=== PATIENT | female | born 1950 | race Caucasian/White ===

== ENCOUNTER 2018-11-05 13:27 | Observation (INO) | payer BC, OTHER ==
--- OUTSIDE RECORDS SUMMARY | 2018-11-05 13:29 | XMS REPORT ---
:1950 [facility] Address [address] [place] [address] [address]. [address] [place] [address] Care Team Providers Name Role Phone Unavailable Unavailable Unavailable Problems This patient has no known problems. Allergies, Adverse Reactions, Alerts This patient has no known allergies or adverse reactions. Medications This patient has no known medications.
--- NOTE | 2018-11-05 14:13 | RAD REPORT ---
EXAM DESCRIPTION: RAD - Chest Single View - 11/05/2018 2:04 pm CLINICAL HISTORY: CHEST PAIN Chest pain. COMPARISON: CHEST PA AND LAT 2 VIEW dated 06/19/2012 FINDINGS: Portable technique limits examination quality. The lungs are grossly clear. The heart is normal in size. No displaced fractures. IMPRESSION: No acute intrathoracic process suspected.
[2018-11-05 14:24] LABS: Protime INR 0.92
[2018-11-05 14:25] LABS: Absolute Lymphocytes (CBC) 1.8 K/uL (0.7-4.9); Absolute Monocytes 0.5 K/uL (0.1-1.3); Absolute Neutrophil 3.7 K/uL (1.8-8.0); Basophils % 1.1 % (0-1.3); Eosinophils % 2.9 % (0-4.4); Hematocrit 39.6 % (36.0-45.0); Lymphocytes % 28.2 % (15.3-44.8); MPV 8.6 fL (7.6-11.3); Monocytes % 8.3 % (3.3-12.3); RBC Red Blood Cell Count 4.61 M/uL (3.86-4.86)
[2018-11-05 14:37] LABS: ALT/SGPT 29 U/L (12-78); AST/SGOT 13 U/L (15-37); Albumin 3.5 g/dL (3.4-5.0); Alkaline Phosphatase 77 U/L (45-117); BUN Blood Urea Nitrogen 23 mg/dL (7-18); Bicarbonate 24 mmol/L (21-32); Bilirubin Direct < 0.1 mg/dL (0-0.2); Bilirubin Total 0.3 mg/dL (0.2-1.0); Glucose Level 135 mg/dL (74-106); NT PRO-BNP 137 pg/mL (<125); Potassium 3.8 mmol/L (3.5-5.1); Protein, Total 7.1 g/dL (6.4-8.2); Sodium Level 140 mmol/L (136-145); Troponin (Emerg Dept Use Only) < 0.02 ng/mL (0.0-0.045)
--- NOTE | 2018-11-05 15:03 | RAD REPORT ---
EXAM DESCRIPTION: CT - Head Brain Wo Cont - 11/05/2018 2:57 pm CLINICAL HISTORY: HEADACHE COMPARISON: No comparisons TECHNIQUE: All CT scans are performed using dose optimization technique as appropriate and may inclu de automated exposure control or mA/KV adjustment according to patient size. FINDINGS: No intracranial hemorrhage, hydrocephalus or extra-axial fluid collection.No areas of brai n edema or evidence of midline shift. The paranasal sinuses and mastoids are clear. The calvarium is intact. IMPRESSION: No acute intracranial abnormality.
[2018-11-05] MEDS ORDERED: PROMETHAZINE 25 MG/ML VIAL ONE (15:45)
[2018-11-05] MEDS ORDERED: FAMOTIDINE 20 MG/2 ML VIAL IV ONE (15:46)
[2018-11-05] MEDS ORDERED: MORPHINE 4 MG/ML SYR ONE (15:46)
--- NOTE | 2018-11-05 15:58 | EKG ---
Test Date: 2018-11-05 Test Time: 13:55:56 Outreach Consultant: KASANDRA MEASUREMENT RESULTS: Intervals: Rate: 68 MO: 148 QRSD: 88 QT: 426 QTc: 452 [place]: P: 53 MO: 148 QRS: 4 T: 56 INTERPRETIVE STATEMENTS: Normal sinus rhythm Normal ECG No previous ECG available for comparison Electronically Signed On 11-05-18 15:57:44 LABEL DESIGNER by Bernabe Zapata
--- NOTE | 2018-11-05 17:11 | ER ---
Nurse's Notes [facility] Name: Cherrie Diane Age: 68 yrs Sex: Female : 1950 Arrival Date: 11/05/2018 Time: 13:31 Bed 6 Private MD: Diagnosis: Chest pain, unspecified;Headache Presentation: 11/05 13:31 Presenting complaint: Patient states: headache and nausea today. Pt also reports chest aa5 pressure and left arm numbness and pain that began SUPERVISOR KENNEL. 13:31 Transition of care: patient was not received from another setting of care. Onset of aa5 symptoms was November 05, 2018. Risk Assessment: Do you want to hurt yourself or someone else? Patient reports no desire to harm self or others. Initial Sepsis Screen: Does the patient meet any 2 criteria? No. Patient's initial sepsis screen is negative. Does the patient have a suspected source of infection? No. Patient's initial sepsis screen is negative. Care prior to arrival: Medication(s) given: ASA, 81 mg, x 4, Nitroglycerin, 0.4 mg SL x 1. 13:31 Method Of Arrival: EMS: [facility] aa5 13:31 Acuity: MORIS 2 aa5 Historical: - Allergies: 13:32 Stadol; aa5 13:32 OPIOID ANALGESICS; aa5 13:32 Levaquin; aa5 13:32 Sulfa (Sulfonamide Antibiotics); aa5 - Home Meds: 13:32 mesalamine oral 800mg oral [Active]; Estradiol Oral [Active]; Ventolin Nebulizer aa5 [Active]; Omeprazole Oral [Active]; - PMHx: 13:32 None; aa5 - PSHx: 13:32 pippa knees; Hysterectomy; aa5 - Social history:: Smoking status: Patient/guardian denies using tobacco. - Ebola Screening: : No symptoms or risks identified at this time. Screenin:47 Abuse screen: Denies threats or abuse. Nutritional screening: No deficits noted. aa5 Tuberculosis screening: No symptoms or risk factors identified. Fall Risk None identified. Assessment: 13:32 General: Appears comfortable, Behavior is calm, cooperative. Pain: Complains of pain in aa5 anterior aspect of right upper chest, anterior aspect of left upper chest and mid-sternal area, and left arm Pain does not radiate. Pain currently is 7 out of 10 on a pain scale. Quality of pain is described as pressure, numb, Pain began today after 1200 Is continuous. Neuro: Level of Consciousness is awake, alert, obeys commands, Oriented to person, place, time, situation, Atg Architect are equal bilaterally Moves all extremities. Speech is normal, Facial symmetry appears normal, Pupils are PERRLA, Reports headache numbness in left arm. Cardiovascular: Heart tones S1 S2 present Rhythm is sinus rhythm. Respiratory: Airway is patent Respiratory effort is even, unlabored, Respiratory pattern is regular, symmetrical, Breath sounds are clear bilaterally. Denies cough, shortness of breath. GI: Abdomen is round non-distended, Bowel sounds present X 4 quads. Abd is soft and non tender X 4 quads. Reports nausea, Patient currently denies vomiting. : No signs and/or symptoms were reported regarding the genitourinary system. EENT: Denies nasal congestion, nasal discharge. Derm: Skin is pink, warm \T\ dry. Musculoskeletal: Range of motion: intact in all extremities. 15:15 Reassessment: Patient is alert, oriented x 3, equal unlabored respirations, skin aa5 warm/dry/pink. Pt denies chest pressure, denies left arm numbness. Pt c/o headache, reports headache has not improved, rates headache 7/10 on a pain scale at this time. Awaiting disposition at this time. . 16:01 Reassessment: Patient is alert, oriented x 3, equal unlabored respirations, skin aa5 warm/dry/pink. Patient states feeling better. Dr. Christianson notified and VO for repeat troponin received. . 17:30 Reassessment: Patient and/or family updated on plan of care and expected duration. Pain aa5 level reassessed. Patient is alert, oriented x 3, equal unlabored respirations, skin warm/dry/pink. Patient denies pain at this time. Dr. Silvestre (Hospitalist at bedside) . 17:45 Reassessment: Patient is alert, oriented x 3, equal unlabored respirations, skin aa5 warm/dry/pink. Spoke to MRI, MRI states approximately 3 hour wait time for pt's MRI to be completed, pt was notified of wait time. . 18:15 Reassessment: Pt requesting food at this time, notified and states it's okay for aa5 patient to eat at this time. Pt now sitting up in bed eating, pt tolerating well. Awaiting room assignment, awaiting MRI. . 19:40 Reassessment: Dr. Medina, principal. ([phone]) WORK cell. tl2 19:47 Reassessment: report called to Rekha GRULLON for room 206. bb Vital Signs: 13:32 BP 152 / 78; Pulse 66; Resp 18 S; Temp 98.0(O); Pulse Ox 95% on 2 lpm NC; Weight 90.72 aa5 kg (R); Height 5 ft. 6 in. (167.64 cm) (R); Pain 7/10; 14:30 BP 127 / 66; Pulse 65; Resp 16 S; Pulse Ox 97% on 2 lpm NC; aa5 15:28 BP 127 / 67; Pulse 88; Resp 18; Pulse Ox 97% on 2 lpm NC; jb1 16:01 BP 147 / 70; Pulse 64; Resp 16 S; Temp 98.6(O); Pulse Ox 98% on 2 lpm NC; Pain 0/10; aa5 18:00 BP 145 / 78; Pulse 64; Resp 16 S; Pulse Ox 95% on 2 lpm NC; aa5 19:10 BP 129 / 68; Pulse 60; Resp 17; Pulse Ox 98% 2 lpm ; rr5 13:32 Body Mass Index 32.28 (90.72 kg, 167.64 cm) aa5 ED Course: 13:31 Patient arrived in ED. em1 13:31 Arm band placed on Patient placed in an exam room, on a stretcher. aa5 13:31 Patient has correct armband on for positive identification. Placed in gown. Bed in low aa5 position. Call light in reach. Side rails up X2. 13:31 Pulse ox on. NIBP on. aa5 13:34 Tracey Lainez, MITCHEL is Primary Nurse. aa5 13:38 Cuong Christianson MD is Attending Physician. kdr 13:42 Triage completed. aa5 13:47 No provider procedures requiring assistance completed. Patient maintains SpO2 aa5 saturation greater than 95% on room air. 14:02 X-ray completed. Portable x-ray completed in exam room. Patient tolerated procedure jb2 well. 14:04 EKG done, by vehicle technician. reviewed by Cuong Christianson MD. at1 14:05 XRAY Chest (1 view) In Process Unspecified. EDMS 14:56 CT completed. Patient tolerated procedure well. Patient moved to CT via stretcher. sj Patient moved back from CT. 14:56 CT Head Brain wo Cont In Process Unspecified. EDMS 17:08 Turner Silvestre DO is Hospitalizing Provider. kdr 19:09 Report given to Diogo, RN and Lucia RN. aa5 19:48 Patient admitted, IV remains in place. bb Administered Medications: 14:14 Drug: Tylenol 1000 mg Route: PO; aa5 15:51 Follow up: Response: No adverse reaction bp 15:40 Drug: morphine 4 mg Route: IVP; Site: right antecubital; bp 16:00 Follow up: Response: No adverse reaction; Pain is decreased aa5 15:40 Drug: Phenergan 12.5 mg Route: IVP; Site: right antecubital; bp 16:00 Follow up: Response: No adverse reaction aa5 15:40 Drug: Pepcid 20 mg Route: IVP; Site: right antecubital; bp 16:00 Follow up: Response: No adverse reaction aa5 Outcome: 17:10 Decision to Hospitalize by Provider. kdr 19:48 Admitted to Tele accompanied by tech, via wheelchair, room 206, with chart, Report bb called to Rekha GRULLON 19:48 Condition: stable 20:07 Patient left the ED. rr5 Signatures: Dispatcher [employer] EDMS Carlos Newsome jb1 Cuong Christianson MD MD [facility] Ap Jackson jb2 Shilpa Powell Brenda, RN RN bb Jason Leonardo em1 Tracey Lainez RN RN aa5 Marisela Wu, foreman/project manager EKG Tat1 Lucia Campbell, RN RN tl2 Ponce Nicole, MITCHEL RN Diogo Cantrell, RN RN rr5 Corrections: (The following items were deleted from the chart) 16:08 16:01 BP 147 / 70; Pulse 64bpm; Resp 16bpm; Spontaneous; Pulse Ox 98% 2 lpm Nasal aa5 Cannula; aa5
--- NOTE | 2018-11-05 17:12 | EDPHYS ---
Physician Documentation [facility] Name: Cherrie Diane Age: 68 yrs Sex: Female : 1950 Arrival Date: 11/05/2018 Time: 13:31 Bed 6 Private MD: ED Physician Cuong Christianson HPI: 11/05 17:10 This 68 yrs old Female presents to ER via EMS with complaints of Chest Pain, kdr Arm Pain. 17:10 The patient or guardian reports chest pain that is located primarily in the anterior kdr chest wall, bilaterally, chest diffusely. Onset: suddenly, just prior to arrival, today. The pain radiates to the left arm, the left shoulder, left neck. Associated signs and symptoms: Pertinent positives: diaphoresis, headache, nausea, Pertinent negatives: dizziness, shortness of breath, vomiting. The chest pain is described as aching, dull, a heaviness, a pressure. Duration: The patient or guardian reports multiple episodes, that are intermittent, that wax and wane, with no pattern, Nearly resolved now. Modifying factors: The symptoms are alleviated by nothing. the symptoms are aggravated by nothing. Historical: - Allergies: 13:32 Stadol; aa5 13:32 OPIOID ANALGESICS; aa5 13:32 Levaquin; aa5 13:32 Sulfa (Sulfonamide Antibiotics); aa5 - Home Meds: 13:32 mesalamine oral 800mg oral [Active]; Estradiol Oral [Active]; Ventolin Nebulizer aa5 [Active]; Omeprazole Oral [Active]; - PMHx: 13:32 None; aa5 - PSHx: 13:32 pippa knees; Hysterectomy; aa5 - Social history:: Smoking status: Patient/guardian denies using tobacco. - Ebola Screening: : No symptoms or risks identified at this time. ROS: 11/06 07:27 Constitutional: Negative for fever, chills, and weight loss, Eyes: Negative for injury, kdr pain, redness, and discharge, ENT: Negative for injury, pain, and discharge, Neck: Negative for injury, pain, and swelling, Respiratory: Negative for shortness of breath, cough, wheezing, and pleuritic chest pain, Abdomen/GI: Negative for abdominal pain, nausea, vomiting, diarrhea, and constipation, Back: Negative for injury and pain, : Negative for injury, bleeding, discharge, and swelling, MS/Extremity: Negative for injury and deformity, Skin: Negative for injury, rash, and discoloration, Psych: Negative for depression, anxiety, suicide ideation, homicidal ideation, and hallucinations, Allergy/Immunology: Negative for hives, rash, and allergies, Endocrine: Negative for neck swelling, polydipsia, polyuria, polyphagia, and marked weight changes, Hematologic/Lymphatic: Negative for swollen nodes, abnormal bleeding, and unusual bruising. Cardiovascular: Positive for chest pain, Chest pain radiates into neck and head causing an associated BRAY. Neuro: Positive for headache, Negative for altered mental status, dizziness, gait disturbance, hearing loss, numbness, seizure activity, speech changes, syncope, near syncope, tingling, tinnitus, tremor, visual changes, weakness. Exam: 07:27 Constitutional: This is a well developed, well nourished patient who is awake, alert, kdr and in no acute distress. Head/Face: Normocephalic, atraumatic. Eyes: Pupils equal round and reactive to light, extra-ocular motions intact. Lids and lashes normal. Conjunctiva and sclera are non-icteric and not injected. Cornea within normal limits. Periorbital areas with no swelling, redness, or edema. Neck: Trachea midline, no thyromegaly or masses palpated, and no cervical lymphadenopathy. Supple, full range of motion without nuchal rigidity, or vertebral point tenderness. No Meningismus. Chest/axilla: Normal chest wall appearance and motion. Nontender with no deformity. No lesions are appreciated. Cardiovascular: Regular rate and rhythm with a normal S1 and S2. No gallops, murmurs, or rubs. Normal PMI, no JVD. No pulse deficits. Respiratory: Lungs have equal breath sounds bilaterally, clear to auscultation and percussion. No rales, rhonchi or wheezes noted. No increased work of breathing, no retractions or nasal flaring. Abdomen/GI: Soft, non-tender, with normal bowel sounds. No distension or tympany. No guarding or rebound. No evidence of tenderness throughout. Back: No spinal tenderness. No costovertebral tenderness. Full range of motion. Skin: Warm, dry with normal turgor. Normal color with no rashes, no lesions, and no evidence of cellulitis. MS/ Extremity: Pulses equal, no cyanosis. Neurovascular intact. Full, normal range of motion. Neuro: Awake and alert, GCS 15, oriented to person, place, time, and situation. Cranial nerves II-XII grossly intact. Motor strength 5/5 in all extremities. Sensory grossly intact. Cerebellar exam normal. Normal gait. Psych: Awake, alert, with orientation to person, place and time. Behavior, mood, and affect are within normal limits. Vital Signs: 11/05 13:32 BP 152 / 78; Pulse 66; Resp 18 S; Temp 98.0(O); Pulse Ox 95% on 2 lpm NC; Weight 90.72 aa5 kg (R); Height 5 ft. 6 in. (167.64 cm) (R); Pain 7/10; 14:30 BP 127 / 66; Pulse 65; Resp 16 S; Pulse Ox 97% on 2 lpm NC; aa5 15:28 BP 127 / 67; Pulse 88; Resp 18; Pulse Ox 97% on 2 lpm NC; jb1 16:01 BP 147 / 70; Pulse 64; Resp 16 S; Temp 98.6(O); Pulse Ox 98% on 2 lpm NC; Pain 0/10; aa5 18:00 BP 145 / 78; Pulse 64; Resp 16 S; Pulse Ox 95% on 2 lpm NC; aa5 19:10 BP 129 / 68; Pulse 60; Resp 17; Pulse Ox 98% 2 lpm ; rr5 13:32 Body Mass Index 32.28 (90.72 kg, 167.64 cm) aa5 MDM: 17:10 Patient medically screened. [facility] [address] 11/06 07:27 Data reviewed: vital signs, nurses notes, lab test result(s), EKG, radiologic studies. [facility] [address] ED course: The patient has continued to have mild CP but with marked improvement of the BRAY component. Since she has not had a cardiac w/u and her s/s continue to the suspicious, will admit for r/o. 11/05 13:38 Order name: Basic Metabolic Panel; Complete Time: 15:27 kdr 11/05 13:38 Order name: CBC with Diff; Complete Time: 15:27 kdr 11/05 13:38 Order name: LFT's; Complete Time: 15:27 [facility] [address] 11/05 13:38 Order name: Magnesium; Complete Time: 15:27 [facility] [address] 11/05 13:38 Order name: NT PRO-BNP; Complete Time: 15:27 kdr 11/05 13:38 Order name: PT-INR; Complete Time: 15:27 kdr 11/05 13:38 Order name: Troponin (emerg Dept Use Only); Complete Time: 15:27 kdr 11/05 13:38 Order name: XRAY Chest (1 view); Complete Time: 15:27 kdr 11/05 14:42 Order name: CT Head Brain wo Cont; Complete Time: 15:27 kdr 11/05 15:49 Order name: Urine Dipstick--Ancillary (enter results) em1 11/05 16:10 Order name: Troponin (emerg Dept Use Only); Complete Time: 16:55 aa5 11/05 17:05 Order name: MRI Stroke Protocol kdr 11/05 13:38 Order name: EKG; Complete Time: 13:39 kdr 11/05 13:38 Order name: Cardiac monitoring; Complete Time: 14:14 kdr 11/05 13:38 Order name: EKG - Nurse/Tech; Complete Time: 14:14 kdr 11/05 13:38 Order name: IV Saline Lock; Complete Time: 14:14 kdr 11/05 13:38 Order name: Labs collected and sent; Complete Time: 14:14 kdr 11/05 13:38 Order name: O2 Per Protocol; Complete Time: 14:14 kdr 11/05 13:38 Order name: O2 Sat Monitoring; Complete Time: 14:14 kdr Administered Medications: 11/05 14:14 Drug: Tylenol 1000 mg Route: PO; aa5 15:51 Follow up: Response: No adverse reaction bp 15:40 Drug: morphine 4 mg Route: IVP; Site: right antecubital; bp 16:00 Follow up: Response: No adverse reaction; Pain is decreased aa5 15:40 Drug: Phenergan 12.5 mg Route: IVP; Site: right antecubital; bp 16:00 Follow up: Response: No adverse reaction aa5 15:40 Drug: Pepcid 20 mg Route: IVP; Site: right antecubital; bp 16:00 Follow up: Response: No adverse reaction aa5 Disposition: 11/05/18 17:10 Hospitalization ordered by Turner Silvestre for Observation. Preliminary diagnosis are Chest pain, unspecified, Headache. - Bed requested for Telemetry/MedSurg (observation). - Status is Observation. rr5 - Condition is Fair. - Problem is new. - Symptoms have improved. UTI on Admission? No Signatures: Dispatcher [employer] EDMS Cuong Christianson MD MD kdr Martinez, Eric em1 Tracey Lainez, RN RN aa5 Ponce Nicole, RN RN bp Diogo Portillo RN RN rr5 Corrections: (The following items were deleted from the chart) 18:43 17:10 Hospitalization Ordered by Turner Silvestre DO for Observation. Preliminary em1 diagnosis is Chest pain, unspecified; Headache. Bed requested for Telemetry/MedSurg (observation). Status is Observation. Condition is Fair. Problem is new. Symptoms have improved. UTI on Admission? No. kdr 20:07 18:43 11/05/2018 17:10 Hospitalization Ordered by Turner Silvestre DO for Observation. rr5 Preliminary diagnosis is Chest pain, unspecified; Headache. Bed requested for Telemetry/MedSurg (observation). Status is Observation. Condition is Fair. Problem is new. Symptoms have improved. UTI on Admission? No. em1
--- NOTE | 2018-11-05 17:49 | P.HP ---
Certification for Inpatient Patient admitted to: Observation With expected LOS: <2 Midnights Patient will require the following post-hospital care: None Practitioner: I am a practitioner with admitting privileges, knowledge of patient current condition, hospital course, and medical plan of care. Services: Services provided to patient in accordance with Admission requirements found in Title 42 Section 412.3 of the Code of Federal Regulations Patient History Date of Service: 11/05/18 Primary Care Provider: Dr. De La Torre([facility]) Reason for admission: Chest pain, headache History of Present Illness: 68-year-old female presented to the emergency room with chest pain and headache. Patient was at work when she started to have a severe headache mainly to the left side. It radiated near her left ear and radiated down to the neck and left arm. She rated the pain about a 8/10. It was sensitive to light and noise. During that time she reported some chest pain to the anterior region with some tightness and shortness of breath. She is brought in to the ER for further evaluation. In the ER she was without any significant chest pain. She was given morphine and Phenergan. EKG showed no significant EKG changes. Troponin unremarkable x2. BNP at 137. BUN of 23, creatinine 1.28 with a GFR 51. Glucose 135. CT of the head unremarkable. Chest x-ray unremarkable. Due to her complaints the patient was admitted for further evaluation. When I saw the patient ER, she appeared stress. She did not appear septic. Friend was at bedside. Headache had improved. No more chest pain noted. Patient denies any significant hypertension, diabetes or prior cardiac issues. She reports a history of colitis and takes medication for this. Otherwise she does not smoke. She drinks on occasion. She is under a lot of stress as her partner recently was hospitalized. 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 She has 2 children. 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 - Family History Father -: Cancer Mother -: Other (see notes) (CHF) - Social History Smoking Status: Never smoker Alcohol use: Yes CD- Drugs: No Caffeine use: Yes Place of Residence: Home Review of Systems General: As per HPI Eyes: Unremarkable ENT: Unremarkable Respiratory: Shortness of Breath, As per HPI Cardiovascular: Chest Pain, Light Headedness, As per HPI Gastrointestinal: Unremarkable Genitourinary: Unremarkable Musculoskeletal: Unremarkable Integumentary: Unremarkable Neurological: As per HPI Lymphatics: Unremarkable Physical Examination - Physical Exam General: Alert, In no apparent distress, Oriented x3, Cooperative HEENT: Atraumatic, Normocephalic, PERRLA, Other (Mucous membranes) Neck: Supple, No Thyromegaly Respiratory: Clear to auscultation bilaterally, Normal air movement Cardiovascular: Normal pulses, Regular rate/rhythm Gastrointestinal: Normal bowel sounds, Soft and benign, Non-distended, No tenderness, No masses, No rebound, No guarding Musculoskeletal: No erythema, No tenderness, No warmth Integumentary: No tenderness/swelling, No erythema, No warmth, No cyanosis Neurological: Normal speech, Normal strength at 5/5 x4 extr, Normal tone, Abnormal affect (Patient appears mildly stressed) - Studies Laboratory Data (last 24 hrs) 11/05/18 13:40: PT 10.9, INR 0.92 11/05/18 13:40: WBC 6.3, Hgb 13.4, Hct 39.6, Plt Count 277 11/05/18 13:40: Sodium 140, Potassium 3.8, BUN 23 H, Creatinine 1.08, Glucose 135 H, Magnesium 2.0, Total Bilirubin 0.3, AST 13 L, ALT 29, Alkaline Phosphatase 77 Assessment and Plan - Plan Impression: Atypical chest pain Severe headache likely migraine type verses tension headache Increased stress Mild dehydration Plan: Patient will be admitted for further evaluation. Will continue to monitor cardiac enzymes and telemetry. So far cardiac enzymes x2 negative. Will order echocardiogram to further evaluate. Will also order cardiac stress test tomorrow. Cardiology consulted for further recommendation. Patient to have stroke protocol MRI and carotid Doppler due to the headache. Will discuss case with neurology. Will provide medication for pain/headache. Will start aspirin, DVT prophylaxis and Lipitor. Will monitor closely. Will continue with IV fluids. Will continue to reassess. Will provide medication for anxiety. Suspect migraine type headache with increased stress. Will continue to monitor closely. Discharge Plan: Home Plan to discharge in: 24 Hours - Advance Directives Does patient have a Living Will: No Does patient have a Durable POA for Healthcare: No - Code Status/Comfort Care Code Status Assessed: Yes (Patient is full code.) Time Spent Managing Pts Care (In Minutes): 55
[2018-11-05 19:17] LABS: Urine Blood NEGATIVE (NEG); Urine Glucose NEGATIVE (NEG); Urine Protein NEGATIVE (NEG); Urine Specific Gravity 1.015 (1.005-1.030)
[2018-11-05] MEDS ORDERED: HYDROCODONE/APAP 7.5/325 MG TAB PO PRN (20:02)
[2018-11-05] MEDS ORDERED: ACETAMINOPHEN 500 MG TAB PO PRN (20:02)
[2018-11-05] MEDS ORDERED: ONDANSETRON 4 MG/2 ML VIAL IV PRN (20:02)
[2018-11-05] MEDS ORDERED: ALPRAZOLAM 0.25 MG TABLET PO PRN (20:02)
[2018-11-05] MEDS ORDERED: ATORVASTATIN 40 MG TAB PO SCH (21:00)
[2018-11-05] MEDS: TRAMADOL HCL 50 MG TAB PO PRN (22:55)
[2018-11-05] MEDS: FAMOTIDINE 20 MG TAB PO SCH (22:56)
[2018-11-05] MEDS: NA CHLORIDE 0.9% 1,000 ML IV SCH (22:57)
[2018-11-05 23:02] LABS: CKMB Creatine Kinase MB 3.4 ng/mL (0.3-3.6); Creatine Phosphokinase 265 U/L (26-192); Troponin I < 0.02 ng/mL (0.0-0.045)
[2018-11-05 23:22] LABS: Thyroid Stimulating Hormone 4.53 uIU/mL (0.360-3.740)
[2018-11-06 06:56] LABS: Absolute Monocytes 0.7 K/uL (0.1-1.3); Absolute Neutrophil 3.9 K/uL (1.8-8.0); Basophils % 1.1 % (0-1.3); Eosinophils % 2.9 % (0-4.4); Hematocrit 37.7 % (36.0-45.0); Lymphocytes % 29.2 % (15.3-44.8); MPV 8.6 fL (7.6-11.3); RBC Red Blood Cell Count 4.39 M/uL (3.86-4.86)
[2018-11-06 07:13] LABS: BUN Blood Urea Nitrogen 25 mg/dL (7-18); Bicarbonate 28 mmol/L (21-32); CKMB Creatine Kinase MB 2.4 ng/mL (0.3-3.6); Creatine Phosphokinase 226 U/L (26-192); Glucose Level 104 mg/dL (74-106); HDL Cholesterol 50 mg/dL (40-60); LDL Cholesterol, Calculated 85 (<130); Potassium 4.3 mmol/L (3.5-5.1); Sodium Level 143 mmol/L (136-145); Troponin I < 0.02 ng/mL (0.0-0.045)
[2018-11-06] MEDS ORDERED: REGADENOSON 0.4 MG/5 ML SYR IV ONE (07:54)
--- NOTE | 2018-11-06 07:54 | RAD REPORT ---
EXAM DESCRIPTION: US - CP - 11/05/2018 9:49 pm CLINICAL HISTORY: Headache, chest pain, syncope COMPARISON: None. TECHNIQUE: Real-time sonographic evaluation of both carotid systems was performed. Ron scale and Do ppler interrogation were performed with waveform tracing bilaterally. FINDINGS: Normal high resistance waveforms are noted in both external carotid arteries. The common c arotid arteries and internal carotid arteries show normal low resistance waveforms. No significant plaque formation is seen. Peak systolic and end diastolic velocity values and the ICA/ CCA ratios are in the non-hemodynamically significant range. Antegrade flow seen in both vertebral arteries. Velocity values and ratios were recorded and are retained in the patient's imaging records. IMPRESSION: No significant atherosclerotic changes noted. No evidence of a hemodynamically significant stenosis.
[2018-11-06] MEDS ORDERED: ESTRADIOL PO SCH (09:00)
[2018-11-06] MEDS ORDERED: MESALAMINE PO SCH (09:00)
[2018-11-06] MEDS ORDERED: ASPIRIN EC 81 MG TAB PO SCH (09:00)
[2018-11-06] MEDS ORDERED: ENOXAPARIN 40 MG/0.4 ML SQ SCH (09:00)
[2018-11-06] MEDS: NA CHLORIDE 0.9% 1,000 ML IV SCH (09:22)
[2018-11-06] MEDS: FAMOTIDINE 20 MG TAB PO SCH (09:42)
--- NOTE | 2018-11-06 09:46 | RAD REPORT ---
EXAM DESCRIPTION: NM - Rest Stress Cardiac Imaging - 11/06/2018 9:39 am CLINICAL HISTORY: Chest pain COMPARISON: None. TECHNIQUE: The patient was administered approximately 10 mCi of Tc 99m Sestamibi prior to resting SP ECT imaging of the heart. The patient was then administered approximately 30 mCi of Tc 99m Sestamibi following exercise or pharmacologic stress. Multiplanar SPECT images were reviewed. FINDINGS: The end diastolic volume is 77 ml, the end systolic volume is 28 ml, and the ejection frac tion is 63 %. No stress-induced ischemia identified. Subtle decrease in activity anterior wall near the apex is not suspicious for stress ischemia. This finding is not substantially different between rest and stress imaging. IMPRESSION: No stress induced ischemia or other suspicious findings. Ventricular volumes and ejection fraction are normal range.
[2018-11-06 10:03] LABS: Urine Appearance CLOUDY; Urine Bilirubin NEGATIVE (NEG); Urine Blood NEGATIVE (NEG); Urine Color YELLOW; Urine Glucose NEGATIVE (NEG); Urine Protein NEGATIVE (NEG); Urine Urobilinogen 0.2 mg/dL (0.2-1.0); Urine pH 5.5 (5.0-7.0)
[2018-11-06 10:04] LABS: Urine Microscopic Reflex ORDER UMIC
[2018-11-06 10:13] LABS: Urine Bacteria >50 /HPF (<20); Urine Culture Reflex Order REFLEXED; Urine RBC <5 /HPF (NONE SEEN)
--- NOTE | 2018-11-06 10:20 | TREADPHA ---
DX: CHEST PAIN Date of Study: 11/06/2018 Ht: 5 6 Wt: 202 lb 3 oz Consulting Physician: DR. RODRIGUEZ MEDICATIONS: TYLENOL, XANAX, ASA, LIPITOR, LOVENOX, PEPCID, NORCO, ZOFRAN, ULTRAM HISTORY: 68 YEAR OLD FEMALE WITH HISTORY OF CHRONIC OBSTRUCTIVE PULMONARY DISEASE, GASTROESPHOGEAL REFLUX DISEASE, AND CHEST PAIN. PHYSICIAL EXAMINATION: RESTING B.P.: 122/68 RESTING H.R.: 59 RESTING EKG: NORMAL PROTOCOL: LEXISCAN EXERCISE TIME: 3:30 B.P. AT [place]AK STRESS: 127/76 IMPRESSION: LEXISCAN INJECTED, FOLLOWED BY CARDIOLITE PER PROTOCOL. SEE NUCLEAR MEDICINE REPORT. NO SUPRAVENTRICULAR TACHYCARDIA, NO VENTRICULAR TACHYCARDIA, NO PREMATURE ATRIAL COMPLEXES, NO PREMATURE VENTRICULAR COMPLEXES. PATIENT REPORTED NO CHEST PAIN, OR CHEST TIGHTNESS THROUGHTOUT THE PROCEDURE. PATIENT REPORTED SLIGHT CHEST TIGHTNESS IN RECOVERY, BUT SYMPTOMS QUICKLY PASSED.
[2018-11-06] MEDS: TRAMADOL HCL 50 MG TAB PO PRN (10:28)
--- NOTE | 2018-11-06 11:51 | RAD REPORT ---
EXAM DESCRIPTION: MRI - Brain W/Wo Cont - 11/05/2018 9:18 pm CLINICAL HISTORY: Headache, neck pain, left arm numbness COMPARISON: CT head November 05 TECHNIQUE: Sagittal and axial T1-weighted images were obtained. Axial PD/heavily T2-weighted and T2- FLAIR images were obtained along with axial DWI/ADC mapping sequences. Axial and coronal post-contras t T1-weighted images were also obtained. A 20 milliliter MultiHance contrast volume was utilized. FINDINGS: No intracranial hemorrhage, mass or acute infarction. There is no edema or shift of midlin e structures. No extra-axial fluid collections. Ron-matter/white matter junction is preserved. Signa l voids are seen as a normal finding in the major intracranial vessels. No measurable atrophy or chronic ischemic change. Globes and orbital contents are normal. Post-contrast images show normal enhancement. No dural thickening. Mastoid air cells and paranasal sinuses are clear. IMPRESSION: Negative contrast enhanced MRI of the Brain.
--- NOTE | 2018-11-06 11:54 | RAD REPORT ---
EXAM DESCRIPTION: MRI - MRA Head Wo Cont - 11/05/2018 9:18 pm CLINICAL HISTORY: Headache, neck pain, left arm numbness COMPARISON: None. TECHNIQUE: Axial and coronal 3D [id number] image acquisition was performed. 3D rotational images were generated with source and reconstruction images reviewed. Horizontal and vertical axis rotation al views generated using MIP protocol. FINDINGS: Major venous sinuses are patent. No aneurysm or vascular malformation identified. No measu rable atherosclerotic changes. Anterior communicating and both posterior communicating arteries are p resent. Left posterior cerebral artery is supplied primarily from the posterior communicating artery. IMPRESSION: MRA head examination showing no significant or suspicious finding.
--- NOTE | 2018-11-06 11:58 | RAD REPORT ---
EXAM DESCRIPTION: MRI - MRA Neck W/Wo Cont - 11/05/2018 9:18 pm CLINICAL HISTORY: Headache, neck pain, left arm weakness TECHNIQUE: MR angiography of the cervical vasculature performed. Coronal imaging plane acquisition u tilized. A MultiHance contrast volume was utilized. Coronal reformatted images were generated and re viewed. Vertical axis 3D rotational projections obtained using maximum intensity projection protocol. FINDINGS: No significant finding at the aortic arch. Common carotid artery's are tortuous but otherw ise unremarkable. No carotid dissection or stenosis. Vertebral artery origins are poorly visualized d ue to technical factors. Right vertebral artery is dominant. A very small distal left vertebral arter y is seen as a normal variant. IMPRESSION: MRA neck examination showing no dissection, stenosis or significant finding. Limited visualization of each proximal internal carotid artery is believed to be technical an HR rath er than vertebral artery disease.
--- NOTE | 2018-11-06 12:28 | ECHO ---
HEIGHT: 5 ft 6 in WEIGHT: 202 lb 3 oz DATE OF STUDY: 11/06/[address]: Turner Silvestre DO 2-DIMENSIONAL: YES M.MODE: YES DOPPLER: YES COLOR FLOW: YES TDS: NO PORTABLE: NO DEFINITY: NO BUBBLE STUDY: NO DIAGNOSIS: CHEST PAIN CARDIAC HISTORY: CATHERIZATION: NO SURGERY: NO PROSTHETIC VALVE: NO PACEMAKER: NO MEASUREMENTS (cm) DIASTOLIC (NORMALS) SYSTOLIC (NORMALS) IVSd 0.8 (0.6-1.2) LA Diam 3.2 (1.9-4.0) LVEF 68% LVIDd 4.8 (3.5-5.7) LVIDs 3.0 (2.0-3.5) %FS 38% LVPWd 0.9 (0.6-1.2) Ao Diam 2.7 (2.0-3.7) 2 DIMENSIONAL ASSESSMENT: RIGHT ATRIUM: NORMAL LEFT ATRIUM: NORMAL RIGHT VENTRICLE: NORMAL LEFT VENTRICLE: NORMAL TRICUSPID VALVE: NORMAL MITRAL VALVE: NORMAL PULMONIC VALVE: NORMAL AORTIC VALVE: NORMAL PERICARDIAL EFFUSION: NONE AORTIC ROOT: NORMAL LEFT VENTRICULAR WALL MOTION: NORMAL DOPPLER/COLOR FLOW: NORMAL COMMENTS: NORMAL 2D ECHOCARDIOGRAM WITH DOPPLER. NO WALL MOTION ABNORMALITY. NO EFFUSION. TECHNOLOGIST: Ciara PERLA
--- NOTE | 2018-11-06 12:39 | CON ---
Date of Consultation: 11/06/2018 The patient admitted on 11/05/[address] Silvestre' service. I saw the patient on 11/06/2018. Reason For Consultation: Chest pain. History Of Present Illness: Ms. Diane is a 68-year-old woman. Never had any cardiac history before. Has a history of COPD and gastroesophageal reflux disease for which she takes an in haler and Prilosec. 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 While she was working yesterday, she developed severe he adache, posterior neck pain, confusion, left arm pain and left arm numbness, atypical sharp chest jame n in the upper left chest. Had diaphoresis. Denied any nausea or vomiting. Denied any PND, orthopn ea, pedal edema, palpitations, or syncope. Her symptoms have resolved. She also complained of her l eft eye being slightly blurry when this was going on. She describes her eye as feeling wet. Past Medical History: As stated above. Allergies: SHE IS ALLERGIC TO STADOL, OPIATES, SULFA, AND LEVAQUIN. Review of Systems: Negative. Social History: Negative for tobacco, alcohol, or drugs. Family History: Noncontributory. Medications: At home include inhalers and Prilosec. Physical Examination: Vital Signs: Stable. She was afebrile. HEENT: Negative. Neck: Supple without any bruit, lymphadenopathy, JVD, or thyromegaly. Chest: Cleared to auscultation and percussion. Cardiac: Revealed a regular rhythm and rate. No murmurs, gallops, or rubs. Abdomen: Benign. Extremities: Revealed no clubbing, cyanosis, or edema. Pulses were equal bilaterally. Skin: Dry and intact. Neurological: She was nonfocal. Diagnostic Data: She had a normal chest x-ray, normal EKG, normal CT of her head. Carotid Doppler, MRI and MRA are pending. Laboratory evaluation was negative. An echocardiogram is pending. Impression And Plan: I feel that Ms. Diane probably had a TIA with eye symptoms, left arm symptoms, numbness, confusion, headache. We will see what the Echo, carotid MRI and MRA show. She does take an aspirin on a daily basis. I think if everything turns out normal, we should consider adding Plavi x. I do not think she needs a Lexiscan at this point. We can always do that as an outpatient. I do not think we are dealing with an acute coronary syndrome. I will discuss the case further with Dr. Silvestre. NICHOLE/JOSEPH Voice ID: [id number] Report ID: [id number]
--- NOTE | 2018-11-06 13:24 | P.DS ---
Admission Date: 11/05/18 Discharge Date: 11/06/18 Primary Care Provider: Dr. De La Torre([facility]) Disposition: ROUTINE DISCHARGE Discharge Condition: GOOD Reason for Admission: Chest pain, headache Consultations: Cardiology-Dr. Naqvi Neurology-Dr. Gerard Procedures: ECHO: EF 68% LEFT VENTRICULAR WALL MOTION: NORMAL DOPPLER/COLOR FLOW: NORMAL COMMENTS: NORMAL 2D ECHOCARDIOGRAM WITH DOPPLER. NO WALL MOTION ABNORMALITY. NO EFFUSION. Carotid doppler: COMPARISON: None. TECHNIQUE: Real-time sonographic evaluation of both carotid systems was performed. Ron scale and Doppler interrogation were performed with waveform tracing bilaterally. FINDINGS: Normal high resistance waveforms are noted in both external carotid arteries. The common carotid arteries and internal carotid arteries show normal low resistance waveforms. No significant plaque formation is seen. Peak systolic and end diastolic velocity values and the ICA/CCA ratios are in the non-hemodynamically significant range. Antegrade flow seen in both vertebral arteries. Velocity values and ratios were recorded and are retained in the patient's imaging records. IMPRESSION: No significant atherosclerotic changes noted. No evidence of a hemodynamically significant stenosis. MRI Brain: COMPARISON: CT head November 05 TECHNIQUE: Sagittal and axial T1-weighted images were obtained. Axial PD/ heavily T2-weighted and T2-FLAIR images were obtained along with axial DWI/ADC mapping sequences. Axial and coronal post-contrast T1-weighted images were also obtained. A 20 milliliter MultiHance contrast volume was utilized. FINDINGS: No intracranial hemorrhage, mass or acute infarction. There is no edema or shift of midline structures. No extra-axial fluid collections. Ron- matter/white matter junction is preserved. Signal voids are seen as a normal finding in the major intracranial vessels. No measurable atrophy or chronic ischemic change. Globes and orbital contents are normal. Post-contrast images show normal enhancement. No dural thickening. Mastoid air cells and paranasal sinuses are clear. IMPRESSION: Negative contrast enhanced MRI of the Brain. MRI/MRA Brain: COMPARISON: None. TECHNIQUE: Axial and coronal 3D [id number] image acquisition was performed. 3D rotational images were generated with source and reconstruction images reviewed. Horizontal and vertical axis rotational views generated using MIP protocol. FINDINGS: Major venous sinuses are patent. No aneurysm or vascular malformation identified. No measurable atherosclerotic changes. Anterior communicating and both posterior communicating arteries are present. Left posterior cerebral artery is supplied primarily from the posterior communicating artery. IMPRESSION: MRA head examination showing no significant or suspicious finding. Neck MRA: FINDINGS: No significant finding at the aortic arch. Common carotid artery's are tortuous but otherwise unremarkable. No carotid dissection or stenosis. Vertebral artery origins are poorly visualized due to technical factors. Right vertebral artery is dominant. A very small distal left vertebral artery is seen as a normal variant. IMPRESSION: MRA neck examination showing no dissection, stenosis or significant finding. Limited visualization of each proximal internal carotid artery is believed to be technical an HR rather than vertebral artery disease. Cardiac Stress Test: SPECT imaging of the heart. The patient was then administered approximately 30 mCi of Tc 99m Sestamibi following exercise or pharmacologic stress. Multiplanar SPECT images were reviewed. FINDINGS: The end diastolic volume is 77 ml, the end systolic volume is 28 ml, and the ejection fraction is 63 %. No stress-induced ischemia identified. Subtle decrease in activity anterior wall near the apex is not suspicious for stress ischemia. This finding is not substantially different between rest and stress imaging. IMPRESSION: No stress induced ischemia or other suspicious findings. Ventricular volumes and ejection fraction are normal range. Medical problem list: Atypical chest pain Severe headache likely migraine type verses tension headache Increased stress Mild dehydration Brief History of Present Illness: 68-year-old female presented to the emergency room with chest pain and headache. Patient was at work when she started to have a severe headache mainly to the left side. It radiated near her left ear and radiated down to the neck and left arm. She rated the pain about a 8/10. It was sensitive to light and noise. During that time she reported some chest pain to the anterior region with some tightness and shortness of breath. She is brought in to the ER for further evaluation. In the ER she was without any significant chest pain. She was given morphine and Phenergan. EKG showed no significant EKG changes. Troponin unremarkable x2. BNP at 137. BUN of 23, creatinine 1.28 with a GFR 51. Glucose 135. CT of the head unremarkable. Chest x-ray unremarkable. Due to her complaints the patient was admitted for further evaluation. When I saw the patient ER, she appeared stress. She did not appear septic. Friend was at bedside. Headache had improved. No more chest pain noted. Patient denies any significant hypertension, diabetes or prior cardiac issues. She reports a history of colitis and takes medication for this. Otherwise she does not smoke. She drinks on occasion. She is under a lot of stress as her partner recently was hospitalized. Hospital Course: Patient presented with headache to the left side with photophobia and agitation to noise. She also had chest pain. This was atypical in nature. Patient was admitted for further evaluation. Cardiac enzymes unremarkable. Patient seen and evaluated by neurology. Patient has been under a great deal of stress at home. Her partner has been hospitalized for cancer. MRI brain, MRA of brain and neck, carotid Doppler, echocardiogram, and carotid stress test all were unremarkable. Patient likely with atypical chest pain related to stress and possible underlying migraine headache. Recommend to continue with aspirin 81 mg daily and folic acid 1 mg daily. Patient may take naproxen 500 mg twice daily as needed for pain. Recommend to follow up with neurology in 1-2 weeks to follow up this hospitalization. Patient may benefit with Topamax 25 mg 1 pill daily for migraine headache. This can be followed up by neurology. Recommend to follow up with her PCP to further monitor and address. If increased stress persists patient may benefit counseling. Vital Signs/Physical Exam: Temp Pulse Resp BP Pulse Ox 97.3 F 56 16 141/63 H 95 11/06/18 08:00 11/06/18 08:00 11/06/18 08:00 11/06/18 08:00 11/06/18 08:00 General: Alert, In no apparent distress, Oriented x3, Cooperative HEENT: Atraumatic, Normocephalic, Mucous membr. moist/pink Neck: Supple Respiratory: Clear to auscultation bilaterally, Normal air movement Cardiovascular: Normal pulses, Regular rate/rhythm Gastrointestinal: Normal bowel sounds, Soft and benign, Non-distended, No ascites, No tenderness, No masses, No rebound, No guarding Musculoskeletal: No erythema, No tenderness, No warmth Integumentary: No tenderness/swelling, No erythema, No warmth, No cyanosis Neurological: Normal speech, Normal strength at 5/5 x4 extr, Normal tone, Normal affect Laboratory Data at Discharge: WBC 6.8 K/uL (4.3-10.9) 11/06/18 05:55 Hgb 13.0 g/dL (12.0-15.0) 11/06/18 05:55 Hct 37.7 % (36.0-45.0) 11/06/18 05:55 Plt Count 265 K/uL (152-406) 11/06/18 05:55 PT 10.9 SECONDS (9.5-12.5) 11/05/18 13:40 INR 0.92 11/05/18 13:40 Sodium 143 mmol/L (136-145) 11/06/18 05:55 Potassium 4.3 mmol/L (3.5-5.1) 11/06/18 05:55 BUN 25 mg/dL (7-18) H 11/06/18 05:55 Creatinine 0.95 mg/dL (0.55-1.3) 11/06/18 05:55 Glucose 104 mg/dL (74-106) 11/06/18 05:55 Magnesium 2.0 mg/dL (1.8-2.4) 11/06/18 05:55 Total Bilirubin 0.3 mg/dL (0.2-1.0) 11/05/18 13:40 AST 13 U/L (15-37) L 11/05/18 13:40 ALT 29 U/L (12-78) 11/05/18 13:40 Alkaline Phosphatase 77 U/L (45-117) 11/05/18 13:40 Troponin I < 0.02 ng/mL (0.0-0.045) 11/06/18 05:55 Triglycerides 207 mg/dL (<150) H 11/06/18 05:55 Cholesterol 176 mg/dL (<200) 11/06/18 05:55 HDL Cholesterol 50 mg/dL (40-60) 11/06/18 05:55 Cholesterol/HDL Ratio 3.52 11/06/18 05:55 Home Medications: Estradiol [Estrace] 1 tab PO DAILY 11/05/18 Mesalamine 1 cap PO TID 11/05/18 Omeprazole [Prilosec] 1 cap PO DAILY 11/05/18 ALPRAZolam [Xanax] 0.25 mg PO BID PRN #10 tab 11/06/18 Aspirin [Aspirin EC 81 MG] 81 mg PO DAILY #90 tablet. 11/06/18 Folic Acid 1 mg PO DAILY #90 tablet 11/06/18 Topiramate [Topamax] 25 mg PO DAILY #30 tab 11/06/18 New Medications: ALPRAZolam [Xanax] 0.25 mg PO BID PRN #10 tab PRN Reason: Anxiety Aspirin [Aspirin EC 81 MG] 81 mg PO DAILY #90 tablet. Folic Acid 1 mg PO DAILY #90 tablet Topiramate [Topamax] 25 mg PO DAILY #30 tab Patient Discharge Instructions: 1. Recommend to follow up with PCP in 1 week to follow up this hospitalization. 2. Patient presented with headache to the left side with photophobia and agitation to noise. She also had chest pain. This was atypical in nature. Patient was admitted for further evaluation. Cardiac enzymes unremarkable. Patient seen and evaluated by neurology. Patient has been under a great deal of stress at home. Her partner has been hospitalized for cancer. MRI brain, MRA of brain and neck, carotid Doppler, echocardiogram, and carotid stress test all were unremarkable. Patient likely with atypical chest pain related to stress and possible underlying migraine headache. Recommend to continue with aspirin 81 mg daily and folic acid 1 mg daily. Patient may take naproxen 500 mg twice daily as needed for pain. Recommend to follow up with neurology in 1-2 weeks to follow up this hospitalization. Patient may benefit with Topamax 25 mg 1 pill daily for migraine headache. This can be followed up by neurology. Recommend to follow up with her PCP to further monitor and address. If increased stress persists patient may benefit counseling. Diet: AHA Activity: Ad shantell Time spent managing pt's care (in minutes): 55
[2018-11-06] MEDS ORDERED: MESALAMINE 400 MG CAPSULE.DR PO SCH (14:00)
[2018-11-06] MEDS ORDERED: NAPROXEN 250 MG TAB PO ONE (15:00)
== END 2018-11-06 16:00 | disposition home or self-care (01) ==
LOC: ER 13:27 → ERHOLD 17:34 → 2ND 19:49
PROVIDERS: ADMIT Family Medicine; ATTEND Family Medicine
DX: R07.89 Other chest pain (principal); R51 Headache; Z73.3 Stress, not elsewhere classified; Z88.2 Allergy status to sulfonamides; Z96.659 Presence of unspecified artificial knee joint
CPT/HCPCS: 36415; 70450; 70544; 70549; 70553; 71045; 78452; 80048; 80061; 80076; 81003; 81015; 82550; 82553; 83735; 83880; 84439; 84443; 84484; 85025; 85610; 87077; 87086; 87088; 87186; 93005; 93017; 93306; 93880; 96374; 96375; 97161; 99285; A9500; A9577; G0378; J1650; J2405; J2550; J2785; J7030

== ENCOUNTER → 2023-11-22 | Emergency (ER) | payer BC, OTHER ==
[~2023-11-22] MED LIST: NA CHLORIDE 0.9% 500 ML ONE
--- OUTSIDE RECORDS SUMMARY | 2023-11-22 14:33 | XMS REPORT | Continuity of Care Document ---
Author Name Unknown Address [address] [facility] [address]. [address] [place] [address] [facility] thconnect Address [address] [facility]. [address] [place] [address] Care Team Providers Care Housing Quality Standard Inspector Name Role Phone Chiara Aguayo Primary Care Physician + [phone] Joshua Acosta Attending Clinician Unavailable CHIARA MAZA Attending Clinician Unavailable NOÉ MALIK Attending Clinician NOÉ Ibarra Attending Clinician VASILE Campbell Attending Clinician Unavailable Luis Eduardo Gamboa RN Attending Clinician Unavailab nga Benson MD, [place] Attending Clinician [phone] IGNACIO GERARDO Attending Clinician Unavailab IGNACIO Fontana Attending Clinician Unavailab nga Doctor Unassigned, [place] Attending Clinician Chiara Davis Attending Clinician [phone] HEATHER ERWIN Attending Clinician UnavailHEATHER Mcelroy Attending Clinician UnavailHeather Mcelroy MD Attending Clinician [phone] Katerina Coughlin LCSW Attending Clinician [phone], [facility] Attending Clinician Unavailable GC_GCBMT_Berdayes_M Attending Clinician Unavaila ble Yan_W Attending Clinician Unavailable BUNDYSTACEY CHAMBERS Attending Clinician Unavailable BundyStacey Duncan Attending Clinician + [phone] Mariana MERRITT, González K Attending Clinician [phone] Bismarkwgabbi, Domi R Attending Clinician Unavailjeferson kathleen Jim, Lizj Attending Clinician Unavailable Mamie De La Torre MD Attending Clinician [phone] Neptali Dillon MD Attending Clinician [phone] NEPTALI DILLON Attending Clinician Unavailable Bao Cabral MD Attending Clinician [phone] BAO CABRAL Attending Clinician Unavailable Andrzej MERRITT, Ebenezer Attending Clinician [phone] PAUL MELENDEZ Attending Clinician Unavailable Peck Meli BRIONES Attending Clinician Unavailab Ponce Javed MD Attending Clinician [phone] MAMIE DE LA TORRE Attending Clinician Unavailable PONCE ANGEL Attending Clinician Unavailable Hilario MERRITT, Andreina Gonzalez Attending Clinician +[phone] Scott Collado MD Attending Clinician [phone] Alpa King PTA Attending Clinic crescencio Unavailable Ysabel Guerrero MD Attending Clinician +[phone] Evi Ken MD Attending Clinician [phone] Unknown, Attending Attending Clinician Unavailab nga ISABEL, ATTENDING Attending Clinician Unavailab nga Dietrich RN, Kera Attending Clinician Unavailable Edie PT, Nayely S Attending Clinician Alexis diamond Pcp-Lab Attending Clinician Unavailable Flor Saxena MD Attending Clinician +- [phone] Jason Delvalle MD Attending Clinician [phone] Paul Melendez MD Attending Clinician +[phone] Barbara Vinson MD Attending Clinician + [phone] Katerina Zuluaga MD Attending Clinician [phone] KATERINA ZULUAGA Attending Clinician Unavail able YSABEL GUERRERO Attending Clinician Unavailable Provider, Pcp Fm Acute Attending Clinician Jared Yost MD, Santino Gonzalez Attending Clinician [phone] Pcp, Medicare Wellness Gal Fm Attending Clinicia rosalba Unavailable Rut MERRITT, Peter Ponce Attending Cli lyndon Unavailable Evangelista MERRITT, Agustín Attending Clinician [phone] Paco RN, Juany Attending Clinician UnavailSHEYLA Gallardo Attending Clinician Unavailable Only, Pcp Test Attending Clinician Unavailable Saad MERRITT, Sheyla Garcia Attending Clinician [phone] Faculty, Vascular Surg Attending Clinician Jared Melendez MD, Toni Ruiz Attending Clinician [phone] Missy MERRITT, Flor Attending Clinician [phone] FLOR LOUIS Attending Clinician Unavailjeferson Melendez MD, Amber Bustos Attending Clinician [phone], [facility] Rm Attending Clinician Unavailable Physician, No Primary or Family Admitting Clinic crescencio Unavailable GC_GCBMT_Berdayes_M Admitting Clinician Unavaila ble Yan_W Admitting Clinician Unavailable STACEY BUNDY Admitting Clinician Unavailable Joshua Acosta Admitting Clinician Unavailable Domi Barry Admitting Clinician Unavailjeferson kathleen Payers Payer Name Policy Type Policy Number Effective Date Expirati on Date Source [employer] [place] PL[employer] CLASSIC/VALUE [id number] 2020 00:00:00 CONTINENTAL BENEFITS [id number] 2019 00:00:00 [employer] DUAL ACCESS OPEN PPO [id number] 2023 00:00:[place] [id number] 2015 00:00:00 MEDICARE PART A \\T\\ B [id number] 2017 00:00:00 [employer] INDEMNITY [id number] 2020 00:00:00 Problems Condition Name Condition Details Condition Category Status Onset Date Resolution Date Last Treatment Date Treating Clinician Comments Source At risk for falls At risk for falls Disease Active 11-03 00:00: 00 [facility] Unspecifie d abnormalit ies of gait and mobility Unspecifie d abnormalit ies of gait and mobility Disease Active 3-04 00:00: 00 [facility] Weakness of left hip Weakness of left hip Disease Active 2019-09 00:00: 00 [facility] Abdominal weakness Abdominal weakness Disease Active 2019-09 00:00: 00 [facility] Gait abnormalit y Gait abnormalit y Disease Active 2019-09 00:00: 00 [facility] Poor posture Poor posture Disease Active 2019-09 00:00: 00 [facility] Midline low back pain Midline low back pain Disease Active 2019-09 00:00: 00 [facility] Limited joint range of motion (ROM) Limited joint range of motion (ROM) Disease Active 2019-09 00:00: 00 [facility] Venous insufficie ncy Venous insufficie ncy Disease Active 911 00:00: 00 Overview: Formattin g of this note might be different from the original. Added automatic ally from request for surgery [id number] [facility] Dysphagia, pharyngoes ophageal phase Dysphagia, pharyngoes ophageal phase Disease Active 2017-09 00:00: 00 Overview: Formattin g of this note might be different from the original. Added automatic ally from request for surgery [id number] [facility] Gastroesop hageal reflux disease, esophagiti s presence not specified Gastroesop hageal reflux disease, esophagiti s presence not specified Disease Active 2017-09 00:00: 00 Overview: Formattin g of this note might be different from the original. Added automatic ally from request for surgery [id number] [facility] Black stool Black stool Disease Active 2017-09 00:00: 00 Overview: Formattin g of this note might be different from the original. Added automatic ally from request for surgery [id number] [facility] Collagenou s colitis Collagenou s colitis Disease Active 2017-09 00:00: 00 Overview: Formattin g of this note might be different from the original. Added automatic ally from request for surgery [id number] [facility] Special screening for malignant neoplasms, colon Special screening for malignant neoplasms, colon Disease Active 2017-09 00:00: 00 Overview: Formattin g of this note might be different from the original. Added automatic ally from request for surgery [id number] [facility] RUQ discomfort RUQ discomfort Disease Active 2017-09 00:00: 00 Overview: Formattin g of this note might be different from the original. Added automatic ally from request for surgery [id number] [facility] Cellulitis of left toe Cellulitis of left toe Disease Active 01-31 00:00: 00 [facility] Allergies, Adverse Reactions, Alerts Allergy Name Allergy Type Status Severity Reaction(s) Onset Date Inactive Date Treating Clinician Comments Source Sulfa (Sulfona mide Antibiot ics) DA Active MO HIVES 12-26 00:00: 00 [facility] butorpha nol DA Active MO HIVES 12-26 00:00: 00 [facility] levoflox acin DA Active U VOMITING 12-26 00:00: 00 [facility] CODEINE DRUG INGREDI Active N/V 09-29 00:00: 00 [facility] Codeine Propensi ty to adverse reaction s Active Unknown - See comments 09-29 00:00: 00 Stomach cramps. Patient does not take any opiates. [facility] Sulfa (Sulfona mide Antibiot ics) Propensi ty to adverse reaction s Active Anaphylaxis 03-01 00:00: 00 [facility] LEVOFLOX ACIN DRUG INGREDI Active Anaphylaxis 03-01 00:00: 00 [facility] BUTORPHA NOL TARTRATE DRUG INGREDI Active Anaphylaxis 03-01 00:00: 00 [facility] SULFA (SULFONA MIDE ANTIBIOT ICS) Drug Class Active Anaphylaxis 03-01 00:00: 00 [facility] Levoflox acin Propensi ty to adverse reaction s Active Anaphylaxis 03-01 00:00: 00 [facility] Butorpha nol Tartrate Propensi ty to adverse reaction s Active Anaphylaxis 03-01 00:00: 00 [facility] Social History Social Habit Start Date Stop Date Quantity Comments [facility] 2023-11-21 00:00:00 2023-11-21 00:00:00 .14 /d [facility] Exposure to SARS-CoV-2 (event) 2021-04-02 00:00:00 2021-05-02 12:45:00 Not sure [facility] History of Social function 2021-04-14 00:00:00 2021-04-14 00:00:00 [facility] Tobacco use and exposure 2018-01-31 00:00:00 2018-01-31 00:00:00 Smokeless tobacco non-user [facility] Sex Assigned At 1950 00:00:00 1950 00:00:00 [facility] Smoking Status Start Date Stop Date Source Never smoked tobacco [facility] Medications Ordered Medication Name Filled Medication Name Start Date Stop Date Current Medication? Ordering Clinician Indication Dosage Frequency Signature (SIG) Comments Components Source amoxicillin -clavulanat e (AUGMENTIN) 875-125 mg per tablet 11-19 00:00: 00 Yes [id number] 1{tbl} Take 1 tablet by mouth in the morning and 1 tablet in the evening. [facility] meclizine 25 mg tablet 11-19 00:00: 00 Yes [id number] 25mg Take 1 tablet by mouth 3 (three) times daily as needed for Dizziness. [facility] amoxicillin -clavulanat e (AUGMENTIN) 875-125 mg per tablet 11-19 00:00: 00 Yes [id number] 1{tbl} Take 1 tablet by mouth in the morning and 1 tablet in the evening. [facility] meclizine 25 mg tablet 11-19 00:00: 00 Yes [id number] 25mg Take 1 tablet by mouth 3 (three) times daily as needed for Dizziness. [facility] amoxicillin -clavulanat e (AUGMENTIN) 875-125 mg per tablet 11-19 00:00: 00 Yes [id number] 1{tbl} Take 1 tablet by mouth in the morning and 1 tablet in the evening. [facility] meclizine 25 mg tablet 11-19 00:00: 00 Yes [id number] 25mg Take 1 tablet by mouth 3 (three) times daily as needed for Dizziness. [facility] amoxicillin -clavulanat e (AUGMENTIN) 875-125 mg per tablet 11-19 00:00: 00 Yes [id number] 1{tbl} Take 1 tablet by mouth in the morning and 1 tablet in the evening. [facility] meclizine 25 mg tablet 11-19 00:00: 00 Yes [id number] 25mg Take 1 tablet by mouth 3 (three) times daily as needed for Dizziness. [facility] meclizine 25 mg tablet 11-19 00:00: 00 11-19 00:00 :00 No [id number] 25mg Take 1 tablet by mouth 3 (three) times daily as needed for Dizziness. [facility] amoxicillin -clavulanat e (AUGMENTIN) 875-125 mg per tablet 11-19 00:00: 00 11-19 00:00 :00 No [id number] 1{tbl} Take 1 tablet by mouth in the morning and 1 tablet in the evening. Do all this for 7 days. [facility] triamcinolo ne acetonide (KENALOG) injection 16 mg 11-06 22:15: 00 11-06 21:15 :00 No [id number] 16mg [facility] triamcinolo ne acetonide (KENALOG) injection 16 mg 2023-11-06 22:15: 00 11-06 21:15 :00 No [id number] 16mg [facility] triamcinolo ne acetonide (KENALOG) injection 16 mg 4-11-06 22:15: 00 11-06 21:15 :00 No [id number] 16mg 16 mg, Intramuscu lar, ONCE, 1 dose, On [facility] 11/07/23 at 1615, Routine [facility] triamcinolo ne acetonide (KENALOG) injection 16 mg 11-06 22:15: 00 11-06 21:15 :00 No [id number] 16mg 16 mg, Intramuscu lar, ONCE, 1 dose, On [place] 11/07/23 at 1615, Routine [facility] triamcinolo ne acetonide (KENALOG) injection 16 mg 11-06 22:15: 00 11-06 21:15 :00 No [id number] 16mg [facility] triamcinolo ne acetonide (KENALOG) injection 16 mg 11-06 22:15: 00 11-06 21:15 :00 No [id number] 16mg [facility] triamcinolo ne acetonide (KENALOG) injection 16 mg 11-06 22:15: 00 11-06 21:15 :00 No [id number] 16mg 16 mg, Intramuscu lar, ONCE, 1 dose, On [facility] 11/07/23 at 1615, Routine [facility] triamcinolo ne acetonide (KENALOG) injection 16 mg 11-06 22:15: 00 11-06 21:15 :00 No [id number] 16mg 16 mg, Intramuscu lar, ONCE, 1 dose, On [facility] 11/07/23 at 1615, Routine [facility] cefdinir 300 mg capsule 11-06 00:00: 00 11-14 04:59 :00 Yes [id number] 300mg Take 1 capsule by mouth every 12 (twelve) hours for 7 days. [facility] cefdinir 300 mg capsule 11-06 00:00: 00 11-14 04:59 :00 Yes [id number] 300mg Take 1 capsule by mouth every 12 (twelve) hours for 7 days. [facility] cefdinir 300 mg capsule 07 00:00: 00 11-14 04:59 :00 Yes [id number] 300mg Take 1 capsule by mouth every 12 (twelve) hours for 7 days. [facility] magnesium gluconate 200 mg tablet 2023-0 11-03 11:55: 26 Yes 200mg Take 1 tablet by mouth at bedtime. [facility] magnesium gluconate 200 mg tablet 2023-0 11-03 11:55: 26 Yes 200mg Take 1 tablet by mouth at bedtime. [facility] magnesium gluconate 200 mg tablet 4-0 11-03 11:55: 26 Yes 200mg Take 1 tablet by mouth at bedtime. [facility] magnesium gluconate 200 mg tablet 4-0 11-03 11:55: 26 Yes 200mg Take 1 tablet by mouth at bedtime. [facility] magnesium gluconate 200 mg tablet 2023-0 11-03 11:55: 26 Yes 200mg Take 1 tablet by mouth at bedtime. [facility] magnesium gluconate 200 mg tablet 2023-0 11-03 11:55: 26 Yes 200mg Take 1 tablet by mouth at bedtime. [facility] magnesium gluconate 200 mg tablet 2023-0 11-03 11:55: 26 Yes 200mg Take 1 tablet by mouth at bedtime. [facility] magnesium gluconate 200 mg tablet 2023-0 11-03 11:55: 26 Yes 200mg Take 1 tablet by mouth at bedtime. [facility] magnesium gluconate 200 mg tablet 2023-0 11-03 11:55: 26 Yes 200mg Take 1 tablet by mouth at bedtime. [facility] magnesium gluconate 200 mg tablet 4-0 11-03 11:55: 26 Yes 200mg Take 1 tablet by mouth at bedtime. [facility] magnesium gluconate 200 mg tablet 4-0 11-03 11:55: 26 Yes 200mg Take 1 tablet by mouth at bedtime. [facility] magnesium gluconate 200 mg tablet 4-0 - 11:55: 26 Yes 200mg Take 1 tablet by mouth at bedtime. [facility] magnesium gluconate 200 mg tablet 4-0 11-03 11:55: 26 Yes 200mg Take 1 tablet by mouth at bedtime. [facility] magnesium gluconate 200 mg tablet 2023-0 11-03 11:55: 26 Yes 200mg Take 1 tablet by mouth at bedtime. [facility] magnesium gluconate 200 mg tablet 2023-0 11-03 11:55: 26 Yes 200mg Take 1 tablet by mouth at bedtime. [facility] magnesium gluconate 200 mg tablet 2023-0 11-03 11:55: 26 Yes 200mg Take 1 tablet by mouth at bedtime. [facility] magnesium gluconate 200 mg tablet 4-0 - 11:55: 26 Yes 200mg Take 1 tablet by mouth at bedtime. [facility] magnesium gluconate 200 mg tablet 2023-0 11-03 11:55: 26 Yes 200mg Take 1 tablet by mouth at bedtime. [facility] magnesium gluconate 200 mg tablet 2023-0 11-03 11:55: 26 Yes 200mg Take 1 tablet by mouth at bedtime. [facility] magnesium gluconate 200 mg tablet 2023-0 11-03 11:55: 26 Yes 200mg Take 1 tablet by mouth at bedtime. [facility] magnesium oxide 400 mg magnesium capsule 2023-0 11-03 11:53: 19 11-03 00:00 :00 No 1{capsu le} Take 1 capsule by mouth 2 (two) times daily. [facility] magnesium oxide 400 mg magnesium capsule 4-0 11-03 11:53: 19 11-03 00:00 :00 No 1{capsu le} Take 1 capsule by mouth 2 (two) times daily. [facility] magnesium oxide 400 mg magnesium capsule 4-0 11-03 11:53: 19 11-03 00:00 :00 No 1{capsu le} Take 1 capsule by mouth 2 (two) times daily. [facility] magnesium oxide 400 mg magnesium capsule 4-0 11-03 11:53: 19 11-03 00:00 :00 No 1{capsu le} Take 1 capsule by mouth 2 (two) times daily. [facility] amLODIPine 5 mg tablet 4-0 3-04 11:52: 13 11-03 00:00 :00 No 5mg Take 1 tablet by mouth in the morning. [facility] atorvastati n 40 mg tablet 4-0 3-04 11:52: 13 11-03 00:00 :00 No 40mg Take 1 tablet by mouth at bedtime. [facility] amLODIPine 5 mg tablet 2023-0 3-04 11:52: 13 11-03 00:00 :00 No 5mg Take 1 tablet by mouth in the morning. [facility] atorvastati n 40 mg tablet 2023-0 3-04 11:52: 11-03 00:00 :00 No 40mg Take 1 tablet by mouth at bedtime. [facility] amLODIPine 5 mg tablet 2023-0 3-04 11:52: 11-03 00:00 :00 No 5mg Take 1 tablet by mouth in the morning. [facility] atorvastati n 40 mg tablet 2023-0 -04 11:52: 11-03 00:00 :00 No 40mg Take 1 tablet by mouth at bedtime. [facility] amLODIPine 5 mg tablet 2023-0 -04 11:52: 11-03 00:00 :00 No 5mg Take 1 tablet by mouth in the morning. [facility] atorvastati n 40 mg tablet 2023-0 -04 11:52: 13 11-03 00:00 :00 No 40mg Take 1 tablet by mouth at bedtime. [facility] amitriptyli ne 10 mg tablet 11-03 11:36: 12 Yes 10mg Take 1 tablet by mouth at bedtime. [facility] ubidecareno ne (CO Q-10 ORAL) - 11:36: 12 Yes Take by mouth. [facility] amitriptyli ne 10 mg tablet 2023-11-03 11:36: 12 Yes 10mg Take 1 tablet by mouth at bedtime. [facility] ubidecareno ne (CO Q-10 ORAL) 0 11-03 11:36: 12 Yes Take by mouth. [facility] amitriptyli ne 10 mg tablet 2023-0 11-03 11:36: 12 Yes 10mg Take 1 tablet by mouth at bedtime. [facility] ubidecareno ne (CO Q-10 ORAL) 0 11-03 11:36: 12 Yes Take by mouth. [facility] amitriptyli ne 10 mg tablet 2023-0 11-03 11:36: 12 Yes 10mg Take 1 tablet by mouth at bedtime. [facility] ubidecareno ne (CO Q-10 ORAL) 0 11-03 11:36: 12 Yes Take by mouth. [facility] amitriptyli ne 10 mg tablet 2023-0 11-03 11:36: 12 Yes 10mg Take 1 tablet by mouth at bedtime. [facility] ubidecareno ne (CO Q-10 ORAL) 0 11-03 11:36: 12 Yes Take by mouth. [facility] amitriptyli ne 10 mg tablet 11-03 11:36: 12 Yes 10mg Take 1 tablet by mouth at bedtime. [facility] ubidecareno ne (CO Q-10 ORAL) 0 11-03 11:36: 12 Yes Take by mouth. [facility] amitriptyli ne 10 mg tablet 2023-0 11-03 11:36: 12 Yes 10mg Take 1 tablet by mouth at bedtime. [facility] ubidecareno ne (CO Q-10 ORAL) 0 11-03 11:36: 12 Yes Take by mouth. [facility] amitriptyli ne 10 mg tablet 2023-0 11-03 11:36: 12 Yes 10mg Take 1 tablet by mouth at bedtime. [facility] ubidecareno ne (CO Q-10 ORAL) 0 11-03 11:36: 12 Yes Take by mouth. [facility] amitriptyli ne 10 mg tablet 2023-0 3-04 11:36: 12 Yes 10mg Take 1 tablet by mouth at bedtime. [facility] ubidecareno ne (CO Q-10 ORAL) 2023-0 3-04 11:36: 12 Yes Take by mouth. [facility] amitriptyli ne 10 mg tablet 2023-0 04 11:36: 12 Yes 10mg Take 1 tablet by mouth at bedtime. [facility] ubidecareno ne (CO Q-10 ORAL) 2023-0 04 11:36: 12 Yes Take by mouth. [facility] amitriptyli ne 10 mg tablet 2023-0 11-03 11:36: 12 Yes 10mg Take 1 tablet by mouth at bedtime. [facility] ubidecareno ne (CO Q-10 ORAL) 2023-0 04 11:36: 12 Yes Take by mouth. [facility] amitriptyli ne 10 mg tablet 2023-0 11-03 11:36: 12 Yes 10mg Take 1 tablet by mouth at bedtime. [facility] ubidecareno ne (CO Q-10 ORAL) 2023-0 04 11:36: 12 Yes Take by mouth. [facility] amitriptyli ne 10 mg tablet 2023-0 04 11:36: 12 Yes 10mg Take 1 tablet by mouth at bedtime. [facility] ubidecareno ne (CO Q-10 ORAL) 2023-0 -04 11:36: 12 Yes Take by mouth. [facility] amitriptyli ne 10 mg tablet 2023-0 -04 11:36: 12 Yes 10mg Take 1 tablet by mouth at bedtime. [facility] ubidecareno ne (CO Q-10 ORAL) 2023-0 3-04 11:36: 12 Yes Take by mouth. [facility] amitriptyli ne 10 mg tablet 2023-0 3-04 11:36: 12 Yes 10mg Take 1 tablet by mouth at bedtime. [facility] ubidecareno ne (CO Q-10 ORAL) 2023-0 3-04 11:36: 12 Yes Take by mouth. [facility] amitriptyli ne 10 mg tablet 2023-0 3-04 11:36: 12 Yes 10mg Take 1 tablet by mouth at bedtime. [facility] ubidecareno ne (CO Q-10 ORAL) 2023-0 3-04 11:36: 12 Yes Take by mouth. [facility] amitriptyli ne 10 mg tablet 2023-0 3-04 11:36: 12 Yes 10mg Take 1 tablet by mouth at bedtime. [facility] ubidecareno ne (CO Q-10 ORAL) 2023-0 04 11:36: 12 Yes Take by mouth. [facility] amitriptyli ne 10 mg tablet 2023-0 304 11:36: 12 Yes 10mg Take 1 tablet by mouth at bedtime. [facility] ubidecareno ne (CO Q-10 ORAL) 2023-0 3-04 11:36: 12 Yes Take by mouth. [facility] amitriptyli ne 10 mg tablet 2023-0 -04 11:36: 12 Yes 10mg Take 1 tablet by mouth at bedtime. [facility] ubidecareno ne (CO Q-10 ORAL) 2023-0 04 11:36: 12 Yes Take by mouth. [facility] amitriptyli ne 10 mg tablet 2023-0 -04 11:36: 12 Yes 10mg Take 1 tablet by mouth at bedtime. [facility] ubidecareno ne (CO Q-10 ORAL) 2023-0 3-04 11:36: 12 Yes Take by mouth. [facility] aspirin 81 mg chewable tablet 2023-0 3-04 11:32: 41 Yes 81mg Take 1 tablet by mouth in the morning. [facility] aspirin 81 mg chewable tablet 2023-0 3-04 11:32: 41 Yes 81mg Take 1 tablet by mouth in the morning. [facility] aspirin 81 mg chewable tablet 2024-0 3-04 11:32: 41 Yes 81mg Take 1 tablet by mouth in the morning. [facility] aspirin 81 mg chewable tablet 2024-0 3-04 11:32: 41 Yes 81mg Take 1 tablet by mouth in the morning. [facility] aspirin 81 mg chewable tablet 2024-0 3-04 11:32: 41 Yes 81mg Take 1 tablet by mouth in the morning. [facility] aspirin 81 mg chewable tablet 2024-0 3-04 11:32: 41 Yes 81mg Take 1 tablet by mouth in the morning. [facility] aspirin 81 mg chewable tablet 2024-0 3-04 11:32: 41 Yes 81mg Take 1 tablet by mouth in the morning. [facility] 2024-0 3-04 11:32: 41 Yes 81mg Take 1 tablet by mouth in the morning. [facility] aspirin 81 mg chewable tablet 2024-0 3-04 11:32: 41 Yes 81mg Take 1 tablet by mouth in the morning. [facility] mg chewable tablet 2024-0 3-04 11:32: 41 Yes 81mg Take 1 tablet by mouth in the morning. [facility] aspirin 81 mg chewable tablet 2024-0 3-04 11:32: 41 Yes 81mg Take 1 tablet by mouth in the morning. [facility] aspirin 81 mg chewable tablet 2024-0 3-04 11:32: 41 Yes 81mg Take 1 tablet by mouth in the morning. [facility] mg chewable tablet 2024-0 3-04 11:32: 41 Yes 81mg Take 1 tablet by mouth in the morning. [facility] mg chewable tablet 2024-0 3-04 11:32: 41 Yes 81mg Take 1 tablet by mouth in the morning. [facility] 81 mg chewable tablet 2024-0 3-04 11:32: 41 Yes 81mg Take 1 tablet by mouth in the morning. [facility] mg chewable tablet 2024-0 3-04 11:32: 41 Yes 81mg Take 1 tablet by mouth in the morning. [facility] aspirin 81 mg chewable tablet 4-0 3-04 11:32: 41 Yes 81mg Take 1 tablet by mouth in the morning. [facility] aspirin 81 mg chewable tablet 4-0 3-04 11:32: 41 Yes 81mg Take 1 tablet by mouth in the morning. [facility] [facility] 81 mg chewable tablet 4-0 3-04 11:32: 41 Yes 81mg Take 1 tablet by mouth in the morning. [facility] aspirin 81 mg chewable tablet 4-0 3-04 11:32: 41 Yes 81mg Take 1 tablet by mouth in the morning. [facility] amLODIPine 5 mg tablet 4-0 3-04 00:00: 00 Yes [id number] 5mg Take 1 tablet by mouth in the morning. [facility] atorvastati n 40 mg tablet 4-0 3-04 00:00: 00 Yes [id number] 40mg Take 1 tablet by mouth at bedtime. [facility] amLODIPine 5 mg tablet 4-0 3-04 00:00: 00 Yes [id number] 5mg Take 1 tablet by mouth in the morning. [facility] atorvastati n 40 mg tablet 4-0 3-04 00:00: 00 Yes [id number] 40mg Take 1 tablet by mouth at bedtime. [facility] amLODIPine 5 mg tablet 4-0 -04 00:00: 00 Yes [id number] 5mg Take 1 tablet by mouth in the morning. [facility] atorvastati n 40 mg tablet 4-0 3-04 00:00: 00 Yes [id number] 40mg Take 1 tablet by mouth at bedtime. [facility] amLODIPine 5 mg tablet 4-0 3-04 00:00: 00 Yes [id number] 5mg Take 1 tablet by mouth in the morning. [facility] atorvastati n 40 mg tablet 4-0 3-04 00:00: 00 Yes [id number] 40mg Take 1 tablet by mouth at bedtime. [facility] amLODIPine 5 mg tablet 4-0 3-04 00:00: 00 Yes [id number] 5mg Take 1 tablet by mouth in the morning. [facility] atorvastati n 40 mg tablet 4-0 3-04 00:00: 00 Yes [id number] 40mg Take 1 tablet by mouth at bedtime. [facility] amLODIPine 5 mg tablet 2023-0 3-04 00:00: 00 Yes [id number] 5mg Take 1 tablet by mouth in the morning. [facility] atorvastati n 40 mg tablet 4-0 3-04 00:00: 00 Yes [id number] 40mg Take 1 tablet by mouth at bedtime. [facility] amLODIPine 5 mg tablet 4-0 3-04 00:00: 00 Yes [id number] 5mg Take 1 tablet by mouth in the morning. [facility] atorvastati n 40 mg tablet 2023-0 3-04 00:00: 00 Yes [id number] 40mg Take 1 tablet by mouth at bedtime. [facility] amLODIPine 5 mg tablet 2023-0 3-04 00:00: 00 Yes [id number] 5mg Take 1 tablet by mouth in the morning. [facility] atorvastati n 40 mg tablet 2023-0 3-04 00:00: 00 Yes [id number] 40mg Take 1 tablet by mouth at bedtime. [facility] amLODIPine 5 mg tablet 2023-0 3-04 00:00: 00 Yes [id number] 5mg Take 1 tablet by mouth in the morning. [facility] atorvastati n 40 mg tablet 4-0 3-04 00:00: 00 Yes [id number] 40mg Take 1 tablet by mouth at bedtime. [facility] amLODIPine 5 mg tablet 4-0 3-04 00:00: 00 Yes [id number] 5mg Take 1 tablet by mouth in the morning. [facility] atorvastati n 40 mg tablet 4-0 3-04 00:00: 00 Yes [id number] 40mg Take 1 tablet by mouth at bedtime. [facility] amLODIPine 5 mg tablet 4-0 3-04 00:00: 00 Yes [id number] 5mg Take 1 tablet by mouth in the morning. [facility] atorvastati n 40 mg tablet 4-0 3-04 00:00: 00 Yes [id number] 40mg Take 1 tablet by mouth at bedtime. [facility] amLODIPine 5 mg tablet 4-0 3-04 00:00: 00 Yes [id number] 5mg Take 1 tablet by mouth in the morning. [facility] atorvastati n 40 mg tablet 4-0 3-04 00:00: 00 Yes [id number] 40mg Take 1 tablet by mouth at bedtime. [facility] amLODIPine 5 mg tablet 4-0 3-04 00:00: 00 Yes [id number] 5mg Take 1 tablet by mouth in the morning. [facility] atorvastati n 40 mg tablet 4-0 3-04 00:00: 00 Yes [id number] 40mg Take 1 tablet by mouth at bedtime. [facility] amLODIPine 5 mg tablet 4-0 3-04 00:00: 00 Yes [id number] 5mg Take 1 tablet by mouth in the morning. [facility] atorvastati n 40 mg tablet 4-0 3-04 00:00: 00 Yes [id number] 40mg Take 1 tablet by mouth at bedtime. [facility] amLODIPine 5 mg tablet 4-0 3-04 00:00: 00 Yes [id number] 5mg Take 1 tablet by mouth in the morning. [facility] atorvastati n 40 mg tablet 4-0 3-04 00:00: 00 Yes [id number] 40mg Take 1 tablet by mouth at bedtime. [facility] amLODIPine 5 mg tablet 4-0 3-04 00:00: 00 Yes [id number] 5mg Take 1 tablet by mouth in the morning. [facility] atorvastati n 40 mg tablet 4-0 3-04 00:00: 00 Yes [id number] 40mg Take 1 tablet by mouth at bedtime. [facility] amLODIPine 5 mg tablet 4-0 3-04 00:00: 00 Yes [id number] 5mg Take 1 tablet by mouth in the morning. [facility] atorvastati n 40 mg tablet 2023-0 3-04 00:00: 00 Yes [id number] 40mg Take 1 tablet by mouth at bedtime. [facility] amLODIPine 5 mg tablet 0 3-04 00:00: 00 Yes [id number] 5mg Take 1 tablet by mouth in the morning. [facility] atorvastati n 40 mg tablet 2023-0 3-04 00:00: 00 Yes [id number] 40mg Take 1 tablet by mouth at bedtime. [facility] amLODIPine 5 mg tablet 2023-0 -04 00:00: 00 Yes [id number] 5mg Take 1 tablet by mouth in the morning. [facility] atorvastati n 40 mg tablet 2023-0 -04 00:00: 00 Yes [id number] 40mg Take 1 tablet by mouth at bedtime. [facility] amLODIPine 5 mg tablet 0 04 00:00: 00 Yes [id number] 5mg Take 1 tablet by mouth in the morning. [facility] atorvastati n 40 mg tablet 0 04 00:00: 00 Yes [id number] 40mg Take 1 tablet by mouth at bedtime. [facility] amLODIPine 5 mg tablet 0 04 00:00: 00 11-03 00:00 :00 No [id number] 5mg Take 1 tablet by mouth in the morning. [facility] atorvastati n 40 mg tablet 0 -04 00:00: 00 11-03 00:00 :00 No [id number] 40mg Take 1 tablet by mouth at bedtime. [facility] amLODIPine 5 mg tablet 2023-0 -04 00:00: 00 11-03 00:00 :00 No [id number] 5mg Take 1 tablet by mouth in the morning. [facility] atorvastati n 40 mg tablet 2023-0 3-04 00:00: 00 11-03 00:00 :00 No [id number] 40mg Take 1 tablet by mouth at bedtime. [facility] amLODIPine 5 mg tablet 0 3-04 00:00: 00 11-03 00:00 :00 No [id number] 5mg Take 1 tablet by mouth in the morning. [facility] atorvastati n 40 mg tablet 0 3-04 00:00: 00 11-03 00:00 :00 No [id number] 40mg Take 1 tablet by mouth at bedtime. [facility] amLODIPine 5 mg tablet 0 -04 00:00: 00 11-03 00:00 :00 No [id number] 5mg Take 1 tablet by mouth in the morning. [facility] atorvastati n 40 mg tablet 0 - 00:00: 00 11-03 00:00 :00 No [id number] 40mg Take 1 tablet by mouth at bedtime. [facility] ESTRADIOL 0.5 mg tablet 2021-0 -14 00:00: 00 Yes [id number] TAKE 1 TABLET BY MOUTH EVERY DAY [facility] ESTRADIOL 0.5 mg tablet 2-0 6-14 00:00: 00 Yes [id number] TAKE 1 TABLET BY MOUTH EVERY DAY [facility] ESTRADIOL 0.5 mg tablet 2-0 6-14 00:00: 00 Yes [id number] TAKE 1 TABLET BY MOUTH EVERY DAY [facility] ESTRADIOL 0.5 mg tablet 2-0 6-14 00:00: 00 Yes [id number] TAKE 1 TABLET BY MOUTH EVERY DAY [facility] ESTRADIOL 0.5 mg tablet 2-0 6-14 00:00: 00 Yes [id number] TAKE 1 TABLET BY MOUTH EVERY DAY [facility] ESTRADIOL 0.5 mg tablet 2-0 6-14 00:00: 00 Yes [id number] TAKE 1 TABLET BY MOUTH EVERY DAY [facility] ESTRADIOL 0.5 mg tablet 2-0 6-14 00:00: 00 11-03 00:00 :00 No [id number] TAKE 1 TABLET BY MOUTH EVERY DAY [facility] ESTRADIOL 0.5 mg tablet 2-0 6-14 00:00: 00 11-03 00:00 :00 No [id number] TAKE 1 TABLET BY MOUTH EVERY DAY [facility] ESTRADIOL 0.5 mg tablet 2021-0 6-14 00:00: 00 11-03 00:00 :00 No [id number] TAKE 1 TABLET BY MOUTH EVERY DAY [facility] ESTRADIOL 0.5 mg tablet 2021-0 6-14 00:00: 00 11-03 00:00 :00 No [id number] TAKE 1 TABLET BY MOUTH EVERY DAY [facility] ESTRADIOL 0.5 mg tablet 2021-0 4-06 00:00: 00 02-13 00:00 :00 No [id number] TAKE 1 TABLET BY MOUTH EVERY DAY [facility] mesalamine 400 mg cdti 2020-0 - 00:00: 00 Yes [id number] 800mg Take 2 capsules by mouth 3 (three) times daily. [facility] mesalamine 400 mg cdti 2020-0 13 00:00: 00 Yes [id number] 800mg Take 2 capsules by mouth 3 (three) times daily. [facility] mesalamine 400 mg cdti 2020-0 13 00:00: 00 Yes [id number] 800mg Take 2 capsules by mouth 3 (three) times daily. [facility] mesalamine 400 mg cdti 2020-0 13 00:00: 00 Yes [id number] 800mg Take 2 capsules by mouth 3 (three) times daily. [facility] mesalamine 400 mg cdti 2020-0 13 00:00: 00 Yes [id number] 800mg Take 2 capsules by mouth 3 (three) times daily. [facility] mesalamine 400 mg cdti 2020-0 13 00:00: 00 Yes [id number] 800mg Take 2 capsules by mouth 3 (three) times daily. [facility] mesalamine 400 mg cdti 2020-0 -13 00:00: 00 Yes [id number] 800mg Take 2 capsules by mouth 3 (three) times daily. [facility] mesalamine 400 mg cdti 2020-0 -13 00:00: 00 Yes [id number] 800mg Take 2 capsules by mouth 3 (three) times daily. [facility] mesalamine 400 mg cdti 2021-0 -13 00:00: 00 Yes [id number] 800mg Take 2 capsules by mouth 3 (three) times daily. [facility] mesalamine 400 mg cdti 2021-0 9-13 00:00: 00 Yes [id number] 800mg Take 2 capsules by mouth 3 (three) times daily. [facility] mesalamine 400 mg cdti 2021-0 -13 00:00: 00 Yes [id number] 800mg Take 2 capsules by mouth 3 (three) times daily. [facility] mesalamine 400 mg cdti 2021-0 -13 00:00: 00 Yes [id number] 800mg Take 2 capsules by mouth 3 (three) times daily. [facility] mesalamine 400 mg cdti 2021-0 -13 00:00: 00 Yes [id number] 800mg Take 2 capsules by mouth 3 (three) times daily. [facility] mesalamine 400 mg cdti 2021-0 -13 00:00: 00 Yes [id number] 800mg Take 2 capsules by mouth 3 (three) times daily. [facility] mesalamine 400 mg cdti 2021-0 -13 00:00: 00 Yes [id number] 800mg Take 2 capsules by mouth 3 (three) times daily. [facility] mesalamine 400 mg cdti 2021-0 -13 00:00: 00 Yes [id number] 800mg Take 2 capsules by mouth 3 (three) times daily. [facility] mesalamine 400 mg cdti 2021-0 -13 00:00: 00 Yes [id number] 800mg Take 2 capsules by mouth 3 (three) times daily. [facility] mesalamine 400 mg cdti 2021-0 9-13 00:00: 00 Yes [id number] 800mg Take 2 capsules by mouth 3 (three) times daily. [facility] mesalamine 400 mg cdti 2021-0 9-13 00:00: 00 Yes [id number] 800mg Take 2 capsules by mouth 3 (three) times daily. [facility] mesalamine 400 mg cdti 2020-0 05-15 00:00: 00 Yes [id number] 800mg Take 2 capsules by mouth 3 (three) times daily. [facility] mesalamine 400 mg cdti 2020-0 05-15 00:00: 00 Yes [id number] 800mg Take 2 capsules by mouth 3 (three) times daily. [facility] mesalamine 400 mg cdti 2020-0 05-15 00:00: 00 Yes [id number] 800mg Take 2 capsules by mouth 3 (three) times daily. [facility] mesalamine 400 mg cdti 2020-0 05-15 00:00: 00 Yes [id number] 800mg Take 2 capsules by mouth 3 (three) times daily. [facility] mesalamine 400 mg cdti 2020-0 05-15 00:00: 00 Yes [id number] 800mg Take 2 capsules by mouth 3 (three) times daily. [facility] mesalamine 400 mg cdti 2020-0 05-15 00:00: 00 Yes [id number] 800mg Take 2 capsules by mouth 3 (three) times daily. [facility] mesalamine 400 mg cdti 2020-0 05-15 00:00: 00 Yes [id number] 800mg Take 2 capsules by mouth 3 (three) times daily. [facility] calcium citrate (CITRACAL ORAL) 0 04-14 14:59: 45 Yes 1{capsu le} Take 1 capsule by mouth daily. [facility] calcium citrate (CITRACAL ORAL) 0 04-14 14:59: 45 Yes 1{capsu le} Take 1 capsule by mouth daily. [facility] calcium citrate (CITRACAL ORAL) 0 04-14 14:59: 45 Yes 1{capsu le} Take 1 capsule by mouth daily. [facility] calcium citrate (CITRACAL ORAL) 0 04-14 14:59: 45 Yes 1{capsu le} Take 1 capsule by mouth daily. [facility] calcium citrate (CITRACAL ORAL) 0 04-14 14:59: 45 Yes 1{capsu le} Take 1 capsule by mouth daily. [facility] calcium citrate (CITRACAL ORAL) 04-14 14:59: 45 Yes 1{capsu le} Take 1 capsule by mouth daily. [facility] calcium citrate (CITRACAL ORAL) 04-14 14:59: 45 Yes 1{capsu le} Take 1 capsule by mouth daily. [facility] calcium citrate (CITRACAL ORAL) 04-14 14:59: 45 Yes 1{capsu le} Take 1 capsule by mouth daily. [facility] calcium citrate (CITRACAL ORAL) 04-14 14:59: 45 Yes 1{capsu le} Take 1 capsule by mouth daily. [facility] calcium citrate (CITRACAL ORAL) 04-14 14:59: 45 Yes 1{capsu le} Take 1 capsule by mouth daily. [facility] calcium citrate (CITRACAL ORAL) 04-14 14:59: 45 Yes 1{capsu le} Take 1 capsule by mouth daily. [facility] calcium citrate (CITRACAL ORAL) 04-14 14:59: 45 Yes 1{capsu le} Take 1 capsule by mouth daily. [facility] calcium citrate (CITRACAL ORAL) 04-14 14:59: 45 Yes 1{capsu le} Take 1 capsule by mouth daily. [facility] calcium citrate (CITRACAL ORAL) 04-14 14:59: 45 Yes 1{capsu le} Take 1 capsule by mouth daily. [facility] calcium citrate (CITRACAL ORAL) 04-14 14:59: 45 Yes 1{capsu le} Take 1 capsule by mouth daily. [facility] calcium citrate (CITRACAL ORAL) 04-14 14:59: 45 Yes 1{capsu le} Take 1 capsule by mouth daily. [facility] calcium citrate (CITRACAL ORAL) 04-14 14:59: 45 Yes 1{capsu le} Take 1 capsule by mouth daily. [facility] calcium citrate (CITRACAL ORAL) 04-14 14:59: 45 Yes 1{capsu le} Take 1 capsule by mouth daily. [facility] calcium citrate (CITRACAL ORAL) 04-14 14:59: 45 Yes 1{capsu le} Take 1 capsule by mouth daily. [facility] calcium citrate (CITRACAL ORAL) 04-14 14:59: 45 Yes 1{capsu le} Take 1 capsule by mouth daily. [facility] calcium citrate (CITRACAL ORAL) 04-14 14:59: 45 Yes 1{capsu le} Take 1 capsule by mouth daily. [facility] calcium citrate (CITRACAL ORAL) 04-14 14:59: 45 Yes 1{capsu le} Take 1 capsule by mouth daily. [facility] calcium citrate (CITRACAL ORAL) 04-14 14:59: 45 Yes 1{capsu le} Take 1 capsule by mouth daily. [facility] calcium citrate (CITRACAL ORAL) 04-14 14:59: 45 Yes 1{capsu le} Take 1 capsule by mouth daily. [facility] calcium citrate (CITRACAL ORAL) 04-14 14:59: 45 Yes 1{capsu le} Take 1 capsule by mouth daily. [facility] calcium citrate (CITRACAL ORAL) 04-14 14:59: 45 Yes 1{capsu le} Take 1 capsule by mouth daily. [facility] calcium citrate (CITRACAL ORAL) 04-14 14:59: 45 Yes 1{capsu le} Take 1 capsule by mouth daily. [facility] calcium citrate (CITRACAL ORAL) 04-14 14:59: 45 Yes 1{capsu le} Take 1 capsule by mouth daily. [facility] aspirin 81 mg chewable tablet 03-16 15:12: 45 Yes 81mg Take 81 mg by mouth every other day. [facility] aspirin 81 mg chewable tablet 03-16 15:12: 45 Yes 81mg Take 81 mg by mouth every other day. [facility] aspirin 81 mg chewable tablet 0 03-16 15:12: 45 Yes 81mg Take 81 mg by mouth every other day. [facility] aspirin 81 mg chewable tablet 0 03-16 15:12: 45 Yes 81mg Take 81 mg by mouth every other day. [facility] aspirin 81 mg chewable tablet 0 03-16 15:12: 45 Yes 81mg Take 81 mg by mouth every other day. [facility] aspirin 81 mg chewable tablet 0 03-16 15:12: 45 Yes 81mg Take 81 mg by mouth every other day. [facility] aspirin 81 mg chewable tablet 0 03-16 15:12: 45 Yes 81mg Take 81 mg by mouth every other day. [facility] aspirin 81 mg chewable tablet 0 03-16 15:12: 45 Yes 81mg Take 81 mg by mouth every other day. [facility] omeprazole 40 mg capsule 0 03-10 00:00: 00 Yes [id number] 40mg Take 1 capsule by mouth daily. [facility] omeprazole 40 mg capsule 0 03-10 00:00: 00 Yes [id number] 40mg Take 1 capsule by mouth daily. [facility] omeprazole 40 mg capsule 2020-0 03-10 00:00: 00 Yes [id number] 40mg Take 1 capsule by mouth daily. [facility] omeprazole 40 mg capsule 0 03-10 00:00: 00 Yes [id number] 40mg Take 1 capsule by mouth daily. [facility] omeprazole 40 mg capsule 2020-0 03-10 00:00: 00 Yes [id number] 40mg Take 1 capsule by mouth daily. [facility] omeprazole 40 mg capsule 2020-0 03-10 00:00: 00 Yes [id number] 40mg Take 1 capsule by mouth daily. [facility] omeprazole 40 mg capsule 2020-0 03-10 00:00: 00 Yes [id number] 40mg Take 1 capsule by mouth daily. [facility] omeprazole 40 mg capsule 2020-0 03-10 00:00: 00 11-03 00:00 :00 No [id number] 40mg Take 1 capsule by mouth daily. [facility] omeprazole 40 mg capsule 2020-0 03-10 00:00: 00 11-03 00:00 :00 No [id number] 40mg Take 1 capsule by mouth daily. [facility] omeprazole 40 mg capsule 2020-0 03-10 00:00: 00 11-03 00:00 :00 No [id number] 40mg Take 1 capsule by mouth daily. [facility] omeprazole 40 mg capsule 2020-0 03-10 00:00: 00 11-03 00:00 :00 No [id number] 40mg Take 1 capsule by mouth daily. [facility] Zinc 50 mg Tab 2020-0 9-03 15:36: 56 Yes Take 1 TAB-CAP/M2 by mouth daily. [facility] Zinc 50 mg Tab 2020-0 9-03 15:36: 56 Yes Take 1 TAB-CAP/M2 by mouth daily. [facility] Zinc 50 mg Tab 2020-0 9-03 15:36: 56 Yes Take 1 TAB-CAP/M2 by mouth daily. [facility] Zinc 50 mg Tab 2020-0 9-03 15:36: 56 Yes Take 1 TAB-CAP/M2 by mouth daily. [facility] Zinc 50 mg Tab 2020-0 9-03 15:36: 56 Yes Take 1 TAB-CAP/M2 by mouth daily. [facility] Zinc 50 mg Tab 2020-0 9-03 15:36: 56 Yes Take 1 TAB-CAP/M2 by mouth daily. [facility] Zinc 50 mg Tab 2020-0 9-03 15:36: 56 Yes Take 1 TAB-CAP/M2 by mouth daily. [facility] Zinc 50 mg Tab 2020-0 9-03 15:36: 56 Yes Take 1 TAB-CAP/M2 by mouth daily. [facility] Zinc 50 mg Tab 2020-0 9-03 15:36: 56 Yes Take 1 TAB-CAP/M2 by mouth daily. [facility] Zinc 50 mg Tab 2020-0 9-03 15:36: 56 Yes Take 1 TAB-CAP/M2 by mouth daily. [facility] 2020-0 9-03 15:36: 56 Yes Take 1 TAB-CAP/M2 by mouth daily. [facility] Zinc 50 mg Tab 2020-0 9-03 15:36: 56 Yes Take 1 TAB-CAP/M2 by mouth daily. [facility] Zinc 50 mg Tab 2020-0 9-03 15:36: 56 Yes Take 1 TAB-CAP/M2 by mouth daily. [facility] Zinc 50 mg Tab 2020-0 9-03 15:36: 56 Yes Take 1 TAB-CAP/M2 by mouth daily. [facility] Zinc 50 mg Tab 2020-0 9-03 15:36: 56 Yes Take 1 TAB-CAP/M2 by mouth daily. [facility] Zinc 50 mg Tab 2020-0 9-03 15:36: 56 Yes Take 1 TAB-CAP/M2 by mouth daily. [facility] Zinc 50 mg Tab 2020-0 9-03 15:36: 56 Yes Take 1 TAB-CAP/M2 by mouth daily. [facility] Zinc 50 mg Tab 2020-0 9-03 15:36: 56 Yes Take 1 TAB-CAP/M2 by mouth daily. [facility] Zinc 50 mg Tab 2020-0 9-03 15:36: 56 Yes Take 1 TAB-CAP/M2 by mouth daily. [facility] Zinc 50 mg Tab 2020-0 9-03 15:36: 56 Yes Take 1 TAB-CAP/M2 by mouth daily. [facility] Zinc 50 mg Tab 2020-0 9-03 15:36: 56 Yes Take 1 TAB-CAP/M2 by mouth daily. [facility] Zinc 50 mg Tab 2020-0 9-03 15:36: 56 Yes Take 1 TAB-CAP/M2 by mouth daily. [facility] Zinc 50 mg Tab 2020-0 9-03 15:36: 56 Yes Take 1 TAB-CAP/M2 by mouth daily. [facility] Zinc 50 mg Tab 2020-0 903 15:36: 56 Yes Take 1 TAB-CAP/M2 by mouth daily. [facility] Zinc 50 mg Tab 2020-0 903 15:36: 56 Yes Take 1 TAB-CAP/M2 by mouth daily. [facility] Zinc 50 mg Tab 2020-0 903 15:36: 56 Yes Take 1 TAB-CAP/M2 by mouth daily. [facility] Zinc 50 mg Tab 2020-0 9 15:36: 56 Yes Take 1 TAB-CAP/M2 by mouth daily. [facility] Zinc 50 mg Tab 2020-0 903 15:36: 56 Yes Take 1 TAB-CAP/M2 by mouth daily. [facility] calcium carb/vit D2/minerals (CALTRATE PLUS ORAL) 0 316 16:08: 49 Yes Take by mouth. [facility] calcium carb/vit D2/minerals (CALTRATE PLUS ORAL) 0 316 16:08: 49 Yes Take by mouth. [facility] calcium carb/vit D2/minerals (CALTRATE PLUS ORAL) 0 316 16:08: 49 Yes Take by mouth. [facility] calcium carb/vit D2/minerals (CALTRATE PLUS ORAL) 0 316 16:08: 49 Yes Take by mouth. [facility] calcium carb/vit D2/minerals (CALTRATE PLUS ORAL) 0 316 16:08: 49 Yes Take by mouth. [facility] calcium carb/vit D2/minerals (CALTRATE PLUS ORAL) 20200 316 16:08: 49 Yes Take by mouth. [facility] calcium carb/vit D2/minerals (CALTRATE PLUS ORAL) 20200 316 16:08: 49 Yes Take by mouth. [facility] calcium carb/vit D2/minerals (CALTRATE PLUS ORAL) 20200 316 16:08: 49 Yes Take by mouth. [facility] calcium carb/vit D2/minerals (CALTRATE PLUS ORAL) 2020-0 316 16:08: 49 Yes Take by mouth. [facility] calcium carb/vit D2/minerals (CALTRATE PLUS ORAL) 2020-0 3-16 16:08: 49 Yes Take by mouth. [facility] calcium carb/vit D2/minerals (CALTRATE PLUS ORAL) 2020-0 3-16 16:08: 49 Yes Take by mouth. [facility] calcium carb/vit D2/minerals (CALTRATE PLUS ORAL) 2020-0 3-16 16:08: 49 Yes Take by mouth. [facility] calcium carb/vit D2/minerals (CALTRATE PLUS ORAL) 20200 3-16 16:08: 49 Yes Take by mouth. [facility] calcium carb/vit D2/minerals (CALTRATE PLUS ORAL) 2020-0 3-16 16:08: 49 Yes Take by mouth. [facility] calcium carb/vit D2/minerals (CALTRATE PLUS ORAL) 0 3-16 16:08: 49 Yes Take by mouth. [facility] calcium carb/vit D2/minerals (CALTRATE PLUS ORAL) 20200 3-16 16:08: 49 Yes Take by mouth. [facility] calcium carb/vit D2/minerals (CALTRATE PLUS ORAL) 20200 3-16 16:08: 49 Yes Take by mouth. [facility] calcium carb/vit D2/minerals (CALTRATE PLUS ORAL) 20200 3-16 16:08: 49 Yes Take by mouth. [facility] calcium carb/vit D2/minerals (CALTRATE PLUS ORAL) 2020-0 3-16 16:08: 49 Yes Take by mouth. [facility] calcium carb/vit D2/minerals (CALTRATE PLUS ORAL) 20200 3-16 16:08: 49 Yes Take by mouth. [facility] calcium carb/vit D2/minerals (CALTRATE PLUS ORAL) 2020-0 3-16 16:08: 49 Yes Take by mouth. [facility] calcium carb/vit D2/minerals (CALTRATE PLUS ORAL) 2020-0 3-16 16:08: 49 Yes Take by mouth. [facility] calcium carb/vit D2/minerals (CALTRATE PLUS ORAL) 2020-0 3-16 16:08: 49 Yes Take by mouth. [facility] calcium carb/vit D2/minerals (CALTRATE PLUS ORAL) 316 16:08: 49 Yes Take by mouth. [facility] calcium carb/vit D2/minerals (CALTRATE PLUS ORAL) 316 16:08: 49 Yes Take by mouth. [facility] calcium carb/vit D2/minerals (CALTRATE PLUS ORAL) 316 16:08: 49 Yes Take by mouth. [facility] calcium carb/vit D2/minerals (CALTRATE PLUS ORAL) 316 16:08: 49 Yes Take by mouth. [facility] calcium carb/vit D2/minerals (CALTRATE PLUS ORAL) 316 16:08: 49 Yes Take by mouth. [facility] cholecalcif anuradha, vitamin D3, (VITAMIN D3 ORAL) 224 16:14: 02 Yes Take by mouth. [facility] magnesium oxide 400 mg magnesium capsule 2 16:14: 02 Yes 1{capsu le} Take 1 capsule by mouth 2 (two) times daily. [facility] vit B complex no.12/niaci n,B3, (VITAMIN B COMPLEX NO.12-NIACI N ORAL) 224 16:14: 02 Yes 1{tbl} Take 1 tablet by mouth daily. [facility] cholecalcif anuradha, vitamin D3, (VITAMIN D3 ORAL) 224 16:14: 02 Yes Take by mouth. [facility] magnesium oxide 400 mg magnesium capsule 224 16:14: 02 Yes 1{capsu le} Take 1 capsule by mouth 2 (two) times daily. [facility] vit B complex no.12/niaci n,B3, (VITAMIN B COMPLEX NO.12-NIACI N ORAL) 224 16:14: 02 Yes 1{tbl} Take 1 tablet by mouth daily. [facility] cholecalcif anuradha, vitamin D3, (VITAMIN D3 ORAL) 224 16:14: 02 Yes Take by mouth. [facility] magnesium oxide 400 mg magnesium capsule 224 16:14: 02 Yes 1{capsu le} Take 1 capsule by mouth 2 (two) times daily. [facility] vit B complex no.12/niaci n,B3, (VITAMIN B COMPLEX NO.12-NIACI N ORAL) 224 16:14: 02 Yes 1{tbl} Take 1 tablet by mouth daily. [facility] cholecalcif anuradha, vitamin D3, (VITAMIN D3 ORAL) 2 16:14: 02 Yes Take by mouth. [facility] magnesium oxide 400 mg magnesium capsule 10-26 16:14: 02 Yes 1{capsu le} Take 1 capsule by mouth 2 (two) times daily. [facility] vit B complex no.12/niaci n,B3, (VITAMIN B COMPLEX NO.12-NIACI N ORAL) 224 16:14: 02 Yes 1{tbl} Take 1 tablet by mouth daily. [facility] cholecalcif anuradha, vitamin D3, (VITAMIN D3 ORAL) 10-26 16:14: 02 Yes Take by mouth. [facility] magnesium oxide 400 mg magnesium capsule 10-26 16:14: 02 Yes 1{capsu le} Take 1 capsule by mouth 2 (two) times daily. [facility] vit B complex no.12/niaci n,B3, (VITAMIN B COMPLEX NO.12-NIACI N ORAL) 10-26 16:14: 02 Yes 1{tbl} Take 1 tablet by mouth daily. [facility] cholecalcif anuradha, vitamin D3, (VITAMIN D3 ORAL) 10-26 16:14: 02 Yes Take by mouth. [facility] magnesium oxide 400 mg magnesium capsule 10-26 16:14: 02 Yes 1{capsu le} Take 1 capsule by mouth 2 (two) times daily. [facility] vit B complex no.12/niaci n,B3, (VITAMIN B COMPLEX NO.12-NIACI N ORAL) 10-26 16:14: 02 Yes 1{tbl} Take 1 tablet by mouth daily. [facility] cholecalcif anuradha, vitamin D3, (VITAMIN D3 ORAL) 10-26 16:14: 02 Yes Take by mouth. [facility] magnesium oxide 400 mg magnesium capsule 2 16:14: 02 Yes 1{capsu le} Take 1 capsule by mouth 2 (two) times daily. [facility] vit B complex no.12/niaci n,B3, (VITAMIN B COMPLEX NO.12-NIACI N ORAL) 2 16:14: 02 Yes 1{tbl} Take 1 tablet by mouth daily. [facility] cholecalcif anuradha, vitamin D3, (VITAMIN D3 ORAL) 10-26 16:14: 02 Yes Take by mouth. [facility] magnesium oxide 400 mg magnesium capsule 10-26 16:14: 02 Yes 1{capsu le} Take 1 capsule by mouth 2 (two) times daily. [facility] vit B complex no.12/niaci n,B3, (VITAMIN B COMPLEX NO.12-NIACI N ORAL) 24 16:14: 02 Yes 1{tbl} Take 1 tablet by mouth daily. [facility] cholecalcif anuradha, vitamin D3, (VITAMIN D3 ORAL) 10-26 16:14: 02 Yes Take by mouth. [facility] vit B complex no.12/niaci n,B3, (VITAMIN B COMPLEX NO.12-NIACI N ORAL) 2 16:14: 02 Yes 1{tbl} Take 1 tablet by mouth daily. [facility] cholecalcif anuradha, vitamin D3, (VITAMIN D3 ORAL) 10-26 16:14: 02 Yes Take by mouth. [facility] vit B complex no.12/niaci n,B3, (VITAMIN B COMPLEX NO.12-NIACI N ORAL) 2 16:14: 02 Yes 1{tbl} Take 1 tablet by mouth daily. [facility] cholecalcif anuradha, vitamin D3, (VITAMIN D3 ORAL) 10-26 16:14: 02 Yes Take by mouth. [facility] vit B complex no.12/niaci n,B3, (VITAMIN B COMPLEX NO.12-NIACI N ORAL) 2 16:14: 02 Yes 1{tbl} Take 1 tablet by mouth daily. [facility] cholecalcif anuradha, vitamin D3, (VITAMIN D3 ORAL) 224 16:14: 02 Yes Take by mouth. [facility] vit B complex no.12/niaci n,B3, (VITAMIN B COMPLEX NO.12-NIACI N ORAL) 224 16:14: 02 Yes 1{tbl} Take 1 tablet by mouth daily. [facility] cholecalcif anuradha, vitamin D3, (VITAMIN D3 ORAL) 10-26 16:14: 02 Yes Take by mouth. [facility] vit B complex no.12/niaci n,B3, (VITAMIN B COMPLEX NO.12-NIACI N ORAL) 2 16:14: 02 Yes 1{tbl} Take 1 tablet by mouth daily. [facility] cholecalcif anuradha, vitamin D3, (VITAMIN D3 ORAL) 10-26 16:14: 02 Yes Take by mouth. [facility] vit B complex no.12/niaci n,B3, (VITAMIN B COMPLEX NO.12-NIACI N ORAL) 2 16:14: 02 Yes 1{tbl} Take 1 tablet by mouth daily. [facility] cholecalcif anuradha, vitamin D3, (VITAMIN D3 ORAL) 2 16:14: 02 Yes Take by mouth. [facility] vit B complex no.12/niaci n,B3, (VITAMIN B COMPLEX NO.12-NIACI N ORAL) 2 16:14: 02 Yes 1{tbl} Take 1 tablet by mouth daily. [facility] cholecalcif anuradha, vitamin D3, (VITAMIN D3 ORAL) 2 16:14: 02 Yes Take by mouth. [facility] vit B complex no.12/niaci n,B3, (VITAMIN B COMPLEX NO.12-NIACI N ORAL) 2-24 16:14: 02 Yes 1{tbl} Take 1 tablet by mouth daily. [facility] cholecalcif anuradha, vitamin D3, (VITAMIN D3 ORAL) 224 16:14: 02 Yes Take by mouth. [facility] vit B complex no.12/niaci n,B3, (VITAMIN B COMPLEX NO.12-NIACI N ORAL) 224 16:14: 02 Yes 1{tbl} Take 1 tablet by mouth daily. [facility] cholecalcif anuradha, vitamin D3, (VITAMIN D3 ORAL) 10-26 16:14: 02 Yes Take by mouth. [facility] vit B complex no.12/niaci n,B3, (VITAMIN B COMPLEX NO.12-NIACI N ORAL) 224 16:14: 02 Yes 1{tbl} Take 1 tablet by mouth daily. [facility] cholecalcif anuradha, vitamin D3, (VITAMIN D3 ORAL) 10-26 16:14: 02 Yes Take by mouth. [facility] vit B complex no.12/niaci n,B3, (VITAMIN B COMPLEX NO.12-NIACI N ORAL) 10-26 16:14: 02 Yes 1{tbl} Take 1 tablet by mouth daily. [facility] cholecalcif anuradha, vitamin D3, (VITAMIN D3 ORAL) 2 16:14: 02 Yes Take by mouth. [facility] vit B complex no.12/niaci n,B3, (VITAMIN B COMPLEX NO.12-NIACI N ORAL) 224 16:14: 02 Yes 1{tbl} Take 1 tablet by mouth daily. [facility] cholecalcif anuradha, vitamin D3, (VITAMIN D3 ORAL) 2 16:14: 02 Yes Take by mouth. [facility] vit B complex no.12/niaci n,B3, (VITAMIN B COMPLEX NO.12-NIACI N ORAL) 224 16:14: 02 Yes 1{tbl} Take 1 tablet by mouth daily. [facility] cholecalcif anuradha, vitamin D3, (VITAMIN D3 ORAL) 224 16:14: 02 Yes Take by mouth. [facility] vit B complex no.12/niaci n,B3, (VITAMIN B COMPLEX NO.12-NIACI N ORAL) 2-24 16:14: 02 Yes 1{tbl} Take 1 tablet by mouth daily. [facility] cholecalcif anuradha, vitamin D3, (VITAMIN D3 ORAL) 2 16:14: 02 Yes Take by mouth. [facility] vit B complex no.12/niaci n,B3, (VITAMIN B COMPLEX NO.12-NIACI N ORAL) 2 16:14: 02 Yes 1{tbl} Take 1 tablet by mouth daily. [facility] cholecalcif anuradha, vitamin D3, (VITAMIN D3 ORAL) 2 16:14: 02 Yes Take by mouth. [facility] vit B complex no.12/niaci n,B3, (VITAMIN B COMPLEX NO.12-NIACI N ORAL) 10-26 16:14: 02 Yes 1{tbl} Take 1 tablet by mouth daily. [facility] cholecalcif anuradha, vitamin D3, (VITAMIN D3 ORAL) 10-26 16:14: 02 Yes Take by mouth. [facility] vit B complex no.12/niaci n,B3, (VITAMIN B COMPLEX NO.12-NIACI N ORAL) 224 16:14: 02 Yes 1{tbl} Take 1 tablet by mouth daily. [facility] cholecalcif anuradha, vitamin D3, (VITAMIN D3 ORAL) 2 16:14: 02 Yes Take by mouth. [facility] vit B complex no.12/niaci n,B3, (VITAMIN B COMPLEX NO.12-NIACI N ORAL) 224 16:14: 02 Yes 1{tbl} Take 1 tablet by mouth daily. [facility] cholecalcif anuradha, vitamin D3, (VITAMIN D3 ORAL) 2 16:14: 02 Yes Take by mouth. [facility] vit B complex no.12/niaci n,B3, (VITAMIN B COMPLEX NO.12-NIACI N ORAL) 10-26 16:14: 02 Yes 1{tbl} Take 1 tablet by mouth daily. [facility] cholecalcif anuradha, vitamin D3, (VITAMIN D3 ORAL) 10-26 16:14: 02 Yes Take by mouth. [facility] vit B complex no.12/niaci n,B3, (VITAMIN B COMPLEX NO.12-NIACI N ORAL) 10-26 16:14: 02 Yes 1{tbl} Take 1 tablet by mouth daily. [facility] foLIC acid 1 mg tablet 11-10 00:00: 00 Yes [id number] 1mg Take 1 tablet by mouth daily. [facility] foLIC acid 1 mg tablet 11-10 00:00: 00 Yes [id number] 1mg Take 1 tablet by mouth daily. [facility] foLIC acid 1 mg tablet 11-10 00:00: 00 Yes [id number] 1mg Take 1 tablet by mouth daily. [facility] foLIC acid 1 mg tablet 11-10 00:00: 00 Yes [id number] 1mg Take 1 tablet by mouth daily. [facility] foLIC acid 1 mg tablet 11-10 00:00: 00 Yes [id number] 1mg Take 1 tablet by mouth daily. [facility] foLIC acid 1 mg tablet 11-10 00:00: 00 Yes [id number] 1mg Take 1 tablet by mouth daily. [facility] foLIC acid 1 mg tablet 11-10 00:00: 00 Yes [id number] 1mg Take 1 tablet by mouth daily. [facility] foLIC acid 1 mg tablet 11-10 00:00: 00 Yes [id number] 1mg Take 1 tablet by mouth daily. [facility] foLIC acid 1 mg tablet 11-10 00:00: 00 Yes [id number] 1mg Take 1 tablet by mouth daily. [facility] foLIC acid 1 mg tablet 11-10 00:00: 00 Yes [id number] 1mg Take 1 tablet by mouth daily. [facility] foLIC acid 1 mg tablet 11-10 00:00: 00 Yes [id number] 1mg Take 1 tablet by mouth daily. [facility] foLIC acid 1 mg tablet 11-10 00:00: 00 Yes [id number] 1mg Take 1 tablet by mouth daily. [facility] foLIC acid 1 mg tablet 11-10 00:00: 00 Yes [id number] 1mg Take 1 tablet by mouth daily. [facility] foLIC acid 1 mg tablet 11-10 00:00: 00 Yes [id number] 1mg Take 1 tablet by mouth daily. [facility] foLIC acid 1 mg tablet 11-10 00:00: 00 Yes [id number] 1mg Take 1 tablet by mouth daily. [facility] foLIC acid 1 mg tablet 11-10 00:00: 00 Yes [id number] 1mg Take 1 tablet by mouth daily. [facility] foLIC acid 1 mg tablet 11-10 00:00: 00 Yes [id number] 1mg Take 1 tablet by mouth daily. [facility] foLIC acid 1 mg tablet 11-10 00:00: 00 Yes [id number] 1mg Take 1 tablet by mouth daily. [facility] foLIC acid 1 mg tablet 11-10 00:00: 00 Yes [id number] 1mg Take 1 tablet by mouth daily. [facility] foLIC acid 1 mg tablet 11-10 00:00: 00 Yes [id number] 1mg Take 1 tablet by mouth daily. [facility] foLIC acid 1 mg tablet 11-10 00:00: 00 Yes [id number] 1mg Take 1 tablet by mouth daily. [facility] foLIC acid 1 mg tablet 11-10 00:00: 00 Yes [id number] 1mg Take 1 tablet by mouth daily. [facility] foLIC acid 1 mg tablet 11-10 00:00: 00 Yes [id number] 1mg Take 1 tablet by mouth daily. [facility] foLIC acid 1 mg tablet 11-10 00:00: 00 Yes [id number] 1mg Take 1 tablet by mouth daily. [facility] foLIC acid 1 mg tablet 11-10 00:00: 00 Yes [id number] 1mg Take 1 tablet by mouth daily. [facility] foLIC acid 1 mg tablet 11-10 00:00: 00 Yes [id number] 1mg Take 1 tablet by mouth daily. [facility] foLIC acid 1 mg tablet 11-10 00:00: 00 Yes [id number] 1mg Take 1 tablet by mouth daily. [facility] foLIC acid 1 mg tablet 11-10 00:00: 00 Yes [id number] 1mg Take 1 tablet by mouth daily. [facility] ipratropium 0.02 % nebulizer solution 2017-09 00:00: 00 Yes [id number] .5mg Inhale 2.5 mL every 4 (four) hours as needed for Wheezing or Shortness of Breath. [facility] albuterol 2.5 mg/0.5 mL nebulizer solution 2017-09 00:00: 00 Yes [id number] 2.5mg Inhale 0.5 mL every 4 (four) hours as needed for Wheezing. [facility] ipratropium 0.02 % nebulizer solution 2017-09 00:00: 00 Yes [id number] .5mg Inhale 2.5 mL every 4 (four) hours as needed for Wheezing or Shortness of Breath. [facility] albuterol 2.5 mg/0.5 mL nebulizer solution 2017-09 00:00: 00 Yes [id number] 2.5mg Inhale 0.5 mL every 4 (four) hours as needed for Wheezing. [facility] ipratropium 0.02 % nebulizer solution 2017-09 00:00: 00 Yes [id number] .5mg Inhale 2.5 mL every 4 (four) hours as needed for Wheezing or Shortness of Breath. [facility] albuterol 2.5 mg/0.5 mL nebulizer solution 2017-09 00:00: 00 Yes [id number] 2.5mg Inhale 0.5 mL every 4 (four) hours as needed for Wheezing. [facility] ipratropium 0.02 % nebulizer solution 2017-09 00:00: 00 Yes [id number] .5mg Inhale 2.5 mL every 4 (four) hours as needed for Wheezing or Shortness of Breath. [facility] albuterol 2.5 mg/0.5 mL nebulizer solution 2017-09 00:00: 00 Yes [id number] 2.5mg Inhale 0.5 mL every 4 (four) hours as needed for Wheezing. [facility] ipratropium 0.02 % nebulizer solution 2017-09 00:00: 00 Yes [id number] .5mg Inhale 2.5 mL every 4 (four) hours as needed for Wheezing or Shortness of Breath. [facility] albuterol 2.5 mg/0.5 mL nebulizer solution 2017-09 00:00: 00 Yes [id number] 2.5mg Inhale 0.5 mL every 4 (four) hours as needed for Wheezing. [facility] ipratropium 0.02 % nebulizer solution 2017-09 00:00: 00 Yes [id number] .5mg Inhale 2.5 mL every 4 (four) hours as needed for Wheezing or Shortness of Breath. [facility] albuterol 2.5 mg/0.5 mL nebulizer solution 2017-09 00:00: 00 Yes [id number] 2.5mg Inhale 0.5 mL every 4 (four) hours as needed for Wheezing. [facility] ipratropium 0.02 % nebulizer solution 2017-09 00:00: 00 Yes [id number] .5mg Inhale 2.5 mL every 4 (four) hours as needed for Wheezing or Shortness of Breath. [facility] albuterol 2.5 mg/0.5 mL nebulizer solution 2017-09 00:00: 00 Yes [id number] 2.5mg Inhale 0.5 mL every 4 (four) hours as needed for Wheezing. [facility] ipratropium 0.02 % nebulizer solution 2017-09 00:00: 00 Yes [id number] .5mg Inhale 2.5 mL every 4 (four) hours as needed for Wheezing or Shortness of Breath. [facility]5 [facility]/0.5 mL nebulizer solution 2017-09 00:00: 00 Yes [id number] 2.5mg Inhale 0.5 mL every 4 (four) hours as needed for Wheezing. [facility] ip[facility] 0.02 % nebulizer solution 2017-09 00:00: 00 Yes [id number] .5mg Inhale 2.5 mL every 4 (four) hours as needed for Wheezing or Shortness of Breath. [facility] 2.5 mg/0.5 mL nebulizer solution 2017-09 00:00: 00 Yes [id number] 2.5mg Inhale 0.5 mL every 4 (four) hours as needed for Wheezing. [facility] ip[facility]ropium 0.02 % nebulizer solution 2017-09 00:00: 00 Yes [id number] .5mg Inhale 2.5 mL every 4 (four) hours as needed for Wheezing or Shortness of Breath. [facility] 2.5 mg/0.5 mL nebulizer solution 2017-09 00:00: 00 Yes [id number] 2.5mg Inhale 0.5 mL every 4 (four) hours as needed for Wheezing. [facility] ipratropium 0.02 % nebulizer solution 2017-09 00:00: 00 Yes [id number] .5mg Inhale 2.5 mL every 4 (four) hours as needed for Wheezing or Shortness of Breath. [facility]ol 2.5 mg/0.5 mL nebulizer solution 2017-09 00:00: 00 Yes [id number] 2.5mg Inhale 0.5 mL every 4 (four) hours as needed for Wheezing. [facility] ip[facility]ropium 0.02 % nebulizer solution 2017-09 00:00: 00 Yes [id number] .5mg Inhale 2.5 mL every 4 (four) hours as needed for Wheezing or Shortness of Breath. [facility] 2.5 mg/0.5 mL nebulizer solution 2017-09 00:00: 00 Yes [id number] 2.5mg Inhale 0.5 mL every 4 (four) hours as needed for Wheezing. [facility] ipratropium 0.02 % nebulizer solution 2017-09 00:00: 00 Yes [id number] .5mg Inhale 2.5 mL every 4 (four) hours as needed for Wheezing or Shortness of Breath. [facility] albuterol 2.5 mg/0.5 mL nebulizer solution 2017-09 00:00: 00 Yes [id number] 2.5mg Inhale 0.5 mL every 4 (four) hours as needed for Wheezing. [facility] ipratropium 0.02 % nebulizer solution 2017-09 00:00: 00 Yes [id number] .5mg Inhale 2.5 mL every 4 (four) hours as needed for Wheezing or Shortness of Breath. [facility] albuterol 2.5 mg/0.5 mL nebulizer solution 2017-09 00:00: 00 Yes [id number] 2.5mg Inhale 0.5 mL every 4 (four) hours as needed for Wheezing. [facility] ipratropium 0.02 % nebulizer solution 2017-09 00:00: 00 Yes [id number] .5mg Inhale 2.5 mL every 4 (four) hours as needed for Wheezing or Shortness of Breath. [facility] albuterol 2.5 mg/0.5 mL nebulizer solution 2017-09 00:00: 00 Yes [id number] 2.5mg Inhale 0.5 mL every 4 (four) hours as needed for Wheezing. [facility] ipratropium 0.02 % nebulizer solution 2017-09 00:00: 00 Yes [id number] .5mg Inhale 2.5 mL every 4 (four) hours as needed for Wheezing or Shortness of Breath. [facility] albuterol 2.5 mg/0.5 mL nebulizer solution 2017-09 00:00: 00 Yes [id number] 2.5mg Inhale 0.5 mL every 4 (four) hours as needed for Wheezing. [facility] ipratropium 0.02 % nebulizer solution 2017-09 00:00: 00 Yes [id number] .5mg Inhale 2.5 mL every 4 (four) hours as needed for Wheezing or Shortness of Breath. [facility] albuterol 2.5 mg/0.5 mL nebulizer solution 2017-09 00:00: 00 Yes [id number] 2.5mg Inhale 0.5 mL every 4 (four) hours as needed for Wheezing. [facility] ipratropium 0.02 % nebulizer solution 2017-09 00:00: 00 Yes [id number] .5mg Inhale 2.5 mL every 4 (four) hours as needed for Wheezing or Shortness of Breath. [facility] albuterol 2.5 mg/0.5 mL nebulizer solution 2017-09 00:00: 00 Yes [id number] 2.5mg Inhale 0.5 mL every 4 (four) hours as needed for Wheezing. [facility] ipratropium 0.02 % nebulizer solution 2017-09 00:00: 00 Yes [id number] .5mg Inhale 2.5 mL every 4 (four) hours as needed for Wheezing or Shortness of Breath. [facility] albuterol 2.5 mg/0.5 mL nebulizer solution 2017-09 00:00: 00 Yes [id number] 2.5mg Inhale 0.5 mL every 4 (four) hours as needed for Wheezing. [facility] ipratropium 0.02 % nebulizer solution 2017-09 00:00: 00 Yes [id number] .5mg Inhale 2.5 mL every 4 (four) hours as needed for Wheezing or Shortness of Breath. [facility] albuterol 2.5 mg/0.5 mL nebulizer solution 2017-09 00:00: 00 Yes [id number] 2.5mg Inhale 0.5 mL every 4 (four) hours as needed for Wheezing. [facility] ipratropium 0.02 % nebulizer solution 2017-09 00:00: 00 Yes [id number] .5mg Inhale 2.5 mL every 4 (four) hours as needed for Wheezing or Shortness of Breath. [facility].5 mg/0.5 mL nebulizer solution 2017-09 00:00: 00 Yes [id number] 2.5mg Inhale 0.5 mL every 4 (four) hours as needed for Wheezing. [facility] ipratropium 0.02 % nebulizer solution 2017-09 00:00: 00 Yes [id number] .5mg Inhale 2.5 mL every 4 (four) hours as needed for Wheezing or Shortness of Breath. [facility] albuterol 2.5 mg/0.5 mL nebulizer solution 2017-09 00:00: 00 Yes [id number] 2.5mg Inhale 0.5 mL every 4 (four) hours as needed for Wheezing. [facility] ipratropium 0.02 % nebulizer solution 2017-09 00:00: 00 Yes [id number] .5mg Inhale 2.5 mL every 4 (four) hours as needed for Wheezing or Shortness of Breath. [facility] albuterol 2.5 mg/0.5 mL nebulizer solution 2017-09 00:00: 00 Yes [id number] 2.5mg Inhale 0.5 mL every 4 (four) hours as needed for Wheezing. [facility] ipratropium 0.02 % nebulizer solution 2017-09 00:00: 00 Yes [id number] .5mg Inhale 2.5 mL every 4 (four) hours as needed for Wheezing or Shortness of Breath. [facility] albuterol 2.5 mg/0.5 mL nebulizer solution 2017-09 00:00: 00 Yes [id number] 2.5mg Inhale 0.5 mL every 4 (four) hours as needed for Wheezing. [facility] ipratropium 0.02 % nebulizer solution 2017-09 00:00: 00 Yes [id number] .5mg Inhale 2.5 mL every 4 (four) hours as needed for Wheezing or Shortness of Breath. [facility] albuterol 2.5 mg/0.5 mL nebulizer solution 2017-09 00:00: 00 Yes [id number] 2.5mg Inhale 0.5 mL every 4 (four) hours as needed for Wheezing. [facility] ipratropium 0.02 % nebulizer solution 2017-09 00:00: 00 Yes [id number] .5mg Inhale 2.5 mL every 4 (four) hours as needed for Wheezing or Shortness of Breath. [facility] albuterol 2.5 mg/0.5 mL nebulizer solution 2017-09 00:00: 00 Yes [id number] 2.5mg Inhale 0.5 mL every 4 (four) hours as needed for Wheezing. [facility] ipratropium 0.02 % nebulizer solution 2017-09 00:00: 00 Yes [id number] .5mg Inhale 2.5 mL every 4 (four) hours as needed for Wheezing or Shortness of Breath. [facility] albuterol 2.5 mg/0.5 mL nebulizer solution 2017-09 00:00: 00 Yes [id number] 2.5mg Inhale 0.5 mL every 4 (four) hours as needed for Wheezing. [facility] ipratropium 0.02 % nebulizer solution 2017-09 00:00: 00 Yes [id number] .5mg Inhale 2.5 mL every 4 (four) hours as needed for Wheezing or Shortness of Breath. [facility] albuterol 2.5 mg/0.5 mL nebulizer solution 2017-09 00:00: 00 Yes [id number] 2.5mg Inhale 0.5 mL every 4 (four) hours as needed for Wheezing. [facility] albuterol (VENTOLIN HFA) 90 mcg/actuati on inhaler 2017-09 00:00: 00 Yes 2{puff} Inhale 2 Puffs every 6 (six) hours as needed for Wheezing or Shortness of Breath. [facility] albuterol (VENTOLIN HFA) 90 mcg/actuati on inhaler 2017-09 00:00: 00 Yes 2{puff} Inhale 2 Puffs every 6 (six) hours as needed for Wheezing or Shortness of Breath. [facility] albuterol (VENTOLIN HFA) 90 mcg/actuati on inhaler 2017-09 00:00: 00 Yes 2{puff} Inhale 2 Puffs every 6 (six) hours as needed for Wheezing or Shortness of Breath. [facility] albuterol (VENTOLIN HFA) 90 mcg/actuati on inhaler 2017-09 00:00: 00 Yes 2{puff} Inhale 2 Puffs every 6 (six) hours as needed for Wheezing or Shortness of Breath. [facility] albuterol (VENTOLIN HFA) 90 mcg/actuati on inhaler 2017-09 00:00: 00 Yes 2{puff} Inhale 2 Puffs every 6 (six) hours as needed for Wheezing or Shortness of Breath. [facility] albuterol (VENTOLIN HFA) 90 mcg/actuati on inhaler 2017-09 00:00: 00 Yes 2{puff} Inhale 2 Puffs every 6 (six) hours as needed for Wheezing or Shortness of Breath. [facility] albuterol (VENTOLIN HFA) 90 mcg/actuati on inhaler 2017-09 00:00: 00 Yes 2{puff} Inhale 2 Puffs every 6 (six) hours as needed for Wheezing or Shortness of Breath. [facility] albuterol (VENTOLIN HFA) 90 mcg/actuati on inhaler 2017-09 00:00: 00 Yes 2{puff} Inhale 2 Puffs every 6 (six) hours as needed for Wheezing or Shortness of Breath. [facility] albuterol (VENTOLIN HFA) 90 mcg/actuati on inhaler 2017-09 00:00: 00 Yes 2{puff} Inhale 2 Puffs every 6 (six) hours as needed for Wheezing or Shortness of Breath. [facility] albuterol (VENTOLIN HFA) 90 mcg/actuati on inhaler 2017-09 00:00: 00 Yes 2{puff} Inhale 2 Puffs every 6 (six) hours as needed for Wheezing or Shortness of Breath. [facility] albuterol (VENTOLIN HFA) 90 mcg/actuati on inhaler 2017-09 00:00: 00 Yes 2{puff} Inhale 2 Puffs every 6 (six) hours as needed for Wheezing or Shortness of Breath. [facility] albuterol (VENTOLIN HFA) 90 mcg/actuati on inhaler 2017-09 00:00: 00 Yes 2{puff} Inhale 2 Puffs every 6 (six) hours as needed for Wheezing or Shortness of Breath. [facility] albuterol (VENTOLIN HFA) 90 mcg/actuati on inhaler 2017-09 00:00: 00 Yes 2{puff} Inhale 2 Puffs every 6 (six) hours as needed for Wheezing or Shortness of Breath. [facility] albuterol (VENTOLIN HFA) 90 mcg/actuati on inhaler 2017-09 00:00: 00 Yes 2{puff} Inhale 2 Puffs every 6 (six) hours as needed for Wheezing or Shortness of Breath. [facility] albuterol (VENTOLIN HFA) 90 mcg/actuati on inhaler 2017-09 00:00: 00 Yes 2{puff} Inhale 2 Puffs every 6 (six) hours as needed for Wheezing or Shortness of Breath. [facility] albuterol (VENTOLIN HFA) 90 mcg/actuati on inhaler 2017-09 00:00: 00 Yes 2{puff} Inhale 2 Puffs every 6 (six) hours as needed for Wheezing or Shortness of Breath. [facility] albuterol (VENTOLIN HFA) 90 mcg/actuati on inhaler 2017-09 00:00: 00 Yes 2{puff} Inhale 2 Puffs every 6 (six) hours as needed for Wheezing or Shortness of Breath. [facility] albuterol (VENTOLIN HFA) 90 mcg/actuati on inhaler 2017-09 00:00: 00 Yes 2{puff} Inhale 2 Puffs every 6 (six) hours as needed for Wheezing or Shortness of Breath. [facility] albuterol (VENTOLIN HFA) 90 mcg/actuati on inhaler 2017-09 00:00: 00 Yes 2{puff} Inhale 2 Puffs every 6 (six) hours as needed for Wheezing or Shortness of Breath. [facility] albuterol (VENTOLIN HFA) 90 mcg/actuati on inhaler 2017-09 00:00: 00 Yes 2{puff} Inhale 2 Puffs every 6 (six) hours as needed for Wheezing or Shortness of Breath. [facility] albuterol (VENTOLIN HFA) 90 mcg/actuati on inhaler 2017-09 00:00: 00 Yes 2{puff} Inhale 2 Puffs every 6 (six) hours as needed for Wheezing or Shortness of Breath. [facility] albuterol (VENTOLIN HFA) 90 mcg/actuati on inhaler 2017-09 00:00: 00 Yes 2{puff} Inhale 2 Puffs every 6 (six) hours as needed for Wheezing or Shortness of Breath. [facility] albuterol (VENTOLIN HFA) 90 mcg/actuati on inhaler 2017-09 00:00: 00 Yes 2{puff} Inhale 2 Puffs every 6 (six) hours as needed for Wheezing or Shortness of Breath. [facility] albuterol (VENTOLIN HFA) 90 mcg/actuati on inhaler 2017-09 00:00: 00 Yes 2{puff} Inhale 2 Puffs every 6 (six) hours as needed for Wheezing or Shortness of Breath. [facility] albuterol (VENTOLIN HFA) 90 mcg/actuati on inhaler 2017-09 00:00: 00 Yes 2{puff} Inhale 2 Puffs every 6 (six) hours as needed for Wheezing or Shortness of Breath. [facility] albuterol (VENTOLIN HFA) 90 mcg/actuati on inhaler 2017-09 00:00: 00 Yes 2{puff} Inhale 2 Puffs every 6 (six) hours as needed for Wheezing or Shortness of Breath. [facility] albuterol (VENTOLIN HFA) 90 mcg/actuati on inhaler 2017-09 00:00: 00 Yes 2{puff} Inhale 2 Puffs every 6 (six) hours as needed for Wheezing or Shortness of Breath. [facility] albuterol (VENTOLIN HFA) 90 mcg/actuati on inhaler 2017-09 00:00: 00 Yes 2{puff} Inhale 2 Puffs every 6 (six) hours as needed for Wheezing or Shortness of Breath. [facility] Immunizations Ordered Immunization Name Filled Immunization Name Date Status Comments Source SARS-COV-2 COVID-19 PFIZER VACCINE 2020-11-04 00:00:00 Completed [facility] SARS-COV-2 COVID-19 PFIZER VACCINE 2020-11-04 00:00:00 Completed [facility] SARS-COV-2 COVID-19 PFIZER VACCINE 2020-11-04 00:00:00 Completed [facility] SARS-COV-2 COVID-19 PFIZER VACCINE 2020-10-14 00:00:00 Completed [facility] SARS-COV-2 COVID-19 PFIZER VACCINE 2020-10-14 00:00:00 Completed [facility] SARS-COV-2 COVID-19 PFIZER VACCINE 2020-10-14 00:00:00 Completed [facility] Zoster Vaccine Recombinant 2020-09-12 00:00:00 Completed [facility] Zoster Vaccine Recombinant 2020-09-12 00:00:00 Completed [facility] Zoster Vaccine Recombinant 2020-09-12 00:00:00 Completed [facility] Influenza Virus Vaccine 2020-06-02 00:00:00 Completed [facility] Influenza Virus Vaccine 2020-06-02 00:00:00 Completed [facility] Influenza Virus Vaccine 2020-06-02 00:00:00 Completed [facility] Zoster Vaccine Recombinant 2020-04-04 00:00:00 Completed [facility] Zoster Vaccine Recombinant 2020-04-04 00:00:00 Completed [facility] Zoster Vaccine Recombinant 2020-04-04 00:00:00 Completed [facility] Pneumococcal Polysaccharide, PPSV23 (PNEUMOVAX) 2018-06-09 00:00:00 Completed [facility] Influenza High Dose 2018-06-09 00:00:00 Completed [facility] Pneumococcal Polysaccharide, PPSV23 (PNEUMOVAX) 2018-06-09 00:00:00 Completed [facility] Influenza High Dose 2018-06-09 00:00:00 Completed [facility] Pneumococcal Polysaccharide, PPSV23 (PNEUMOVAX) 2018-06-09 00:00:00 Completed [facility] Influenza High Dose 2018-06-09 00:00:00 Completed [facility] TDAP 2016-09-02 00:00:00 Completed [facility] TDAP 2016-09-02 00:00:00 Completed [facility] TDAP 2016-09-02 00:00:00 Completed [facility] Pneumococcal Polysaccharide, PPSV23 (PNEUMOVAX) Unknown Completed [facility] Influenza High Dose Unknown Completed [facility] Zoster Vaccine Recombinant Unknown Completed [facility] TDAP Unknown Completed [facility] Influenza Virus Vaccine Unknown Completed [facility] Zoster Vaccine Recombinant Unknown Completed [facility] SARS-COV-2 COVID-19 PFIZER VACCINE Unknown Completed [facility] SARS-COV-2 COVID-19 PFIZER VACCINE Unknown Completed [facility] Pneumococcal Polysaccharide, PPSV23 (PNEUMOVAX) Unknown Completed [facility] Influenza High Dose Unknown Completed [facility] Zoster Vaccine Recombinant Unknown Completed [facility] TDAP Unknown Completed [facility] Influenza Virus Vaccine Unknown Completed [facility] Zoster Vaccine Recombinant Unknown Completed [facility] SARS-COV-2 COVID-19 PFIZER VACCINE Unknown Completed [facility] SARS-COV-2 COVID-19 PFIZER VACCINE Unknown Completed [facility] Pneumococcal Polysaccharide, PPSV23 (PNEUMOVAX) Unknown Completed [facility] Influenza High Dose Unknown Completed [facility] Zoster Vaccine Recombinant Unknown Completed [facility] TDAP Unknown Completed [facility] Influenza Virus Vaccine Unknown Completed [facility] Zoster Vaccine Recombinant Unknown Completed [facility] SARS-COV-2 COVID-19 PFIZER VACCINE Unknown Completed [facility] SARS-COV-2 COVID-19 PFIZER VACCINE Unknown Completed [facility] Pneumococcal Polysaccharide, PPSV23 (PNEUMOVAX) Unknown [facility] Influ[facility] Dose Unknown Completed [facility] Zoster Vaccine Recombinant Unknown Completed [facility] TDAP Unknown Completed [facility] Influenza Virus Vaccine Unknown Completed [facility] Zoster Vaccine Recombinant Unknown Completed [facility] SARS-COV-2 COVID-19 PFIZER VACCINE Unknown Completed [facility] SARS-COV-2 COVID-19 PFIZER VACCINE Unknown Completed [facility] Pneumococcal Polysaccharide, PPSV23 (PNEUMOVAX) Unknown Completed [facility] Influenza High Dose Unknown Completed [facility] Zoster Vaccine Recombinant Unknown Completed [facility] TDAP Unknown Completed [facility] Influenza Virus Vaccine Unknown Completed [facility] Zoster Vaccine Recombinant Unknown Completed [facility] SARS-COV-2 COVID-19 PFIZER VACCINE Unknown Completed [facility] SARS-COV-2 COVID-19 PFIZER VACCINE Unknown Completed [facility] Pneumococcal Polysaccharide, PPSV23 (PNEUMOVAX) Unknown Completed [facility] Influenza High Dose Unknown Completed [facility] Zoster Vaccine Recombinant Unknown Completed [facility] TDAP Unknown Completed [facility] Influenza Virus Vaccine Unknown Completed [facility] Zoster Vaccine Recombinant Unknown Completed [facility] SARS-COV-2 COVID-19 PFIZER VACCINE Unknown Completed [facility] SARS-COV-2 COVID-19 PFIZER VACCINE Unknown Completed [facility] Pneumococcal Polysaccharide, PPSV23 (PNEUMOVAX) Unknown Completed [facility] Pneumococcal Polysaccharide, PPSV23 (PNEUMOVAX) Unknown Completed [facility] Influenza High Dose Unknown Completed [facility] Zoster Vaccine Recombinant Unknown Completed [facility] TDAP Unknown Completed [facility] Influenza Virus Vaccine Unknown Completed [facility] Zoster Vaccine Recombinant Unknown Completed [facility] SARS-COV-2 COVID-19 PFIZER VACCINE Unknown Completed [facility] SARS-COV-2 COVID-19 PFIZER VACCINE Unknown Completed [facility] Pneumococcal Polysaccharide, PPSV23 (PNEUMOVAX) Unknown [facility] Pneumococcal Polysaccharide, PPSV23 (PNEUMOVAX) Unknown [facility] Influenza High Dose Unknown Completed [facility] Zoster Vaccine Recombinant Unknown Completed [facility] TDAP Unknown Completed [facility] Influenza Virus Vaccine Unknown Completed [facility] Zoster Vaccine Recombinant Unknown Completed [facility] SARS-COV-2 COVID-19 PFIZER VACCINE Unknown Completed [facility] SARS-COV-2 COVID-19 PFIZER VACCINE Unknown Completed [facility] Pneumococcal Polysaccharide, PPSV23 (PNEUMOVAX) Unknown Completed [facility] Pneumococcal Polysaccharide, PPSV23 (PNEUMOVAX) Unknown Completed [facility] Influenza High Dose Unknown Completed [facility] Zoster Vaccine Recombinant Unknown Completed [facility] TDAP Unknown Completed [facility] Influenza Virus Vaccine Unknown Completed [facility] Zoster Vaccine Recombinant Unknown Completed [facility] SARS-COV-2 COVID-19 PFIZER VACCINE Unknown Completed [facility] SARS-COV-2 COVID-19 PFIZER VACCINE Unknown Completed [facility] Pneumococcal Polysaccharide, PPSV23 (PNEUMOVAX) Unknown Completed [facility] Pneumococcal Polysaccharide, PPSV23 (PNEUMOVAX) Unknown Completed [facility] Influenza High Dose Unknown Completed [facility] Zoster Vaccine Recombinant Unknown Completed [facility] TDAP Unknown Completed [facility] Influenza Virus Vaccine Unknown Completed [facility] Zoster Vaccine Recombinant Unknown Completed [facility] SARS-COV-2 COVID-19 PFIZER VACCINE Unknown Completed [facility] SARS-COV-2 COVID-19 PFIZER VACCINE Unknown Completed [facility] Pneumococcal Polysaccharide, PPSV23 (PNEUMOVAX) Unknown Completed [facility] Pneumococcal Polysaccharide, PPSV23 (PNEUMOVAX) Unknown Completed [facility] Influenza High Dose Unknown Completed [facility] Zoster Vaccine Recombinant Unknown Completed [facility] TDAP Unknown Completed [facility] Influenza Virus Vaccine Unknown Completed [facility] Zoster Vaccine Recombinant Unknown Completed [facility] SARS-COV-2 COVID-19 PFIZER VACCINE Unknown Completed [facility] SARS-COV-2 COVID-19 PFIZER VACCINE Unknown Completed [facility] Pneumococcal Polysaccharide, PPSV23 (PNEUMOVAX) Unknown Completed [facility] Pneumococcal Polysaccharide, PPSV23 (PNEUMOVAX) Unknown Completed [facility] Influenza High Dose Unknown Completed [facility] Zoster Vaccine Recombinant Unknown Completed [facility] TDAP Unknown Completed [facility] Influenza Virus Vaccine Unknown Completed [facility] Zoster Vaccine Recombinant Unknown Completed [facility] SARS-COV-2 COVID-19 PFIZER VACCINE Unknown Completed [facility] SARS-COV-2 COVID-19 PFIZER VACCINE Unknown Completed [facility] Pneumococcal Polysaccharide, PPSV23 (PNEUMOVAX) Unknown Completed [facility] Pneumococcal Polysaccharide, PPSV23 (PNEUMOVAX) Unknown Completed [facility] Influenza High Dose Unknown Completed [facility] Zoster Vaccine Recombinant Unknown Completed [facility] TDAP Unknown Completed [facility] Influenza Virus Vaccine Unknown Completed [facility] Zoster Vaccine Recombinant Unknown Completed [facility] SARS-COV-2 COVID-19 PFIZER VACCINE Unknown Completed [facility] SARS-COV-2 COVID-19 PFIZER VACCINE Unknown Completed [facility] Pneumococcal Polysaccharide, PPSV23 (PNEUMOVAX) Unknown Completed [facility] Pneumococcal Polysaccharide, PPSV23 (PNEUMOVAX) Unknown Completed [facility] Influenza High Dose Unknown Completed [facility] Zoster Vaccine Recombinant Unknown Completed [facility] TDAP Unknown Completed [facility] Influenza Virus Vaccine Unknown Completed [facility] Zoster Vaccine Recombinant Unknown Completed [facility] SARS-COV-2 COVID-19 PFIZER VACCINE Unknown Completed [facility] SARS-COV-2 COVID-19 PFIZER VACCINE Unknown Completed [facility] Pneumococcal Polysaccharide, PPSV23 (PNEUMOVAX) Unknown Completed [facility] Pneumococcal Polysaccharide, PPSV23 (PNEUMOVAX) Unknown Completed [facility] Influenza High Dose Unknown Completed [facility] Zoster Vaccine Recombinant Unknown Completed [facility] TDAP Unknown Completed [facility] Influenza Virus Vaccine Unknown Completed [facility] Zoster Vaccine Recombinant Unknown Completed [facility] SARS-COV-2 COVID-19 PFIZER VACCINE Unknown Completed [facility] SARS-COV-2 COVID-19 PFIZER VACCINE Unknown Completed [facility] Pneumococcal Polysaccharide, PPSV23 (PNEUMOVAX) Unknown Completed [facility] Pneumococcal Polysaccharide, PPSV23 (PNEUMOVAX) Unknown Completed [facility] Influenza High Dose Unknown Completed [facility] Zoster Vaccine Recombinant Unknown Completed [facility] TDAP Unknown Completed [facility] Influenza Virus Vaccine Unknown Completed [facility] Zoster Vaccine Recombinant Unknown Completed [facility] SARS-COV-2 COVID-19 PFIZER VACCINE Unknown Completed [facility] SARS-COV-2 COVID-19 PFIZER VACCINE Unknown Completed [facility] Pneumococcal Polysaccharide, PPSV23 (PNEUMOVAX) Unknown Completed [facility] Pneumococcal Polysaccharide, PPSV23 (PNEUMOVAX) Unknown Completed [facility] Influenza High Dose Unknown Completed [facility] Zoster Vaccine Recombinant Unknown Completed [facility] TDAP Unknown Completed [facility] Influenza Virus Vaccine Unknown Completed [facility] Zoster Vaccine Recombinant Unknown Completed [facility] SARS-COV-2 COVID-19 PFIZER VACCINE Unknown Completed [facility] SARS-COV-2 COVID-19 PFIZER VACCINE Unknown Completed [facility] Pneumococcal Polysaccharide, PPSV23 (PNEUMOVAX) Unknown Completed [facility] Pneumococcal Polysaccharide, PPSV23 (PNEUMOVAX) Unknown Completed [facility] Influenza High Dose Unknown Completed [facility] Zoster Vaccine Recombinant Unknown Completed [facility] TDAP Unknown Completed [facility] Influenza Virus Vaccine Unknown Completed [facility] Zoster Vaccine Recombinant Unknown Completed [facility] SARS-COV-2 COVID-19 PFIZER VACCINE Unknown Completed [facility] SARS-COV-2 COVID-19 PFIZER VACCINE Unknown Completed [facility] Pneumococcal Polysaccharide, PPSV23 (PNEUMOVAX) Unknown Completed [facility] Pneumococcal Polysaccharide, PPSV23 (PNEUMOVAX) Unknown Completed [facility] Influenza High Dose Unknown Completed [facility] Zoster Vaccine Recombinant Unknown Completed [facility] TDAP Unknown Completed [facility] Influenza Virus Vaccine Unknown Completed [facility] Zoster Vaccine Recombinant Unknown Completed [facility] SARS-COV-2 COVID-19 PFIZER VACCINE Unknown Completed [facility] SARS-COV-2 COVID-19 PFIZER VACCINE Unknown Completed [facility] Pneumococcal Polysaccharide, PPSV23 (PNEUMOVAX) Unknown Completed [facility] Pneumococcal Polysaccharide, PPSV23 (PNEUMOVAX) Unknown Completed [facility] Influenza High Dose Unknown Completed [facility] Zoster Vaccine Recombinant Unknown Completed [facility] TDAP Unknown Completed [facility] Influenza Virus Vaccine Unknown Completed [facility] Zoster Vaccine Recombinant Unknown Completed [facility] SARS-COV-2 COVID-19 PFIZER VACCINE Unknown Completed [facility] SARS-COV-2 COVID-19 PFIZER VACCINE Unknown Completed [facility] Pneumococcal Polysaccharide, PPSV23 (PNEUMOVAX) Unknown Completed [facility] Pneumococcal Polysaccharide, PPSV23 (PNEUMOVAX) Unknown Completed [facility] Influenza High Dose Unknown Completed [facility] Zoster Vaccine Recombinant Unknown Completed [facility] TDAP Unknown Completed [facility] Influenza Virus Vaccine Unknown Completed [facility] Zoster Vaccine Recombinant Unknown Completed [facility] SARS-COV-2 COVID-19 PFIZER VACCINE Unknown Completed [facility] SARS-COV-2 COVID-19 PFIZER VACCINE Unknown Completed [facility] Pneumococcal Polysaccharide, PPSV23 (PNEUMOVAX) Unknown Completed [facility] Pneumococcal Polysaccharide, PPSV23 (PNEUMOVAX) Unknown Completed [facility] Influenza High Dose Unknown Completed [facility] Zoster Vaccine Recombinant Unknown Completed [facility] TDAP Unknown Completed [facility] Influenza Virus Vaccine Unknown Completed [facility] Zoster Vaccine Recombinant Unknown Completed [facility] SARS-COV-2 COVID-19 PFIZER VACCINE Unknown Completed [facility] SARS-COV-2 COVID-19 PFIZER VACCINE Unknown Completed [facility] Pneumococcal Polysaccharide, PPSV23 (PNEUMOVAX) Unknown Completed [facility] Pneumococcal Polysaccharide, PPSV23 (PNEUMOVAX) Unknown Completed [facility] Influenza High Dose Unknown Completed [facility] Zoster Vaccine Recombinant Unknown Completed [facility] TDAP Unknown Completed [facility] Influenza Virus Vaccine Unknown Completed [facility] Zoster Vaccine Recombinant Unknown Completed [facility] SARS-COV-2 COVID-19 PFIZER VACCINE Unknown Completed [facility] SARS-COV-2 COVID-19 PFIZER VACCINE Unknown Completed [facility] Pneumococcal Polysaccharide, PPSV23 (PNEUMOVAX) Unknown Completed [facility] Pneumococcal Polysaccharide, PPSV23 (PNEUMOVAX) Unknown Completed [facility] Influenza High Dose Unknown Completed [facility] Zoster Vaccine Recombinant Unknown Completed [facility] TDAP Unknown Completed [facility] Influenza Virus Vaccine Unknown Completed [facility] Zoster Vaccine Recombinant Unknown Completed [facility] SARS-COV-2 COVID-19 PFIZER VACCINE Unknown Completed [facility] SARS-COV-2 COVID-19 PFIZER VACCINE Unknown Completed [facility] Pneumococcal Polysaccharide, PPSV23 (PNEUMOVAX) Unknown Completed [facility] Pneumococcal Polysaccharide, PPSV23 (PNEUMOVAX) Unknown Completed [facility] Influenza High Dose Unknown Completed [facility] Zoster Vaccine Recombinant Unknown Completed [facility] TDAP Unknown Completed [facility] Influenza Virus Vaccine Unknown Completed [facility] Zoster Vaccine Recombinant Unknown Completed [facility] SARS-COV-2 COVID-19 PFIZER VACCINE Unknown Completed [facility] SARS-COV-2 COVID-19 PFIZER VACCINE Unknown Completed [facility] Pneumococcal Polysaccharide, PPSV23 (PNEUMOVAX) Unknown Completed [facility] Vital Signs Vital Name Observation Time Observation Value Comments S ource Body weight 2023-11-21 14:07:00 85.73 kg [facility] BMI 2023-11-21 14:07:00 33.48 kg/m2 [facility] Body height 2023-11-07 21:07:00 160 cm [facility] Body weight 2023-11-07 21:07:00 85.276 kg [facility] BMI 2023-11-07 21:07:00 33.30 kg/m2 [facility] Systolic blood pressure 2023-11-04 17:31:00 131 mm[Hg] [facility] Diastolic blood pressure 2023-11-04 17:31:00 60 mm[Hg] [facility] Heart rate 2023-11-04 17:31:00 81 /min [facility] Body temperature 2023-11-04 17:31:00 36.61 Ni [facility] Body height 2023-11-04 17:31:00 160 cm [facility] Body weight 2023-11-04 17:31:00 85.276 kg [facility] BMI 2023-11-04 17:31:00 33.30 kg/m2 [facility] Oxygen saturation in Arterial blood by Pulse oximetry 2023-11-04 17:31:00 94 /min [facility] Procedures Procedure Date / Time Performed Performing Clinician Source EXTERNAL PROVIDER RECORDS 2023-11-18 05:01:00 Doctor Unassigned, [place] [facility] FREE T4 2023-11-04 19:23:00 [facility] THYROID STIMULATING HORMONE 2023-11-04 19:23:00 Edmund [place]ica [facility] COMP. METABOLIC PANEL (86134) 2023-11-04 19:23:00 Maza Chiara [facility] LIPID PANEL ([id number])(TOTAL CHOLESTEROL, TRIGLYCERIDES, HDL) 2023-11-04 19:23:00 Edmund Mazassica [facility] CBC WITH DIFF 2023-11-04 19:23:00 Bigg Chiara [facility] GLYCOSYLATED HEMOGLOBIN (A1C) 2023-11-04 19:23:00 Chiara Maza [facility] URINALYSIS 2023-11-04 19:23:00 [facility] ASSIGNMENT OF BENEFITS 2023-11-04 17:12:05 Docto r Unassigned, [place] [facility] AUTHORIZATION FOR RELEASE OF PHI 2023-07-29 06:01:00 Doctor Unassigned, [place] [facility] AUTHORIZATION FOR RELEASE OF PHI 2023-07-08 06:01:00 Doctor Unassigned, [place] [facility] ASSIGNMENT OF BENEFITS 2022-04-05 18:12:30 Docto r Unassigned, [place] [facility] [id number] 2022-01-05 00:00:00 [email or web address] [facility] [id number] 2022-01-04 00:00:00 [email or web address] [facility] [id number] 2022-01-04 00:00:00 [email or web address] [facility] [id number] 2021-12-26 00:00:00 CHOSH.01 [facility] Encounters Start Date/Time End Date/Time Encounter Type Admission Type Attending Clinicians Care Facility Care Department Encounter ID Source 2022-01-17 09:00:00 Inpatient Joshua Acosta [facility] [id number] [facility] 2021-07-01 15:40:29 Emergency [facility] [id number] [facility] 2024-05-07 11:00:00 2024-05-07 11:00:00 Outpatient R CHIARA MAZA [facility] [id number] [facility] 2023-12-20 09:30:00 2023-12-20 09:30:00 Outpatient R NOÉ DAVALOS MARISOL [facility] [id number] [facility] 2023-12-16 11:00:00 2023-12-16 11:00:00 Outpatient R VASILE OROZCO [facility] [id number] [facility] 2023-11-22 00:00:00 2023-11-22 00:00:00 [facility] 1.2.840.114 350.1.13.10 4.2.7.2.686 [id number] [facility] 2023-11-21 09:15:00 2023-11-21 09:30:00 Office Visit Heber Benson [facility] 1.2.840.114 350.1.13.10 4.2.7.2.686 [id number] [facility] 2023-11-21 09:15:00 2023-11-21 09:15:00 Outpatient R CHONG BENSONFORT EUSTISMouna [facility] [id number] [facility] 2023-11-20 13:30:00 2023-11-20 13:30:00 Outpatient R IGNACIO GERARDO OGECHUKWU [facility] [id number] [facility] 2023-11-20 00:00:00 2023-11-20 00:00:00 Telephone Ignacio Gerardo [facility] 1.84.114 350.1.13.10 4.2.7.2.686 [id number] [facility] 2023-11-18 00:00:00 2023-11-18 00:00:00 Orders Only Doctor Unassigned, [place] [facility] 1.0.114 350.1.13.10 4.2.7.2.686 [id number] [facility] 2023-11-15 00:00:00 2023-11-15 00:00:00 Telephone Bigg Chiara [facility] 1..114 350.1.13.10 4.2.7.2.686 [id number] 044 [id number] [facility] 2023-11-15 00:00:00 2023-11-15 00:00:00 Telephone Chiara Maza [facility] 1..114 350.1.13.10 4.2.7.2.686 [id number] [facility] 2023-11-07 15:15:00 2023-11-07 16:19:54 Outpatient R HEATHER ERWIN CRAIG [facility] [id number] [facility] 2023-11-07 15:15:00 2023-11-07 16:19:54 Office Visit Heather Erwin [facility]?DEONJose [facility] 1..114 350.1.13.10 4.2.7.2.686 [id number] [facility] 2023-11-05 00:00:00 2023-11-05 00:00:00 Patient Outreach Katerina Coughlin [facility] 1..114 350.1.13.10 4.2.7.2.686 [id number] 044 [id number] [facility] 2023-11-05 00:00:00 2023-11-05 00:00:00 Telephone Chiara Maza [facility] 1.2.840.114 350.1.13.10 4.2.7.2.686 [id number] 044 [id number] [facility] 2023-11-04 13:15:00 2023-11-04 13:30:00 Head Miller Visit 2, [facility] 1.2840.114 350.1.13.10 4.2.7.2.686 [id number] [facility] 2023-11-04 11:00:00 2023-11-04 12:07:36 Outpatient R [facility]G [facility] [id number] [facility] 2023-11-04 11:00:00 2023-11-04 12:07:36 Office Visit Bigg [facility] 1.2840.114 350.1.13.10 4.2.7.2.686 [id number] [id number] [facility] 2023-11-04 00:00:00 2023-11-04 00:00:00 Orders Only Doctor Unassigned, [place] [facility] 1.20.114 350.1.13.10 4.2.7.2.686 [id number] [facility] 2023-08-15 00:00:00 2023-08-15 00:00:00 Outpatient GC_GCBMT_Be rdayes_M PRIV [facility] [id number] [facility] 2023-07-29 00:00:00 2023-07-29 00:00:00 Orders Only Doctor Unassigned, [place] [facility] 1.20.114 350.1.13.10 4.2.7.2.686 [id number] [id number] [facility] 2023-07-08 00:00:00 2023-07-08 00:00:00 Orders Only Doctor Unassigned, [place] [facility] 1.2.840.114 350.1.13.10 4.2.7.2.686 [id number] [facility] 2023-06-19 00:00:00 2023-06-19 00:00:00 [place]patient Yan_[id number] [facility] 2022-04-05 13:16:51 2022-04-05 23:59:00 Outpatient R STACEY BUNDY [facility] [id number] [facility] 2022-04-05 13:00:00 2022-04-05 23:59:00 Hospital Encounter Stacey Bundy [facility] 1.2.840.114 350.1.13.10 4.2.7.2.686 [id number] 800 [id number] [facility] 2022-04-05 00:00:00 2022-04-05 00:00:00 Orders Only Doctor Unassigned, [place] [facility] 1.2.840.114 350.1.13.10 4.2.7.2.686 [id number] [facility] 2022-02-09 00:00:00 2022-02-09 00:00:00 González Rich [facility] 1.2.840.114 350.1.13.10 4.2.7.2.686 [id number] [facility] 2022-01-02 15:43:00 2022-01-16 14:52:00 Inpatient Joshua Cueva [facility] [id number] [facility] 2022-01-02 15:43:00 2022-01-16 14:52:00 Inpatient Joshua Cueva [facility] [id number] [facility] 2022-01-15 00:00:00 2022-01-15 00:00:00 Refill Mariana González Stubbs [facility] 1.2.840.114 350.1.13.10 4.2.7.2.686 [id number] [facility] 2022-01-03 03:33:00 2022-01-03 03:33:00 Outpatient Joshua Acosta HCACL LABO [id number] [facility] 2021-12-26 18:55:00 2022-01-02 15:02:00 Inpatient EM Domi Barry [facility] CARDIAC [id number] [facility] 2021-12-27 06:21:00 2021-12-27 06:21:00 Outpatient Melissa Fernandez [facility] [id number] [facility] 2021-12-05 00:00:00 2021-12-05 00:00:00 Refill Bundy, Stacey [facility] 1.2.840.114 350.1.13.10 4.2.7.2.686 [id number] [facility] 2021-09-05 00:00:00 2021-09-05 00:00:00 Refill González Peña [facility] 1.2.840.114 350.1.13.10 4.2.7.2.686 [id number] [facility] 2021-06-08 00:00:00 2021-06-08 00:00:00 Refill BundyStacey [facility] 1.2.840.114 350.1.13.10 4.2.7.2.686 [id number] [facility] 2021-05-15 00:00:00 2021-05-15 00:00:00 Refill De La TorreMamie [facility] 1.2.840.114 350.1.13.10 4.2.7.2.686 [id number] 044 [id number] [facility] 2021-05-04 00:00:00 2021-05-04 00:00:00 Telephone Wilma [facility] 1.2.840.114 350.1.13.10 4.2.7.2.686 [id number] 098 [id number] [facility] 2021-05-01 11:04:30 2021-05-01 11:34:30 Office Visit Wilma [facility] 1.2.840.114 350.1.13.10 4.2.7.2.686 [id number] [id number] [facility] 2021-05-01 11:00:00 2021-05-01 11:00:00 Outpatient R WILMA [facility] [id number] [facility] 2021-04-19 00:00:00 2021-04-19 00:00:00 Orders Only Doctor Unassigned, [place] [facility] 1.2.840.114 350.1.13.10 4.2.7.2.686 [id number] [facility] 2021-04-14 14:36:41 2021-04-14 15:44:49 Office Visit Bao Cabral [facility] 1.2.840.114 350.1.13.10 4.2.7.2.686 [id number] [facility] 2021-04-14 14:30:00 2021-04-14 15:44:49 Outpatient BAO HUERTA [facility] [id number] [facility] 2021-04-14 14:30:00 2021-04-14 14:30:00 Outpatient BAO HUERTA [facility] [id number] [facility] 2021-03-28 00:00:00 2021-03-28 00:00:00 Patient Secure Msg Doctor Unassigned, [place] [facility] 1..114 350.1.13.10 4.2.7.2.686 [id number] [facility] 2021-03-23 00:00:00 2021-03-23 00:00:00 Patient Secure Msg Stacey Bundy [facility] 1..114 350.1.13.10 4.2.7.2.686 [id number] 311 [id number] [facility] 2021-03-22 18:00:00 2021-03-22 23:59:00 Hospital Encounter Stacey Bundy [facility] 1..114 350.1.13.10 4.2.7.2.686 [id number] [facility] 2021-03-22 00:00:00 2021-03-22 00:00:00 Outpatient STACEY AGUILAR [facility] [id number] [facility] 2021-03-16 14:31:21 2021-03-16 14:51:21 Office Visit Stacey Bundy [facility] 1..114 350.1.13.10 4.2.7.2.686 [id number] 311 [id number] [facility] 2021-03-16 14:50:00 2021-03-16 14:50:00 Outpatient STACEY AGUILAR [facility] [id number] [facility] 2021-03-10 00:00:00 2021-03-10 00:00:00 Ebenezer Kinney [facility] 1.114 350.1.13.10 4.2.7.2.686 [id number] 044 [id number] [facility] 2020-11-09 00:00:00 2020-11-09 00:00:00 Patient Secure Mamie De La Torre [facility] 1.2.840.114 350.1.13.10 4.2.7.2.686 [id number] 044 [id number] [facility] 2020-11-04 08:40:00 2020-11-04 08:40:00 Outpatient PAUL BARRAZA [facility] [id number] [facility] 2020-10-31 00:00:00 2020-10-31 00:00:00 Rico Mamie De La Torre [facility] 1.2.840.114 350.1.13.10 4.2.7.2.686 [id number] 044 [id number] [facility] 2020-10-14 10:10:00 2020-10-14 10:10:00 Outpatient PAUL BARRAZA [facility] [id number] [facility] 2020-10-04 00:00:00 2020-10-04 00:00:00 Rico Mamie De La Torre [facility] 1.2.840.114 350.1.13.10 4.2.7.2.686 [id number] [id number] [facility] 2020-09-20 08:51:36 2020-09-20 09:31:36 Ancillary Visit PeckMeli Brian A [facility] 1.2.840.114 350.1.13.10 4.2.7.2.686 [id number] 179 [id number] [facility] 2020-09-15 09:33:35 2020-09-15 10:13:35 Ancillary Visit Meli Peck Brian A [facility] 1.2.840.114 350.1.13.10 4.2.7.2.686 [id number] 179 [id number] [facility] 2020-09-13 14:30:00 2020-09-13 14:30:00 Outpatient R MAMIE DE LA TORRE [facility] [id number] [facility] 2020-09-13 09:32:56 2020-09-13 10:12:56 Ancillary Visit Meli Peck Brian A [facility] 1.2.840.114 350.1.13.10 4.2.7.2.686 [id number] 179 [id number] [facility] 2020-09-13 09:40:00 2020-09-13 09:40:00 Outpatient PONCE PRESTON [facility] [id number] [facility] 2020-09-08 10:15:00 2020-09-08 15:06:00 Emergency Andreina [facility] 1.840.114 350.1.13.10 4.2.7.2.686 [id number] [facility] 2020-09-08 10:00:00 2020-09-08 10:00:00 Outpatient R [facility] [id number] [facility] 2020-09-08 09:28:53 2020-09-08 09:48:53 Office Visit Scott Collado [facility] 1.2.840.114 350.1.13.10 4.2.7.2.686 [id number] 042 [id number] [facility] 2020-09-08 08:53:40 2020-09-08 09:33:40 Ancillary Visit Alpa King Brian A [facility] 1.2.840.114 350.1.13.10 4.2.7.2.686 [id number] 179 [id number] [facility] 2020-09-08 00:00:00 2020-09-08 00:00:00 Case Management Alpa King [facility] 1.2.840.114 350.1.13.10 4.2.7.2.686 [id number] 179 [id number] [facility] 2020-09-06 16:16:07 2020-09-06 16:56:07 Ancillary Visit Alpa King Brian A [facility] 1.2.840.114 350.1.13.10 4.2.7.2.686 [id number] 179 [id number] [facility] 2020-09-06 00:00:00 2020-09-06 00:00:00 Telephone Ysabel Guerrero [facility] 1.2.840.114 350.1.13.10 4.2.7.2.686 [id number] [facility] 2020-09-06 00:00:00 2020-09-06 00:00:00 Telephone Mamie De La Torre [facility] 1.2.840.114 350.1.13.10 4.2.7.2.686 [id number] 044 [id number] [facility] 2020-09-05 09:00:27 2020-09-05 09:20:27 Office Visit Evi Ken, Attending Mamie De La Torre [facility] 1.2.840.114 350.1.13.10 4.2.7.2.686 [id number] [facility] 2020-09-05 09:20:00 2020-09-05 09:20:00 Outpatient R MAAME, ATTENDING [facility] [id number] [facility] 2020-09-05 00:00:00 2020-09-05 00:00:00 Letter (Out) Kera Dietrich [facility] 1.2.840.114 350.1.13.10 4.2.7.2.686 [id number] [facility] 2020-08-31 09:33:01 2020-08-31 10:13:01 Ancillary Visit Nayely Irizarry Brian A [facility] 1.2.840.114 350.1.13.10 4.2.7.2.686 [id number] 179 [id number] [facility] 2020-08-31 00:00:00 2020-08-31 00:00:[address] [facility] 1.2.840.114 350.1.13.10 4.2.7.2.686 [id number] 071 [id number] [facility] 2020-08-30 00:00:00 2020-08-30 00:00:[address] [facility] 1.2840.114 350.1.13.10 4.2.7.2.686 [id number] [id number] [facility] 2020-08-24 09:34:36 2020-08-24 10:14:36 Ancillary Visit Meli Peck Brian A [facility] 1.2.840.114 350.1.13.10 4.2.7.2.686 [id number] 179 [id number] [facility] 2020-08-22 09:32:01 2020-08-22 10:12:01 Ancillary Visit Meli Peck Brian A [facility] 1.2.840.114 350.1.13.10 4.2.7.2.686 [id number] 179 [id number] [facility] 2020-08-18 00:00:00 2020-08-18 00:00:00 Case Management Alpa King [facility] 1.2.840.114 350.1.13.10 4.2.7.2.686 [id number] 179 [id number] [facility] 2020-08-18 00:00:00 2020-08-18 00:00:[address] [facility] 1.2.840.114 350.1.13.10 4.2.7.2.686 [id number] [id number] [facility] 2020-08-16 08:18:24 2020-08-16 08:58:24 Ancillary Visit Alpa King Brian A [facility] 1.2.840.114 350.1.13.10 4.2.7.2.686 [id number] 179 [id number] [facility] 2020-08-16 00:00:00 2020-08-16 00:00:00 [facility] [employer] 1.2.840.114 350.1.13.10 4.2.7.2.686 [id number] 071 [id number] [facility] 2020-08-12 14:16:24 2020-08-12 14:56:24 Ancillary Visit Nayely Irizarry Brian A [facility] 1.2.840.114 350.1.13.10 4.2.7.2.686 [id number] 179 [id number] [facility] 2020-08-10 00:00:00 2020-08-10 00:00:00 Telephone Ebenezer Donnelly [facility] 1.2.840.114 350.1.13.10 4.2.7.2.686 [id number] [facility] 2020-08-08 12:02:02 2020-08-08 12:17:02 Head Miller Visit Pcp-Flor Ibrahim [facility] 1.2.840.114 350.1.13.10 4.2.7.2.686 [id number] [facility] 2020-08-08 10:48:26 2020-08-08 12:01:01 Office Visit Ebenezer Donnelly Jennifer R [facility] 1.2.840.114 350.1.13.10 4.2.7.2.686 [id number] 044 [id number] [facility] 2020-08-08 11:00:00 2020-08-08 11:00:00 Outpatient R [facility] [id number] [facility] 2020-08-08 09:24:51 2020-08-08 10:04:51 Ancillary Visit PeckMeli Brian A [facility] 1.2.840.114 350.1.13.10 4.2.7.2.686 [id number] 179 [id number] [facility] 2020-08-05 00:00:00 2020-08-05 00:00:00 Telephone Jason Delvalle [facility] 1.2.840.114 350.1.13.10 4.2.7.2.686 [id number] 044 [id number] [facility] 2020-08-03 10:15:53 2020-08-03 10:55:53 Ancillary Visit Peck Ponce Oliver Jose [facility] 1.2.840.114 350.1.13.10 4.2.7.2.686 [id number] 179 [id number] [facility] 2020-08-03 10:20:00 2020-08-03 10:20:00 Outpatient R STANLEY PONEC [facility] [id number] [facility] 2020-08-03 00:00:00 2020-08-03 00:00:00 Telephone Jason Delvalle [facility] 1.2.840.114 350.1.13.10 4.2.7.2.686 [id number] [facility] 2020-08-01 09:36:23 2020-08-01 10:16:23 Ancillary Visit Peck Ponce Oliver Jose [facility] 1.2.840.114 350.1.13.10 4.2.7.2.686 [id number] [facility] 2020-08-01 00:00:00 2020-08-01 00:00:00 Telephone Jason Delvalle [facility] 1.2.840.114 350.1.13.10 4.2.7.2.686 [id number] [id number] [facility] 2020-07-18 13:33:08 2020-07-18 14:33:08 Ancillary Visit Nayely Irizarry Brian A [facility] 1.2.840.114 350.1.13.10 4.2.7.2.686 [id number] 179 [id number] [facility] 2020-07-18 13:40:00 2020-07-18 13:40:00 Outpatient R PONCE ANGEL [facility] [id number] [facility] 2020-07-14 00:00:00 2020-07-14 00:00:00 Refill Mamie De La Torre [facility] 1.2.840.114 350.1.13.10 4.2.7.2.686 [id number] [facility] 2020-06-29 09:54:53 2020-06-29 10:14:53 Office Visit Jason Delvalle Rex M [facility] 1.2.840.114 350.1.13.10 4.2.7.2.686 [id number] [id number] [facility] 2020-06-29 10:00:00 2020-06-29 10:00:00 Outpatient R [facility] [id number] [facility] 2020-06-28 00:00:00 2020-06-28 00:00:00 Telephone Mamie De La Torre [facility] 1.2.840.114 350.1.13.10 4.2.7.2.686 [id number] [id number] [facility] 2020-06-13 00:00:00 2020-06-13 00:00:00 Barbara Lundberg [facility] 1.2114 350.1.13.10 4.2.7.2.686 [id number] [facility] 2020-05-13 10:42:41 2020-05-13 23:59:00 Hospital Encounter ZanKaterina woods [facility] 1.2114 350.1.13.10 4.2.7.2.686 [id number] [facility] 2020-05-13 10:41:34 2020-05-13 10:41:34 Hospital Encounter [place] Katerina [facility] 1.2114 350.1.13.10 4.2.7.2.686 [id number] [facility] 2020-05-13 00:00:00 2020-05-13 00:00:00 Outpatient R KATERINA ZULUAGA [facility] [id number] [facility] 2020-05-11 10:14:57 2020-05-11 11:19:16 Office Visit Benjamin [facility] 1.114 350.1.13.10 4.2.7.2.686 [id number] [facility] 2020-05-11 10:00:00 2020-05-11 10:00:00 Outpatient YSABEL ALEXANDRE [facility] [id number] [facility] 2020-05-11 00:00:00 2020-05-11 00:00:00 Orders Only Doctor Unassigned, [place] [facility] 1.114 350.1.13.10 4.2.7.2.686 [id number] [facility] 2020-05-05 15:28:48 2020-05-05 16:11:20 Office Visit Provider, Pcp Santino Ledesma [facility] 1.2.840.114 350.1.13.10 4.2.7.2.686 [id number] [id number] [facility] 2020-05-05 10:52:40 2020-05-05 11:58:32 Nurse Visit Pcp, Medicare Wellness Gal Santino Quezada [facility] 1.2840.114 350.1.13.10 4.2.7.2.686 [id number] [facility] 2020-05-05 11:00:00 2020-05-05 11:00:00 Outpatient R [facility] [id number] [facility] 2020-04-25 00:00:00 2020-04-25 00:00:00 Pre Visit Outreach Peter Chauhan sa [facility] 1.2840.114 350.1.13.10 4.2.7.2.686 [id number] [facility] 2020-04-22 10:16:48 2020-04-22 15:59:34 Telemedici ne Visit Agustín Naidu Laura R [facility] 1.2840.114 350.1.13.10 4.2.7.2.686 [id number] 044 [id number] [facility] 2020-04-22 13:40:00 2020-04-22 13:40:00 Outpatient R [facility] [id number] [facility] 2020-04-15 00:00:00 2020-04-15 00:00:00 Orders Only Doctor Unassigned, [place] [facility] 1.20.114 350.1.13.10 4.2.7.2.686 [id number] [facility] 2020-03-29 00:00:00 2020-03-29 00:00:00 Refill Peter Chauhan sa [facility] 1.2840.114 350.1.13.10 4.2.7.2.686 [id number] [facility] 2020-02-23 00:00:00 2020-02-23 00:00:00 Telephone Peter Chauhan sa [facility] 1.2.840.114 350.1.13.10 4.2.7.2.686 [id number] [facility] 2020-02-15 00:00:00 2020-02-15 00:00:00 Telephone Juany Antonio [facility] 1.2.840.114 350.1.13.10 4.2.7.2.686 [id number] [facility] 2020-02-14 12:15:00 2020-02-14 12:15:00 Outpatient R SHEYLA MCDUFFIE [facility] [id number] [facility] 2020-02-14 11:06:43 2020-02-14 11:21:43 Laboratory Only Only, Pcp Test Sheyla Mcduffie [facility] 1.2.840.114 350.1.13.10 4.2.7.2.686 [id number] [facility] 2020-01-21 00:00:00 2020-01-21 00:00:00 Telephone Kera Dietrich [facility] 1.2.840.114 350.1.13.10 4.2.7.2.686 [id number] [facility] 2020-01-20 09:57:38 2020-01-20 10:07:38 Head Miller Visit Pcp-Lab Unknown, Attending [facility] 1.2.840.114 350.1.13.10 4.2.7.2.686 [id number] [facility] 2020-01-20 10:00:00 2020-01-20 10:00:00 Outpatient R UNKNOWN, ATTENDING [facility] [id number] [facility] 2019-12-21 00:00:00 2019-12-21 00:00:00 Barbara Lundberg [facility] 1.2.840.114 350.1.13.10 4.2.7.2.686 [id number] [facility] 2019-11-16 16:30:00 2019-11-16 16:30:00 Outpatient R [facility] [id number] [facility] 2019-11-16 16:02:10 2019-11-16 16:17:10 Office Visit Faculty, Vascular Surg Toni Melendez [facility] 1.2840.114 350.1.13.10 4.2.7.2.686 [id number] [facility] 2019-10-26 16:05:26 2019-11-10 08:03:59 Office Visit Faculty, Vascular Surg Flor Louis [facility] 1.2840.114 350.1.13.10 4.2.7.2.686 [id number] [facility] 2019-10-26 16:15:00 2019-10-26 16:15:00 Outpatient R FLOR [place] [facility] [id number] [facility] 2019-05-11 16:00:53 2019-05-12 08:03:07 Office Visit Faculty, Vascular Surg Flor Louis [facility] 1.2840.114 350.1.13.10 4.2.7.2.686 [id number] [facility] 2019-05-11 00:00:00 2019-05-11 00:00:00 Orders Only Doctor Unassigned, [place] [facility] 1.2.840.114 350.1.13.10 4.2.7.2.686 [id number] [facility] 2019-05-08 08:06:00 2019-05-08 23:59:00 Hospital Encounter Melendez, Gayani [facility] 1.2.840.114 350.1.13.10 4.2.7.2.686 [id number] [facility] 2019-05-08 08:03:47 2019-05-08 08:05:00 Hospital Encounter Amber Melendez Akash [facility] 1.2.840.114 350.1.13.10 4.2.7.2.686 [id number] [facility] 2019-04-20 15:56:26 2019-04-20 17:45:14 Office Visit Faculty, Vascular Surg [facility] 1.2.840.114 350.1.13.10 4.2.7.2.686 [id number] [facility] 2019-04-17 09:36:32 2019-04-17 23:59:00 Hospital Encounter Toni Melendez 1, [facility] 1.2.840.114 350.1.13.10 4.2.7.2.686 [id number] [facility] 2019-04-14 15:45:47 2019-04-14 16:42:29 Office Visit Gissel hudson, Barbara Alonso [facility] 1.2.840.114 350.1.13.10 4.2.7.2.686 [id number] [facility] 2019-04-06 16:18:13 2019-04-09 19:03:43 Office Visit Toni Melendez Unknown, Attending [facility] 1.2.840.114 350.1.13.10 4.2.7.2.686 [id number] [facility] Results Test Description Test Time Test Comments Results Result Co mments Source [facility]2023-11-04 22:44:41* Test Item Value Reference Range Interpretation Comme nts HGB A1C (test code = 4548-4) 5.8 % 4.0-5.7 H HAI (test code = HAI) Reference RangesNormal: <5.7%Prediabetes: 5.7 - 6.4%Diabetes: > 6.5% Lab Interpretation (test code = 49471-9) Abnormal [facility] [id number] 21:46:48 * Test Item Value Reference Range Interpretation Comme nts TSH (test code = 3280983841) 1.74 0.45-4.70 Lab Interpretation (test cod e = 79386-2) Normal [facility] [id number] 21:46:48 * Test Item Value Reference Range Interpretation Comme nts TSH (test code = 7257910674) 1.74 0.45-4.70 Lab Interpretation (test cod e = 76664-2) Normal [facility] [id number] 21:33:06* Test Item Value Reference Range Interpretation Comme nts FREE T4 (test code = 5952583225) 1.01 0.78-2.20 Lab Interpretation (test cod e = 45233-0) Normal [facility] [id number] 21:33:06* Test Item Value Reference Range Interpretation Comme nts FREE T4 (test code = 8624786504) 1.01 0.78-2.20 Lab Interpretation (test cod e = 49693-6) Normal [facility] Center[facility] (39148)(Total Cholesterol, Triglycerides, HDL)2023-11-04 21:16:01* Test Item Value Reference Range Interpretation Comme nts CHOL (test code = 2920943177) 177 mg/dL 120-200 HDL (test code = 5113635207) 41 mg/dL >=50 L HDLC RATIO (test code = 2595422234) 4.3 <=4.5 TRIG (test code = 8260376928) 396 mg/dL 30-170 H LDL CHOL (test code = 81676-6) 57 mg/dL <=160 VLDL (test code = 5891476533) 79 mg/dL 5-60 H Lab Interpretation (test cod e = 82362-5) [facility]normal [facility] (43783)(Total Cholesterol, Triglycerides, HDL)2023-11-04 21:16:01* Test Item Value Reference Range Interpretation Comme nts CHOL (test code = 8774035451) 177 mg/dL 120-200 HDL (test code = 9282081336) 41 mg/dL >=50 L HDLC RATIO (test code = 3328697979) 4.3 <=4.5 TRIG (test code = 5331802888) 396 mg/dL 30-170 H LDL CHOL (test code = 95285-9) 57 mg/dL <=160 VLDL (test code = 5821340244) 79 mg/dL 5-60 H Lab Interpretation (test cod e = 86476-5) Abnormal [facility] Center[facility]. [facility] Panel (17657)2023-11-04 21:15:20* Test Item Value Reference Range Interpretation Comme nts NA (test code = 5557017834) 139 mmol/L 135-145 K (test code = 6189477249) 4.5 mmol/L 3.5-5.0 CL (test code = 6763567046) 107 mmol/L 98-108 CO2 TOTAL (test code = 1693873698) 27 mmol/L 23-31 AGAP (test code = 2084737847) 5 2-16 BUN (test code = 5422789415) 26 mg/dL 7-23 H GLUCOSE (test code = 6909342122) 135 mg/dL 70-110 H CREATININE (test code = 2160-0) 0.98 mg/dL 0.50-1.04 TOTAL BILI (test code = 1982883514) 0.5 mg/dL 0.1-1.1 CALCIUM (test code = 2826633457) 9.3 mg/dL 8.6-10.6 T PROTEIN (test code = 6244476743) 7.3 g/dL 6.3-8.2 ALBUMIN (test code = 5294650529) 4.2 g/dL 3.5-5.0 ALK PHOS (test code = 1583773900) 94 U/L 34-122 ALTv (test code = 1742-6) 31 U/L 5-35 AST(SGOT) (test code = 8136967099) 19 U/L 13-40 eGFR (test code = 91769-2) 61.8 mL/min/1.73m2 CKD-EPI eGFR (2020). Assuming creatinine has been stable day-to-day for at least three months, the eGFR indicates Category G2 (60 - 89 mL/min/1.73 m2) Lab Interpretation (test code = 51023-0) Abnormal [facility]. Metabolic Panel (81844)2023-11-04 21:15:20* Test Item Value Reference Range Interpretation Comme nts NA (test code = 2852325744) 139 mmol/L 135-145 K (test code = 8122908638) 4.5 mmol/L 3.5-5.0 CL (test code = 8103467760) 107 mmol/L 98-108 CO2 TOTAL (test code = 7223776747) 27 mmol/L 23-31 AGAP (test code = 2431585637) 5 2-16 BUN (test code = 6350313991) 26 mg/dL 7-23 H GLUCOSE (test code = 0683310254) 135 mg/dL 70-110 H CREATININE (test code = 2160-0) 0.98 mg/dL 0.50-1.04 TOTAL BILI (test code = 0362902946) 0.5 mg/dL 0.1-1.1 CALCIUM (test code = 6981979232) 9.3 mg/dL 8.6-10.6 T PROTEIN (test code = 5478529132) 7.3 g/dL 6.3-8.2 ALBUMIN (test code = 3361821657) 4.2 g/dL 3.5-5.0 ALK PHOS (test code = 7431899623) 94 U/L 34-122 ALTv (test code = 1742-6) 31 U/L 5-35 AST(SGOT) (test code = 2897010776) 19 U/L 13-40 eGFR (test code = 77612-9) 61.8 mL/min/1.73m2 CKD-EPI eGFR (2020). Assuming creatinine has been stable day-to-day for at least three months, the eGFR indicates Category G2 (60 - 89 mL/min/1.73 m2) Lab Interpretation (test code = 40352-9) Abnormal [facility] with [id number] 21:02:57* Test Item Value Reference Range Interpretation Comme nts WBC (test code = 6690-2) 6.32 4.30-11.10 RBC (test code = 789-8) 4.96 3.93-5.25 HGB (test code = 718-7) 14.6 g/dL 11.6-15.0 HCT (test code = 4544-3) 44.3 % 35.7-45.2 MCV (test code = 787-2) 89.3 fL 80.6-95.5 MCH (test code = 785-6) 29.4 pg 25.9-32.8 MCHC (test code = 786-4) 33.0 g/dL 31.6-35.1 RDW-SD (test code = 17469-9) 42.6 fL 39.0-49.9 RDW-CV (test code = 788-0) 13.1 % 12.0-15.5 PLT (test code = 777-3) 327 166-358 MPV (test code = 14895-7) 10.7 fL 9.5-12.9 NRBC/100 WBC (test code = 9521538760) 0.0 0.0-10.0 NRBC x10^3 (test code = 8785549282) See_Comment [Automated me ssage] The system which generated this result transmitted reference range: 10*3/?L. The reference range was not used to interpret this result as normal/abnormal. GRAN MAT (NEUT) % (test code = 770-8) 58.6 % IMM GRAN % (test code = 4924807592) 0.30 % LYMPH % (test code = 736-9) 29.7 % MONO % (test code = 5905-5) 8.7 % EOS % (test code = 713-8) 1.9 % BASO % (test code = 706-2) 0.8 % GRAN MAT x10^3(ANC) (test code = 9154723505) 3.70 10*3/uL 1.88-7.09 IMM GRAN x10^3 (test code = 0434504377) 0.00-0.06 LYMPH x10^3 (test code = 731-0) 1.88 10*3/uL 1.32-3.29 MONO x10^3 (test code = 742-7) 0.55 10*3/uL 0.33-0.92 EOS x10^3 (test code = 711-2) 0.12 10*3/uL 0.03-0.39 BASO x10^3 (test code = 704-7) 0.05 10*3/uL 0.01-0.07 [facility] with [id number] 21:02:57* Test Item Value Reference Range Interpretation Comme nts WBC (test code = 6690-2) 6.32 4.30-11.10 RBC (test code = 789-8) 4.96 3.93-5.25 HGB (test code = 718-7) 14.6 g/dL 11.6-15.0 HCT (test code = 4544-3) 44.3 % 35.7-45.2 MCV (test code = 787-2) 89.3 fL 80.6-95.5 MCH (test code = 785-6) 29.4 pg 25.9-32.8 MCHC (test code = 786-4) 33.0 g/dL 31.6-35.1 RDW-SD (test code = 88759-3) 42.6 fL 39.0-49.9 RDW-CV (test code = 788-0) 13.1 % 12.0-15.5 PLT (test code = 777-3) 327 166-358 MPV (test code = 63750-1) 10.7 fL 9.5-12.9 NRBC/100 WBC (test code = 9486176838) 0.0 0.0-10.0 NRBC x10^3 (test code = 8914861112) See_Comment [Automated me ssage] The system which generated this result transmitted reference range: 10*3/?L. The reference range was not used to interpret this result as normal/abnormal. GRAN MAT (NEUT) % (test code = 770-8) 58.6 % IMM GRAN % (test code = 6896779682) 0.30 % LYMPH % (test code = 736-9) 29.7 % MONO % (test code = 5905-5) 8.7 % EOS % (test code = 713-8) 1.9 % BASO % (test code = 706-2) 0.8 % GRAN MAT x10^3(ANC) (test code = 3732644503) 3.70 10*3/uL 1.88-7.09 IMM GRAN x10^3 (test code = 6721342936) 0.00-0.06 LYMPH x10^3 (test code = 731-0) 1.88 10*3/uL 1.32-3.29 MONO x10^3 (test code = 742-7) 0.55 10*3/uL 0.33-0.92 EOS x10^3 (test code = 711-2) 0.12 10*3/uL 0.03-0.39 BASO x10^3 (test code = 704-7) 0.05 10*3/uL 0.01-0.07 [facility] HEAD/BRAIN W/O [id number] 18:57:00 [facility] : 1950 Sex: F FAX: Lianet Mcdaniel [phone] [place]: St: ADM FAX: Joshua Freedman MD [phone] -------- Name: FRANSICO PÉREZ [facility] : 1950 Age/S: 71/F [address] Unit: [id number] Loc: C.95[address] [place], [place] [address]Psrn: Lianet Hernandez Acct: [id number] Dis Date: Status: ADM IN PHONE #: [phone] Exam Date: 01/09/2022 1835 FAX #: [phone] Reason: right facial droop/numbess EXAMS: CPT CODE: [id number] CT HEAD/BRAIN W/O CONT 50386 CT head History: right facial droop/numbness Comparison: December Location: [facility] Technique: Noncontrast CT scan of the head was performed. One or more of the following radiation dose reduction techniques was used: automated exposure control, adjustment of mA and /or KV according to patient size, and/or utilization of iterative reconstruction technique. Quality of Exam: Acceptable. The ventricles, sulci and cisterns are within normal limits in size for this age patient. There is no convincing evidence of intracranial hemorrhage or mass effect. There is no midline shift. The visualized paranasal sinuses are unremarkable. IMPRESSION: There is no imaging evidence of acute intracranial pathology. at 1857 Reported and signed by: Russ Ramírez MD PAGE 1 Signed Report (CONTINUED) FAX: Lianet Mcdaniel [phone] [place]: St: [facility] FAX: Joshua Freedman MD [phone] Name: FRANSICO PÉREZ [facility] : 1950 Age/S: 71/F [address] Unit: [id number] Loc: C.9[address] [place] [address] Phys: Lianet Hernandez Acct: [id number] Dis Date: Status: ADM IN PHONE #: [phone] Exam Date: 01/09/2022 1835 FAX #: [phone] Reason: right facial droop/numbess EXAMS: CPT CODE: [id number] HEAD/BRAIN W/O CONT 40313 (Continued) CC: Lianet Hernandez; Joshua Acosta MD Technologist: ERIKA HOLBROOK Trnscrd Dt/Tm: 01/09/2022 (6850) t.VIMALR.PMT Orig Print D/T: S: 01/09/2022 (1900 PAGE 2 Signed StqyosKMND2T - GLYCOSYLATED [id number] 12:22:00* Test Item Value Reference Range Interpretation Comme nts GLYCOSYLATED HEMOGLOBIN (HA1C) (test code = GLYHGB) 5.9 % 0-5.9 N Current ubaldo delines recommend a treatment goal of <7% fordiabetic patients. A1c may be overestimated in diabeticpatients exhibiting poor control and who are alsoheterozygous or homozygous for HgbS or HgbC. Totalglycohemoglobin is a better indicator of diabetic control inpatients with these hemoglobin variants. [id number] 17:28:00* Test Item Value Reference Range Interpretation Comme nts GLUBED (test code = GLUBED) 119 MG/DL 74-106 H [id number] 11:56:00* Test Item Value Reference Range Interpretation Comme nts GLUBED (test code = GLUBED) 115 MG/DL 74-106 H [id number] 05:43:00* Test Item Value Reference Range Interpretation Comme nts GLUBED (test code = GLUBED) 117 MG/DL 74-106 H [id number] 21:34:00* Test Item Value Reference Range Interpretation Comme nts GLUBED (test code = GLUBED) 165 MG/DL 74-106 H [id number] 17:44:00* Test Item Value Reference Range Interpretation Comme nts GLUBED (test code = GLUBED) 116 MG/DL 74-106 H [id number] 12:06:00* Test Item Value Reference Range Interpretation Comme nts GLUBED (test code = GLUBED) 113 MG/DL 74-106 H [id number] 06:16:00* Test Item Value Reference Range Interpretation Comme nts GLUBED (test code = GLUBED) 128 MG/DL 74-106 H COMPREHENSIVE METABOLIC [id number] 05:59:00* Test Item Value Reference Range Interpretation Comme nts SODIUM (test code = NA) 138 mmol/L 137-145 N POTASSIUM (test code = K) 4.1 mmol/L 3.4-5.0 N CHLORIDE (test code = CL) 107 mmol/L 98-107 N CARBON DIOXIDE (test code = CO2) 21 mmol/L 22-30 L ANION GAP (test code = GAP) 14 GLUCOSE (test code = GLU) 116 mg/dL 74-106 H BLOOD UREA NITROGEN (test code = BUN) 21 mg/dL 7-17 H GLOMERULAR FILTRATION RATE (test code = GFR) 105 >60 The estimated glomerular filtration rate is computed usingpatient race, age (>18), sex, and serum creatinine. If anyof the needed data elements are missing the Laboratory cannot compute an estimation of the glomerular filtration rate. CREATININE (test code = CREAT) 0.6 mg/dL 0.5-1.0 N TOTAL PROTEIN (test code = PROT) 6.6 g/dL 6.3-8.2 N "A positive bias may occur for patients taking Eltrombopag(a bone marrow stimulant used to treat thrombocytopenia andaplastic anemia)." ALBUMIN (test code = ALB) 3.6 g/dL 3.5-5.0 N CALCIUM (test code = CA) 8.4 mg/dL 8.4-10.2 N BILIRUBIN TOTAL (test code = BILT) 0.5 mg/dL 0.2-1.3 N "A positive b ias may occur for patients taking Eltrombopag(a bone marrow stimulant used to treat thrombocytopenia andaplastic anemia)." BILIRUBIN CONJUGATED (test code = BILCON) 0 mg/dL 0-0.3 N "A positive bias may occur for patients taking Eltrombopag(a bone marrow stimulant used to treat thrombocytopenia andaplastic anemia)." CONJUGATE D BILIRUBIN IS THE REPLACEMENT ASSAY FOR DIRECTBILIRUBIN. BILIRUBIN UNCONJUGATED (test code = BILUNC) 0.3 mg/dL 0-1.1 N SGOT/AST (test code = AST) 30 U/L 15-46 N SGPT/ALT (test code = ALT) 24 U/L 0-34 N ALKALINE PHOSPHATASE (test code = ALKP) 71 U/L 38-126 N INDEX HEMOLYSIS (test code = HEMINDEX) 16 Index/DL 0-100 N [id number] 05:59:00* Test Item Value Reference Range Interpretation Comme nts PREALBUMIN (test code = PREALB) 25.56 mg/dL 17.6-36.0 N CBC W/AUTO [id number] 05:25:00* Test Item Value Reference Range Interpretation Comme nts WHITE BLOOD CELL (test code = WBC) 7.9 x10 3/uL 5.0-12.0 N RED BLOOD CELL (test code = RBC) 4.90 x10 6/uL 4.20-5.40 N HEMOGLOBIN (test code = HGB) 14.0 g/dL 12.0-16.0 N HEMATOCRIT (test code = HCT) 42.6 % 36.0-46.0 N MEAN CELL VOLUME (test code = MCV) 87 fL 81-99 N MEAN CELL HGB (test code = MCH) 28.6 pg 27-31 N MEAN CELL HGB CONCENTRATION (test code = MCHC) 32.9 g/dL 33-37 L RED CELL DISTRIBUTION WIDTH (test code = RDW) 13.2 % 11.5-15.5 N PLATELET COUNT (test code = PLT) 322 x10 3/uL 130-400 N MEAN PLATELET VOLUME (test c ode = MPV) 9.8 fL 9.4-16.4 N NEUTROPHIL % (test code = NT%) 53.0 % 43-65 N IMMATURE GRANULOCYTE % (test code = IG%) 0.3 % 0.0-2.0 N LYMPHOCYTE % (test code = LY%) 33.3 % 20.5-45.5 N MONOCYTE % (test code = MO%) 10.1 % 5.5-11.7 N EOSINOPHIL % (test code = EO%) 2.5 % 0.9-2.9 N BASOPHIL % (test code = BA%) 0.8 % 0.2-1.0 N NUCLEATED RBC % (test code = NRBC%) 0.0 % 0-1.0 N NEUTROPHIL # (test code = NT#) 4.19 x10 3/uL 2.2-4.8 N IMMATURE GRANULOCYTE # (test code = IG#) 0.02 x10 3/uL 0-0.03 N LYMPHOCYTE # (test code = LY#) 2.63 x10 3/uL 1.3-2.9 N MONOCYTE # (test code = MO#) 0.80 x10 3/uL 0.3-0.8 N EOSINOPHIL # (test code = EO#) 0.20 x10 3/uL 0.0-0.2 N BASOPHIL # (test code = BA#) 0.06 x10 3/uL 0.0-0.1 N URINALYSIS [id number] 22:05:00* Test Item Value Reference Range Interpretation Comme nts UA COLOR (test code = COLU) YELLOW YELLOW UA APPEARANCE (test code = APPU) CLEAR CLEAR UA GLUCOSE DIPSTICK (test code = DGLUU) NEGATIVE MG/DL NEGATIVE UA BILIRUBIN DIPSTICK (test code = BILU) NEGATIVE NEGATIVE UA KETONE DIPSTICK (test code = KETU) NEGATIVE MG/DL NEGATIVE UA SPECIFIC GRAVITY (test code = SGU) 1.015 1.000-1.030 UA BLOOD DIPSTICK (test code = BORA) NEGATIVE NEGATIVE UA PH DIPSTICK (test code = ALEXANDER) 6.0 5.0-8.0 UA PROTEIN DIPSTICK (test code = PROU) NEGATIVE MG/DL NEGATIVE UA UROBILINOGEN DIPSTICK (test code = URO) 0.2 EU/dL See_Comment [Automated message] The system which generated this result transmitted reference range: <=1.0. The reference range was not used to interpret this result as normal/abnormal. UA NITRITE DIPSTICK (test code = CHIVO) NEGATIVE NEGATIVE UA LEUKOCYTE ESTERASE DIPSTICK (test code = LEUU) NEGATIVE NEGATIVE UA WBC (test code = WBCU) 0-3 /HPF See_Comment [Automated message] The system which generated this result transmitted reference range: <4-5. The reference range was not used to interpret this result as normal/abnormal. UA RBC (test code = RBCU) 0-3 /HPF See_Comment [Automated message] The system which generated this result transmitted reference range: <4-5. The reference range was not used to interpret this result as normal/abnormal. UA BACTERIA (test code = BACU) Rare /HPF None-Rare UA SQUAMOUS CELLS (test code = SQU) 0-5 (RARE) /HPF See_Comment [Automated message] The system which generated this result transmitted reference range: 0-5 (RARE). The reference range was not used to interpret this result as normal/abnormal. [id number] 20:42:00* Test Item Value Reference Range Interpretation Comme nts GLUBED (test code = GLUBED) 146 MG/DL 74-106 H [id number] 17:22:00* Test Item Value Reference Range Interpretation Comme nts GLUBED (test code = GLUBED) 120 MG/DL 74-106 H COVID 19 Asymptomatic IH [id number] 12:33:00* Test Item Value Reference Range Interpretation Comme nts COVID 19 Asymptomatic IH AG (test code = COVNONPUIAG) NEGATIVE Negative Comments to Phleb: RAPID [id number] 12:13:00* Test Item Value Reference Range Interpretation Comme nts GLUBED (test code = GLUBED) 106 MG/DL 74-106 N [id number] 17:41:00* Test Item Value Reference Range Interpretation Comme nts GLUBED (test code = GLUBED) 160 MG/DL 74-106 H [id number] 12:14:00* Test Item Value Reference Range Interpretation Comme nts GLUBED (test code = GLUBED) 108 MG/DL 74-106 H [id number] 21:40:00* Test Item Value Reference Range Interpretation Comme nts GLUBED (test code = GLUBED) 126 MG/DL 74-106 H [id number] 17:26:00* Test Item Value Reference Range Interpretation Comme nts GLUBED (test code = GLUBED) 130 MG/DL 74-106 H [id number] 13:26:00* Test Item Value Reference Range Interpretation Comme nts GLUBED (test code = GLUBED) 126 MG/DL 74-106 H [id number] 12:12:00* Test Item Value Reference Range Interpretation Comme nts GLUBED (test code = GLUBED) 189 MG/DL 74-106 H [id number] 16:28:00* Test Item Value Reference Range Interpretation Comme nts GLUBED (test code = GLUBED) 169 MG/DL 74-106 H [id number] 12:04:00* Test Item Value Reference Range Interpretation Comme nts GLUBED (test code = GLUBED) 133 MG/DL 74-106 H [facility] [id number] 11:28:00 [facility] : 1950 Sex: F FAX: Toni Larsen APRN [phone] [place]: St: [facility] FAX: Domi Barry MD [phone] Name: FRANSICO [facility]REZ [facility] 1950 Age/S: 71/F [address] Unit #: [id number] Loc: [address] [address] Phys: Toni Larsen APRN Acct: [id number] Dis Date: Status: ADM IN PHONE #: [phone] Exam Date: 12/30/2021 1051 FAX #: [phone] Reason: SUSPECT DYSPHAGIA S/P CVA EXAMS: CPT CODE: [id number] XR SWLW FUNC W/C V 62605 EXAM: - XR SWLW FUNC W/C V HISTORY: 71 years old Female with SUSPECT DYSPHAGIA S/P CVA TECHNIQUE: A video swallowing exam with fluoroscopy was performed in conjunction with Speech Pathology. Various barium-coated substances were administered to the patient orally. COMPARISON: None FINDINGS: The patient tolerated all barium-coated substances including thin liquid barium by cup and by straw, barium coated nectar, thickened barium, barium coated peaches and barium coated cracker with no evidence of laryngeal penetration or aspiration. IMPRESSION: No evidence of laryngeal penetration or aspiration. Please see separate report by Speech Pathology for additional findings and recommendations of the Speech Therapist. Fluoroscopic time: 1 minute 30 seconds, Total images: 1 Dose: 0.16mGY at 1128 Reported and signed by: Meli Menjivar MD CC: Toni Larsen; Domi Barry MD Technologist: YSABEL ANAYA Trnwird Date/Time/By: 12/30/2021 (1128) : By: HarrisKW9 PAGE 1 Signed Report FAX: Toni Larsen APRN [phone] [place]: St: [facility] FAX: Domi Barry MD [phone] ---- Name: FRANSICO PÉREZ [facility] [place] : 1950 Age/S: 71/F [address] Unit #: [id number] Loc: CST[address] [place], [place] Phys: Toni Larsen KELVIN Acct: [id number] Dis Date: Status: ADM IN PHONE #: [phone] Exam Date: 12/30/2021 105 FAX #: [phone] Reason: SUSPECT DYSPHAGIA S/P CVA EXAMS: CPT CODE: [id number] XR SWLW FUNC W/C V 57316 (Continued) Orig Print D/T: S: 12/30/2021 (1132) PAGE 2 Signed [id number] 06:07:00* Test Item Value Reference Range Interpretation Comme nts GLUBED (test code = GLUBED) 116 MG/DL 74-106 H [id number] 21:24:00* Test Item Value Reference Range Interpretation Comme nts GLUBED (test code = GLUBED) 135 MG/DL 74-106 H [id number] 16:58:00* Test Item Value Reference Range Interpretation Comme nts GLUBED (test code = GLUBED) 131 MG/DL 74-106 H [id number] 11:27:00* Test Item Value Reference Range Interpretation Comme nts GLUBED (test code = GLUBED) 127 MG/DL 74-106 H [id number] 06:53:00* Test Item Value Reference Range Interpretation Comme nts GLUBED (test code = GLUBED) 111 MG/DL 74-106 H BASIC METABOLIC [id number] 03:08:00* Test Item Value Reference Range Interpretation Comme nts SODIUM (test code = NA) 138 mmol/L 137-145 N POTASSIUM (test code = K) 3.7 mmol/L 3.4-5.0 N CHLORIDE (test code = CL) 107 mmol/L 98-107 N CARBON DIOXIDE (test code = CO2) 22 mmol/L 22-30 N ANION GAP (test code = GAP) 13 GLUCOSE (test code = GLU) 107 mg/dL 74-106 H BLOOD UREA NITROGEN (test code = BUN) 20 mg/dL 7-17 H GLOMERULAR FILTRATION RATE (test code = GFR) 88 >60 The estimated glomerular filtration rate is computed usingpatient race, age (>18), sex, and serum creatinine. If anyof the needed data elements are missing the Laboratory cannot compute an estimation of the glomerular filtration rate. CREATININE (test code = CREAT) 0.7 mg/dL 0.5-1.0 N CALCIUM (test code = CA) 8.5 mg/dL 8.4-10.2 N INDEX HEMOLYSIS (test code = HEMINDEX) 20 Index/DL 0-100 N AG [id number] 03:08:00* Test Item Value Reference Range Interpretation Comme nts AG CARCINOEMBRYONIC (test code = CEA) 3.03 ng/mL 0.0-3.0 H * A positive bias may occur for patients taking BIOTINsupplements . CA [id number] 03:08:00* Test Item Value Reference Range Interpretation Comme nts CA 125 (test code = CA125) 6.3 U/mL 0.0-38.1 [facility] [employer] [facility] Electrochemiluminescence Immunoassay(ECLIA)Values obtained with different assay methods or kits cannotbe used interchangeably. Results cannot be interpreted asabsolute evidence of the presence or absence of malignantdisease.Performed At: [facility] [address] [place], [place] [id number] Urban Holliday MD Ph:[phone] [id number] 21:46:00* Test Item Value Reference Range Interpretation Comme nts GLUBED (test code = GLUBED) 113 MG/DL 74-106 H [id number] 15:54:00* Test Item Value Reference Range Interpretation Comme nts GLUBED (test code = GLUBED) 102 MG/DL 74-106 N [id number] 11:43:00* Test Item Value Reference Range Interpretation Comme nts GLUBED (test code = GLUBED) 131 MG/DL 74-106 H - MRI BRAIN W/O [id number] 08:53:00 [facility] : 1950 Sex: F FAX: Toni Larsen APRN [phone] [place]: St: ADM FAX: Melissa Raza MD [phone] Name: FRANSICO PÉREZ [place] : 1950 Age/S: 71/F [address] Unit #: [id number] Loc: [address] [address] Phys: Toni Larsen APRN Acct: [id number] Dis Date: Status: ADM IN PHONE #: [phone] Exam Date: 12/28/2021 010 FAX #: [phone] Reason: ACUTE CVA EXAMS: CPT CODE: [id number] MRI BRAIN W/O CONTRAST 24323 Dictation location: U19. MRI BRAIN WITHOUT CONTRAST HISTORY: ACUTE CVA TECHNIQUE: Multiplanar and multiple pulse sequences were obtained throughout the brain without contrast. COMPARISON: CT head 12/27/21. FINDINGS: Diffusion weighted imaging shows a small 5 mm focus of mildly increased DWI signal and slightly decreased ADC map along the right middle cerebellar peduncle. No other areas restricted diffusion. Corresponding territory increased T2/FLAIR signal is noted within the rightmiddle cerebellar peduncle. No other significant T2/FLAIR signal hyperintensities noted within the white matter. No hemorrhage, mass, mass effect, hydrocephalus, midline shift or extra-axial fluid collection. Minimal thickening noted in the ethmoid sinuses. The mastoid air cells are clear. 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 at 0853 Reported and signedby: Romero Ulloa MD CC: Toni Larsen; Melissa Fernandez MD Technologist: TARI MATUTE Trnscrd Date/Time/By: 12/28/2021 (0853) : By: [email or web address] PAGE 1 Signed Report FAX: Toni Larsen APRN [phone] [place]: St: [facility] FAX: Melissa Raza MD [phone] Name: FRANSICO PÉREZ [facility] : 1950ge/S: 71/F [address] Unit #: [id number] Loc: [address] [address] Phys: Toni Larsen KELVIN Acct: [id number] Dis Date: Status: ADM IN PHONE #: [phone] Exam Date: 12/28/202199 FAX#: [phone] Reason: ACUTE CVA EXAMS: CPT CODE: [id number] MRI BRAIN W/O CONTRAST 73448 (Continued) Orig Print D/T: S: 12/28/2021 (0856) PAGE 2 Signed [id number] 07:07:00* Test Item Value Reference Range Interpretation Comme nts MAGNESIUM (test code = MAG) 2.1 mg/dL 1.6-2.3 N CBC W/AUTO [id number] 06:10:00* Test Item Value Reference Range Interpretation Comme nts WHITE BLOOD CELL (test code = WBC) 7.8 x10 3/uL 5.0-12.0 N RED BLOOD CELL (test code = RBC) 5.19 x10 6/uL 4.20-5.40 N HEMOGLOBIN (test code = HGB) 14.9 g/dL 12.0-16.0 N HEMATOCRIT (test code = HCT) 44.8 % 36.0-46.0 N MEAN CELL VOLUME (test code = MCV) 86 fL 81-99 N MEAN CELL HGB (test code = MCH) 28.7 pg 27-31 N MEAN CELL HGB CONCENTRATION (test code = MCHC) 33.3 g/dL 33-37 N RED CELL DISTRIBUTION WIDTH (test code = RDW) 13.2 % 11.5-15.5 N PLATELET COUNT (test code = PLT) 292 x10 3/uL 130-400 N MEAN PLATELET VOLUME (test c ode = MPV) 9.9 fL 9.4-16.4 N NEUTROPHIL % (test code = NT%) 54.2 % 43-65 N IMMATURE GRANULOCYTE % (test code = IG%) 0.4 % 0.0-2.0 N LYMPHOCYTE % (test code = LY%) 34.1 % 20.5-45.5 N MONOCYTE % (test code = MO%) 8.8 % 5.5-11.7 N EOSINOPHIL % (test code = EO%) 1.7 % 0.9-2.9 N BASOPHIL % (test code = BA%) 0.8 % 0.2-1.0 N NUCLEATED RBC % (test code = NRBC%) 0.0 % 0-1.0 N NEUTROPHIL # (test code = NT#) 4.24 x10 3/uL 2.2-4.8 N IMMATURE GRANULOCYTE # (test code = IG#) 0.03 x10 3/uL 0-0.03 N LYMPHOCYTE # (test code = LY#) 2.66 x10 3/uL 1.3-2.9 N MONOCYTE # (test code = MO#) 0.69 x10 3/uL 0.3-0.8 N EOSINOPHIL # (test code = EO#) 0.13 x10 3/uL 0.0-0.2 N BASOPHIL # (test code = BA#) 0.06 x10 3/uL 0.0-0.1 N - CT HEAD/BRAIN W/O [id number] 17:42:00 [facility] : 1950 Sex: F FAX: Toni Larsen APRN [phone] [place]: St: [facility] FAX: Melissa Raza MD [phone] Name: FRANSICO [facility]REZ [facility] 1950 Age/S: 71/F [address] Unit: [id number] Loc: [address] [address]I[place]: Toni Larsen APRN Acct: [id number] Dis Date: Status: ADM IN PHONE #: [phone] Exam Date: 12/27/2021 1705 FAX #: [phone] Reason: ACUTE CVA S/P TPA 24 HOURS EXAMS: CPT CODE: [id number] HEAD/BRAIN W/O CONT 65580 B2 EXAM: CT HEAD WITHOUT CONTRAST DATE:12/27/2021 5:00 PM HISTORY: 71-year-old ACUTE CVA S/P TPA 24 HOURS TECHNIQUE: Axial CT images from the skull base to the vertex without intravenous contrast. Coronal and sagittal reformatted images were created from the data set. One or more of the following dose reduction techniques were used: Automated exposure control, adjustment of the mA and/or kV according to patient size, and/or iterative reconstruction. COMPARISON: CT head 12/26/2021 FINDINGS: No acute parenchymal abnormality. Volume loss. No acute hemorrhage, hydrocephalus or midline shift. No bony lesions. Paranasal sinuses are clear. IMPRESSION: No early signs of cortical-based ischemia or acute hemorrhage. at 1742 Reported and signed by: MIRELA DELGADILLO MD CC: Toni Larsen; Melissa Fernandez MD Technologist: Flor Macdonald Trnscrd Dt/Tm: 12/27/2021 (1741) Mor Orig Print D/T: S: 12/27/2021(9364 PAGE 1 Signed Report- US TRANSVAGINAL NON [id number] 15:55:00 [facility] P[facility]ZLINDSEY Freire : 1950 Sex: F FAX: Tawny De La Fuente MD [place]: St: ADM FAX: Melissa Raza MD [phone] Name: FRANSICO PÉREZ [facility] :1950 Age/S: 71/F [address] Unit #: [id number] Loc: [address] [address] Phys: Tawny Vincent MD Acct: [id number] Dis Date: Status: ADM IN PHONE #: [phone] Exam Date: 12/27/2021 1517 FAX #: [phone] Reason: VAGINAL CUFF MASS ON CT EXAMS: CPT CODE: [id number] [place] [address] C3 TIME OF STUDY: 12/27/2021 REASON FOR EXAM: VAGINAL CUFF MASS ON CT COMPARISON: CT 12/27/2021. TECHNIQUE: Transpelvic and transvaginal sonogram was performed. B-mode grayscale, color Doppler, and spectral Doppler images are obtained. FINDINGS: Uterus and ovaries are surgically absent. There is a 5.5 cm complex cystic structure with homogeneous internal echoes in the vaginal cuff, to the left of midline. IMPRESSION: 5.5 cm complex cystic structure in the vaginal cuff, to the left midline. Differential considerations include residual endometrioma, hemorrhagic cyst, or other mass lesion. Further evaluation with pre and postcontrast enhanced MRI of the pelvis would be of benefit. at 1555 Reported and signed by: Fareed Rosales MD CC: Tawny Vincent MD; Melissa Fernandez MD Technologist: S# [id number] TV; Chiquita Byrne [facility] Trnscrd Date/Time/By: 12/27/2021 (1686) : By: [email or web address] PAGE 1 Signed Report FAX: Tawny De La Fuente MD [place]: St: ADM FAX: Melissa Raza MD [phone] Name: FRANSICO PÉREZ [facility] : 1950 Age/S: 71/F [address] Unit #: [id number] Loc: [address] [address] Phys: Tawny Vincent MD Acct: [id number] Dis Date: Status: ADM IN PHONE #: [phone] Exam Date: 12/27/2021 1517 FAX #: [phone] Reason:VAGINAL CUFF MASS ON CT EXAMS: CPT CODE: [id number] [place] [address] (Continued) Orig Print D/T: S: 12/27/2021 (5535) PAGE 2 Signed Report- US PELVIC COMPLETE 2021-12-27 15:55:00 [facility] : 1950 Sex: F FAX: Tawny De La Fuente MD [place]: St: ADM FAX: Melissa Raza MD [phone] Name: ELISAFRANSICO D [facility] : 1950 Age/S: 71/F [address] Unit #: [id number] Loc: [address] [address] Phys: Tawny Vincent MD Acct: [id number] Dis Date: Status: ADM IN PHONE #: [phone] Exam Date: 12/27/2021 1517 FAX #: [phone] Reason: VAGINAL CUFF MASS ON CT EXAMS: CPT CODE: [id number] PELVIC [id number] C3 TIME OF STUDY: 12/27/2021 REASON FOR EXAM: VAGINAL CUFF MASS ON CT COMPARISON: CT 12/27/2021. TECHNIQUE: Transpelvic and transvaginal sonogram was performed. B-mode grayscale, color Doppler, and spectral Doppler images are obtained. FINDINGS: Uterus and ovaries are surgically absent. There is a 5.5 cm complex cystic structure with homogeneous internal echoes in the vaginal cuff, to the left of midline. IMPRESSION: 5.5 cm complex cystic structure in the vaginal cuff, to the left midline.Differential considerations include residual endometrioma, hemorrhagic cyst, or other mass lesion. Further evaluation with pre and postcontrast enhanced MRI of the pelvis would be of benefit. at 1555 Reported and signed by: Fareed Rosales MD CC: Tawny Vincent MD; Melissa Fernandez MD Technologist: Chiquita Mars RDMS Trnscrd Date/Time/By: 12/27/2021 (7030) : By: [email or web address] PAGE 1 Signed Report FAX: Tawny De La Fuente MD [place]: St: ADM FAX: Melissa Raza MD [phone] Name: FRANSICO PÉREZ [facility] : 1950 Age/S: 71/F [address] Unit #: [id number] Loc: [address] [address] Phys: Tawny Vincent MD Acct: [id number] Dis Date: Status: ADM IN PHONE #: [phone] Exam Date: 12/27/2021 1517 FAX #: [phone] Reason: VAGINAL CUFF MASS ONCT EXAMS: CPT CODE: [id number] US PELVIC COMPLETE 97899 (Continued) Orig Print D/T: S: 12/27/2021 (0612) PAGE 2 Signed [id number] 13:42:00* Test Item Value Reference Range Interpretation Comme nts GLUBED (test code = GLUBED) 136 MG/DL 74-106 H [id number] 07:56:00* Test Item Value Reference Range Interpretation Comme nts GLUBED (test code = GLUBED) 133 MG/DL 74-106 H BASIC METABOLIC [id number] 05:17:00* Test Item Value Reference Range Interpretation Comme nts SODIUM (test code = NA) 136 mmol/L 137-145 L POTASSIUM (test code = K) 4.1 mmol/L 3.4-5.0 N CHLORIDE (test code = CL) 103 mmol/L 98-107 N CARBON DIOXIDE (test code = CO2) 20 mmol/L 22-30 L ANION GAP (test code = GAP) 17 GLUCOSE (test code = GLU) 147 mg/dL 74-106 H BLOOD UREA NITROGEN (test code = BUN) 26 mg/dL 7-17 H GLOMERULAR FILTRATION RATE (test code = GFR) 105 >60 The estimated glomerular filtration rate is computed usingpatient race, age (>18), sex, and serum creatinine. If anyof the needed data elements are missing the Laboratory cannot compute an estimation of the glomerular filtration rate. CREATININE (test code = CREAT) 0.6 mg/dL 0.5-1.0 N CALCIUM (test code = CA) 8.9 mg/dL 8.4-10.2 N INDEX HEMOLYSIS (test code = HEMINDEX) 41 Index/DL 0-100 N LIPID PROFILE (CORONARY RISK)2021-12-27 05:01:00* Test Item Value Reference Range Interpretation Comme nts TRIGLYCERIDES (test code = TRIG) 209 mg/dL TRIGLYCERIDES REFERENCE RANGE:Normal: <150 mg/dLBorderline High: 150-199 mg/dLHigh: 200-499 mg/dLVery High: >=500 mg/dL CHOLESTEROL (test code = CHOL) 246 mg/dL CHOLESTEROL REFERENCE RANGE:DESIRABLE: < 200 mg/dLBORDERLINE: 200-239 mg/dLHIGH: >=240 mg/dL HDL CHOLESTEROL (test code = HDL) 59 mg/dL 40-59 N LIPOPROTEIN LDL (test code = LDLC) 129.65 mg/dL 32-99 H CORONARY RISK FACTOR (test code = RISK) 4.17 CHOL/HDL RISK MALE: 1/2 AVG 3.43 FEMALE: 1/2 AVG 3.27 AVG 4.97 AVG 4.44 2X AVG 9.55 2X AVG 7.05 3X AVG 23.39 3X AVG 11.04~~~~~~~~~~~~~~~ ~~~~~~~~~~~~~~~~~~~~ ~~~~~~~~~~~~~~~~~~~~ ~~~~~National Cholesterol Education (NCEP) Guidelines:~~~~~~~~~ ~~~~~~~~~~~~~~~~~~~~ ~~~~~~~~~~~~~~~~~~~~ ~~~~~~~~~~~ HDL Cholesterol<40mg/d L: HDL Cholesterol (Major risk factor for CHD)>60mg/dL: HDL Cholesterol (Negative risk factor for CHD)40-59mg/dL: Borderline Risk LDL Cholesterol<100mg/ dL: Desirable LDL-C hkbewwczwkgbm832-049 mg/dL: Borderline High Risk LDL-C cjgggjugapujk292-640 mg/dL: High risk LDL-C concentration HDL-LDL Cholesterol is affected by a number of factors suchas smoking, age and sex.~~~~~~~~~~~~~~~~ ~~~~~~~~~~~~~~~~~~~~ ~~~~~~~~~~~~~~~~~~~~ ~~~~ CARDIAC ENZYMES [id number] 05:01:00* Test Item Value Reference Range Interpretation Comme nts TROPONIN-I (test code = TROPI) < 0.012 ng/mL 0.012-0.033 L Please be advised of the updated reference ranges for the new Chemistry instrumentation. VITROS TROPONIN I CRITERIANORMAL PATIENT W/O CIRCULATING TNI: 0.012-0.033 ng/mLCIRCULATING TNI PRESENT: 0.034-0.119 ng/mL(MAY BE AT RISK OF AMI)AMI DIAGNOSTIC CUTOFF: >/= 0.120 ng/mL~~~~~~~~~~~~~~~~~~~~~~ ~~~~~~~~~~~~~~~~~~~~~~~~~~~ ~~~~~~~~~~The use of serial sampling and testing protocol is arecommended practice.An elevated troponin level alone is often not sufficient fordiagnosis of myocardial infarction. Troponin results obtained by different assays may vary.Evaluation of the extent of myocardial damage based onincrease of troponin would be valid only if similarmethodology is used.~~~~~~~~~~~~~~~~~~~~~~ ~~~~~~~~~~~~~~~~~~~~~~~~~~~ ~~~~~~~~~~ A POSITIVE BIAS MAY OCCUR FOR PATIENTS TAKING BIOTIN SUPPLEMENTS~~~~~~~~~~~~~~~~ ~~~~~~~~~~~~~~~~~~~~~~~~~~~ ~~~~~~~~~~~~~~~~ HGBA1C - GLYCOSYLATED [id number] 04:48:00* Test Item Value Reference Range Interpretation Comme nts GLYCOSYLATED HEMOGLOBIN (HA1C) (test code = GLYHGB) 6.0 % 0-5.9 H Current ubaldo delines recommend a treatment goal of <7% fordiabetic patients. A1c may be overestimated in diabeticpatients exhibiting poor control and who are alsoheterozygous or homozygous for HgbS or HgbC. Totalglycohemoglobin is a better indicator of diabetic control inpatients with these hemoglobin variants. CBC W/AUTO [id number] 04:32:00* Test Item Value Reference Range Interpretation Comme nts WHITE BLOOD CELL (test code = WBC) 10.7 x10 3/uL 5.0-12.0 N RED BLOOD CELL (test code = RBC) 4.98 x10 6/uL 4.20-5.40 N HEMOGLOBIN (test code = HGB) 14.3 g/dL 12.0-16.0 N HEMATOCRIT (test code = HCT) 42.0 % 36.0-46.0 N MEAN CELL VOLUME (test code = MCV) 84 fL 81-99 N MEAN CELL HGB (test code = MCH) 28.7 pg 27-31 N MEAN CELL HGB CONCENTRATION (test code = MCHC) 34.0 g/dL 33-37 N RED CELL DISTRIBUTION WIDTH (test code = RDW) 12.8 % 11.5-15.5 N PLATELET COUNT (test code = PLT) 307 x10 3/uL 130-400 N MEAN PLATELET VOLUME (test c ode = MPV) 10.5 fL 9.4-16.4 N NEUTROPHIL % (test code = NT%) 84.4 % 43-65 H IMMATURE GRANULOCYTE % (test code = IG%) 0.5 % 0.0-2.0 N LYMPHOCYTE % (test code = LY%) 10.6 % 20.5-45.5 L MONOCYTE % (test code = MO%) 4.1 % 5.5-11.7 L EOSINOPHIL % (test code = EO%) 0.1 % 0.9-2.9 L BASOPHIL % (test code = BA%) 0.3 % 0.2-1.0 N NUCLEATED RBC % (test code = NRBC%) 0.0 % 0-1.0 N NEUTROPHIL # (test code = NT#) 9.04 x10 3/uL 2.2-4.8 H IMMATURE GRANULOCYTE # (test code = IG#) 0.05 x10 3/uL 0-0.03 H LYMPHOCYTE # (test code = LY#) 1.13 x10 3/uL 1.3-2.9 L MONOCYTE # (test code = MO#) 0.44 x10 3/uL 0.3-0.8 N EOSINOPHIL # (test code = EO#) 0.01 x10 3/uL 0.0-0.2 N BASOPHIL # (test code = BA#) 0.03 x10 3/uL 0.0-0.1 N - CT ABD PELVIS [id number] 00:24:00 [facility] : 1950 Sex: F FAX: Hamilton Cruz MD R1 [place]: St: ADM Name: FRANSICO PÉREZ [facility] : 1950 Age/S: 71/F [address] Unit: [id number] Loc: C.ICC0 [place] [address] Phys: Hamilton Cruz MD R1 Acct: [id number] Dis Date: Status: ADM IN PHONE #: [phone] Exam Date: 12/27/2021 0012 FAX #: [phone] Reason: diffuse abd pain EXAMS: CPT CODE: [id number] CT ABD PELVIS W/CONT 03239 EXAM: CT ABDOMEN AND PELVIS WITH CONTRAST. INDICATION: Diffuse abdominal pain COMPARISON: None available TECHNIQUE: Axial CT imaging of the abdomen and pelvis was obtained after the administration of intravenous contrast. Coronal and sagittal reformatted images were submitted for review. IV contrast: 110 mL of Isovue-370 DLP: 839.15 mGy-cm FINDINGS: The heart size is normal. The lung bases are clear. No pericardial or pleural effusion is identified. The liver, spleen, gallbladder, pancreas, and adrenal glands is unremarkable. No focal liver lesions are identified. No intrahepatic biliary duct dilatation. The main portal vein is patent and normal in size. The kidneys are normal in size. No hydronephrosis or nephrolithiasis is identified. The urinary bladder is normal. The stomach, small bowel, large bowel, and appendix are normal in appearance. No bowel obstruction is identified. No lymphadenopathy is identified in the abdomen or pelvis. No free fluid or free air. The IVC is normal. The abdominal aorta is normal in course and caliber. There are minimal atherosclerotic calcifications of the abdominal aorta. There has beenprior hysterectomy. There is a cystic area at the vaginal cuff measuring 5.9 x 3.3 x 5.4 cm. No adnexal mass is identified. There are degenerative changes throughout the thoracolumbar spine. IMPRESSION: Cystic area in the vaginal cuff measuring 5.9 x 3.3 x 5.4 cm which is concerning for a possible mass. Further evaluation with pelvic ultrasound should be considered. No bowel obstruction. Normal appendix. PAGE 1 Signed Report (CONTINUED) FAX: Hamilton Cruz MD R1 [place]: St: ADM Name: FRANSICO PÉREZ [facility] : 1950 Age/S: 71/F [address] Unit: [id number] Loc: [address] [address] Phys: Hamilton Cruz MD R1 Acct: [id number] Dis Date: Status: ADM IN PHONE #: [phone] Exam Date: 12/27/202111 FAX #: [phone] Reason: diffuse abd pain EXAMS: CPT CODE: [id number] CT ABD PELVIS [id number] (Continued) LOCATION: B2 This CT exam was performed according to our departmental dose optimization program, which includes automated exposure control, adjustment of the mA and or kV according to patient size and/or use of iterative reconstruction technique. at 0024 Reported and signed by: Coco Srinivasan MD CC: Hamilton Cruz MD Technologist: CONTRERAS Campbell Dt/Tm: 12/27/2021 (0024) 16 Orig Print D/T: S: 12/27/2021(0028 PAGE 2 Signed [id number] 23:50:00* Test Item Value Reference Range Interpretation Comme nts MAGNESIUM (test code = MAG) 1.8 mg/dL 1.6-2.3 N CARDIAC ENZYMES [id number] 23:50:00* Test Item Value Reference Range Interpretation Comme nts TROPONIN-I (test code = TROPI) 0.012 ng/mL 0.012-0.033 N Please be advised of the updated reference ranges for the new Chemistry instrumentation. VITROS TROPONIN I CRITERIANORMAL PATIENT W/O CIRCULATING TNI: 0.012-0.033 ng/mLCIRCULATING TNI PRESENT: 0.034-0.119 ng/mL(MAY BE AT RISK OF AMI)AMI DIAGNOSTIC CUTOFF: >/= 0.120 ng/mL~~~~~~~~~~~~~~~~~~~~~~~ ~~~~~~~~~~~~~~~~~~~~~~~~~~~~ ~~~~~~~~The use of serial sampling and testing protocol is arecommended practice.An elevated troponin level alone is often not sufficient fordiagnosis of myocardial infarction. Troponin results obtained by different assays may vary.Evaluation of the extent of myocardial damage based onincrease of troponin would be valid only if similarmethodology is used.~~~~~~~~~~~~~~~~~~~~~~~ ~~~~~~~~~~~~~~~~~~~~~~~~~~~~ ~~~~~~~~ A POSITIVE BIAS MAY OCCUR FOR PATIENTS TAKING BIOTIN SUPPLEMENTS~~~~~~~~~~~~~~~~~ ~~~~~~~~~~~~~~~~~~~~~~~~~~~~ ~~~~~~~~~~~~~~ LACTIC [id number] 23:48:00* Test Item Value Reference Range Interpretation Comme nts LACTIC ACID (test code = LACT) 1.8 mmol/L 0.7-2.0 N COVID 19 Asymptomatic IH [id number] 23:11:00* Test Item Value Reference Range Interpretation Comme nts COVID 19 Asymptomatic IH AG (test code = COVNONPUIAG) NEGATIVE Negative [id number] 19:06:00* Test Item Value Reference Range Interpretation Comme nts LIPASE (test code = LIP) 50 U/L 23-300 N LIVER FUNCTION [id number] 19:05:00* Test Item Value Reference Range Interpretation Comme nts TOTAL PROTEIN (test code = PROT) 7.3 g/dL 6.3-8.2 N "A positive bias may occur for patients taking Eltrombopag(a bone marrow stimulant used to treat thrombocytopenia andaplastic anemia)." ALBUMIN (test code = ALB) 4.2 g/dL 3.5-5.0 N BILIRUBIN TOTAL (test code = BILT) 0.5 mg/dL 0.2-1.3 N "A positive b ias may occur for patients taking Eltrombopag(a bone marrow stimulant used to treat thrombocytopenia andaplastic anemia)." BILIRUBIN CONJUGATED (test code = BILCON) 0 mg/dL 0-0.3 N "A positive bias may occur for patients taking Eltrombopag(a bone marrow stimulant used to treat thrombocytopenia andaplastic anemia)." CONJUGATED BILIRUBIN IS THE REPLACEMENT ASSAY FOR DIRECTBILIRUBIN. BILIRUBIN UNCONJUGATED (test code = BILUNC) 0.3 mg/dL 0-1.1 N SGOT/AST (test code = AST) 45 U/L 15-46 N SGPT/ALT (test code = ALT) 18 U/L 0-34 N ALKALINE PHOSPHATASE (test code = ALKP) 77 U/L 38-126 N [id number] 19:02:00* Test Item Value Reference Range Interpretation Comme nts GLUBED (test code = GLUBED) 147 MG/DL 74-106 H - CT ANGIO [id number] 18:33:00 [facility] : 1950 Sex: F [place]: FLOR St: REG -- Name: FRANSICO PÉREZ [facility] : 1950 Age/S: 71/F [address] Unit: [id number] Loc: [place] [address] Phys: Mellissa Castillo MD Acct: [id number] Dis Date: Status: REG ER PHONE #:[phone] Exam Date: 12/26/2021 1710 FAX #: [phone] Reason: DIZZY,NYSTAGMUS LKW 2 PM EXAMS: CPT CODE: [id number] CT ANGIO NECK 89924 Site ID: [id number] CT angiogram head HISTORY: Dizziness, syncope, nystagmus TECHNIQUE: Sequential trans-axial images were obtained with a multi-detector helical CT after iodinated contrast administration. 3 D post processing images of the [place] were included for interpretation. CT dose lowering technique utilized, with adjustment of MA/kV according topatient size and automated exposure control. FINDINGS: No intracranial mass lesion or abnormal contrast enhancement demonstrated. Bilateral vertebral arteries are patent, the left vertebral is hypoplastic. Basilar artery, superior cerebellar and posterior cerebral arteries are unremarkable. The supraclinoid internal carotid arteries, petrous, cavernous and ophthalmic segments of the internal ca rotid arteries are unremarkable. The anterior cerebral arteries, middle cerebral arteries and branches are unremarkable. The anterior communicating artery is unremarkable. The posterior communicatingarteries are also unremarkable. No aneurysm or significant atherosclerotic disease noted. There areno arteriovenous malformations seen. IMPRESSION: No evidence of intracranial vascular stenosis or large vessel occlusion involving the [place] Site ID: [id number] CT angiogram neck PAGE 1 Signed Report (CONTINUED) [place]: St: REG -- Name: NAMRATA PÉREZRosalba Freire [facility] : 1950 Age/S: 71/F [address] Unit: [id number] Loc: [place] [address] Phys: Mellissa Castillo MD Acct: [id number] Dis Date: Status: REG ER PHONE #: [phone] Exam Date: 12/26/2021 1710 FAX #: [phone] Reason: DIZZY,NYSTAGMUS LKW 2 PM EXAMS: CPT CODE: [id number] CT ANGIO NECK 12989 (Continued) HISTORY: Dizziness, syncope, nystagmus TECHNIQUE: Sequential trans-axial images were obtained with a multi- detector helical CT after iodinated contrast administration. Images were reconstructed in 3-dimensional and MIP formats. CT dose lowering technique utilized, with adjustment of MA/kV according to patient size and automated exposure control. FINDINGS: The origins of the great vessels and visualized upper thoracic aortic arch are unremarkable. The common carotid arteries are widely patent bilaterally. The carotid bulb regions demonstrate mild eccentric soft plaque bilaterally. The internal and external carotid artery origins are widely patent. The vertebral arteries appear widely patent bilaterally, without atherosclerotic narrowing. Left vertebral artery is hypoplastic. Using the NASCET criteria the right internal carotid artery demonstrates maximum luminal stenosis of 10%. Using NASCET criteria of the left internal carotid artery demo nstrates maximum luminal stenosis of 10%. The source images show no evidence of dissections. IMPRESSION: No evidence of hemodynamically significant vascular stenosis, dissection or vascular occlusioninvolving the cervical carotid or vertebral arteries at 1833 Reported and signed by: Puma Mcduffie MD PAGE 2 Signed Report (CONTINUED) [place]: St: REG -- Name: FRANSICO PÉREZ [facility] : 1950 Age/S: 71/F [address] Unit: [id number] Loc: [place] [address] Phys: Mellissa Castillo MD Acct: [id number] Dis Date: Status: REG ER PHONE #: [phone] Exam Date: 12/26/2021 1710 FAX #: [phone] Reason: DIZZY,NYSTAGMUS LKW 2 PM EXAMS: CPT CODE: [id number] CT ANGIO NECK [address]32 (Continued) CC: Technologist: ERIKA HOLBROOK Trnscrd Dt/Tm: 12/26/2021 (1833) [id number] Orig Print D/T: S: 12/26/2021 (1836 PAGE 3 Signed Report- CT ANGIO [id number] 18:33:00 [facility] : 1950 Sex: F [place]: St: REG -- Name: FRANSICO PÉREZ [facility] : 1950 Age/S: 71/F [address] Unit: [id number] Loc: [place] [address] Phys: Mellissa Castillo MD Acct: [id number] Dis Date: Status: REG ER PHONE #: [phone] Exam Date: 12/26/2021 1710 FAX #: [phone] Reason: DIZZY,NYSTAGMUS LKW 2 PM EXAMS: CPT CODE: [id number] CT ANGIO HEAD 65197 Site ID: [id number] CT angiogram head HISTORY: Dizziness, syncope, nystagmus TECHNIQUE: Sequential trans-axial images were obtained with a multi-detector helical CT after iodinated contrast administration. 3 D post processing images of the [place] were included for interpretation. CT dose lowering technique utilized, with adjustment of MA/kV according to patient size and automated exposure control. FINDINGS: No intracranial mass lesion or abnormal contrast enhancement demonstrated. Bilateral vertebral arteries are patent, the left vertebral is hypoplastic. Basilar artery, superior cerebellar and posterior cerebral arteries are unremarkable. The supraclinoid internal carotid arteries, petrous, cavernous and ophthalmic segments of the internal carotid arteries are unremarkable. The anterior cerebral arteries, middle cerebral arteries and branches are unremarkable. The anterior communicating artery is unremarkable. The posterior communicatingarteries are also unremarkable. No aneurysm or significant atherosclerotic disease noted. There areno arteriovenous malformations seen. IMPRESSION: No evidence of intracranial vascular stenosis or large vessel occlusion involving the [place] Site ID: [id number] CT angiogram neck PAGE 1 Signed Report (CONTINUED) [place]: St: REG -- Name: FRANSICO PÉREZ [facility] : 1950 Age/S: 71/F [address] Unit: [id number] Loc: [place] [address] Phys: Mellissa Castillo MD Acct: [id number] Dis Date: Status: REG ER PHONE #: [phone] Exam Date: 12/26/2021 1710 FAX #: [phone] Reason: DIZZY,NYSTAGMUS LKW 2 PM EXAMS: CPT CODE: [id number] CT ANGIO HEAD 50085 (Continued) HISTORY: Dizziness, syncope, nystagmus TECHNIQUE: Sequential trans-axial images were obtained with a multi- detector helical CT after iodinated contrast administration. Images were reconstructed in 3-dimensional and MIP formats. CT dose lowering technique u tilized, with adjustment of MA/kV according to patient size and automated exposure control. FINDINGS: The origins of the great vessels and visualized upper thoracic aortic arch are unremarkable. The common carotid arteries are widely patent bilaterally. The carotid bulb regions demonstrate mild eccentric soft plaque bilaterally. The internal and external carotid artery origins are widely patent. The vertebral arteries appear widely patent bilaterally, without atherosclerotic narrowing. Left vertebral artery is hypoplastic. Using the NASCET criteria the right internal carotid artery demonstrates maximum luminal stenosis of 10%. Using NASCET criteria of the left internal carotid artery demonstrates maximum luminal stenosis of 10%. The source images show no evidence of dissections. IMPRESSION: No evidence of hemodynamically significant vascular stenosis, dissection or vascular occlusion involving the cervical carotid or vertebral arteries at 1833 Reported and signed by: Puma Mcduffie MD PAGE 2 Signed Report (CONTINUED) [place]: St: REG -- Name: PÉREZFRANSICO [facility] : 1950 Age/S: 71/F [address] Unit: [id number] Loc: [place] [address] Phys: Mellissa Castillo MD Acct: [id number] Dis Date: Status: REG ER PHONE #: [phone] Exam Date: 12/26/2021 1710 FAX #: [phone] Reason: DIZZY,NYSTAGMUS LKW 2 PM EXAMS: CPT CODE: [id number] CT ANGIO HEAD 96158 (Continued) CC: Technologist: ERIKA HOLBROOK Trnscrd Dt/Tm: 12/26/2021 (1832) HarrisAJP6 Orig Print D/T: S: 12/26/2021 (6 PAGE 3 Signed Report- XR CHEST 1 M8216-10-23 18:08:00 [facility] 1950 Sex: F [place]: St: REG -- Name: FRANSICO PÉREZ [facility] : 1950 Age/S: 71/F [address] Unit #: [id number] Loc:[place] [address] Phys: Mellissa Castillo MD Acct: [id number] Dis Date: Status: REG ER PHONE#: [phone] Exam Date: 12/26/2021 1733 FAX #: [phone] Reason: Code Stroke EXAMS: CPT CODE: [id number] XR CHEST 1 V 24244 Exam: AP chest Location: H 12 History: Code Stroke Comparison: None. F indings: The lungs are clear. No infiltrate or effusion is seen. The pulmonary vasculature is normal. The heart size is normal. The mediastinal silhouette is unremarkable. The bony thorax is intact. Impression: No acute disease. at 1808 Reported and signed by: Jose Jaimes MD CC: Technologist: CORTEZ TRUJILLO Trnscrd Date/Time/By: 12/26/2021 (1807) : By: Juan Manuel PAGE 1 Signed Report [place]: St: REG Name: ELISAFRANSICO D [facility] : 1950 Age/S: 71/F [address] Unit #: [id number] Loc: [place] [address] Phys: Mellissa Castillo MD Acct: [id number] Dis Date: Status: REG ER PHONE #: [phone] Exam Date: 2021 173 FAX #: [phone] Reason: Code Stroke EXAMS: CPT CODE: [id number] XR CHEST 1 V 00876 (Continued) Orig Print D/T: S: 12/26/2021 (181) PAGE 2 Signed ReportBASIC METABOLIC UVMSC7935-12-57 17:03:00* Test Item Value Reference Range Interpretation Comme nts SODIUM (test code = NA) 135 mmol/L 137-145 L POTASSIUM (test code = K) 3.7 mmol/L 3.4-5.0 N CHLORIDE (test code = CL) 103 mmol/L 98-107 N CARBON DIOXIDE (test code = CO2) 20 mmol/L 22-30 L ANION GAP (test code = GAP) 16 GLUCOSE (test code = GLU) 185 mg/dL 74-106 H BLOOD UREA NITROGEN (test code = BUN) 29 mg/dL 7-17 H GLOMERULAR FILTRATION RATE (test code = GFR) 76 >60 The estimated glomerular filtration rate is computed usingpatient race, age (>18), sex, and serum creatinine. If anyof the needed data elements are missing the Laboratory cannot compute an estimation of the glomerular filtration rate. CREATININE (test code = CREAT) 0.8 mg/dL 0.5-1.0 N CALCIUM (test code = CA) 9.4 mg/dL 8.4-10.2 N INDEX HEMOLYSIS (test code = HEMINDEX) < 15 Index/DL 0-100 N AFWTRBRS-[id number] 17:03:00* Test Item Value Reference Range Interpretation Comme nts TROPONIN-I (test code = TROPI) < 0.012 ng/mL 0.012-0.033 L Please be advised of the updated reference ranges for the new Chemistry instrumentation. VITROS TROPONIN I CRITERIANORMAL PATIENT W/O CIRCULATING TNI: 0.012-0.033 ng/mLCIRCULATING TNI PRESENT: 0.034-0.119 ng/mL(MAY BE AT RISK OF AMI)AMI DIAGNOSTIC CUTOFF: >/= 0.120 ng/mL~~~~~~~~~~~~~~~~~~~~~~ ~~~~~~~~~~~~~~~~~~~~~~~~~~~ ~~~~~~~~~~The use of serial sampling and testing protocol is arecommended practice.An elevated troponin level alone is often not sufficient fordiagnosis of myocardial infarction. Troponin results obtained by different assays may vary.Evaluation of the extent of myocardial damage based onincrease of troponin would be valid only if similarmethodology is used.~~~~~~~~~~~~~~~~~~~~~~ ~~~~~~~~~~~~~~~~~~~~~~~~~~~ ~~~~~~~~~~ A POSITIVE BIAS MAY OCCUR FOR PATIENTS TAKING BIOTIN SUPPLEMENTS~~~~~~~~~~~~~~~~ ~~~~~~~~~~~~~~~~~~~~~~~~~~~ ~~~~~~~~~~~~~~~~ PROTHROMBIN [id number] 16:45:00* Test Item Value Reference Range Interpretation Comme nts PROTHROMBIN TIME PATIENT (test code = PTP) 11.1 SECONDS 9.2-12.1 N INTERNATIONAL NORMAL RATIO (test code = INR) 1.0 The INR is to be used only for monitoring ORAL ANTICOAGULANTTHERAPY. Indication INR Value1. Prophylaxis/treatment of: Venous Thrombosis, Pulmonary Embolism 2.0 - 3.02. Prevention of systemic embolism from: Tissue heart valves 2.0 - 3.0 Acute myocardial infarction (to present systemic embolism)* 2.0 - 3.0 Valvular heart disease 2.0 - 3.0 Atrial fibrillation 2.0 - 3.03. Mechanical prosthetic valves (high risk) 2.5 - 3.5 * If oral anticoagulant therapy is elected to preventrecurrent myocardial infarction, an INR of 2.5-3.5 isrecommended, consistent with Food and Drug Administrationrecommen dations. Comments to Phleb: ED CODE NEURO PLEASE COME STATTHROMBOPLASTIN TIME PARTIAL 2021-12-26 16:45:00* Test Item Value Reference Range Interpretation Comme nts THROMBOPLASTIN TIME PARTIAL (test code = PTT) 27.5 SECONDS 23.4-37.0 N Therapeutic Rang e for Heparin EFFECTIVE 03/11/13 Heparin IU/mL aPTT Seconds0.3 64.30.7 88.8 Comments to Phleb: ED CODE NEURO PLEASE COME STATCBC W/AUTO [id number] 16:35:00* Test Item Value Reference Range Interpretation Comme nts WHITE BLOOD CELL (test code = WBC) 13.7 x10 3/uL 5.0-12.0 H RED BLOOD CELL (test code = RBC) 4.92 x10 6/uL 4.20-5.40 N HEMOGLOBIN (test code = HGB) 14.4 g/dL 12.0-16.0 N HEMATOCRIT (test code = HCT) 41.8 % 36.0-46.0 N MEAN CELL VOLUME (test code = MCV) 85 fL 81-99 N MEAN CELL HGB (test code = MCH) 29.3 pg 27-31 N MEAN CELL HGB CONCENTRATION (test code = MCHC) 34.4 g/dL 33-37 N RED CELL DISTRIBUTION WIDTH (test code = RDW) 13.0 % 11.5-15.5 N PLATELET COUNT (test code = PLT) 315 x10 3/uL 130-400 N MEAN PLATELET VOLUME (test code = MPV) 9.8 fL 9.4-16.4 N NEUTROPHIL % (test code = NT%) 74.4 % 43-65 H IMMATURE GRANULOCYTE % (test code = IG%) 0.5 % 0.0-2.0 N LYMPHOCYTE % (test code = LY%) 17.8 % 20.5-45.5 L MONOCYTE % (test code = MO%) 6.0 % 5.5-11.7 N EOSINOPHIL % (test code = EO%) 0.8 % 0.9-2.9 L BASOPHIL % (test code = BA%) 0.5 % 0.2-1.0 N NUCLEATED RBC % (test code = NRBC%) 0.0 % 0-1.0 N NEUTROPHIL # (test code = NT#) 10.16 x10 3/uL 2.2-4.8 H IMMATURE GRANULOCYTE # (test code = IG#) 0.07 x10 3/uL 0-0.03 H LYMPHOCYTE # (test code = LY#) 2.43 x10 3/uL 1.3-2.9 N MONOCYTE # (test code = MO#) 0.82 x10 3/uL 0.3-0.8 H EOSINOPHIL # (test code = EO#) 0.11 x10 3/uL 0.0-0.2 N BASOPHIL # (test code = BA#) 0.07 x10 3/uL 0.0-0.1 N - CT HEAD/BRAIN W/O [id number] 16:31:00 [facility] : 1950 Sex: F [place]: St: PRE -- Name: FRANSICO PÉREZ [facility] : 1950 Age/S: 71/F [address] Unit: [id number] Loc: [place] [address] Phys: Mellissa Castillo MD Acct: [id number] Dis Date: Status: PRE ER PHONE #: [phone] Exam Date: 12/26/2021 1618 FAX #: [phone] Reason: DIZZY,NYSTAGMUS LKW 2 PM EXAMS: CPT CODE: [id number] CT HEAD/BRAIN W/O CONT 44926 EXAM: CT HEAD WITHOUT CONTRAST HISTORY: 71 years -old Female with DIZZY,NYSTAGMUS LKW 2 PM ADMITTING DIAGNOSIS: Syncope LOCATION CODE: C3 COMPARISON: None TECHNIQUE: Noncontrast CT examination of the brain performed with contiguous axial images obtained from base to vertex. Automated exposure reduction (Auto mA / Smart mA) was utilized in compliance with ACR image wisely. Total Exam DLP : 1036 mGy/cm CTDI vol: 51 mGy FINDINGS: Ventricles and sulci are unremarkable. No intracranial hemorrhage is seen. No mass or midline shift noted. There isno extra-axial mass or abnormal fluid collection. Osseous structures are within normal limits. The mastoid air cells are unremarkable. Paranasal sinuses are unremarkable. The orbits bilaterally are within normal limits. IMPRESSION: 1. Unremarkable noncontrast CT head. 2. No intracranial hemorrhage. 3. ER physician was notified of finding at 1630 hours on 12/26/2021 PAGE 1 Signed Report (CONTINUED) [place]: St: PRE --Name: FRANSICO PÉREZ [facility] [place] : 1950 Age/S: 71/F [address] Unit: [id number] Loc: [place] [address] Phys: Mellissa Castillo MD Acct: [id number] Dis Date: Status: PRE ER PHONE #: [phone] Exam Date: 12/26/2021 1618 FAX #: [phone] Reason: DIZZY,NYSTAGMUS LKW 2 PM EXAMS: CPT CODE: [id number] CT HEAD/BRAIN W/O CONT 29692 (Continued) Please note that CT examination of the brain can be normal for acute stages of CVA. Diagnosis should be based on clinical history andneurologic exam. Followup MRI of the brain has greater sensitivity for early detection of acute infarct. This report was generated by using voice recognition software. RESULT CODE: CVR Electronical ly Signed by Vasquez Guillaume MD on 12/26/2021 at 1631 Reported and signed by: Vasquez Guillaume MD CC: Technologist: Flor Macdonald; ERIKA HOLBROOK Trnscrd Dt/Tm: 12/26/2021 (1631) t.VIMALR.HPD Orig Print D/T: S: 12/26/2021 (1634 PAGE 2 Signed Report Notes Date/Time Note Provider Source 2023-11-22 13:05:00 ZWrFMkkOeg3Zt2H6mOqKVFiPIInO+vLmUvRw+G+ lCbSNKJIL1dLGMZmFcH3tvxHE2799-59-36O53: 05:00 Regarding: ear infection x 1 wk; feel cold x 2 days. Temp is 96.4 x 1 da; sweating and confused x 2 days----- Message from Boubacar Li sent at 11/22/2023 12:46 PM CDT -----Fransico Pérez is a 73 year old [id number] yr old femalePt currently taking amoxicillin for severe ear infection; but it is making her feel cold and she is not feeling well. States meds are not helping. Temp is 96.4; currently sweating profusely and confused. 95126-2Dltwpqvhq encounter UiheHR5210-37-73P37:05:09Telephone encounter NoteTXT1.2.840.740360.1.13.104.2.7.2.72 7879|[id number] for patient kioq04587-9GgifRYLYEWYVRZETmymlxvov C-CDA narrative [id number] Farr RN[address] YqswKuclptspdKmhpjtvibVEUH0606472710OHG KNTKHFMBJJAKACRMVCW3251-62-16O39:05:091 .2.840.393306.1.72.3.15|1.2.840.222640. 1.13.104.2.7.2.727879_[id number] Luis Eduardo Gamboa RN [facility] 2023-11-22 13:05:00 QDA4sqkhVBaD34DdE7vcXe38LshfPlfdt2tDHQi A00u/39vMwqrT2XTwv/+t4i+42938-00-02H63: 05:00 Adult Triage AssessmentLast Clinic Visit: PCP visit on 11/20/2023(dx: ear infection) opthalmology on 4Primary Symptom: feeling worseOnset / Duration: yesterdayLocation / Description: systemicPain / Severity: 0/10 "headache in back of head"-about the same -feel more pressure in the right ear., denies ear acheAssociated Symptoms: sweating profusely, feeling progressively worse than yesterday, weakness is more intense. No dizziness, yesterday back on kidney hurts, but not todayFever / Method: 96.4 oral (taken with 2 different thermometers), 1 minutes ago.Hydration: appetite is alright. Urinating w.o problmes. Had UTI about 2 weeks ago that cleared up. No burning or pain when urinate,Treatment so far: 4 doses of the amoxicillin so far, last dose this morning.Effect on ADL's: some changeLMP: n/aPre-existing condition / Immunocompromised: noneWill call a friend to take to ER, advised if can not find anyone to take to ER, call ambulanceReason for DispositionPatient sounds very sick or weak to the triagerProtocols used: Weakness (Generalized) and Befbvtw-LJSXE-XSEcabbccbdwtpei signed by Luis Eduardo Gamboa, MITCHEL at 11/22/2023 1:24 PM THA36334-6Rtrswnmwy encounter OvczPY4990-34-95Q76:24:20Telephone encounter NoteTXT1.2.840.881837.1.13.104.2.7.2.72 7879|[id number] for patient tmbk36461-7QjifOBKSXROCQFTQijkgzudh C-CDA narrative textUT[address] LeewAsdzojwveVwgucdsvnFLKK2186713469UDE UVCQXRJHIRLUFYSGEEU1972-55-22U44:24:201 .2.840.916547.1.72.3.15|1.2.840.239037. 1.13.104.2.7.2.727879_[id number] [facility] 2023-11-20 16:22:22 Iao8EE8GhKKhMyEg1VLZi6flOM/RKz+Uq1AYj9Y 6qFt8Fzs42Fc77had+Cv1Yicu5592-05-62I26: 22:22 Call placed to pt to inform medications have been resubmitted to correct pharmacy. Pt states pharmacist was able to fill Rx, called [facility] to inform to disregard last Rx sent due to pt already picking up meds. 28753-5Zdyimpvqa encounter WbokND9766-09-22A15:27:54Telephone encounter NoteTXT1.2.840.901437.1.13.104.2.7.2.72 7879|[id number] for patient vfuf52146-4IhvnSNVKFAQUOUZWpykimjai C-CDA narrative textUT[address] Doyle StreetTXTX7755577555USU KDCKJWLQNIFCNECUWAF7975-16-96W95:27:541 .2.840.809732.1.72.3.15|1.2.840.374035. 1.13.104.2.7.2.727879_[id number] [facility] 2023-11-20 15:58:14 hNH7qwnVTKS6LpmpQ2om3kDDZp3voI9s29abOA1 S7ABkfDH5/vZYVInP104oXGEb3472-93-11D02: 58:14 Copied from [facility] #[id number]. Topic: Clinical - Medical Advice>> Nov 20, 2023 3:54 PM Patient Director Of Health Education wrote:Pt states [facility] [place] [facility] script sent too the pharmacy formeclizine 25 mg table and amoxicillin-clavulanate (AUGMENTIN) 875-125 mg per tablet. Pt said the [place]. 39347-3Myschykfu encounter VcnfSH1001-92-34F47:59:17Telephone encounter NoteTXT1.2.840.332738.1.13.104.2.7.2.72 7879|[id number] for patient ksqh81080-1GzfnJHPAVAXXTGPBazwcktjx C-CDA narrative uzxv49649682SjnkmLois Rojas[address] StreetTXTX7755577555USU TYNSCXZRQJBIAUZUSYG7094-94-99K26:59:171 .2.840.758628.1.72.3.15|1.2.840.640396. 1.13.104.2.7.2.727879_[id number] Lois Hernández [facility] 2023-11-15 08:52:38 Wl7ZfSAqIJ9smcIxcYxtQauR6WrVap3z/cl0U0y SxE1rawSMHq6vVJNlydnyJDgI4942-56-80D86: 52:38 Images from the original note were not included.Medical records received [facility], placed in [employer] folder for review. 05209-9Izkvpxihp encounter CmwdAA0434-06-45M67:53:44Telephone encounter NoteTXT1.2.840.246921.1.13.104.2.7.2.72 7879|[id number] for patient fxom55444-2KcxgPHHIXQCHDWHEpzsblnqo C-CDA narrative dmyn12571966Uiwi [address] GigkGtekrqwspFjfpcuypcKBDV2480940960PZS QTXGEQMOWXOKNGWJYGF6013-80-06H75:53:441 .2.840.563681.1.72.3.15|1.2.840.161183. 1.13.104.2.7.2.727879_[id number] Rivka Salcido [facility] 2023-11-15 07:51:01 ZooUuc/4RhbX31+9soVQEfqX1CPYTT9611gelus vPpbcc+KyXyqKb1g9opVSn9ZF9362-11-39Q13: 51:01 Medical records received, [facility] placed in [employer] folder for review. 79791-0Jsakbgwqy encounter PivlVF4124-19-60W99:52:02Telephone encounter NoteTXT1.2.840.671013.1.13.104.2.7.2.72 7879|[id number] for patient ylkq63339-8PjipBRDQOHWEDLAWorjillcq C-CDA narrative kapb85262675Dayz [id number] WXZANLCWCTGUZUAYVKX3221-86-31B41:52:021 .2.840.072565.1.72.3.15|1.2.840.573880. 1.13.104.2.7.2.727879_[id number] Rivka Omari [facility] 2023-11-07 13:34:28 moAqLYldHpvAI7SEJB77rrtkSCo8i/8T6QMbDtd p+u1pnp8t7Xg27tTCRLqGGUly4594-49-89V18: 34:28Addended by: CHIARA AGUAYO on: 11/07/2023 01:34 PMModules accepted: Orders 90819-8Llcopygs NwgracbsGM0188-45-39M00:34:28Addendum DocumentTXT1.2.840.028333.1.13.104.2.7. 2.592517|[id number] for patient cxwb80286-7SweoOSLUEMXQOUJMjwablyez C-CDA narrative text[address] StreetTXTX7755577555USU FASRBQJHQOSVLZBQZSX2281-64-06R79:34:281 .2.840.224640.1.72.3.15|1.2.840.520619. 1.13.104.2.7.2.727879_[id number] [facility] 2023-11-07 13:31:03 g5YlSutPT+UJnBJQb/2pf+L/4FFe5ZkLNL9ytZF jvkqppLpCQiAIeZFPqJyv37uj2632-05-49T60: 31:03 Called patient to discuss labsSending antibitoics as she is having some dysuriaWill repeat urine when she completes antibioticsER for fever, worsening or any concerns 05615-7Nldokqbnf encounter PtuwGI9083-29-22N71:34:26Telephone encounter NoteTXT1.2.840.361743.1.13.104.2.7.2.72 7879|[id number] for patient ekog50871-8XptpWFPMNUHNXXBUefhgvwch C-CDA narrative textUT[address] TnvtUqkwnrfudZviugllidQMRS5080684938LPW WMEDAQQESOZNLFQOFRA0958-84-17J33:34:261 .2.840.251990.1.72.3.15|1.2.840.148242. 1.13.104.2.7.2.727879_[id number] [facility] 2023-11-07 13:22:30 jchjnN5pKo/a/exJdP/U2O6Ma1JdVterTH2yayT qtfN+3o6NgP6L4TcMmme7jEu27517-13-98I14: 22:30 Will route to provider to review labs Balbina Fung MA 11/07/2023 1:22 PM 44587-6Uivcerrmo encounter IpgzDH8219-80-11S04:22:48Telephone encounter NoteTXT1.2.840.526823.1.13.104.2.7.2.72 7879|[id number] for patient cybx10782-5YdbqGMKYIIEPQQPFyyagehnq C-CDA narrative mfuv441538226Zwdpjuz Davila [address]TXTX[address]5577555USU PGLMPTEUGCSRMPIORGA8789-43-80E75:22:481 .2.840.686031.1.72.3.15|1.2.840.971756. 1.13.104.2.7.2.727879_[id number] Balbina Fung [facility] 2023-11-07 12:29:04 M6rVyg+ZqtmfDcV3vH9YbWXagO71QZko4iGz7xi 8bcvYZ1wNQaqL7gOKxCEJOnAY2079-43-92G18: 29:04 Routing to correct clinic. Nathaly Fernandez LVN 11/07/2023 12:29 PM 20361-3Pihpexols encounter ZoehTR3412-59-03I27:29:49Telephone encounter NoteTXT1.2.840.665653.1.13.104.2.7.2.72 7879|[id number] for patient vxsy53839-7TcxqUEJSSXLMLVLJnrytykxt C-CDA narrative czxt154233724Dlxbe C [place] [address]TXTX7755577555USU UXMTVXRYYMHVINYUCJR1224-84-53T02:29:491 .2.840.005737.1.72.3.15|1.2.840.818314. 1.13.104.2.7.2.727879_[id number] Nathaly Fernandez FACULT[employer] HEAD [facility] 2023-11-07 12:23:42 Ih81HucQqwRBtT3UKUTxHx/puNTvHeO16Sd+wf9 VDgqB3LGptZxIGs2g7c4ce1U86762-53-31S36: 23:42 Copied from [facility] #[id number]. Topic: Clinical - Medical Advice>> Nov 07, 2023 12:19 PM Patient Director Of Health Education wrote:Pt is calling stating she saw the msg that she got on her mychart regarding her labs she got done on 11/03. However pcp did not go over the urinalysis. Pt is wanting to speak with someone regarding her urinalysisPlease advise 15728-8Rezuuxtsr encounter CmcrZR7790-23-48M78:24:55Telephone encounter NoteTXT1.2.840.755941.1.13.104.2.7.2.72 7879|[id number] for patient gbwq45171-0GxxoNSLTVEIUGTKDcjjwxzhj C-CDA narrative wjpu470015761IhmgaLizett Castrejon[address] CvgoKuehxzdjcQscmtpqlpEIYR8546054543QTU HLGVGNPVSUPAIZKLQXG0136-26-84G24:24:551 .2.840.810543.1.72.3.15|1.2.840.148635. 1.13.104.2.7.2.727879_[id number] Lizett Castrejon [facility] 2023-11-06 13:33:30 ek/Katy//ta498SZRjwUERo7v08SWBmwIaRl+ oJw6kywwvtOx/DyIEX8I7HX7q0212-25-41X75: 33:30 Spoke with patient and informed of lab results. Patient is wanting to know her UA results. 81242-0Ezcppovfy encounter OfxfBZ1483-98-37Z06:34:05Telephone encounter NoteTXT1.2.840.990987.1.13.104.2.7.2.72 7879|[id number] for patient keba39186-4NvcnBIBMKCYGVZYAldkmcasw C-CDA narrative durv614193517Rtohpz M Serrano [address]TXTX[address]5577555USU ZBPCZMKPUMTPGDSXUMZ4658-98-23L38:34:051 .2.840.314548.1.72.3.15|1.2.840.261645. 1.13.104.2.7.2.727879_[id number] Marisela Stephens [facility] 2023-11-05 16:52:51 aPYJj+g6SWuZ4aUGkp6/YhrFLlCqyKOHlSmiDa9 dloKpC1jY17e76cJl4e4CzBmX6783-58-03A93: 52:51 Copied from [facility] #[id number]. Topic: Customer Service - Missed Call from Provider>> Nov 05, 2023 4:51 PM Patient Director Of Health Education wrote:Fransico Pérez is a 73 year old female is returning missed callShe would like a call back to discuss lab resultsPlease advise [phone] (home) 84381-3Hfcpdakzd encounter IltvRL4563-10-63X72:29:49Telephone encounter NoteTXT1.2.840.917710.1.13.104.2.7.2.72 7879|[id number] for patient dmcg98866-1IfsbDIVOTAOWIVYWhqnwkexk C-CDA narrative kqzm773940460AuHcuzmg Gilberto[address]TXTX7755577555USU SZUKKQXFVMMYDNNJEVZ6267-60-58X09:29:491 .2.840.213617.1.72.3.15|1.2.840.687316. 1.13.104.2.7.2.727879_[id number] Marlen Solis [facility] 2023-11-04 13:15:00 WLGeUvcsrZNuEVj61bENRbATiyvaBTmT2aASmdw qthbg6xtbxMkC8QG5IHQtuWhX6384-67-44C26: 15:00 Images from the original note were not included.Venipuncture collection performed by clean technique on the right anticubitus. Total of 1 attempts were made. Slight pressure and a bandage/dressing were applied to the site(s). The patient experienced no complications. The following specimens were processed according to instructions and sent to [facility] laboratories per lab order on 11/04/2023:LT BLUESST 1REDLAV 2PPTDK GREEN (LiHep)DK GREEN (SodH)GRAYDK BLUE (K2)DK BLUE (S)ACDBlood CultureNIPT/NTDPatient has been identified by and name and was provided with cup, antiseptic towelette, and clean catch instructions. 1 urine specimen(s) sent.Unpreserved 1Urine CultureAptima tubeOther urine 83056-9Lxypb NvhyVT3634-80-21J40:25:29Nurse NoteTXT1.2.840.536120.1.13.104.2.7.2.72 7879|[id number] for patient hvhw73958-7Dylur NoteLNNARRATIVEFormatted C-CDA narrative text[address] [id number] LCGMWYEOLPWHRPMNYGJ2108-30-23V86:25:291 .2.840.099568.1.72.3.15|1.2.840.415998. 1.13.104.2.7.2.727879_[id number] [facility] 2023-11-04 11:00:00 dbj3nwAIxC0AbTCbeggwI1TS0u5nvg41ctTfjqO +w1TLpRRl63x115n9WuQdfSLl5989-20-51A30: 00:00 HgA1C is consistent with Pre DiabetesOverweight or obese adults with pre-diabetes or type 2 diabetes should reduce calorie intake while establishing and maintaining healthy eating habits to promote weight loss.The ADA recommends that people with diabetes or pre-diabetes preferentially consume carbohydrates from whole grains, fruits, vegetables, legumes, and dairy products, especially those higher in fiber and lower in glycemic load, while avoiding sugary foods and beverages.A diet rich in monounsaturated fats, long-chain omega-3 fatty acids, and nuts and seeds (i.e., a Mediterranean-style diet) is recommended to optimize glucose metabolism and prevent and treat CVD ([employer]. Diabetes Care).Triglycerides are pretty highYour natural lipid profile shows elevation, the kind of cholesterol that increases risk of atherosclerotic plaques or "hardening of the arteries."You can help yourself by observing a low saturated fat and no trans-fat diet. This means choosing the lowest fat gram content you can on your grocery labeling.Choose lower fat dairy choices in particular and minimize use of butter and oils. Pork and beef have higher fat content.If you do select these, trim the fat and choose the leanest cuts. Steer more toward "feathers and fins, " meaning poultry and fish. Shell fish are intermediate fat choicesPrepare your foods with little oil---avoid frying. Instead choose to grill, broil, boil, and bake.You can lower triglycerides by taking over the counter fish oil. You can take up to 1 g three times a day. 65520-7Nqfotcea exwaHD7860-85-49C21:25:07Progress noteTXT1.2.840.365084.1.13.104.2.7.2.72 7879|[id number] for patient naac75847-1VtvaXKQNQVBYHUQSmeeqbonq C-CDA narrative textUTMBALBUQUERQUE INDI[facility] - [address] Rv[id number] VLHJOWVZDHVQJVMIDLH7798-91-29R68:25:071 .2.840.704359.1.72.3.15|1.2.840.526668. 1.13.104.2.7.2.727879_[id number] [facility] 2022-01-16 12:09:00 [id number]+DdXyskklFFN7KtEkD1KHrg u3Ce6nER9uBR0DT7eT8bmuSQMSthINaY5KmLFV9 0617-66-81S64:09:00 [place] [facility]ist Progress NoteREPORT#:[id number] REPORT STATUS: SignedDATE:01/16/22 TIME: 1209 PATIENT: FRANSICO PÉREZ UNIT #: [id number]#: [id number] [address]: [birth year] AGE: 71 SEX: F ATTEND: Joshua Acosta [facility] AUTHOR: Marcia Tadeo * ALL edits or amendments must be made on the electronic/computer document * SubjectiveChief complaint:Right facial droop Review of SystemsConstitutional:Denies: chills, fatigue, fever, generalized weakness. Respiratory:Denies: SANTAMARIA (dyspnea on exertion), non productive cough, productive cough (sputum), SOB, wheezing. Cardiovascular:Denies: chest pain, SANTAMARIA (dyspnea on exertion), edema, palpitations. GI:Denies: abdominal pain, constipation, diarrhea, GERD, nausea, vomiting. All systems rev neg: except as marked Objective GeneralVS/I O:Vital Signs: Date Time Temp Pulse Resp B/P B/P Pulse O2 O2 Flow FiO2 Mean Ox Delivery Rate 01/16 0632 36.9 77 14 130/73 92.1 92 01/15 2035 36.6 67 16 112/69 83.5 95 Room air 24 hour I O ending at 0700: 01/16 0700 01/15 1900 Intake Total 400 1000 Output Total Balance 400 1000 Intake, Oral 400 1000 Number 0 Bowel Movements Number 0 0 Incontinent Voids Number Voids 3 5 Patient 87.3 kg Weight Weight Bed scale Measurement Method PATIENT WEIGHT: Weight (lb): 192Weight (oz): 7.42Weight (kg): 87.300 Medications:Active Meds + DC'd Last 24 HrsCarbamazepine (TEGretol XR) 200 MG Q12HR PO Calcium Carbonate (TUMS) 1,000 MG Q4H PRN PRN PO Naproxen (NAPROXEN) 250 MG Q12H PRN PRN PO Patient Own Medication (PT'S OWN HOME MED--MUST SCAN) MESALAMINE DR 400 MG CAPSULES Q12HR PO Amlodipine Besylate (amLODIPine) 5 MG DAILY PO Aspirin (ASPIRIN CHEWABLE) 81 MG DAILY PO Clopidogrel Bisulfate (PLAVIX) 75 MG DAILY PO Estradiol (ESTRACE) 0.5 MG DAILY PO Atorvastatin Calcium (LIPITOR) 40 MG BEDTIME PO Meclizine HCl (ANTIVERT) 25 MG Q6H PRN PRN PO Acetaminophen (TYLENOL REGULAR) 650 MG Q4H PRN PRN PO Bisacodyl (DULCOLAX,CORRECTOL) 10 MG DAILY PRN PRN PO Lactulose (CONSTULOSE) 30 ML DAILY PRN PRN PO (CKD) Magnesium Hydroxide (MILK OF MAGNESIA U/D) 30 ML DAILY PRN PRN PO Ondansetron Base (ZOFRAN ODT) 4 MG Q4H PRN PRN SL Senna/Docusate Sodium (SENOKOT-S) 2 TAB DAILY PRN PRN PO Nutrition assessment:The data set between the solid lines has been imported from the dietitian's assessment. Any exceptions have been noted under Provider comments. BMI Calculated: 33.0Nutrition related diagnosis: ObeseNutrition diagnosis details: BMI 30-39.9Nutrition problem: No nutrition diagnosisNutrition etiology: GOOD NUTRITION STATUS Nutrition signs and symptoms: PATIENT WITH GOOD APPETITE , AND INTAKE, DENIES N/V/D/C,, SKIN INTACTNutrition prescription: - RECOMMEND CCD4 DIET TOLERATED PER PT REQUEST - RD TO FOLLOW UP PER FNS PROTOCOLDietitian name: Madeleine Barrow RDN, LDAssessment completed: 01/12/22 Provider comments on imported dietitian assessment: Physical ExamGeneral appearance: alert, awake, orientedHead/Eyes: atraumatic, clear cornea, EOMIENT: moist mucosal membranesCardiovascular: normal heart sounds, regular rate rhythmRespiratory: aerating well, clear to auscultation, symmetric expansionAbdomen: non-tender, normal bowel sounds, soft, no distentionExtremities: moves allNeuro/SPOOL CLEANER: alert, oriented X 3 ResultsResults: labs reviewed, vital signs reviewed Diagnosis, Assessment Plan Free Text DxA P NotesFree text DxA P notes:Assessment/plan: Acute ischemic stroke- s/p TPA, no hemorrhagic conversion- Imaging revealed small acute to subacute infarct involving the right middle cerebellar peduncle- PT/OT per rehab team- C/w DAPT for 3 weeks- Aspirin 81 mg p.o. daily, Plavix 75 mg p.o. daily, atorvastatin 40 mg p.o. daily- Dizziness has improved on meclizine #Pelvic mass- COMIC ARTIST follow up as outpt- tumor markers pending #Hypertension-Amlodipine 10 mg p.o. daily, monitor-currently well controlled #Fernadnez's palsy Right facial droop Started on acyclovir and steroid, completed course today Neurology following Patient discharging today at 1311 at 0996 RPT #:[id number] OF REPORTPRProgress ydhw7309-89-28Y34:09:00C.EIVP70945091-3 634AVAvailable for patient gnurWYTHKREPHMWHDW0039-32-54D65:15:32 [facility] 2022-01-16 07:48:00 [id number]W ouRIVgCSzJVy5clQv0s78JMHfCDobFvWhg3ya0h 5217-04-00L25:48:00 [facility] Discharge SummaryREPORT#:[id number] REPORT STATUS: SignedDATE:01/16/22 TIME: 0748 PATIENT: FRANSICO PÉREZ UNIT #: [id number]#: [id number] [address] [birth year] AGE: 71 SEX: F ATTEND: Joshua Acosta [facility] AUTHOR: Joshua Acosta MD * ALL edits or amendments must be made on the electronic/computer document * Med Rec Med RecDischarge meds:Stop taking the following medications:Mesalamine (DELZICOL) 400 MG CAP.DR ORAL TWICE DAILY. CLOPIDOGREL (PLAVIX) 75 MG TAB 75 MILLIGRAM ORAL DAILY. Qty = 30 ATORVASTATIN (LIPITOR) 40 MG TAB 40 MILLIGRAM ORAL BEDTIME. Qty = 30 amLODIPine (NORVASC) 5 MG TAB 5 MILLIGRAM ORAL DAILY. Qty = 30 ASPIRIN (ASPIRIN) 81 MG TAB.CHEW 81 MILLIGRAM ORAL DAILY. Qty = 30 GABAPENTIN (NEURONTIN) 300 MG CAP 300 MILLIGRAM ORAL DAILY. Qty = 30 MECLIZINE (ANTIVERT) 25 MG TAB 25 MILLIGRAM ORAL EVERY 6 HOURS NEEDED. as needed for DIZZINESS Qty = 30 Start taking the following new medications:CLOPIDOGREL (PLAVIX) 75 MG TAB 75 MILLIGRAM ORAL DAILY. Qty = 30 No Refills ATORVASTATIN (LIPITOR) 40 MG TAB 40 MILLIGRAM ORAL BEDTIME. Qty = 30 No Refills amLODIPine (NORVASC) 5 MG TAB 5 MILLIGRAM ORAL DAILY. Qty = 30 No Refills ASPIRIN (ASPIRIN) 81 MG TAB.CHEW 81 MILLIGRAM ORAL DAILY. Qty = 30 No Refills carBAMazepine XR (TEGretol XR) 200 MG TAB.ER.12H 200 MILLIGRAM ORAL EVERY 12 HOURS. Qty = 60 No Refills ESTRADIOL (ESTRACE) 1 MG TAB 0.5 MILLIGRAM ORAL DAILY. Qty = 60 No Refills Objective Physical ExamVS:Last Documented: Result Date Time Pulse Ox 92 01/17 632 B/P 130/73 01/17 632 B/P Mean 92.1 01/17 632 Temp 36.9 01/17 632 Pulse 77 01/17 632 Resp 14 01/17 632 O2 Delivery Room air 01/15 2035 PATIENT WEIGHT: Weight (lb): 192Weight (oz): 7.42Weight (kg): 87.300 Psych: alert, normal affect, oriented x 3HEENT: anicteric, mucosal membranes moist, pupils reactive to light, sclera clearNeck: non-tender, supple, no JVDCardiovascular: regular rate rhythm, S1/P9Lhjamuqoxwi: aerating well, clear bilaterally, clear to auscultationAbdomen: non-distended, non-tender to palpation, soft Functional ProgressFunctional progress:The data set between the solid lines has been imported from multidisciplinary team documentation. FUNCTIONAL ACTIVITY ADMISSION STATUS DISCHARGE STATUS Toilet hygiene Partial/moderate (3) Toilet transfer Partial/moderate (3) Eating Supervision/touch (4) Independent (6) Shower/bathing Partial/moderate (3) Supervision/touch (4) Dressing upper body Supervision/touch (4) Independent (6) Dressing lower body Partial/moderate (3) Supervision/touch (4) Transfer to/from bed to chair Partial/moderate (3) Supervision/touch (4) Wheel 50ft w/ 2 turns Dependent (1) Independent (6) Wheel 150 ft Dependent (1) Independent (6) Walk 50 ft w/ 2 turns Supervision/touch (4) Walk 150 ft Supervision/touch (4) Four steps Supervision/touch (4) ____ General Information General InformationProblem List/A P: 1. Right-sided lacunar stroke 2. Impaired balance as late effect of cerebrovascular accident 3. Reduced mobility 4. Hypertension 5. Generalized weakness 6. Right homonymous hemianopsia 7. Right-sided visual neglect Date of admission:Date of admission: 01/02/22 Discharge date: 01/16/22Admission diagnosis:Right lacunar strokeDischarge diagnosis:Right lacunar strokeHospital course:Ms. Pérez is a 71-year-old female who presented to the hospital with c/o severedizziness with associated abdominal pain and nausea. She reported that she was unable to open her eyes without feelings of vertigo. Code neuro was called and TPA was given. She was admitted to [facility] for further evaluation and management. Imaging revealed a small acute to subacute nonhemorrhagic infarct involving the right middle cerebellar peduncle. During this hospital stay, the patient also c/o abdominal pain and an obstetrics consult was placed. She was found to have a pelvic mass, of which she was already aware, and is following up as an outpatient. Patient continues to have dizzines, although it is improved with medications and she continues to have increased left-sided weakness.Patient was admitted for inpatient rehab and made good functional progress. Discharge Instructions Discharge InstructionsDischarge to: Home/Self CareAdditional Discharge Routines: PCP Follow-UpDiet: Resume Home Diet/Feeds Follow-up AppointmentsPCP: PCP: No Primary or Family Physician PCP follow up timeframe: In 1-2 weeksAttending Physician: Attending Physician: Domi Barry MD Fqnjfaubtr provider 1: Provider 1: Elías Sam DO Specialty: NEUROLOGIST Gwhaqpglka provider 2: Provider 2: West Lou MD Specialty: RECRUITING OPERATIONS CONSULTANT Spywxhxvrh provider 3: Provider 3: Joshua Acosta MD Specialty: REHAB at 07[address] [facility] #:[id number] OF REPORTDSDischarge oamqwml7662-86-27W90:48:00C.[id number] 7-0131AVAvailable for patient xuweKWORZZTLFTSJXF1096-87-51V98:49:37 [facility] 2022-01-16 07:10:00 [id number]/NWE 3xEDcQK/1P33anxh0GCD/x0dkrROtkqHxalMG26 6858-69-79H43:10:00 [facility] CenterNeu[facility] Progress NoteREPORT#:[id number] REPORT STATUS: SignedDATE:01/16/22 TIME: 709 PATIENT: FRANSICO PÉREZ UNIT #: [id number]#: [id number] [address] [birth year] AGE: 71 SEX: F ATTEND: Joshua Acosta [facility] AUTHOR: Lianet Hernandez * ALL edits or amendments must be made on the electronic/computer document * Lianet Hernandez 01/16/22 0710:SubjectiveChief complaint:no acute neuro events, resting in bed, no distress Objective GeneralVS:Last Documented: Result Date Time Pulse Ox 92 01/16 0632 B/P 130/73 01/16 0632 B/P Mean 92.1 01/16 0632 Temp 98.4 01/16 0632 Pulse 77 01/16 0632 Resp 14 01/17 632 O2 Delivery Room air 01/15 2035 PATIENT WEIGHT: Weight (lb): 192Weight (oz): 7.42Weight (kg): 87.300 MedicationsCurrent Home MedicationsCLOPIDOGREL (PLAVIX) 75 MG PO DAILY ATORVASTATIN (LIPITOR) 40 MG PO BEDTIME amLODIPine (NORVASC) 5 MG PO DAILY ASPIRIN 81 MG PO DAILY carBAMazepine XR (TEGretol XR) 200 MG PO Q12HR ESTRADIOL (ESTRACE) 0.5 MG PO DAILY Active Meds + DC'd Last 24 HrsCarbamazepine (TEGretol XR) 200 MG Q12HR PO Calcium Carbonate (TUMS) 1,000 MG Q4H PRN PRN PO Naproxen (NAPROXEN) 250 MG Q12H PRN PRN PO Patient Own Medication (PT'S OWN HOME MED--MUST SCAN) MESALAMINE DR 400 MG CAPSULES Q12HR PO Amlodipine Besylate (amLODIPine) 5 MG DAILY PO Aspirin (ASPIRIN CHEWABLE) 81 MG DAILY PO Clopidogrel Bisulfate (PLAVIX) 75 MG DAILY PO Estradiol (ESTRACE) 0.5 MG DAILY PO Atorvastatin Calcium (LIPITOR) 40 MG BEDTIME PO Meclizine HCl (ANTIVERT) 25 MG Q6H PRN PRN PO Acetaminophen (TYLENOL REGULAR) 650 MG Q4H PRN PRN PO Bisacodyl (DULCOLAX,CORRECTOL) 10 MG DAILY PRN PRN PO Lactulose (CONSTULOSE) 30 ML DAILY PRN PRN PO (CKD) Magnesium Hydroxide (MILK OF MAGNESIA U/D) 30 ML DAILY PRN PRN PO Ondansetron Base (ZOFRAN ODT) 4 MG Q4H PRN PRN SL Senna/Docusate Sodium (SENOKOT-S) 2 TAB DAILY PRN PRN PO Physical ExamGeneral appearance: sleeping comfortably, no acute distressHead/Eyes: atraumatic, clear cornea, normal conjunctiva/sclera, normocephalicENT: normal ear right, normal ear left, normal nose, normal pharynxNeck: full range of motion, non-tender, supple/no meningismus, no bruit / NL carotids, no masses or swellingCardiovascular: regular rate and rhythmRespiratory: clear to auscultation, no distressAbdomen: non-tender, normal bowel sounds, no distentionExtremities: moves all, normal inspection, no edemaMusculoskeletal: full range of motion, normal inspection SpeechSpeech: normal Mental StatusOrientation:Yes: to time, to place, to person, to situation. Cognitive FunctionCognitive function: normal executive function Diagnosis, Assessment PlanFree Text A P:#Dizziness#Nystagmus#Abdominal pain#S/p TPA The patient was given TPA as their was initial concern for posterior circulationstroke. CT head showed no acute findings. CTA head and neck showed no evidence of significant stenosis or occlusion. Neurological exam showed nystagmus during left gaze. No other abnormalities including cerebellar ataxia were elicited. Also suspect benign paroxysmal positional vertigo, which worsens her dizziness upon moving her head to the left. Repeat CT head after TPA administration showed no intracranial hemorrhage. Echocardiogram showed no evidence of shunting. MRI head showed small acute to subacute infarct involving the right middle cerebellar peduncle. 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 Patient will need to be on DAPTfor 21 days.- repeat head CT unremarkable 08/11 Plan:- right facial droop - Fernandez's Palsy* S/P Acyclovir and Prednisone- Tegretol ER 200mg q12h- ASA, Plavix, high intensity statin- Meclizine prn for dizziness - see plan from rehab/Dr Acosta- continue care plan- d/w Dr Martinez, staff- will follow Cristal Martinez 01/16/22 1616:Attestations Physician AttestationAgree w/findings plan:Agree with the findings and plan as documented by [facility] NURSE Lianet Hernandez. at 1421 at 1618 RPT #:[id number] OF REPORTPRProgress vhhe7758-20-12S65:10:00C.[id number] 097AVAvailable for patient zwsrFNSPYNHWBHOCFH3819-79-28P74:21:47 [facility] 2022-01-15 10:55:00 [id number]+EU5 GYHTkX5JNargvqzCNVhVvPzbVnwgu9iYcoKO7U2 6254-96-95L73:55:00 [facility]Re[facility] Progress NoteREPORT#:[id number] REPORT STATUS: SignedDATE:01/15/22 TIME: 1055 PATIENT: FRANSICO PÉREZ UNIT #: [id number]#: [id number] [facility]ADOB: [birth year] AGE: 71 SEX: F ATTEND: Joshua Acosta AUTHOR: Joshua Acosta MD * ALL edits or amendments must be made on the electronic/computer document * SubjectiveChief complaint:strokeHistory of present illness:No new issues per patient or nursing over the weekend. Denies pain. Review of SystemsAll systems rev neg: except as marked Free Text ROS NotesFree Text ROS Notes:pain: no new issuessleep: no new issuesbladder: no new issuesbowel: no new issues Objective GeneralVS:Vital Signs: Date Time Temp Pulse Resp B/P B/P Pulse O2 O2 Flow FiO2 Mean Ox Delivery Rate 01/15 0805 72 138/81 99.9 96 01/15 0709 36.6 62 16 139/83 101.6 94 Room air 01/14 1934 36.6 66 16 115/73 86.8 95 Room air PATIENT WEIGHT: Weight (lb): 193Weight (oz): 6.23Weight (kg): 87.720 Medications:Active Meds + DC'd Last 24 HrsAcyclovir (ZOVIRAX) 800 MG Q12HR PO (DC) Carbamazepine (TEGretol XR) 200 MG Q12HR PO Calcium Carbonate (TUMS) 1,000 MG Q4H PRN PRN PO Naproxen (NAPROXEN) 250 MG Q12H PRN PRN PO Patient Own Medication (PT'S OWN HOME MED--MUST SCAN) MESALAMINE DR 400 MG CAPSULES Q12HR PO Amlodipine Besylate (amLODIPine) 5 MG DAILY PO Aspirin (ASPIRIN CHEWABLE) 81 MG DAILY PO Clopidogrel Bisulfate (PLAVIX) 75 MG DAILY PO Estradiol (ESTRACE) 0.5 MG DAILY PO Atorvastatin Calcium (LIPITOR) 40 MG BEDTIME PO Meclizine HCl (ANTIVERT) 25 MG Q6H PRN PRN PO Acetaminophen (TYLENOL REGULAR) 650 MG Q4H PRN PRN PO Bisacodyl (DULCOLAX,CORRECTOL) 10 MG DAILY PRN PRN PO Lactulose (CONSTULOSE) 30 ML DAILY PRN PRN PO (CKD) Magnesium Hydroxide (MILK OF MAGNESIA U/D) 30 ML DAILY PRN PRN PO Ondansetron Base (ZOFRAN ODT) 4 MG Q4H PRN PRN SL Senna/Docusate Sodium (SENOKOT-S) 2 TAB DAILY PRN PRN PO Nutrition assessment:The data set between the solid lines has been imported from the dietitian's assessment. Any exceptions have been noted under Provider comments. BMI Calculated: 33.2Nutrition related diagnosis: ObeseNutrition diagnosis details: BMI 30-39.9Nutrition problem: No nutrition diagnosisNutrition etiology: GOOD NUTRITION STATUS Nutrition signs and symptoms: PATIENT WITH GOOD APPETITE , AND INTAKE, DENIES N/V/D/C,, SKIN INTACTNutrition prescription: - RECOMMEND CCD4 DIET TOLERATED PER PT REQUEST - RD TO FOLLOW UP PER FNS PROTOCOLDietitian name: Madeleine Barrow RDN, ANA LILIAssessment completed: 01/12/22 Provider comments on imported dietitian assessment: Functional ProgressFunctional progress:The data set between the solid lines has been imported from multidisciplinary team documentation. FUNCTIONAL ACTIVITY ADMISSION STATUS INTERIM STATUS Toilet hygiene Partial/moderate (3) Supervision/touch (4) Toilet transfer Partial/moderate (3) Supervision/touch (4) Eating Supervision/touch (4) Independent (6) Shower/bathing Partial/moderate (3) Setup or cleanup (5) Dressing upper body Supervision/touch (4) Independent (6) Dressing lower body Partial/moderate (3) Supervision/touch (4) Transfer to/from bed to chair Partial/moderate (3) Independent (6) Wheel 50ft w/ 2 turns Dependent (1) Independent (6) Wheel 150 ft Dependent (1) Independent (6) Walk 50 ft w/ 2 turns Supervision/touch (4) Walk 150 ft Supervision/touch (4) Four steps Supervision/touch (4) Physical ExamPsych: alert, normal affect, oriented x 3HEENT: anicteric, mucosal membranes moist, pupils reactive to light, sclera clearNeck: non-tender, supple, no JVDCardiovascular: regular rate rhythm, S1/R4Bjkhlmdxfws: aerating well, clear bilaterally, clear to auscultationAbdomen: non-distended, non-tender to palpation, soft Diagnosis, Assessment PlanProblem List/A P: 1. Right-sided lacunar stroke 2. Impaired balance as late effect of cerebrovascular accident 3. Reduced mobility 4. Hypertension 5. Generalized weakness 6. Right homonymous hemianopsia 7. Right-sided visual neglect Free Text A P:- Cont secondary ppx per IM- Ongoing comprehensive rehab with PT/OT to address mobility, transfers, ADLs, teach compensatory strategies, and evaluate need for DME- INSPECTOR TYPE to address cognition and swallow- Would benefit from follow up with neuroophthalmologist if available- Monitor BP and adjust medications if needed- Water Valve Mechanic following. Optimize nutrition- on gabapentin 100 mg q12h- fall precaution/pain management- continue plan of care- d/w pt, nurse Rehab attestation:Face to face exam completed. Treatment plan discussed with patient. Meets continued stay criteria. Agree with interdisciplinary treatment plan. at 1056 [facility] #:[id number] OF REPORTPRProgress pqks2415-64-56A53:55:00C.YHYB66408581-4 447AVAvailable for patient onmfNIFDVEXFUZBDBC3813-43-23Y51:00:39 [facility] 2022-01-14 12:28:00 [id number]+U/ZAj26Ux UlRDEftFmuM6fRwQxy0yjtWzLd0fHNcbSPOSYrA 2478-01-71Y97:28:00 [facility] CenterHospital[facility] Progress NoteREPORT#:[id number] REPORT STATUS: SignedDATE:01/14/22 TIME: 1228 PATIENT: FRANSICO PÉREZ UNIT #: [id number]#: [id number] [address] [birth year] AGE: 71 SEX: F ATTEND: Joshua Acosta [facility] AUTHOR: Marcello Perdue MD * ALL edits or amendments must be made on the electronic/computer document * SubjectiveChief complaint:Right facial droopHPI:Patient seen and evaluated bedside, feeling better, no new complaints. Review of SystemsAll systems rev neg: except as marked Objective GeneralVS/I O:Vital Signs: Date Time Temp Pulse Resp B/P B/P Pulse O2 O2 Flow FiO2 Mean Ox Delivery Rate 01/14 0629 36.5 57 14 118/73 88.1 98 Room air 01/13 2114 36.5 74 16 122/70 86.9 96 Room air 01/13 1744 36.8 71 18 122/69 86.9 95 Room air 24 hour I O ending at 0700: 01/14 0700 01/13 1900 Intake Total Output Total Balance Number 1 Bowel Movements PATIENT WEIGHT: Weight (lb): 193Weight (oz): 6.23Weight (kg): 87.720 Physical ExamHead/Eyes: atraumatic, clear cornea, EOMIENT: moist mucosal membranesCardiovascular: normal heart sounds, regular rate rhythmRespiratory: aerating well, clear to auscultation, symmetric expansionAbdomen: non-tender, normal bowel sounds, soft, no distentionExtremities: moves allNeuro/SPOOL CLEANER: alert, oriented X 3 Diagnosis, Assessment Plan Free Text DxA P NotesFree text DxA P notes:Assessment/plan: Acute ischemic stroke- s/p TPA, no hemorrhagic conversion- Imaging revealed small acute to subacute infarct involving the right middle cerebellar peduncle- PT/OT per rehab team- C/w DAPT for 3 weeks-Aspirin 81 mg p.o. daily, Plavix 75 mg p.o. daily, atorvastatin 40 mg p.o. daily- Dizziness has improved on meclizine #Pelvic mass- COMIC ARTIST follow up as outpt- tumor markers pending #HypertensionAmlodipine 10 mg p.o. daily, monitor #Fernandez's palsy Right facial droop Started on acyclovir and steroid, completed course today Neurology following at 1229 RPT #:[id number] OF REPORTPRProgress irll7736-98-92C39:28:00C.LOWD48552254-7 504AVAvailable for patient uatfRVXTAPVLUNAWAU8913-27-05O83:30:17 [facility] 2022-01-14 06:49:00 [id number]c dTAu/3QGxkbHOEFCC89Aoe+8d6dP2cip0MNez 9295-96-54M56:49:00 [facility] CenterRe[facility] Progress NoteREPORT#:[id number] REPORT STATUS: SignedDATE:01/14/22 TIME: 06 PATIENT: FRANSICO PÉREZ UNIT #: [id number]#: [id number] [address] [birth year] AGE: 71 SEX: F ATTEND: Joshua Acosta [facility] AUTHOR: Lianet Hernandez * ALL edits or amendments must be made on the electronic/computer document * Lianet Hernandez 01/14/22 0649:SubjectiveChief complaint:resting in bed, no discomfort Objective GeneralVS:Vital Signs: Date Time Temp Pulse Resp B/P B/P Pulse O2 O2 Flow FiO2 Mean Ox Delivery Rate 01/14 629 97.7 57 14 118/73 88.1 98 Room air 01/13 2114 97.7 74 16 122/70 86.9 96 Room air 01/13 1744 98.2 71 18 122/69 86.9 95 Room air 01/13 1027 98.2 63 18 121/75 90.2 96 Room air PATIENT WEIGHT: Weight (lb): 193Weight (oz): 6.23Weight (kg): 87.720 Medications:Active Meds + DC'd Last 24 HrsAcyclovir (ZOVIRAX) 800 MG Q12HR PO Carbamazepine (TEGretol XR) 200 MG Q12HR PO Prednisone (DELTASONE,ORASONE) 40 MG DAILY PO Calcium Carbonate (TUMS) 1,000 MG Q4H PRN PRN PO Naproxen (NAPROXEN) 250 MG Q12H PRN PRN PO Patient Own Medication (PT'S OWN HOME MED--MUST SCAN) MESALAMINE DR 400 MG CAPSULES Q12HR PO Amlodipine Besylate (amLODIPine) 5 MG DAILY PO Aspirin (ASPIRIN CHEWABLE) 81 MG DAILY PO Clopidogrel Bisulfate (PLAVIX) 75 MG DAILY PO Estradiol (ESTRACE) 0.5 MG DAILY PO Atorvastatin Calcium (LIPITOR) 40 MG BEDTIME PO Meclizine HCl (ANTIVERT) 25 MG Q6H PRN PRN PO Acetaminophen (TYLENOL REGULAR) 650 MG Q4H PRN PRN PO Bisacodyl (DULCOLAX,CORRECTOL) 10 MG DAILY PRN PRN PO Lactulose (CONSTULOSE) 30 ML DAILY PRN PRN PO (CKD) Magnesium Hydroxide (MILK OF MAGNESIA U/D) 30 ML DAILY PRN PRN PO Ondansetron Base (ZOFRAN ODT) 4 MG Q4H PRN PRN SL Senna/Docusate Sodium (SENOKOT-S) 2 TAB DAILY PRN PRN PO Functional ProgressFunctional progress:The data set between the solid lines has been imported from multidisciplinary team documentation. FUNCTIONAL ACTIVITY ADMISSION STATUS INTERIM STATUS Toilet hygiene Partial/moderate (3) Supervision/touch (4) Toilet transfer Partial/moderate (3) Setup or cleanup (5) Eating Supervision/touch (4) Independent (6) Shower/bathing Partial/moderate (3) Setup or cleanup (5) Dressing upper body Supervision/touch (4) Independent (6) Dressing lower body Partial/moderate (3) Supervision/touch (4) Transfer to/from bed to chair Partial/moderate (3) Supervision/touch (4) Wheel 50ft w/ 2 turns Dependent (1) Independent (6) Wheel 150 ft Dependent (1) Independent (6) Walk 50 ft w/ 2 turns Supervision/touch (4) Walk 150 ft Supervision/touch (4) Four steps Supervision/touch (4) Physical ExamGeneral appearance: sleeping comfortably, no acute distressPsych: alert, normal affect, oriented x 3HEENT: anicteric, mucosal membranes moist, pupils reactive to light, sclera clearNeck: non-tender, supple, no JVDCardiovascular: regular rate rhythm, S1/B5Gwiucozindi: aerating well, clear bilaterally, clear to auscultationAbdomen: non-distended, non-tender to palpation, soft Diagnosis, Assessment PlanFree Text A P:- Cont secondary ppx per IM- Ongoing comprehensive rehab with PT/OT to address mobility, transfers, ADLs, teach compensatory strategies, and evaluate need for DME- INSPECTOR TYPE to address cognition and swallow- Would benefit from follow up with neuroophthalmologist if available- Monitor BP and adjust medications if needed- Water Valve Mechanic following. Optimize nutrition- on gabapentin 100 mg q12h- fall precaution/pain management- continue plan of care- d/w pt, nurse Rehab attestation:Face to face exam completed. Treatment plan discussed with patient. Meets continued stay criteria. Agree with interdisciplinary treatment plan. Cristal Martinez 01/14/22 3934:Attestations Physician AttestationAgree w/findings plan:Agree with the findings and plan as documented by [facility] NURSE Lianet Hernandez. at 1100 at 2216 RPT #:[id number] OF REPORTPRProgress [id number]:49:00C.[id number] for patient pawjNNTYNZCQHAMHTY5248-24-44Q58:00:48 [facility] 2022-01-13 06:41:00 [id number] 0eTO3hfzBRcBVaiDZ8b0itxQJjWrYf9SLsq92fL 1655-95-27I67:41:00 [facility] ([facility]Re[facility] Progress NoteREPORT#:[id number] REPORT STATUS: SignedDATE:01/13/22 TIME: 06 PATIENT: FRANSICO PÉREZ UNIT #: [id number]#: [id number] [address] [birth year] AGE: 71 SEX: F ATTEND: Joshua Acosta [facility] AUTHOR: Lianet Hernandez * ALL edits or amendments must be made on the electronic/computer document * Lianet Hernandez 01/13/22 0641:SubjectiveChief complaint:awake alert, right ear pain and right face droop improving, doing well overall Objective GeneralVS:Vital Signs: Date Time Temp Pulse Resp B/P B/P Pulse O2 O2 Flow FiO2 Mean Ox Delivery Rate 01/13 1027 98.2 63 18 121/75 90.2 96 Room air 01/12 1949 98.8 70 18 145/75 98.2 97 Room air PATIENT WEIGHT: Weight (lb): 193Weight (oz): 6.23Weight (kg): 87.720 Medications:Active Meds + DC'd Last 24 HrsAcyclovir (ZOVIRAX) 800 MG Q12HR PO Carbamazepine (TEGretol XR) 200 MG Q12HR PO Prednisone (DELTASONE,ORASONE) 40 MG DAILY PO Calcium Carbonate (TUMS) 1,000 MG Q4H PRN PRN PO Naproxen (NAPROXEN) 250 MG Q12H PRN PRN PO Patient Own Medication (PT'S OWN HOME MED--MUST SCAN) MESALAMINE DR 400 MG CAPSULES Q12HR PO Amlodipine Besylate (amLODIPine) 5 MG DAILY PO Aspirin (ASPIRIN CHEWABLE) 81 MG DAILY PO Clopidogrel Bisulfate (PLAVIX) 75 MG DAILY PO Estradiol (ESTRACE) 0.5 MG DAILY PO Atorvastatin Calcium (LIPITOR) 40 MG BEDTIME PO Meclizine HCl (ANTIVERT) 25 MG Q6H PRN PRN PO Acetaminophen (TYLENOL REGULAR) 650 MG Q4H PRN PRN PO Bisacodyl (DULCOLAX,CORRECTOL) 10 MG DAILY PRN PRN PO Lactulose (CONSTULOSE) 30 ML DAILY PRN PRN PO (CKD) Magnesium Hydroxide (MILK OF MAGNESIA U/D) 30 ML DAILY PRN PRN PO Ondansetron Base (ZOFRAN ODT) 4 MG Q4H PRN PRN SL Senna/Docusate Sodium (SENOKOT-S) 2 TAB DAILY PRN PRN PO Functional ProgressFunctional progress:The data set between the solid lines has been imported from multidisciplinary team documentation. FUNCTIONAL ACTIVITY ADMISSION STATUS INTERIM STATUS Toilet hygiene Partial/moderate (3) Setup or cleanup (5) Toilet transfer Partial/moderate (3) Setup or cleanup (5) Eating Supervision/touch (4) Independent (6) Shower/bathing Partial/moderate (3) Setup or cleanup (5) Dressing upper body Supervision/touch (4) Independent (6) Dressing lower body Partial/moderate (3) Supervision/touch (4) Transfer to/from bed to chair Partial/moderate (3) Supervision/touch (4) Wheel 50ft w/ 2 turns Dependent (1) Independent (6) Wheel 150 ft Dependent (1) Independent (6) Walk 50 ft w/ 2 turns Supervision/touch (4) Walk 150 ft Supervision/touch (4) Four steps Supervision/touch (4) Physical ExamGeneral appearance: alert, awakePsych: alert, normal affect, oriented x 3HEENT: anicteric, mucosal membranes moist, pupils reactive to light, sclera clearNeck: non-tender, supple, no JVDCardiovascular: regular rate rhythm, S1/W8Ramrafmvmso: aerating well, clear bilaterally, clear to auscultationAbdomen: non-distended, non-tender to palpation, soft Diagnosis, Assessment PlanFree Text A P:- Cont secondary ppx per IM- Ongoing comprehensive rehab with PT/OT to address mobility, transfers, ADLs, teach compensatory strategies, and evaluate need for DME- INSPECTOR TYPE to address cognition and swallow- Would benefit from follow up with neuroophthalmologist if available- Monitor BP and adjust medications if needed- Water Valve Mechanic following. Optimize nutrition- on gabapentin 100 mg q12h- fall precaution/pain management- continue treatment course- d/w pt, nurse Rehab attestation:Face to face exam completed. Treatment plan discussed with patient. Meets continued stay criteria. Agree with interdisciplinary treatment plan. Cristal Martinez 01/13/227:Attestations Physician AttestationAgree w/findings plan:Agree with the findings and plan as documented by BRYAN Hernandez. at 1517 at 2110 RPT #:[id number] OF REPORTPRProgress [id number]:41:00C.[id number] for patient kwwcVOHIJQUNDFYMPH5149-72-89A96:17:21 [facility] 2022-01-12 16:21:00 [id number]+U4tycp9JQ9 3+mzKy20GV5fZNw0YzJtD52WFs4wG8Yp31+y1j0 5196-25-27I64:21:00 [facility] CenterHospital[facility] Progress NoteREPORT#:[id number] REPORT STATUS: SignedDATE:01/12/22 TIME: 1621 PATIENT: FRANSICO PÉREZ UNIT #: [id number]#: [id number] [address] [birth year] AGE: 71 SEX: F ATTEND: Joshua Acosta [facility] AUTHOR: Marcello Perdue MD * ALL edits or amendments must be made on the electronic/computer document * SubjectiveChief complaint:Right facialHPI:Patient seen and evaluated bedside, still has 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 Review of SystemsAll systems rev neg: except as marked Objective GeneralVS/I O:Vital Signs: Date Time Temp Pulse Resp B/P B/P Pulse O2 O2 Flow FiO2 Mean Ox Delivery Rate 01/12 0909 66 119/70 86.2 01/12 0639 36.7 59 14 110/58 75.3 98 Room air 01/12 2004 36.9 73 18 130/77 94.5 94 Room air 24 hour I O ending at 0700: 01/12 0700 01/11 1900 Intake Total 480 500 Output Total Balance 480 500 Intake, Oral 480 500 Number 1 Bowel Movements Number 0 Incontinent Voids Number Voids 1 3 PATIENT WEIGHT: Weight (lb): 192Weight (oz): 3.89Weight (kg): 87.200 Physical ExamHead/Eyes: atraumatic, clear cornea, EOMIENT: moist mucosal membranesCardiovascular: normal heart sounds, regular rate rhythmRespiratory: aerating well, clear to auscultation, symmetric expansionAbdomen: non-tender, normal bowel sounds, soft, no distentionExtremities: moves allNeuro/SPOOL CLEANER: alert, oriented X 3 Diagnosis, Assessment Plan Free Text DxA P NotesFree text DxA P notes:Assessment/plan: CVA- s/p TPA, no hemorrhagic conversion- Imaging revealed small acute to subacute infarct involving the right middle cerebellar peduncle- PT/OT per rehab team- C/w DAPT for 3 weeks-Aspirin 81 mg p.o. daily, Plavix 75 mg p.o. daily, atorvastatin 40 mg p.o. daily- Dizziness has improved on meclizine #Pelvic mass- COMIC ARTIST follow up as outpt- tumor markers pending #HypertensionAmlodipine 10 mg p.o. daily, monitor #Fernandez's palsy Right facial droop Started on acyclovir and steroid Neurology following at 1623 RPT #:[id number] OF REPORTPRProgress [id number]:21:00C.[id number] for patient irkeGZZGMOXCWAMWZG2083-84-17X23:24:18 [facility] 2022-01-12 12:34:00 [id number] Y88uEGXCY5xQZRGr+VJJ6VFeun+oUGWNjRPbf8O 3384-13-99I43:34:00 [facility] CenterRe[facility] Progress NoteREPORT#:[id number] REPORT STATUS: SignedDATE:01/12/22 TIME: 1234 PATIENT: FRANSICO PÉREZ UNIT #: [id number]#: [id number] [facility]ADOB: [birth year] AGE: 71 SEX: F [facility] AUTHOR: [facility] Acosta MD * ALL edits or amendments must be made on the electronic/computer document * SubjectiveChief complaint:strokeHistory of present illness:No new issues or complaints this morning. Working with therapy. Review of SystemsAll systems rev neg: except as marked Free Text ROS NotesFree Text ROS Notes:pain: no new issuessleep: no new issuesbladder: no new issuesbowel: no new issues Objective GeneralVS:Vital Signs: Date Time Temp Pulse Resp B/P B/P Pulse O2 O2 Flow FiO2 Mean Ox Delivery Rate 01/12 0909 66 119/70 86.2 01/12 0639 36.7 59 14 110/58 75.3 98 Room air 01/12 2004 36.9 73 18 130/77 94.5 94 Room air 01/11 1316 73 123/78 93.4 96 Room air PATIENT WEIGHT: Weight (lb): 192Weight (oz): 3.89Weight (kg): 87.200 Medications:Active Meds + DC'd Last 24 HrsAcyclovir (ZOVIRAX) 800 MG Q12HR PO Carbamazepine (TEGretol XR) 200 MG Q12HR PO Prednisone (DELTASONE,ORASONE) 40 MG DAILY PO Calcium Carbonate (TUMS) 1,000 MG Q4H PRN PRN PO Naproxen (NAPROXEN) 250 MG Q12H PRN PRN PO Patient Own Medication (PT'S OWN HOME MED--MUST SCAN) MESALAMINE DR 400 MG CAPSULES Q12HR PO Amlodipine Besylate (amLODIPine) 5 MG DAILY PO Aspirin (ASPIRIN CHEWABLE) 81 MG DAILY PO Clopidogrel Bisulfate (PLAVIX) 75 MG DAILY PO Estradiol (ESTRACE) 0.5 MG DAILY PO Atorvastatin Calcium (LIPITOR) 40 MG BEDTIME PO Meclizine HCl (ANTIVERT) 25 MG Q6H PRN PRN PO Acetaminophen (TYLENOL REGULAR) 650 MG Q4H PRN PRN PO Bisacodyl (DULCOLAX,CORRECTOL) 10 MG DAILY PRN PRN PO Lactulose (CONSTULOSE) 30 ML DAILY PRN PRN PO (CKD) Magnesium Hydroxide (MILK OF MAGNESIA U/D) 30 ML DAILY PRN PRN PO Ondansetron Base (ZOFRAN ODT) 4 MG Q4H PRN PRN SL Senna/Docusate Sodium (SENOKOT-S) 2 TAB DAILY PRN PRN PO Nutrition assessment:The data set between the solid lines has been imported from the dietitian's assessment. Any exceptions have been noted under Provider comments. BMI Calculated: 33.0Nutrition related diagnosis: ObeseNutrition diagnosis details: BMI 30-39.9Nutrition problem: Altered GI functionNutrition etiology: ConstipationNutrition signs and symptoms: PT REPORT CONSTIPATION AND , NEED FOR PRUNE JUICENutrition prescription: - RECOMMEND CCD4 DIET TOLERATED PER PT REQUEST - WILL SEND PRUNE JUICE DAILY AT LUNCH TO ASSIST W/ RELIEVING CONSTIPATION - RD TO FOLLOW UP PER FNS PROTOCOLDietitian name: Ky Hansen RD LDAssessment completed: 01/04/22 Provider comments on imported dietitian assessment: Functional ProgressFunctional progress:The data set between the solid lines has been imported from multidisciplinary team documentation. FUNCTIONAL ACTIVITY ADMISSION STATUS INTERIM STATUS Toilet hygiene Partial/moderate (3) Supervision/touch (4) Toilet transfer Partial/moderate (3) Supervision/touch (4) Eating Supervision/touch (4) Independent (6) Shower/bathing Partial/moderate (3) Supervision/touch (4) Dressing upper body Supervision/touch (4) Setup or cleanup (5) Dressing lower body Partial/moderate (3) Setup or cleanup (5) Transfer to/from bed to chair Partial/moderate (3) Supervision/touch (4) Wheel 50ft w/ 2 turns Dependent (1) Independent (6) Wheel 150 ft Dependent (1) Independent (6) Walk 50 ft w/ 2 turns Supervision/touch (4) Walk 150 ft Supervision/touch (4) Four steps Supervision/touch (4) Physical ExamPsych: alert, normal affect, oriented x 3HEENT: anicteric, mucosal membranes moist, pupils reactive to light, sclera clearNeck: non-tender, supple, no JVDCardiovascular: regular rate rhythm, S1/I2Btcxdnoepus: aerating well, clear bilaterally, clear to auscultationAbdomen: non-distended, non-tender to palpation, soft Diagnosis, Assessment PlanProblem List/A P: 1. Right-sided lacunar stroke 2. Impaired balance as late effect of cerebrovascular accident 3. Reduced mobility 4. Hypertension 5. Generalized weakness 6. Right homonymous hemianopsia 7. Right-sided visual neglect Free Text A P:- Cont secondary ppx per IM- Ongoing comprehensive rehab with PT/OT to address mobility, transfers, ADLs, teach compensatory strategies, and evaluate need for DME- INSPECTOR TYPE to address cognition and swallow- Would benefit from follow up with neuroophthalmologist if available- Monitor BP and adjust medications if needed- Water Valve Mechanic following. Optimize nutrition- on gabapentin 100 mg q12h- fall precaution/pain management- continue care plan- d/w pt, nurseRehab attestation:Face to face exam completed. Treatment plan discussed with patient. Meets continued stay criteria. Agree with interdisciplinary treatment plan. at [facility] #:[id number] OF REPORTPRProgress [id number]:34:00C.[id number] for patient ohcfJWTVQXRZKLESVI1392-79-53S80:36:04 [facility] 2022-01-12 09:02:00 [id number] Oyv2T13/A/qZk5hxmuU+qHKQ9n4GS4AVwqB53Wf 5505-44-60P43:02:00 [facility] CenterNeu[facility] Progress NoteREPORT#:[id number] REPORT STATUS: SignedDATE:01/12/22 TIME: 901 PATIENT: FRANSICO PÉREZ UNIT #: [id number]#: [id number] [address] [birth year] AGE: 71 SEX: F ATTEND: Joshua Acosta [facility] AUTHOR: Lianet Hernandez * ALL edits or amendments must be made on the electronic/computer document * Lianet Hernandez 01/12/22 0902:SubjectiveChief complaint:no acute neuro events, working with therapist Objective GeneralVS:Last Documented: Result Date Time B/P 119/70 01/12 909 B/P Mean 86.2 01/12 909 Pulse 66 01/12 909 Pulse Ox 98 01/12 639 O2 Delivery Room air 01/12 639 Temp 98.1 01/12 639 Resp 14 01/12 639 PATIENT WEIGHT: Weight (lb): 192Weight (oz): 3.89Weight (kg): 87.200 MedicationsCurrent Home MedicationsMesalamine (DELZICOL) CLOPIDOGREL (PLAVIX) 75 MG PO DAILY ATORVASTATIN (LIPITOR) 40 MG PO BEDTIME amLODIPine (NORVASC) 5 MG PO DAILY ASPIRIN 81 MG PO DAILY GABAPENTIN (NEURONTIN) 300 MG PO DAILY MECLIZINE (ANTIVERT) 25 MG PO Q6H PRN PRN DIZZINESS Active Meds + DC'd Last 24 HrsAcyclovir (ZOVIRAX) 800 MG Q12HR PO Carbamazepine (TEGretol XR) 200 MG Q12HR PO Prednisone (DELTASONE,ORASONE) 40 MG DAILY PO Calcium Carbonate (TUMS) 1,000 MG Q4H PRN PRN PO Naproxen (NAPROXEN) 250 MG Q12H PRN PRN PO Patient Own Medication (PT'S OWN HOME MED--MUST SCAN) MESALAMINE DR 400 MG CAPSULES Q12HR PO Amlodipine Besylate (amLODIPine) 5 MG DAILY PO Aspirin (ASPIRIN CHEWABLE) 81 MG DAILY PO Clopidogrel Bisulfate (PLAVIX) 75 MG DAILY PO Estradiol (ESTRACE) 0.5 MG DAILY PO Atorvastatin Calcium (LIPITOR) 40 MG BEDTIME PO Meclizine HCl (ANTIVERT) 25 MG Q6H PRN PRN PO Acetaminophen (TYLENOL REGULAR) 650 MG Q4H PRN PRN PO Bisacodyl (DULCOLAX,CORRECTOL) 10 MG DAILY PRN PRN PO Lactulose (CONSTULOSE) 30 ML DAILY PRN PRN PO (CKD) Magnesium Hydroxide (MILK OF MAGNESIA U/D) 30 ML DAILY PRN PRN PO Ondansetron Base (ZOFRAN ODT) 4 MG Q4H PRN PRN SL Senna/Docusate Sodium (SENOKOT-S) 2 TAB DAILY PRN PRN PO Physical ExamGeneral appearance: alert, awakeHead/Eyes: atraumatic, clear cornea, normal conjunctiva/sclera, normocephalicENT: normal ear right, normal ear left, normal nose, normal pharynxNeck: full range of motion, non-tender, supple/no meningismus, no bruit / NL carotids, no masses or swellingCardiovascular: regular rate and rhythmRespiratory: clear to auscultation, no distressAbdomen: non-tender, normal bowel sounds, no distentionExtremities: moves all, normal inspection, no edemaMusculoskeletal: full range of motion, normal inspection SpeechSpeech: normal Mental StatusOrientation:Yes: to time, to place, to person, to situation. Cognitive FunctionCognitive function: normal executive function Diagnosis, Assessment PlanFree Text A P:#Dizziness#Nystagmus#Abdominal pain#S/p TPA The patient was given TPA as their was initial concern for posterior circulationstroke. CT head showed no acute findings. CTA head and neck showed no evidence of significant stenosis or occlusion. Neurological exam showed nystagmus during left gaze. No other abnormalities including cerebellar ataxia were elicited. Also suspect benign paroxysmal positional vertigo, which worsens her dizziness upon moving her head to the left. Repeat CT head after TPA administration showed no intracranial hemorrhage. Echocardiogram showed no evidence of shunting. MRI head showed small acute to subacute infarct involving the right middle cerebellar peduncle. 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 Patient will need to be on DAPTfor 21 days.- repeat head CT unremarkable 08/11 Plan:- right facial droop - Fernandez's Palsy* Acyclovir 800mg bid x 5days* Prednisone 40mg daily x 5days- Tegretol ER 200mg q12h- ASA, Plavix, high intensity statin- Meclizine prn for dizziness - see plan from rehab/Dr Acosta- continue medical management- d/w Dr Sam, staff- will follow Elías Sam 01/12/22 1342:Diagnosis, Assessment PlanFree Text A P:agree with above note/ plan by [facility] NURSE at 1043 at 1343 RPT #:[id number] OF REPORTPRProgress [id number]:02:00C.[id number] 258AVAvailable for patient pecoUNWNLOZTHUWSJE8243-69-33C13:43:38 [facility] 2022-01-11 09:18:00 [id number]+EzeoGDdw2y1VI KN3+T0a0/j/5CbGqh4O/hXJ4rethVqTK1krrU1q 0069-84-82L61:18:00 [facility] CenterNe[facility] Progress NoteREPORT#:[id number] REPORT STATUS: SignedDATE:01/11/22 TIME: 917 PATIENT: FRANSICO PÉREZ UNIT #: [id number]#: [id number] [address] [birth year] AGE: 71 SEX: F ATTEND: Joshua Acosta [facility] AUTHOR: Lianet Hernandez * ALL edits or amendments must be made on the electronic/computer document * Lianet Hernandez 01/11/22917:SubjectiveChief complaint:resting in bed, no distress Objective GeneralVS:Last Documented: Result Date Time Pulse Ox 97 01/11 617 B/P 101/64 01/11 617 B/P Mean 76.3 01/11 617 Temp 98.4 01/11 617 Pulse 67 01/11 617 Resp 16 05/12 0617 O2 Delivery Room air 01/10 2005 PATIENT WEIGHT: Weight (lb): 192Weight (oz): 3.89Weight (kg): 87.200 MedicationsCurrent Home MedicationsMesalamine (DELZICOL) CLOPIDOGREL (PLAVIX) 75 MG PO DAILY ATORVASTATIN (LIPITOR) 40 MG PO BEDTIME amLODIPine (NORVASC) 5 MG PO DAILY ASPIRIN 81 MG PO DAILY GABAPENTIN (NEURONTIN) 300 MG PO DAILY MECLIZINE (ANTIVERT) 25 MG PO Q6H PRN PRN DIZZINESS Active Meds + DC'd Last 24 HrsAcyclovir (ZOVIRAX) 800 MG Q12HR PO Carbamazepine (TEGretol XR) 200 MG Q12HR PO Prednisone (DELTASONE,ORASONE) 40 MG DAILY PO Calcium Carbonate (TUMS) 1,000 MG Q4H PRN PRN PO Naproxen (NAPROXEN) 250 MG Q12H PRN PRN PO Patient Own Medication (PT'S OWN HOME MED--MUST SCAN) MESALAMINE DR 400 MG CAPSULES Q12HR PO Amlodipine Besylate (amLODIPine) 5 MG DAILY PO Aspirin (ASPIRIN CHEWABLE) 81 MG DAILY PO Clopidogrel Bisulfate (PLAVIX) 75 MG DAILY PO Estradiol (ESTRACE) 0.5 MG DAILY PO Atorvastatin Calcium (LIPITOR) 40 MG BEDTIME PO Meclizine HCl (ANTIVERT) 25 MG Q6H PRN PRN PO Acetaminophen (TYLENOL REGULAR) 650 MG Q4H PRN PRN PO Bisacodyl (DULCOLAX,CORRECTOL) 10 MG DAILY PRN PRN PO Lactulose (CONSTULOSE) 30 ML DAILY PRN PRN PO (CKD) Magnesium Hydroxide (MILK OF MAGNESIA U/D) 30 ML DAILY PRN PRN PO Ondansetron Base (ZOFRAN ODT) 4 MG Q4H PRN PRN SL Senna/Docusate Sodium (SENOKOT-S) 2 TAB DAILY PRN PRN PO Physical ExamGeneral appearance: sleeping comfortably, no acute distressHead/Eyes: atraumatic, clear cornea, normal conjunctiva/sclera, normocephalicENT: normal ear right, normal ear left, normal nose, normal pharynxNeck: full range of motion, non-tender, supple/no meningismus, no bruit / NL carotids, no masses or swellingCardiovascular: regular rate and rhythmRespiratory: clear to auscultation, no distressAbdomen: non-tender, normal bowel sounds, no distentionExtremities: moves all, normal inspection, no edemaMusculoskeletal: full range of motion, normal inspection SpeechSpeech: normal Mental StatusOrientation:Yes: to time, to place, to person, to situation. Cognitive FunctionCognitive function: normal executive function Diagnosis, Assessment PlanFree Text A P:#Dizziness#Nystagmus#Abdominal pain#S/p TPA The patient was given TPA as their was initial concern for posterior circulationstroke. CT head showed no acute findings. CTA head and neck showed no evidence of significant stenosis or occlusion. Neurological exam showed nystagmus during left gaze. No other abnormalities including cerebellar ataxia were elicited. Also suspect benign paroxysmal positional vertigo, which worsens her dizziness upon moving her head to the left. Repeat CT head after TPA administration showed no intracranial hemorrhage. Echocardiogram showed no evidence of shunting. MRI head showed small acute to subacute infarct involving the right middle cerebellar peduncle. 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 Patient will need to be on DAPTfor 21 days.- repeat head CT unremarkable 08/11 Plan:- right facial droop - Fernandez's Palsy* Acyclovir 800mg bid x 5days* Prednisone 40mg daily x 5days- Tegretol ER 200mg q12h- ASA, Plavix, high intensity statin- Meclizine prn for dizziness - see plan from rehab/Dr Acosta- continue plan of care- d/w Dr Sam, staff- will follow Elías Sam 01/11/22 1410:Diagnosis, Assessment PlanFree Text A P:agree with above note/ plan by [facility] NURSE at 1308 at 1411 RPT #:[id number] OF REPORTPRProgress [id number]:18:00C.[id number] 362AVAvailable for patient nilxJLGWXNESEITUXV1780-01-22I19:09:10 [facility] 2022-01-11 09:01:00 [id number]/N5u8jbmbyVQUzMQve 3gMMkYM5++e/YeJtJ7zLkEMskOV3qDV6iyYazFF 7285-52-13Q53:01:00 [facility] ([facility])Rehab Progress NoteREPORT#:[id number] REPORT STATUS: SignedDATE:01/11/22 TIME: 900 PATIENT: FRANSICO PÉREZ UNIT #: [id number]#: [id number] [address] [birth year] AGE: 71 SEX: F ATTEND: Joshua Acosta [facility] AUTHOR: Joshua Acosta MD * ALL edits or amendments must be made on the electronic/computer document * SubjectiveChief complaint:strokeHistory of present illness:Doing better. No new issues. Review of SystemsAll systems rev neg: except as marked Free Text ROS NotesFree Text ROS Notes:pain: no new issuessleep: no new issuesbladder: no new issuesbowel: no new issues Objective GeneralVS:Vital Signs: Date Time Temp Pulse Resp B/P B/P Pulse O2 O2 Flow FiO2 Mean Ox Delivery Rate 01/11 617 36.9 67 16 101/64 76.3 97 01/10 2005 36.8 77 10 112/70 84.1 96 Room air PATIENT WEIGHT: Weight (lb): 192Weight (oz): 3.89Weight (kg): 87.200 Medications:Active Meds + DC'd Last 24 HrsAcyclovir (ZOVIRAX) 800 MG Q12HR PO Carbamazepine (TEGretol XR) 200 MG Q12HR PO Prednisone (DELTASONE,ORASONE) 40 MG DAILY PO Calcium Carbonate (TUMS) 1,000 MG Q4H PRN PRN PO Naproxen (NAPROXEN) 250 MG Q12H PRN PRN PO Patient Own Medication (PT'S OWN HOME MED--MUST SCAN) MESALAMINE DR 400 MG CAPSULES Q12HR PO Amlodipine Besylate (amLODIPine) 5 MG DAILY PO Aspirin (ASPIRIN CHEWABLE) 81 MG DAILY PO Clopidogrel Bisulfate (PLAVIX) 75 MG DAILY PO Estradiol (ESTRACE) 0.5 MG DAILY PO Atorvastatin Calcium (LIPITOR) 40 MG BEDTIME PO Meclizine HCl (ANTIVERT) 25 MG Q6H PRN PRN PO Acetaminophen (TYLENOL REGULAR) 650 MG Q4H PRN PRN PO Bisacodyl (DULCOLAX,CORRECTOL) 10 MG DAILY PRN PRN PO Lactulose (CONSTULOSE) 30 ML DAILY PRN PRN PO (CKD) Magnesium Hydroxide (MILK OF MAGNESIA U/D) 30 ML DAILY PRN PRN PO Ondansetron Base (ZOFRAN ODT) 4 MG Q4H PRN PRN SL Senna/Docusate Sodium (SENOKOT-S) 2 TAB DAILY PRN PRN PO Nutrition assessment:The data set between the solid lines has been imported from the dietitian's assessment. Any exceptions have been noted under Provider comments. BMI Calculated: 33.0Nutrition related diagnosis: ObeseNutrition diagnosis details: BMI 30-39.9Nutrition problem: Altered GI functionNutrition etiology: ConstipationNutrition signs and symptoms: PT REPORT CONSTIPATION AND , NEED FOR PRUNE JUICENutrition prescription: - RECOMMEND CCD4 DIET TOLERATED PER PT REQUEST - WILL SEND PRUNE JUICE DAILY AT LUNCH TO ASSIST W/ RELIEVING CONSTIPATION - RD TO FOLLOW UP PER FNS PROTOCOLDietitian name: Ky Hansen RD LDAssessment completed: 01/04/22 Provider comments on imported dietitian assessment: Functional ProgressFunctional progress:The data set between the solid lines has been imported from multidisciplinary team documentation. FUNCTIONAL ACTIVITY ADMISSION STATUS INTERIM STATUS Toilet hygiene Partial/moderate (3) Supervision/touch (4) Toilet transfer Partial/moderate (3) Supervision/touch (4) Eating Supervision/touch (4) Independent (6) Shower/bathing Partial/moderate (3) Supervision/touch (4) Dressing upper body Supervision/touch (4) Setup or cleanup (5) Dressing lower body Partial/moderate (3) Setup or cleanup (5) Transfer to/from bed to chair Partial/moderate (3) Supervision/touch (4) Wheel 50ft w/ 2 turns Dependent (1) Independent (6) Wheel 150 ft Dependent (1) Independent (6) Walk 50 ft w/ 2 turns Supervision/touch (4) Walk 150 ft Supervision/touch (4) Four steps Supervision/touch (4) Physical ExamPsych: alert, normal affect, oriented x 3HEENT: anicteric, mucosal membranes moist, pupils reactive to light, sclera clearNeck: non-tender, supple, no JVDCardiovascular: regular rate rhythm, S1/N4Pntvusvczwz: aerating well, clear bilaterally, clear to auscultationAbdomen: non-distended, non-tender to palpation, soft Diagnosis, Assessment PlanProblem List/A P: 1. Right-sided lacunar stroke 2. Impaired balance as late effect of cerebrovascular accident 3. Reduced mobility 4. Hypertension 5. Generalized weakness 6. Right homonymous hemianopsia 7. Right-sided visual neglect Free Text A P:- Cont secondary ppx per IM- Ongoing comprehensive rehab with PT/OT to address mobility, transfers, ADLs, teach compensatory strategies, and evaluate need for DME- INSPECTOR TYPE to address cognition and swallow- Would benefit from follow up with neuroophthalmologist if available- Monitor BP and adjust medications if needed- Water Valve Mechanic following. Optimize nutrition- on gabapentin 100 mg q12h- fall precaution/pain management- continue care plan- d/w pt, nurseRehab attestation:Face to face exam completed. Treatment plan discussed with patient. Meets continued stay criteria. Agree with interdisciplinary treatment plan. at 0902 RPT #:[id number] OF REPORTPRProgress [id number]:01:00C.[id number] for patient [id number]:02:23 [facility] 2022-01-10 10:02:00 [id number]+gHr0h0 [id number]:02:00 [place] [facility]ist Progress NoteREPORT#:[id number] REPORT STATUS: SignedDATE:01/10/22 TIME: 1002 PATIENT: FRANSICO PÉREZ UNIT #: [id number]#: [id number] [facility]ADOB[facility] [birth year] AGE: 71 SEX: F ATTEND: Joshua Acosta [facility] AUTHOR: Amy Aguiar * ALL edits or amendments must be made on the electronic/computer document * Objective GeneralVS/I O:Vital Signs: Date Time Temp Pulse Resp B/P B/P Pulse O2 O2 Flow FiO2 Mean Ox Delivery Rate 01/10 0814 63 144/85 104.3 96 Room air 01/10 0739 36.7 68 14 130/82 97.5 96 Room air 01/09 1926 36.6 71 18 131/85 100.1 97 Room air 24 hour I O ending at 0700: 01/10 0700 01/09 1900 Intake Total 400 Output Total Balance 400 Intake, Oral 400 Number 1 Bowel Movements Number 0 Incontinent Voids Number Voids 3 PATIENT WEIGHT: Weight (lb): 192Weight (oz): 3.89Weight (kg): 87.200 Medications:Active Meds + DC'd Last 24 HrsGabapentin (NEURONTIN) 200 MG Q12HR PO (DC) Calcium Carbonate (TUMS) 1,000 MG Q4H PRN PRN PO Naproxen (NAPROXEN) 250 MG Q12H PRN PRN PO Patient Own Medication (PT'S OWN HOME MED--MUST SCAN) MESALAMINE DR 400 MG CAPSULES Q12HR PO Amlodipine Besylate (amLODIPine) 5 MG DAILY PO Aspirin (ASPIRIN CHEWABLE) 81 MG DAILY PO Clopidogrel Bisulfate (PLAVIX) 75 MG DAILY PO Estradiol (ESTRACE) 0.5 MG DAILY PO Atorvastatin Calcium (LIPITOR) 40 MG BEDTIME PO Meclizine HCl (ANTIVERT) 25 MG Q6H PRN PRN PO Acetaminophen (TYLENOL REGULAR) 650 MG Q4H PRN PRN PO Bisacodyl (DULCOLAX,CORRECTOL) 10 MG DAILY PRN PRN PO Lactulose (CONSTULOSE) 30 ML DAILY PRN PRN PO (CKD) Magnesium Hydroxide (MILK OF MAGNESIA U/D) 30 ML DAILY PRN PRN PO Ondansetron Base (ZOFRAN ODT) 4 MG Q4H PRN PRN SL Senna/Docusate Sodium (SENOKOT-S) 2 TAB DAILY PRN PRN PO Nutrition assessment:The data set between the solid lines has been imported from the dietitian's assessment. Any exceptions have been noted under Provider comments. BMI Calculated: 33.0Nutrition related diagnosis: ObeseNutrition diagnosis details: BMI 30-39.9Nutrition problem: Altered GI functionNutrition etiology: ConstipationNutrition signs and symptoms: PT REPORT CONSTIPATION AND , NEED FOR PRUNE JUICENutrition prescription: - RECOMMEND CCD4 DIET TOLERATED PER PT REQUEST - WILL SEND PRUNE JUICE DAILY AT LUNCH TO ASSIST W/ RELIEVING CONSTIPATION - RD TO FOLLOW UP PER FNS PROTOCOLDietitian name: Ky Hansen RD LDAssessment completed: 01/04/22 Provider comments on imported dietitian assessment: Physical ExamGeneral appearance: awakeHead/Eyes: atraumatic, clear cornea, EOMIENT: moist mucosal membranesCardiovascular: normal heart sounds, regular rate rhythmRespiratory: aerating well, clear to auscultation, symmetric expansionAbdomen: non-tender, normal bowel sounds, soft, no distentionExtremities: moves allNeuro/SPOOL CLEANER: alert, oriented X 3 Diagnosis, Assessment Plan Free Text DxA P NotesFree text DxA P notes:CVA- s/p TPA, no hemorrhagic conversion- Imaging revealed small acute to subacute infarct involving the right middle cerebellar peduncle- PT/OT per rehab team- C/w DAPT for 3 weeks-Aspirin 81 mg p.o. daily, Plavix 75 mg p.o. daily, atorvastatin 40 mg p.o. daily- Dizziness has improved on meclizine #Pelvic mass- COMIC ARTIST follow up as outpt- tumor markers pending #HypertensionAmlodipine 10 mg p.o. daily, monitor at 1348 at 1209 RPT #:[id number] OF REPORTPRProgress [id number]:02:00C.[id number] for patient [id number]:48:35 [facility] 2022-01-10 09:33:00 [id number]+ GWdPzjpCUKg2FXRfoRSQ37zdyDezliKyDXE2csR [id number]:33:00 [facility] Progress NoteREPORT#:[id number] REPORT STATUS: SignedDATE:01/10/22 TIME: 932 PATIENT: FRANSICO PÉREZ UNIT #: [id number]#: [id number] [address] [birth year] AGE: 71 SEX: F ATTEND: Joshua Acosta [facility] AUTHOR: Lianet Hernandez * ALL edits or amendments must be made on the electronic/computer document * Lianet Hernandez 01/10/22 0933:SubjectiveChief complaint:awake alert, still c/o right ear pain radating to right side of face, right facial droop Objective GeneralVS:Last Documented: Result Date Time Pulse Ox 96 01/10 814 B/P 144/85 01/10 814 B/P Mean 104.3 01/10 814 O2 Delivery Room air 01/10 814 Pulse 63 01/10 814 Temp 98.1 01/10 739 Resp 14 01/10 739 PATIENT WEIGHT: Weight (lb): 192Weight (oz): 3.89Weight (kg): 87.200 MedicationsCurrent Home MedicationsMesalamine (DELZICOL) CLOPIDOGREL (PLAVIX) 75 MG PO DAILY ATORVASTATIN (LIPITOR) 40 MG PO BEDTIME amLODIPine (NORVASC) 5 MG PO DAILY ASPIRIN 81 MG PO DAILY GABAPENTIN (NEURONTIN) 300 MG PO DAILY MECLIZINE (ANTIVERT) 25 MG PO Q6H PRN PRN DIZZINESS Active Meds + DC'd Last 24 HrsPrednisone (DELTASONE,ORASONE) 40 MG DAILY PO (UNV) Acyclovir (ZOVIRAX) 800 MG Q12HR PO (UNV) Carbamazepine (TEGretol XR) 200 MG Q12HR PO (UNV) Gabapentin (NEURONTIN) 200 MG Q12HR PO (DC) Calcium Carbonate (TUMS) 1,000 MG Q4H PRN PRN PO Naproxen (NAPROXEN) 250 MG Q12H PRN PRN PO Patient Own Medication (PT'S OWN HOME MED--MUST SCAN) MESALAMINE DR 400 MG CAPSULES Q12HR PO Amlodipine Besylate (amLODIPine) 5 MG DAILY PO Aspirin (ASPIRIN CHEWABLE) 81 MG DAILY PO Clopidogrel Bisulfate (PLAVIX) 75 MG DAILY PO Estradiol (ESTRACE) 0.5 MG DAILY PO Atorvastatin Calcium (LIPITOR) 40 MG BEDTIME PO Meclizine HCl (ANTIVERT) 25 MG Q6H PRN PRN PO Acetaminophen (TYLENOL REGULAR) 650 MG Q4H PRN PRN PO Bisacodyl (DULCOLAX,CORRECTOL) 10 MG DAILY PRN PRN PO Lactulose (CONSTULOSE) 30 ML DAILY PRN PRN PO (CKD) Magnesium Hydroxide (MILK OF MAGNESIA U/D) 30 ML DAILY PRN PRN PO Ondansetron Base (ZOFRAN ODT) 4 MG Q4H PRN PRN SL Senna/Docusate Sodium (SENOKOT-S) 2 TAB DAILY PRN PRN PO Physical ExamGeneral appearance: alert, awakeHead/Eyes: atraumatic, clear cornea, normal conjunctiva/sclera, normocephalicENT: normal ear right, normal ear left, normal nose, normal pharynxNeck: full range of motion, non-tender, supple/no meningismus, no bruit / NL carotids, no masses or swellingCardiovascular: regular rate and rhythmRespiratory: clear to auscultation, no distressAbdomen: non-tender, normal bowel sounds, no distentionExtremities: moves all, normal inspection, no edemaMusculoskeletal: full range of motion, normal inspection SpeechSpeech: normal Mental StatusOrientation:Yes: to time, to place, to person, to situation. Cognitive FunctionCognitive function: normal executive function ResultsRadiology Data:Recent Impressions:CAT SCAN - CT HEAD/BRAIN W/O CONT 01/09 1830 Report Impression - Status: SIGNED Entered: 01/09/2022 190 IMPRESSION: There is no imaging evidence of acute intracranial pathology. Impression By: Russ Esteves MD Diagnosis, Assessment PlanFree Text A P:#Dizziness#Nystagmus#Abdominal pain#S/p TPA The patient was given TPA as their was initial concern for posterior circulationstroke. CT head showed no acute findings. CTA head and neck showed no evidence of significant stenosis or occlusion. Neurological exam showed nystagmus during left gaze. No other abnormalities including cerebellar ataxia were elicited. Also suspect benign paroxysmal positional vertigo, which worsens her dizziness upon moving her head to the left. Repeat CT head after TPA administration showed no intracranial hemorrhage. Echocardiogram showed no evidence of shunting. MRI head showed small acute to subacute infarct involving the right middle cerebellar peduncle. 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 Patient will need to be on DAPTfor 21 days.- repeat head CT unremarkable 08/11 Plan:- right facial droop - Fernandez's Palsy* start Acyclovir 800mg bid x 5days* Prednisone 40mg daily x 5days- add Tegretol ER 200mg q12h- ASA, Plavix, high intensity statin- Meclizine prn for dizziness - see plan from rehab/Dr Acosta- continue treatment course- d/w Dr Sam, pt- will follow Elías Sam 01/10/22 1413:Diagnosis, Assessment PlanFree Text A P:agree with above note/ plan by [facility] NURSE at 1314 at 1415 RPT #:[id number] OF REPORTPRProgress [id number]:33:00C.[id number] for patient [id number]:15:08 [facility] 2022-01-10 08:39:00 [id number]+[id number] [id number]/qHGYmRz9V5H [id number]:39:00 [facility] ([facility])Rehab Progress NoteREPORT#:[id number] REPORT STATUS: SignedDATE:01/10/22 TIME: 838 PATIENT: FRANSICO PÉREZ UNIT #: [id number]#: [id number] [facility]-ADOB: [birth year] AGE: 71 SEX: F ATTEND: Joshua Acosta [facility] AUTHOR: Johsua Acosta MD * ALL edits or amendments must be made on the electronic/computer document * SubjectiveChief complaint:strokeHistory of present illness:No new issues per patient or nursing. Motivated in therapy. Review of SystemsAll systems rev neg: except as marked Free Text ROS NotesFree Text ROS Notes:pain: no new issuessleep: no new issuesbladder: no new issuesbowel: no new issues Objective GeneralVS:Vital Signs: Date Time Temp Pulse Resp B/P B/P Pulse O2 O2 Flow FiO2 Mean Ox Delivery Rate 01/10 0814 63 144/85 104.3 96 Room air 01/10 0739 36.7 68 14 130/82 97.5 96 Room air 01/09 1926 36.6 71 18 131/85 100.1 97 Room air PATIENT WEIGHT: Weight (lb): 192Weight (oz): 3.89Weight (kg): 87.200 Medications:Active Meds + DC'd Last 24 HrsGabapentin (NEURONTIN) 200 MG Q12HR PO (DC) Calcium Carbonate (TUMS) 1,000 MG Q4H PRN PRN PO Naproxen (NAPROXEN) 250 MG Q12H PRN PRN PO Patient Own Medication (PT'S OWN HOME MED--MUST SCAN) MESALAMINE DR 400 MG CAPSULES Q12HR PO Amlodipine Besylate (amLODIPine) 5 MG DAILY PO Aspirin (ASPIRIN CHEWABLE) 81 MG DAILY PO Clopidogrel Bisulfate (PLAVIX) 75 MG DAILY PO Estradiol (ESTRACE) 0.5 MG DAILY PO Atorvastatin Calcium (LIPITOR) 40 MG BEDTIME PO Meclizine HCl (ANTIVERT) 25 MG Q6H PRN PRN PO Acetaminophen (TYLENOL REGULAR) 650 MG Q4H PRN PRN PO Bisacodyl (DULCOLAX,CORRECTOL) 10 MG DAILY PRN PRN PO Lactulose (CONSTULOSE) 30 ML DAILY PRN PRN PO (CKD) Magnesium Hydroxide (MILK OF MAGNESIA U/D) 30 ML DAILY PRN PRN PO Ondansetron Base (ZOFRAN ODT) 4 MG Q4H PRN PRN SL Senna/Docusate Sodium (SENOKOT-S) 2 TAB DAILY PRN PRN PO Nutrition assessment:The data set between the solid lines has been imported from the dietitian's assessment. Any exceptions have been noted under Provider comments. BMI Calculated: 33.0Nutrition related diagnosis: ObeseNutrition diagnosis details: BMI 30-39.9Nutrition problem: Altered GI functionNutrition etiology: ConstipationNutrition signs and symptoms: PT REPORT CONSTIPATION AND , NEED FOR PRUNE JUICENutrition prescription: - RECOMMEND CCD4 DIET TOLERATED PER PT REQUEST - WILL SEND PRUNE JUICE DAILY AT LUNCH TO ASSIST W/ RELIEVING CONSTIPATION - RD TO FOLLOW UP PER FNS PROTOCOLDietitian name: Ky Hansen RD LDAssessment completed: 01/04/22 Provider comments on imported dietitian assessment: Functional ProgressFunctional progress:The data set between the solid lines has been imported from multidisciplinary team documentation. FUNCTIONAL ACTIVITY ADMISSION STATUS INTERIM STATUS Toilet hygiene Partial/moderate (3) Supervision/touch (4) Toilet transfer Partial/moderate (3) Supervision/touch (4) Eating Supervision/touch (4) Independent (6) Shower/bathing Partial/moderate (3) Supervision/touch (4) Dressing upper body Supervision/touch (4) Setup or cleanup (5) Dressing lower body Partial/moderate (3) Setup or cleanup (5) Transfer to/from bed to chair Partial/moderate (3) Supervision/touch (4) Wheel 50ft w/ 2 turns Dependent (1) Independent (6) Wheel 150 ft Dependent (1) Independent (6) Walk 50 ft w/ 2 turns Supervision/touch (4) Walk 150 ft Supervision/touch (4) Four steps Supervision/touch (4) Physical ExamPsych: alert, normal affect, oriented x 3HEENT: anicteric, mucosal membranes moist, pupils reactive to light, sclera clearNeck: non-tender, supple, no JVDCardiovascular: regular rate rhythm, S1/P2Swdyzucgevm: aerating well, clear bilaterally, clear to auscultationAbdomen: non-distended, non-tender to palpation, soft Diagnosis, Assessment PlanProblem List/A P: 1. Right-sided lacunar stroke 2. Impaired balance as late effect of cerebrovascular accident 3. Reduced mobility 4. Hypertension 5. Generalized weakness 6. Right homonymous hemianopsia 7. Right-sided visual neglect Free Text A P:- Cont secondary ppx per IM- Ongoing comprehensive rehab with PT/OT to address mobility, transfers, ADLs, teach compensatory strategies, and evaluate need for DME- INSPECTOR TYPE to address cognition and swallow- Would benefir from follow up with neuroophthalmologist if available- Monitor BP and adjust medications if needed- Water Valve Mechanic following. Optimize nutrition- on gabapentin 100 mg q12h- fall precaution/pain management- continue care plan- d/w pt, nurseRehab attestation:Face to face exam completed. Treatment plan discussed with patient. Meets continued stay criteria. Agree with interdisciplinary treatment plan. at 0840 [facility] #:[id number] OF REPORTPRProgress [id number]:39:00C.[id number] for patient [id number]:40:37 [facility] 2022-01-09 09:18:00 [id number]+KAOQMQqrIb6/ YfOLiFo3hAgfjWd/h27+dJwHaTsVrlkQYOAH0ei [id number]:18:00 [facility] Progress NoteREPORT#:[id number] REPORT STATUS: SignedDATE:01/09/22 TIME: 917 PATIENT: FRANSICO PÉREZ UNIT #: [id number]#: [id number] [address] [birth year] AGE: 71 SEX: F ATTEND: Joshua Acosta [facility] AUTHOR: Lianet Hernandez * ALL edits or amendments must be made on the electronic/computer document * Lianet Hernandez 01/09/2218:SubjectiveChief complaint:resting in bed, c/o right face droop and numbness since 2 days ago, pt stated this started after she takes Gabapentin Objective GeneralVS:Last Documented: Result Date Time Pulse Ox 97 01/09 641 B/P 106/65 01/09 641 B/P Mean 78.9 01/09 641 Temp 98.2 01/09 641 Pulse 65 01/09 0641 Resp 18 01/09 641 O2 Delivery Room air 01/08 2015 PATIENT WEIGHT: Weight (lb): 192Weight (oz): 3.89Weight (kg): 87.200 MedicationsCurrent Home MedicationsMesalamine (DELZICOL) CLOPIDOGREL (PLAVIX) 75 MG PO DAILY ATORVASTATIN (LIPITOR) 40 MG PO BEDTIME amLODIPine (NORVASC) 5 MG PO DAILY ASPIRIN 81 MG PO DAILY GABAPENTIN (NEURONTIN) 300 MG PO DAILY MECLIZINE (ANTIVERT) 25 MG PO Q6H PRN PRN DIZZINESS Active Meds + DC'd Last 24 HrsGabapentin (NEURONTIN) 200 MG Q12HR PO (DC) Calcium Carbonate (TUMS) 1,000 MG Q4H PRN PRN PO Naproxen (NAPROXEN) 250 MG Q12H PRN PRN PO Patient Own Medication (PT'S OWN HOME MED--MUST SCAN) MESALAMINE DR 400 MG CAPSULES Q12HR PO Amlodipine Besylate (amLODIPine) 5 MG DAILY PO Aspirin (ASPIRIN CHEWABLE) 81 MG DAILY PO Clopidogrel Bisulfate (PLAVIX) 75 MG DAILY PO Estradiol (ESTRACE) 0.5 MG DAILY PO Atorvastatin Calcium (LIPITOR) 40 MG BEDTIME PO Meclizine HCl (ANTIVERT) 25 MG Q6H PRN PRN PO Acetaminophen (TYLENOL REGULAR) 650 MG Q4H PRN PRN PO Bisacodyl (DULCOLAX,CORRECTOL) 10 MG DAILY PRN PRN PO Lactulose (CONSTULOSE) 30 ML DAILY PRN PRN PO (CKD) Magnesium Hydroxide (MILK OF MAGNESIA U/D) 30 ML DAILY PRN PRN PO Ondansetron Base (ZOFRAN ODT) 4 MG Q4H PRN PRN SL Senna/Docusate Sodium (SENOKOT-S) 2 TAB DAILY PRN PRN PO Physical ExamGeneral appearance: alert, awakeHead/Eyes: atraumatic, clear cornea, normal conjunctiva/sclera, normocephalicENT: normal ear right, normal ear left, normal nose, normal pharynxNeck: full range of motion, non-tender, supple/no meningismus, no bruit / NL carotids, no masses or swellingCardiovascular: regular rate and rhythmRespiratory: clear to auscultation, no distressAbdomen: non-tender, normal bowel sounds, no distentionExtremities: moves all, normal inspection, no edemaMusculoskeletal: full range of motion, normal inspection SpeechSpeech: normal Mental StatusOrientation:Yes: to time, to place, to person, to situation. Cognitive FunctionCognitive function: normal executive function Diagnosis, Assessment PlanFree Text A P:#Dizziness#Nystagmus#Abdominal pain#S/p TPA The patient was given TPA as their was initial concern for posterior circulationstroke. CT head showed no acute findings. CTA head and neck showed no evidence of significant stenosis or occlusion. Neurological exam showed nystagmus during left gaze. No other abnormalities including cerebellar ataxia were elicited. Also suspect benign paroxysmal positional vertigo, which worsens her dizziness upon moving her head to the left. Repeat CT head after TPA administration showed no intracranial hemorrhage. Echocardiogram showed no evidence of shunting. MRI head showed small acute to subacute infarct involving the right middle cerebellar peduncle. 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 Patient will need to be on DAPTfor 21 days. Plan:- monitor neuro status- will stop Gabapentin - pt refusing, stated it causes her right facial droop, numbness- repeat head CT- ASA, Plavix, high intensity statin- Meclizine prn for dizziness - see plan from rehab/Dr Acosta- continue treatment course- d/w Dr Sam, pt- will follow Elías Sam 01/09/22 1533:Diagnosis, Assessment PlanFree Text A P:agree with above note/ plan by [facility] NURSE at 1502 at 1535 RPT #:[id number] OF REPORTPRProgress [id number]:18:00C.[id number] for patient nocfPCRAIGHLZFLMPH3446-80-51U87:03:02 [facility] 2022-01-09 08:35:00 [id number]+vUoQB/ET3TZ +AUhHyumReuzIwYz+wfBUWRoPchowJS05hUyRR6 [id number]:35:00 [facility] CenterRe[facility] Team ConferenceREPORT#:[id number] REPORT STATUS: SignedDATE:01/09/22 TIME: 834 PATIENT: FRANSICO PÉREZ UNIT #: [id number]#: [id number] [address]: [birth year] AGE: 71 SEX: F ATTEND: Joshua Acosta [facility] AUTHOR: Joshua Acosta MD * ALL edits or amendments must be made on the electronic/computer document * Rehabilitation Team Conference Weekly Team ConferenceTeam conf information:Date of conference: 01/09/22Conference type: InitialConference scribe: Teresa Sandoval OT INTERDISCIPLINARY TEAM MEETING PARTICIPANTS: TITLE NAME MD MITCHEL Carty, RN PT Alyssa Allen, PT OT Shelley Gurrola, OT CM/SW Antonieta Barber, MITCHEL Joseph, CAS[facility] Staff (8) Sherry Jernigan, OT Staff (9) Jaclyn Davenport CM Staff (10) Staff (11) OTHER NAME CREDENTIALS 1 2 3 4 FUNCTIONAL CHANGE: TYPE ADMISSION TOTAL INTERIM TOTAL CHANGE Self care 23 33 10 Transfer 24 35 11 Mobility 8 34 26 Wheelchair distance: Mobility description: BOWEL AND BLADDER STATUS: Bowel continence admission rating: Bladder continence admission rating: Always continentBowel and bladder team conference update: CONTINENT BOWEL AND BLADDER INTERDISCIPLINARY TEAM UPDATES: MANFRED team conference update: AOX4, VSS, NO IV, RM AIR, TYLENOL/NAPROXEN PRN PAIN,C/O PAIN IN EAR, SKIN INTACT, DNR, STANDBY ASSISTPT team conference update: Patient making progress in all areas. Limited by balance, visual issues, right ear and face pain 9/ not affected by current pain management. She reports that gabapentin has been making her very sleepy andhas not touched the ear/face pain. Double vision is not present when glasses removed and therapy has been working both with and without glasses. Recommend outpatient PT, family training with sister. She will continue to use current RW. OT team conference update: Pt making progress toward ADL goals, requires CGA andverbal cues with mobility aspects of ADL tasks, demos decreased coordination, activity tolerance and standing balances, and reports drowsiness decreasing safety in tasks. Pt to DC home with sister who can provide 25/03; recommend outpatient OT as anticipate independence with basic self care.ST team conference update: PT CONTINUES TO DEMONSTRATE MILD COGNITIVE DEFICTS INWORKING MEMORY, WORD FINDING, AND SHORT TERM RECALL. PT IS MOTIVATED AND MAKING PROGRESS IN [place]. PT WILL BENEFIT FROM ONGOING INSPECTOR TYPE INTERVENTION UPON DC. INSPECTOR TYPE WILL CONT TO FOLLOW TO ADDRESS DEFICITS. CM or SW team conference update: Lives with SISTER. 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 SISTER DOESN'T WORK BUT DOES DRIVE. SISTER WILL BE PRESENT 24/7 S/P PATIENT D/C FROM REHAB. REQUESTING OUTPATIENT THERAPY. Other discipline update 1: Other discipline update 2: Other discipline update 3: REHAB DC GOALS: Patient's identified discharge goal: PT: "I want to walk by myself." OT: "TO TAKE CARE OF MYSELF AND GET BACK TO HOW I WAS." INSPECTOR TYPE: "I WANT TO GO BACK TO HOW IWAS" MANFRED: "GET RID OF THIS PAIN IN MY RIGHT EAR" Team Goal Week 1: BRP WITH RW Eating discharge goal: Independent (6) Shower/bathe self discharge goal: Independent (6) Upper body dressing discharge goal: Independent (6) Lower body dressing discharge goal: Independent (6) Chair/bed to chair transfer discharge goal: Independent (6) Transfer on/off toilet or commode discharge goal: Independent (6) Walking 50 feet with two turns discharge goal: Independent (6) Walking 150 feet discharge goal: Independent (6) Four steps discharge goal: Independent (6) Twelve steps discharge goal: Independent (6) [place] 150 feet discharge goal: Independent (6) Goal 1 - Bowel function: Goal 2 - Bladder function: Nursing goal 3: Nursing goal 4: Nursing goal 5: DISCHARGE PLANNING: Barriers to discharge: DROWSINESS, 9/10 FACIAL PAINStrategies for D/C barriers: MD AWARE, PAIN MEDICATIONEstimated length of stay in days: 14Anticipated discharge date: 01/16/22Discharge date adjustment comment: SETIdentified financial and/or community resource needs: Family/Caregiver training days: To be scheduled with PT,OTIndependence day (DATE): 01/15/22Expected discharge destination: HomeAnticipated services upon discharge: Outpatient, Occupational therapy, Physical therapy, Speech therapyAnticipated discharge equipment: NONE Impairment group: stroke NOTE Document ONLY ONE Impairment Group Stroke: left body (right brain)Etiologic diagnosis:right lacunar strokeReview of comorbidities:Reviewed MD Review/RecommendationsAttestation:This interdisciplinary team conference was led by me and I concur with all decisions made during the team conference and revisions to the individualized overall plan of care. IRF cont stay criteriaInterdisciplinary team round coordinated. at 0835 RPT #:[id number] OF REPORTCLClinical [id number]:35:00C.[id number] for patient aexxACDIIVZECDVNRK3121-10-72N64:35:51 [facility] 2022-01-09 08:30:00 [id number]/+7YjcWXiD9dtlr L9e9/wIMTo5K9NyRRtGTUOl/LFW7xqAq3D93lgf 8868-35-95Y51:30:00 [facility] ([facility])Rehab Progress NoteREPORT#:[id number] REPORT STATUS: SignedDATE:01/09/22 TIME: 829 PATIENT: FRANSICO PÉREZ UNIT #: [id number]#: [id number] [address] [birth year] AGE: 71 SEX: F ATTEND: Joshua Acosta [facility] AUTHOR: Joshua Acosta MD * ALL edits or amendments must be made on the electronic/computer document * SubjectiveChief complaint:weaknessHistory of present illness:No new issues or acute events. Review of SystemsAll systems rev neg: except as marked Free Text ROS NotesFree Text ROS Notes:pain: no new issuessleep: no new issuesbladder: no new issuesbowel: no new issues Objective GeneralVS:Vital Signs: Date Time Temp Pulse Resp B/P B/P Pulse O2 O2 Flow FiO2 Mean Ox Delivery Rate 01/09 641 36.8 65 18 106/65 78.9 97 01/08 2015 36.8 70 16 145/82 103.2 96 Room air 01/08 930 73 126/78 94.3 96 Room air PATIENT WEIGHT: Weight (lb): 192Weight (oz): 3.89Weight (kg): 87.200 Medications:Active Meds + DC'd Last 24 HrsGabapentin (NEURONTIN) 200 MG Q12HR PO Calcium Carbonate (TUMS) 1,000 MG Q4H PRN PRN PO Naproxen (NAPROXEN) 250 MG Q12H PRN PRN PO Patient Own Medication (PT'S OWN HOME MED--MUST SCAN) MESALAMINE DR 400 MG CAPSULES Q12HR PO Amlodipine Besylate (amLODIPine) 5 MG DAILY PO Aspirin (ASPIRIN CHEWABLE) 81 MG DAILY PO Clopidogrel Bisulfate (PLAVIX) 75 MG DAILY PO Estradiol (ESTRACE) 0.5 MG DAILY PO Atorvastatin Calcium (LIPITOR) 40 MG BEDTIME PO Meclizine HCl (ANTIVERT) 25 MG Q6H PRN PRN PO Acetaminophen (TYLENOL REGULAR) 650 MG Q4H PRN PRN PO Bisacodyl (DULCOLAX,CORRECTOL) 10 MG DAILY PRN PRN PO Lactulose (CONSTULOSE) 30 ML DAILY PRN PRN PO (CKD) Magnesium Hydroxide (MILK OF MAGNESIA U/D) 30 ML DAILY PRN PRN PO Ondansetron Base (ZOFRAN ODT) 4 MG Q4H PRN PRN SL Senna/Docusate Sodium (SENOKOT-S) 2 TAB DAILY PRN PRN PO Nutrition assessment:The data set between the solid lines has been imported from the dietitian's assessment. Any exceptions have been noted under Provider comments. BMI Calculated: 33.0Nutrition related diagnosis: ObeseNutrition diagnosis details: BMI 30-39.9Nutrition problem: Altered GI functionNutrition etiology: ConstipationNutrition signs and symptoms: PT REPORT CONSTIPATION AND , NEED FOR PRUNE JUICENutrition prescription: - RECOMMEND CCD4 DIET TOLERATED PER PT REQUEST - WILL SEND PRUNE JUICE DAILY AT LUNCH TO ASSIST W/ RELIEVING CONSTIPATION - RD TO FOLLOW UP PER FNS PROTOCOLDietitian name: Ky Hansen RD LDAssessment completed: 01/04/22 Provider comments on imported dietitian assessment: Functional ProgressFunctional progress:The data set between the solid lines has been imported from multidisciplinary team documentation. FUNCTIONAL ACTIVITY ADMISSION STATUS INTERIM STATUS Toilet hygiene Partial/moderate (3) Supervision/touch (4) Toilet transfer Partial/moderate (3) Supervision/touch (4) Eating Supervision/touch (4) Independent (6) Shower/bathing Partial/moderate (3) Supervision/touch (4) Dressing upper body Supervision/touch (4) Setup or cleanup (5) Dressing lower body Partial/moderate (3) Setup or cleanup (5) Transfer to/from bed to chair Partial/moderate (3) Supervision/touch (4) Wheel 50ft w/ 2 turns Dependent (1) Independent (6) Wheel 150 ft Dependent (1) Independent (6) Walk 50 ft w/ 2 turns Supervision/touch (4) Walk 150 ft Supervision/touch (4) Four steps Supervision/touch (4) Physical ExamPsych: alert, normal affect, oriented x 3HEENT: anicteric, mucosal membranes moist, pupils reactive to light, sclera clearNeck: non-tender, supple, no JVDCardiovascular: regular rate rhythm, S1/R3Fvcjlcfjtjh: aerating well, clear bilaterally, clear to auscultationAbdomen: non-distended, non-tender to palpation, soft ResultsFindings/Data:Laboratory Tests: 01/08 1138 Chemistry Hemoglobin A1c (0 - 5.9 %) 5.9 Diagnosis, Assessment PlanProblem List/A P: 1. Right-sided lacunar stroke 2. Impaired balance as late effect of cerebrovascular accident 3. Reduced mobility 4. Hypertension 5. Generalized weakness 6. Right homonymous hemianopsia 7. Right-sided visual neglect Free Text A P:- Cont secondary ppx per IM- Ongoing comprehensive rehab with PT/OT to address mobility, transfers, ADLs, teach compensatory strategies, and evaluate need for DME- INSPECTOR TYPE to address cognition and swallow- Would benefir from follow up with neuroophthalmologist if available- Monitor BP and adjust medications if needed- Water Valve Mechanic following. Optimize nutrition- on gabapentin 100 mg q12h- fall precaution/pain management- continue care plan- d/w pt, nurseRehab attestation:Face to face exam completed. Treatment plan discussed with patient. Meets continued stay criteria. Agree with interdisciplinary treatment plan. at 0831 RPT #:[id number] OF REPORTPRProgress ohxf9257-31-99J19:30:00C.[id number] for patient rlwkEBOJHBSORYYXJF6097-25-98R83:31:30 [facility] 2022-01-08 10:58:00 [id number]e 1jy6apP9ZlPz46N1w/JdOYzx6P9tZiz6EXJBCXB 5076-49-34C81:58:00 [facility] ([facility])Rehab Progress NoteREPORT#:[id number] REPORT STATUS: SignedDATE:01/08/22 TIME: 1058 PATIENT: FRANSICO PÉREZ UNIT #: [id number]#: [id number] [address] [birth year] AGE: 71 SEX: F ATTEND: Joshua Acosta [facility] AUTHOR: Joshua Acosta MD * ALL edits or amendments must be made on the electronic/computer document * SubjectiveChief complaint:strokeHistory of present illness:No new issues per patient. Ear pain better. Review of SystemsAll systems rev neg: except as marked Free Text ROS NotesFree Text ROS Notes:pain: no new issuessleep: no new issuesbladder: no new issuesbowel: no new issues Objective GeneralVS:Vital Signs: Date Time Temp Pulse Resp B/P B/P Pulse O2 O2 Flow FiO2 Mean Ox Delivery Rate 01/08 930 73 126/78 94.3 96 Room air 05/09 0711 36.4 78 17 134/83 99.8 96 01/07 1932 36.9 73 17 147/87 106.6 95 Room air PATIENT WEIGHT: Weight (lb): 192Weight (oz): 6.36Weight (kg): 87.270 Medications:Active Meds + DC'd Last 24 HrsGabapentin (NEURONTIN) 200 MG Q12HR PO Calcium Carbonate (TUMS) 1,000 MG Q4H PRN PRN PO Gabapentin (NEURONTIN) 100 MG Q12HR PO (DC) Naproxen (NAPROXEN) 250 MG Q12H PRN PRN PO Patient Own Medication (PT'S OWN HOME MED--MUST SCAN) MESALAMINE DR 400 MG CAPSULES Q12HR PO Amlodipine Besylate (amLODIPine) 5 MG DAILY PO Aspirin (ASPIRIN CHEWABLE) 81 MG DAILY PO Clopidogrel Bisulfate (PLAVIX) 75 MG DAILY PO Estradiol (ESTRACE) 0.5 MG DAILY PO Atorvastatin Calcium (LIPITOR) 40 MG BEDTIME PO Meclizine HCl (ANTIVERT) 25 MG Q6H PRN PRN PO Acetaminophen (TYLENOL REGULAR) 650 MG Q4H PRN PRN PO Bisacodyl (DULCOLAX,CORRECTOL) 10 MG DAILY PRN PRN PO Lactulose (CONSTULOSE) 30 ML DAILY PRN PRN PO (CKD) Magnesium Hydroxide (MILK OF MAGNESIA U/D) 30 ML DAILY PRN PRN PO Ondansetron Base (ZOFRAN ODT) 4 MG Q4H PRN PRN SL Senna/Docusate Sodium (SENOKOT-S) 2 TAB DAILY PRN PRN PO Nutrition assessment:The data set between the solid lines has been imported from the dietitian's assessment. Any exceptions have been noted under Provider comments. BMI Calculated: 33.0Nutrition related diagnosis: ObeseNutrition diagnosis details: BMI 30-39.9Nutrition problem: Altered GI functionNutrition etiology: ConstipationNutrition signs and symptoms: PT REPORT CONSTIPATION AND , NEED FOR PRUNE JUICENutrition prescription: - RECOMMEND CCD4 DIET TOLERATED PER PT REQUEST - WILL SEND PRUNE JUICE DAILY AT LUNCH TO ASSIST W/ RELIEVING CONSTIPATION - RD TO FOLLOW UP PER FNS PROTOCOLDietitian name: [place] NATALEE Hansen LDAssessment completed: 01/04/22 Provider comments on imported dietitian assessment: Functional ProgressFunctional progress:The data set between the solid lines has been imported from multidisciplinary team documentation. FUNCTIONAL ACTIVITY ADMISSION STATUS INTERIM STATUS Toilet hygiene Partial/moderate (3) Supervision/touch (4) Toilet transfer Partial/moderate (3) Supervision/touch (4) Eating Supervision/touch (4) Independent (6) Shower/bathing Partial/moderate (3) Supervision/touch (4) Dressing upper body Supervision/touch (4) Setup or cleanup (5) Dressing lower body Partial/moderate (3) Setup or cleanup (5) Transfer to/from bed to chair Partial/moderate (3) Supervision/touch (4) Wheel 50ft w/ 2 turns Dependent (1) Supervision/touch (4) Wheel 150 ft Dependent (1) Walk 50 ft w/ 2 turns Partial/moderate (3) Walk 150 ft Partial/moderate (3) Four steps Partial/moderate (3) Physical ExamPsych: alert, normal affect, oriented x 3HEENT: anicteric, mucosal membranes moist, pupils reactive to light, sclera clearNeck: non-tender, supple, no JVDCardiovascular: regular rate rhythm, S1/A7Qyaufxkpjro: aerating well, clear bilaterally, clear to auscultationAbdomen: non-distended, non-tender to palpation, soft Diagnosis, Assessment PlanProblem List/A P: 1. Right-sided lacunar stroke 2. Impaired balance as late effect of cerebrovascular accident 3. Reduced mobility 4. Hypertension 5. Generalized weakness 6. Right homonymous hemianopsia 7. Right-sided visual neglect Free Text A P:- Cont secondary ppx per IM- Ongoing comprehensive rehab with PT/OT to address mobility, transfers, ADLs, teach compensatory strategies, and evaluate need for DME- INSPECTOR TYPE to address cognition and swallow- Would benefir from follow up with neuroophthalmologist if available- Monitor BP and adjust medications if needed- Water Valve Mechanic following. Optimize nutrition- on gabapentin 100 mg q12h- fall precaution/pain management- continue care plan- d/w pt, nurseRehab attestation:Face to face exam completed. Treatment plan discussed with patient. Meets continued stay criteria. Agree with interdisciplinary treatment plan. at 1100 RPT #:[id number] OF REPORTPRProgress [id number]:58:00C.[id number] for patient spkrGGNZCNETJBVUZI2498-60-98D58:00:23 [facility] 2022-01-07 13:11:00 [id number] 3r0+J5/oLKx9/BFw3GpgPDlev4YYEEDvIDwih// 5634-92-09C74:11:00 [place] Hospitalist Progress NoteREPORT#:[id number] REPORT STATUS: SignedDATE:01/07/22 TIME: 1311 PATIENT: FRANSICO PÉREZ UNIT #: [id number]#: [id number] [facility]-ADOB: [birth year] AGE: 71 SEX: F ATTEND: Joshua Acosta [facility] AUTHOR: Marcia Tadeo * ALL edits or amendments must be made on the electronic/computer document * SubjectiveComments:Follow up CVAPatient feeling well today, pain in right ear/cheek has improved some Review of SystemsConstitutional:Denies: chills, fatigue, fever, generalized weakness. Respiratory:Denies: SANTAMARIA (dyspnea on exertion), non productive cough, productive cough (sputum), SOB, wheezing. Cardiovascular:Denies: chest pain, SANTAMARIA (dyspnea on exertion), edema, palpitations. GI:Denies: abdominal pain, constipation, diarrhea, GERD, nausea, vomiting. All systems rev neg: except as marked Objective GeneralVS/I O:Vital Signs: Date Time Temp Pulse Resp B/P B/P Pulse O2 O2 Flow FiO2 Mean Ox Delivery Rate 01/07 730 36.5 72 14 112/71 84.8 95 Room air 01/06 2001 36.4 73 17 143/84 103.7 96 Room air 01/06 1749 36.5 74 18 130/85 99.9 97 Room air 24 hour I O ending at 0700: 01/07 0700 01/06 1900 Intake Total 500 Output Total Balance 500 Intake, Oral 500 Number 0 0 Bowel Movements Number 0 0 Incontinent Voids Number Voids 3 4 PATIENT WEIGHT: Weight (lb): 192Weight (oz): 7.42Weight (kg): 87.300 Medications:Active Meds + DC'd Last 24 HrsCalcium Carbonate (TUMS) 1,000 MG Q4H PRN PRN PO Gabapentin (NEURONTIN) 100 MG Q12HR PO Naproxen (NAPROXEN) 250 MG Q12H PRN PRN PO Patient Own Medication (PT'S OWN HOME MED--MUST SCAN) MESALAMINE DR 400 MG CAPSULES Q12HR PO Amlodipine Besylate (amLODIPine) 5 MG DAILY PO Aspirin (ASPIRIN CHEWABLE) 81 MG DAILY PO Clopidogrel Bisulfate (PLAVIX) 75 MG DAILY PO Estradiol (ESTRACE) 0.5 MG DAILY PO Atorvastatin Calcium (LIPITOR) 40 MG BEDTIME PO Meclizine HCl (ANTIVERT) 25 MG Q6H PRN PRN PO Acetaminophen (TYLENOL REGULAR) 650 MG Q4H PRN PRN PO Bisacodyl (DULCOLAX,CORRECTOL) 10 MG DAILY PRN PRN PO Lactulose (CONSTULOSE) 30 ML DAILY PRN PRN PO (CKD) Magnesium Hydroxide (MILK OF MAGNESIA U/D) 30 ML DAILY PRN PRN PO Ondansetron Base (ZOFRAN ODT) 4 MG Q4H PRN PRN SL Senna/Docusate Sodium (SENOKOT-S) 2 TAB DAILY PRN PRN PO Nutrition assessment:The data set between the solid lines has been imported from the dietitian's assessment. Any exceptions have been noted under Provider comments. BMI Calculated: 33.0Nutrition related diagnosis: ObeseNutrition diagnosis details: BMI 30-39.9Nutrition problem: Altered GI functionNutrition etiology: ConstipationNutrition signs and symptoms: PT REPORT CONSTIPATION AND , NEED FOR PRUNE JUICENutrition prescription: - RECOMMEND CCD4 DIET TOLERATED PER PT REQUEST - WILL SEND PRUNE JUICE DAILY AT LUNCH TO ASSIST W/ RELIEVING CONSTIPATION - RD TO FOLLOW UP PER FNS PROTOCOLDietitian name: Ky Hansen RD LDAssessment completed: 01/04/22 Provider comments on imported dietitian assessment: Physical ExamGeneral appearance: alert, awake, orientedHead/Eyes: atraumatic, clear cornea, EOMIENT: moist mucosal membranesCardiovascular: normal heart sounds, regular rate rhythmRespiratory: aerating well, clear to auscultation, symmetric expansionAbdomen: non-tender, normal bowel sounds, soft, no distentionExtremities: moves allNeuro/SPOOL CLEANER: alert, oriented X 3 ResultsResults: labs reviewed, vital signs reviewed Diagnosis, Assessment Plan Free Text DxA P NotesFree text DxA P notes:CVA- s/p TPA, no hemorrhagic conversion- Imaging revealed small acute to subacute infarct involving the right middle cerebellar peduncle- PT/OT per rehab team- C/w DAPT for 3 weeks- Dizziness has improved on meclizine #Pelvic mass- COMIC ARTIST follow up as outpt- tumor markers pending Thank you for this consult. We will follow along with you. at 1312 at 1626 RPT #:[id number] OF REPORTPRProgress [id number]:11:00C.[id number] [id number] for patient djyiVDCADPAFFWUGJZ4493-89-48Y56:12:42 [facility] 2022-01-07 06:34:00 [id number] ys3ZXRBw6782MvMDwCtZggXn7ajtDekc+FMiaOW 7364-32-97O81:34:00 [facility])Rehab Progress NoteREPORT#:[id number] REPORT STATUS: SignedDATE:01/07/22 TIME: 633 PATIENT: FRANSICO PÉREZ UNIT #: [id number]#: [id number] [address] [birth year] AGE: 71 SEX: F ATTEND: Joshua Acosta [facility] AUTHOR: Lianet Hernandez * ALL edits or amendments must be made on the electronic/computer document * Lianet Hernandez 01/07/22 0634:SubjectiveChief complaint:resting in bed, comfortable Objective GeneralVS:Vital Signs: Date Time Temp Pulse Resp B/P B/P Pulse O2 O2 Flow FiO2 Mean Ox Delivery Rate 01/07 730 97.7 72 14 112/71 84.8 95 Room air 01/06 2001 97.5 73 17 143/84 103.7 96 Room air 05/07 1749 97.7 74 18 130/85 99.9 97 Room air PATIENT WEIGHT: Weight (lb): 192Weight (oz): 7.42Weight (kg): 87.300 Medications:Active Meds + DC'd Last 24 HrsCalcium Carbonate (TUMS) 1,000 MG Q4H PRN PRN PO Gabapentin (NEURONTIN) 100 MG Q12HR PO Naproxen (NAPROXEN) 250 MG Q12H PRN PRN PO Patient Own Medication (PT'S OWN HOME MED--MUST SCAN) MESALAMINE DR 400 MG CAPSULES Q12HR PO Amlodipine Besylate (amLODIPine) 5 MG DAILY PO Aspirin (ASPIRIN CHEWABLE) 81 MG DAILY PO Clopidogrel Bisulfate (PLAVIX) 75 MG DAILY PO Estradiol (ESTRACE) 0.5 MG DAILY PO Atorvastatin Calcium (LIPITOR) 40 MG BEDTIME PO Meclizine HCl (ANTIVERT) 25 MG Q6H PRN PRN PO Acetaminophen (TYLENOL REGULAR) 650 MG Q4H PRN PRN PO Bisacodyl (DULCOLAX,CORRECTOL) 10 MG DAILY PRN PRN PO Lactulose (CONSTULOSE) 30 ML DAILY PRN PRN PO (CKD) Magnesium Hydroxide (MILK OF MAGNESIA U/D) 30 ML DAILY PRN PRN PO Ondansetron Base (ZOFRAN ODT) 4 MG Q4H PRN PRN SL Senna/Docusate Sodium (SENOKOT-S) 2 TAB DAILY PRN PRN PO Functional ProgressFunctional progress:The data set between the solid lines has been imported from multidisciplinary team documentation. FUNCTIONAL ACTIVITY ADMISSION STATUS INTERIM STATUS Toilet hygiene Partial/moderate (3) Supervision/touch (4) Toilet transfer Partial/moderate (3) Supervision/touch (4) Eating Supervision/touch (4) Independent (6) Shower/bathing Partial/moderate (3) Supervision/touch (4) Dressing upper body Supervision/touch (4) Setup or cleanup (5) Dressing lower body Partial/moderate (3) Setup or cleanup (5) Transfer to/from bed to chair Partial/moderate (3) Supervision/touch (4) Wheel 50ft w/ 2 turns Dependent (1) Supervision/touch (4) Wheel 150 ft Dependent (1) Walk 50 ft w/ 2 turns Partial/moderate (3) Walk 150 ft Partial/moderate (3) Four steps Partial/moderate (3) Physical ExamGeneral appearance: sleeping comfortably, no acute distressPsych: alert, normal affect, oriented x 3HEENT: anicteric, mucosal membranes moist, pupils reactive to light, sclera clearNeck: non-tender, supple, no JVDCardiovascular: regular rate rhythm, S1/P0Gptlnjaireh: aerating well, clear bilaterally, clear to auscultationAbdomen: non-distended, non-tender to palpation, soft Diagnosis, Assessment PlanFree Text A P:- Cont secondary ppx per IM- Ongoing comprehensive rehab with PT/OT to address mobility, transfers, ADLs, teach compensatory strategies, and evaluate need for DME- INSPECTOR TYPE to address cognition and swallow- Would benefir from follow up with neuroophthalmologist if available- Monitor BP and adjust medications if needed- Water Valve Mechanic following. Optimize nutrition- on gabapentin 100 mg q12h- fall precaution/pain management- continue care plan- d/w pt, nurse Rehab attestation:Face to face exam completed. Treatment plan discussed with patient. Meets continued stay criteria. Agree with interdisciplinary treatment plan. Elías Sam 01/07/22 1447:Diagnosis, Assessment PlanFree Text A P:agree with above note/ plan by [facility] NURSE at 1329 at 1448 RPT #:[id number] OF REPORTPRProgress rwpx2187-94-86T69:34:00C.[id number] 110AVAvailable for patient rtxoTDRFIANADLMIMI9155-69-46D35:29:54 [facility] 2022-01-06 08:56:00 [id number]/oCFBhm/IRIzrCCYN1rVpQ yESpS0K7EryFBiHjsZEs9JsCq4N9C5DH94Wlkg1 0312-74-03F08:56:00 [facility] ([facility])Rehab Progress NoteREPORT#:[id number] REPORT STATUS: SignedDATE:01/06/22 TIME: 855 PATIENT: FRANSICO PÉREZ UNIT #: [id number]#: [id number] [address] [birth year] AGE: 71 SEX: F ATTEND: Joshua Acosta [facility] AUTHOR: Lianet Hernandez * ALL edits or amendments must be made on the electronic/computer document * Lianet Hernandez 01/06/22 0856:SubjectiveChief complaint:no acute events, working with therapist Objective GeneralVS:Vital Signs: Date Time Temp Pulse Resp B/P B/P Pulse O2 O2 Flow FiO2 Mean Ox Delivery Rate 01/06 0648 97.5 68 16 117/72 87.1 97 Room air 01/05 1914 97.9 71 18 135/79 97.6 96 PATIENT WEIGHT: Weight (lb): 192Weight (oz): 7.42Weight (kg): 87.300 Medications:Active Meds + DC'd Last 24 HrsClonazepam (KlonoPIN) 0.5 MG BEDTIME PO (CAN) Gabapentin (NEURONTIN) 300 MG BEDTIME PO (DC) Gabapentin (NEURONTIN) 100 MG BID PO (CAN) Gabapentin (NEURONTIN) 100 MG Q12HR PO Naproxen (NAPROXEN) 250 MG Q12H PRN PRN PO Methocarbamol (ROBAXIN) 500 MG BID PC PRN PO (DC) Patient Own Medication (PT'S OWN HOME MED--MUST SCAN) MESALAMINE DR 400 MG CAPSULES Q12HR PO Amlodipine Besylate (amLODIPine) 5 MG DAILY PO Aspirin (ASPIRIN CHEWABLE) 81 MG DAILY PO Clopidogrel Bisulfate (PLAVIX) 75 MG DAILY PO Estradiol (ESTRACE) 0.5 MG DAILY PO Atorvastatin Calcium (LIPITOR) 40 MG BEDTIME PO Meclizine HCl (ANTIVERT) 25 MG Q6H PRN PRN PO Acetaminophen (TYLENOL REGULAR) 650 MG Q4H PRN PRN PO Bisacodyl (DULCOLAX,CORRECTOL) 10 MG DAILY PRN PRN PO Lactulose (CONSTULOSE) 30 ML DAILY PRN PRN PO (CKD) Magnesium Hydroxide (MILK OF MAGNESIA U/D) 30 ML DAILY PRN PRN PO Ondansetron Base (ZOFRAN ODT) 4 MG Q4H PRN PRN SL Senna/Docusate Sodium (SENOKOT-S) 2 TAB DAILY PRN PRN PO Functional ProgressFunctional progress:The data set between the solid lines has been imported from multidisciplinary team documentation. FUNCTIONAL ACTIVITY ADMISSION STATUS INTERIM STATUS Toilet hygiene Partial/moderate (3) Supervision/touch (4) Toilet transfer Partial/moderate (3) Supervision/touch (4) Eating Supervision/touch (4) Independent (6) Shower/bathing Partial/moderate (3) Supervision/touch (4) Dressing upper body Supervision/touch (4) Setup or cleanup (5) Dressing lower body Partial/moderate (3) Setup or cleanup (5) Transfer to/from bed to chair Partial/moderate (3) Supervision/touch (4) Wheel 50ft w/ 2 turns Dependent (1) Supervision/touch (4) Wheel 150 ft Dependent (1) Walk 50 ft w/ 2 turns Partial/moderate (3) Walk 150 ft Partial/moderate (3) Four steps Partial/moderate (3) Physical ExamGeneral appearance: alert, awakePsych: alert, normal affect, oriented x 3HEENT: anicteric, mucosal membranes moist, pupils reactive to light, sclera clearNeck: non-tender, supple, no JVDCardiovascular: regular rate rhythm, S1/X0Rlerhcrxsvj: aerating well, clear bilaterally, clear to auscultationAbdomen: non-distended, non-tender to palpation, soft Diagnosis, Assessment PlanFree Text A P:- Cont secondary ppx per IM- Ongoing comprehensive rehab with PT/OT to address mobility, transfers, ADLs, teach compensatory strategies, and evaluate need for DME- INSPECTOR TYPE to address cognition and swallow- Would benefir from follow up with neuroophthalmologist if available- Monitor BP and adjust medications if needed- Water Valve Mechanic following. Optimize nutrition- restart gabapentin 100 mg q8h- fall precaution/pain management- d/w pt, nurse Rehab attestation:Face to face exam completed. Treatment plan discussed with patient. Meets continued stay criteria. Agree with interdisciplinary treatment plan. Elías Sam 01/06/22 1434:Diagnosis, Assessment PlanFree Text A P:agree with above note/ plan by [facility] NURSE at 1236 at 1434 RPT #:[id number] OF REPORTPRProgress wnla9216-18-25Y08:56:00C.[id number] 243AVAvailable for patient cohkEXNGMMNNAFNVVL6001-14-54W53:36:57 [facility] 12:23:00 [id number] gFWPjsiQYK5aC75ohE9JOY7FlKUsZo2AZ+pHXut 8194-87-42H09:23:00 [facility] Progress NoteREPORT#:[id number] REPORT STATUS: SignedDATE:01/05/22 TIME: 1223 PATIENT: FRANSICO PÉREZ UNIT #: [id number]#: [id number] [address] [birth year] AGE: 71 SEX: F ATTEND: Joshua Acosta [facility] AUTHOR: Marcia Tadeo * ALL edits or amendments must be made on the electronic/computer document * Marcia Tadeo 01/05/22 1223:SubjectiveComments:Follow up CVA Review of SystemsConstitutional:Denies: chills, fatigue, fever, generalized weakness. Respiratory:Denies: SANTAMARIA (dyspnea on exertion), non productive cough, productive cough (sputum), SOB, wheezing. Cardiovascular:Denies: chest pain, SANTAMARIA (dyspnea on exertion), edema, palpitations. GI:Reports: abdominal pain (suprapubic). Denies: constipation, GERD, nausea, vomiting. All systems rev neg: except as marked Objective GeneralVS/I O:Vital Signs: Date Time Temp Pulse Resp B/P B/P Pulse O2 O2 Flow FiO2 Mean Ox Delivery Rate 01/05 0839 77 145/77 99.7 96 / 0645 36.8 70 18 130/77 94.6 95 Room air 01/04 2034 36.7 72 18 137/81 99.9 97 Venti mask 24 hour I O ending at 0700: 01/05 0700 01/04 1900 Intake Total Output Total Balance Number Voids 1 PATIENT WEIGHT: Weight (lb): 192Weight (oz): 7.42Weight (kg): 87.300 Medications:Active Meds + DC'd Last 24 HrsPatient Own Medication (PT'S OWN HOME MED--MUST SCAN) MESALAMINE DR 400 MG CAPSULES Q12HR PO Amlodipine Besylate (amLODIPine) 5 MG DAILY PO Aspirin (ASPIRIN CHEWABLE) 81 MG DAILY PO Clopidogrel Bisulfate (PLAVIX) 75 MG DAILY PO Estradiol (ESTRACE) 0.5 MG DAILY PO Atorvastatin Calcium (LIPITOR) 40 MG BEDTIME PO Meclizine HCl (ANTIVERT) 25 MG Q6H PRN PRN PO Acetaminophen (TYLENOL REGULAR) 650 MG Q4H PRN PRN PO Bisacodyl (DULCOLAX,CORRECTOL) 10 MG DAILY PRN PRN PO Lactulose (CONSTULOSE) 30 ML DAILY PRN PRN PO (CKD) Magnesium Hydroxide (MILK OF MAGNESIA U/D) 30 ML DAILY PRN PRN PO Ondansetron Base (ZOFRAN ODT) 4 MG Q4H PRN PRN SL Senna/Docusate Sodium (SENOKOT-S) 2 TAB DAILY PRN PRN PO Nutrition assessment:The data set between the solid lines has been imported from the dietitian's assessment. Any exceptions have been noted under Provider comments. BMI Calculated: 33.0Nutrition related diagnosis: ObeseNutrition diagnosis details: BMI 30-39.9Nutrition problem: Altered GI functionNutrition etiology: ConstipationNutrition signs and symptoms: PT REPORT CONSTIPATION AND , NEED FOR PRUNE JUICENutrition prescription: - RECOMMEND CCD4 DIET TOLERATED PER PT REQUEST - WILL SEND PRUNE JUICE DAILY AT LUNCH TO ASSIST W/ RELIEVING CONSTIPATION - RD TO FOLLOW UP PER FNS PROTOCOLDietitian name: Ky Hansen RD LDAssessment completed: 01/04/22 Provider comments on imported dietitian assessment: Physical ExamGeneral appearance: alert, awake, orientedHead/Eyes: atraumatic, clear cornea, EOMICardiovascular: normal heart sounds, regular rate rhythmRespiratory: aerating well, clear to auscultation, symmetric expansionAbdomen: non-tender, normal bowel sounds, soft, no distentionExtremities: moves allNeuro/SPOOL CLEANER: alert, oriented X 3 ResultsFindings/Data:Laboratory Tests 01/04 1708 Chemistry POC Glucose (74 - 106 MG/DL) 119 H Results: vital signs reviewed, vital signs stable Diagnosis, Assessment Plan Free Text DxA P NotesFree text DxA P notes:CVA- s/p TPA, no hemorrhagic conversion- Imaging revealed small acute to subacute infarct involving the right middle cerebellar peduncle- PT/OT per rehab team- C/w DAPT for 3 weeks- Dizziness has improved on meclizine #Pelvic mass- COMIC ARTIST follow up as outpt- tumor markers pending Thank you for this consult. We will follow along with you. at 1404 at 1152 RPT #:[id number] OF REPORTPRProgress [id number]:23:00C.[id number] for patient atahXJEUJJVQXRILGR5890-13-37A07:05:11 [facility] 2022-01-05 09:28:00 [id number] paG1SklX5JjESgvwVxlCJGEySEsow++IGILWu2P 3245-17-66O52:28:00 [facility] Progress NoteREPORT#:[id number] REPORT STATUS: SignedDATE:01/05/22 TIME: 927 PATIENT: FRANSICO PÉREZ UNIT #: [id number]#: [id number] [facility]OB[facility] [birth year] AGE: 71 SEX: F ATTEND: Joshua Acosta [facility] AUTHOR: Joshua Acosta MD * ALL edits or amendments must be made on the electronic/computer document * SubjectiveChief complaint:strokeHistory of present illness:Patient reports continued right ear pain and some ringing which limited her participation in therapy and sleep. She wishes to restart gabapentin at a lower dose. Counselling provided. Review of SystemsAll systems rev neg: except as marked Free Text ROS NotesFree Text ROS Notes:pain: no new issuessleep: no new issues; poor due to ear discomfortbladder: no new issuesbowel: no new issues Objective GeneralVS:Vital Signs: Date Time Temp Pulse Resp B/P B/P Pulse O2 O2 Flow FiO2 Mean Ox Delivery Rate 01/05 0839 77 145/77 99.7 96 01/05 0645 36.8 70 18 130/77 94.6 95 Room air 01/044 36.7 72 18 137/81 99.9 97 Venti mask 01/04 1013 72 19 118/64 82.4 96 PATIENT WEIGHT: Weight (lb): 192Weight (oz): 7.42Weight (kg): 87.300 Medications:Active Meds + DC'd Last 24 HrsPatient Own Medication (PT'S OWN HOME MED--MUST SCAN) MESALAMINE DR 400 MG CAPSULES Q12HR PO Amlodipine Besylate (amLODIPine) 5 MG DAILY PO Aspirin (ASPIRIN CHEWABLE) 81 MG DAILY PO Clopidogrel Bisulfate (PLAVIX) 75 MG DAILY PO Estradiol (ESTRACE) 0.5 MG DAILY PO Gabapentin (NEURONTIN) 300 MG DAILY PO (DC) Atorvastatin Calcium (LIPITOR) 40 MG BEDTIME PO Meclizine HCl (ANTIVERT) 25 MG Q6H PRN PRN PO Acetaminophen (TYLENOL REGULAR) 650 MG Q4H PRN PRN PO Bisacodyl (DULCOLAX,CORRECTOL) 10 MG DAILY PRN PRN PO Lactulose (CONSTULOSE) 30 ML DAILY PRN PRN PO (CKD) Magnesium Hydroxide (MILK OF MAGNESIA U/D) 30 ML DAILY PRN PRN PO Ondansetron Base (ZOFRAN ODT) 4 MG Q4H PRN PRN SL Senna/Docusate Sodium (SENOKOT-S) 2 TAB DAILY PRN PRN PO Nutrition assessment:The data set between the solid lines has been imported from the dietitian's assessment. Any exceptions have been noted under Provider comments. BMI Calculated: 33.0Nutrition related diagnosis: ObeseNutrition diagnosis details: BMI 30-39.9Nutrition problem: Altered GI functionNutrition etiology: ConstipationNutrition signs and symptoms: PT REPORT CONSTIPATION AND , NEED FOR PRUNE JUICENutrition prescription: - RECOMMEND CCD4 DIET TOLERATED PER PT REQUEST - WILL SEND PRUNE JUICE DAILY AT LUNCH TO ASSIST W/ RELIEVING CONSTIPATION - RD TO FOLLOW UP PER FNS PROTOCOLDietitian name: Ky NATALEE Hansen LDAssessment completed: 01/04/22 Provider comments on imported dietitian assessment: Functional ProgressFunctional progress:The data set between the solid lines has been imported from multidisciplinary team documentation. FUNCTIONAL ACTIVITY ADMISSION STATUS INTERIM STATUS Toilet hygiene Partial/moderate (3) Partial/moderate (3) Toilet transfer Partial/moderate (3) Partial/moderate (3) Eating Supervision/touch (4) Independent (6) Shower/bathing Partial/moderate (3) Dressing upper body Supervision/touch (4) Dressing lower body Partial/moderate (3) Setup or cleanup (5) Transfer to/from bed to chair Partial/moderate (3) Partial/moderate (3) Wheel 50ft w/ 2 turns Dependent (1) Supervision/touch (4) Wheel 150 ft Dependent (1) Walk 50 ft w/ 2 turns Partial/moderate (3) Walk 150 ft Partial/moderate (3) Four steps Partial/moderate (3) Physical ExamPsych: alert, normal affect, oriented x 3HEENT: anicteric, mucosal membranes moist, pupils reactive to light, sclera clearNeck: non-tender, supple, no JVDCardiovascular: regular rate rhythm, S1/U2Gvmmxfkvidc: aerating well, clear bilaterally, clear to auscultationAbdomen: non-distended, non-tender to palpation, soft ResultsFindings/Data:Laboratory Tests: 01/04 01/04 1708 1137 Chemistry POC Glucose (74 - 106 MG/DL) 119 H 115 H Diagnosis, Assessment PlanProblem List/A P: 1. Right-sided lacunar stroke 2. Impaired balance as late effect of cerebrovascular accident 3. Reduced mobility 4. Hypertension 5. Generalized weakness 6. Right homonymous hemianopsia 7. Right-sided visual neglect Free Text A P:- Cont secondary ppx per IM- Ongoing comprehensive rehab with PT/OT to address mobility, transfers, ADLs, teach compensatory strategies, and evaluate need for DME- INSPECTOR TYPE to address cognition and swallow- Would benefir from follow up with neuroophthalmologist if available- Monitor BP and adjust medications if needed- Water Valve Mechanic following. Optimize nutrition- restart gabapentin 100 mg i0zFducy attestation:Face to face exam completed. Treatment plan discussed with patient. Meets continued stay criteria. Agree with interdisciplinary treatment plan. >35 minutes spent on patient care, coordination of care, and counselling. at 0930 RPT #:[id number] OF REPORTPRProgress [id number]:28:00C.[id number] for patient wsdcHJGDMQAEAWTWON1823-62-66X30:31:20 [facility] 2022-01-05 09:00:00 [id number] 1UgmW51FpVHrarswesij4XQGdIDWslPhL4cmWqT [id number]:00:00 [facility] CenterNe[facility] Progress NoteREPORT#:[id number] REPORT STATUS: SignedDATE:01/05/22 TIME: 0900 PATIENT: FRANSICO PÉREZ UNIT #: [id number]#: [id number] [address] [birth year] AGE: 71 SEX: F ATTEND: AcostaJoshua [facility] AUTHOR: Lianet Hernandez * ALL edits or amendments must be made on the electronic/computer document * Lianet Hernandez 01/05/22 0900:SubjectiveChief complaint:no acute neuro events, still has right ear pain, pt wants to try gabapentin at night to prevent drowsiness during the day Objective GeneralVS:Last Documented: Result Date Time Pulse Ox 96 01/05 839 B/P 145/77 01/06 0839 B/P Mean 99.7 01/05 839 Pulse 77 01/06 0839 O2 Delivery Room air 01/05 645 Temp 98.2 01/05 645 Resp 18 01/05 645 PATIENT WEIGHT: Weight (lb): 192Weight (oz): 7.42Weight (kg): 87.300 MedicationsCurrent Home MedicationsMesalamine (DELZICOL) CLOPIDOGREL (PLAVIX) 75 MG PO DAILY ATORVASTATIN (LIPITOR) 40 MG PO BEDTIME amLODIPine (NORVASC) 5 MG PO DAILY ASPIRIN 81 MG PO DAILY GABAPENTIN (NEURONTIN) 300 MG PO DAILY MECLIZINE (ANTIVERT) 25 MG PO Q6H PRN PRN DIZZINESS Active Meds + DC'd Last 24 HrsPatient Own Medication (PT'S OWN HOME MED--MUST SCAN) MESALAMINE DR 400 MG CAPSULES Q12HR PO Amlodipine Besylate (amLODIPine) 5 MG DAILY PO Aspirin (ASPIRIN CHEWABLE) 81 MG DAILY PO Clopidogrel Bisulfate (PLAVIX) 75 MG DAILY PO Estradiol (ESTRACE) 0.5 MG DAILY PO Atorvastatin Calcium (LIPITOR) 40 MG BEDTIME PO Meclizine HCl (ANTIVERT) 25 MG Q6H PRN PRN PO Acetaminophen (TYLENOL REGULAR) 650 MG Q4H PRN PRN PO Bisacodyl (DULCOLAX,CORRECTOL) 10 MG DAILY PRN PRN PO Lactulose (CONSTULOSE) 30 ML DAILY PRN PRN PO (CKD) Magnesium Hydroxide (MILK OF MAGNESIA U/D) 30 ML DAILY PRN PRN PO Ondansetron Base (ZOFRAN ODT) 4 MG Q4H PRN PRN SL Senna/Docusate Sodium (SENOKOT-S) 2 TAB DAILY PRN PRN PO Physical ExamGeneral appearance: alert, awakeHead/Eyes: atraumatic, clear cornea, normal conjunctiva/sclera, normocephalicENT: normal ear right, normal ear left, normal nose, normal pharynxNeck: full range of motion, non-tender, supple/no meningismus, no bruit / NL carotids, no masses or swellingCardiovascular: regular rate and rhythmRespiratory: clear to auscultation, no distressAbdomen: non-tender, normal bowel sounds, no distentionExtremities: moves all, normal inspection, no edemaMusculoskeletal: full range of motion, normal inspection SpeechSpeech: normal Mental StatusOrientation:Yes: to time, to place, to person, to situation. Cognitive FunctionCognitive function: normal executive function ResultsFindings/Data:Laboratory Tests 01/04 1708 Chemistry POC Glucose (74 - 106 MG/DL) 119 H Diagnosis, Assessment PlanFree Text A P:#Dizziness#Nystagmus#Abdominal pain#S/p TPA The patient was given TPA as their was initial concern for posterior circulationstroke. CT head showed no acute findings. CTA head and neck showed no evidence of significant stenosis or occlusion. Neurological exam showed nystagmus during left gaze. No other abnormalities including cerebellar ataxia were elicited. Also suspect benign paroxysmal positional vertigo, which worsens her dizziness upon moving her head to the left. Repeat CT head after TPA administration showed no intracranial hemorrhage. Echocardiogram showed no evidence of shunting. MRI head showed small acute to subacute infarct involving the right middle cerebellar peduncle. 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 Patient will need to be on DAPTfor 21 days. Plan:- monitor neuro status- will trial Gabapentin 300mg hs- ASA, Plavix, high intensity statin- Meclizine prn for dizziness - see plan from rehab/Dr Acosta- continue treatment course- d/w Dr Tafoya, pt- will follow Jose Tafoya 01/05/22 1423:AttestationsAttestation needed: supervising physician Physician AttestationAgree w/findings plan:Agree with the findings and plan as documented by Lianet Hernandez at 1317 at 1424 RPT #:[id number] OF REPORTPRProgress [id number]:00:00C.[id number] for patient ayixOPXWEIRKHQAONP4957-39-62L05:17:49 [facility] 2022-01-04 08:58:00 [id number]/[id number] T1d9+RlM6ESF2ZpHswkaGklLBqGf9M6K4A2kUJR 2176-70-12D57:58:00 [facility] Indiv Overall POCREPORT#:[id number] REPORT STATUS: SignedDATE:01/04/22 TIME: 0858 PATIENT: FRANSICO PÉREZ UNIT #: [id number]#: [id number] [address] [birth year] AGE: 71 SEX: F ATTEND: Joshua Acosta [facility] AUTHOR: Joshua Acosta MD * ALL edits or amendments must be made on the electronic/computer document * Individualized Overall POC HPIImpairment group: stroke NOTE Document ONLY ONE Impairment Group Stroke: left body (right brain)Etiologic diagnosis:right lacunar stroke Medical Expected CourseExpected DC destination:Expected DC destination: Home Problem List/A P: 1. Right-sided lacunar stroke 2. Impaired balance as late effect of cerebrovascular accident 3. Reduced mobility 4. Hypertension 5. Generalized weakness 6. Right homonymous hemianopsia 7. Right-sided visual neglect Medical prognosis: goodMedical prognosis details: pt motivation, family/caregiver support, endurance, cognition, D/C plan, financial resourcesExpected course of Tx:Home in 18-23 days Functional Expected CourseFunctional expected course:The data set between the solid lines has been imported from multidisciplinary team documentation: ANTICIPATED SERVICES IN ACUTE INPATIENT REHAB: DISCIPLINE Physical Therapy Occupational Therapy Speech TherapyINTENSITY (minutes/day) 90 90FREQUENCY (days/week) 5 5DURATION (# of days) 16 16 EXPECTED FUNCTIONAL OUTCOMES: CARE Rolling left and Independent (6) right discharge goal: CARE Sitting to Independent (6) lying discharge goal: CARE Lying to sitting Independent (6) on side of bed discharge goal: CARE Sitting to Independent (6) standing discharge goal: CARE Chair/bed to Independent (6) chair transfer discharge goal: CARE Car transfer Setup/clean-up only (5) discharge goal: CARE Walking 10 Independent (6) feet discharge goal: CARE Walking 50 feet Independent (6) with two turns discharge goal: CARE Walking 150 Independent (6) feet discharge goal: CARE Walking 10 feet on Independent (6) uneven surface discharge goal: CARE 1 step (curb) Independent (6) discharge goal: CARE 4 steps Independent (6) discharge goal: CARE 12 steps Independent (6) discharge goal: CARE Picking up Independent (6) object discharge goal: CARE [place] 50 feet Independent (6) with two turns discharge goal: CARE [place] 150 Independent (6) feet discharge goal: CARE Toileting hygiene Independent (6) discharge goal: CARE Transfer on/off toilet Independent (6) or commode discharge goal: CARE Eating discharge goal: Independent (6) CARE Oral hygiene Independent (6) discharge goal: CARE Shower/bathe Independent (6) self discharge goal: CARE Upper body Independent (6) dressing discharge goal: CARE Lower body Independent (6) dressing discharge goal: CARE Putting on/taking Independent (6) off footwear discharge goal: Bowel function goal: Will remain continent of bowel functionBladder function goal: Will remain continent of bladder function ELOS Attestation:Based upon the review of clinical staff recommendations of frequency, duration and intensity and individual assessment of this patient, I estimate the following: Estimated length of stay:18-23 days MD Review/RecommendationAttestation:Based upon my physical evaluation of the patient and input from the interdisciplinary team members I have developed this interdisciplinary overall plan of care and determined the admission to the IRF is reasonable and necessary.The IOPOC will be updated weekly and modified under my direction. Patient can be expected to actively participate in, and benefit from, an intensive rehab therapy program whose intensity is not provided in lower levels of care. Complex acute rehab needs: Custom therapy tx plan, Mgt of complex Co-morb, Multiple consulting MDs, Caregiver has limitations, Challenging home layout, Neuro interdisc tx, Med adjustment/mgmt., New medical diagnosis, New medical complication, Cognitive impairment mgt, Hospitalist consult, VTE Risk at 0859 RPT #:[id number] OF REPORTCLClinical [id number]:58:00C.[id number] for patient trzuYIPTVZBKHDSYPG7830-42-37E67:59:42 [facility] 2022-01-04 08:56:00 [id number] wC69WAdOP8QeGQLEc79lY4/lgzJg+tbpztPjXRa 7746-91-35O40:56:00 [facility] ([facility])Rehab Progress NoteREPORT#:[id number] REPORT STATUS: SignedDATE:01/04/22 TIME: 0856 PATIENT: FRANSICO PÉREZ UNIT #: [id number]#: [id number] [address] [birth year] AGE: 71 SEX: F ATTEND: Joshua Acosta [facility] AUTHOR: Joshua Acosta MD * ALL edits or amendments must be made on the electronic/computer document * SubjectiveChief complaint:strokeHistory of present illness:Still with some right ear pain since stroke. No external deformities noted. Review of SystemsAll systems rev neg: except as marked Free Text ROS NotesFree Text ROS Notes:pain: no new issuessleep: no new issuesbladder: no new issuesbowel: no new issues Objective GeneralVS:Vital Signs: Date Time Temp Pulse Resp B/P B/P Pulse O2 O2 Flow FiO2 Mean Ox Delivery Rate 01/04 0632 37.3 72 14 135/74 94.6 96 01/03 1947 37.0 71 16 120/72 88.3 96 Room air 01/03 1415 81 133/82 98.9 94 01/03 1317 75 121/62 81.7 96 01/03 0929 76 121/74 89.8 PATIENT WEIGHT: Weight (lb): 192Weight (oz): 7.42Weight (kg): 87.300 Medications:Active Meds + DC'd Last 24 HrsPatient Own Medication (PT'S OWN HOME MED--MUST SCAN) MESALAMINE DR 400 MG CAPSULES Q12HR PO Amlodipine Besylate (amLODIPine) 5 MG DAILY PO Aspirin (ASPIRIN CHEWABLE) 81 MG DAILY PO Clopidogrel Bisulfate (PLAVIX) 75 MG DAILY PO Estradiol (ESTRACE) 0.5 MG DAILY PO Gabapentin (NEURONTIN) 300 MG DAILY PO Atorvastatin Calcium (LIPITOR) 40 MG BEDTIME PO Mesalamine (DELZICOL) 400 MG BID PO (DC) Meclizine HCl (ANTIVERT) 25 MG Q6H PRN PRN PO Acetaminophen (TYLENOL REGULAR) 650 MG Q4H PRN PRN PO Bisacodyl (DULCOLAX,CORRECTOL) 10 MG DAILY PRN PRN PO Lactulose (CONSTULOSE) 30 ML DAILY PRN PRN PO (CKD) Magnesium Hydroxide (MILK OF MAGNESIA U/D) 30 ML DAILY PRN PRN PO Ondansetron Base (ZOFRAN ODT) 4 MG Q4H PRN PRN SL Senna/Docusate Sodium (SENOKOT-S) 2 TAB DAILY PRN PRN PO Nutrition assessment:The data set between the solid lines has been imported from the dietitian's assessment. Any exceptions have been noted under Provider comments. BMI Calculated: 33.0Nutrition related diagnosis: Nutrition diagnosis details: Nutrition problem: Nutrition etiology: Nutrition signs and symptoms: Nutrition prescription: Dietitian name: Assessment completed: Provider comments on imported dietitian assessment: Functional ProgressFunctional progress:The data set between the solid lines has been imported from multidisciplinary team documentation. FUNCTIONAL ACTIVITY ADMISSION STATUS INTERIM STATUS Toilet hygiene Partial/moderate (3) Partial/moderate (3) Toilet transfer Partial/moderate (3) Partial/moderate (3) Eating Supervision/touch (4) Shower/bathing Partial/moderate (3) Dressing upper body Supervision/touch (4) Dressing lower body Partial/moderate (3) Transfer to/from bed to chair Partial/moderate (3) Wheel 50ft w/ 2 turns Dependent (1) Wheel 150 ft Dependent (1) Walk 50 ft w/ 2 turns Walk 150 ft Four steps Physical ExamPsych: alert, normal affect, oriented x 3HEENT: anicteric, mucosal membranes moist, pupils reactive to light, sclera clearNeck: non-tender, supple, no JVDCardiovascular: regular rate rhythm, S1/N2Pwtzywyxjcx: aerating well, clear bilaterally, clear to auscultationAbdomen: non-distended, non-tender to palpation, soft ResultsFindings/Data:Laboratory Tests: 01/04 01/03 01/03 01/03 0525 2110 1719 1120 Chemistry POC Glucose (74 - 106 MG/DL) 117 H 165 H 116 H 113 H Diagnosis, Assessment PlanProblem List/A P: 1. Right-sided lacunar stroke 2. Impaired balance as late effect of cerebrovascular accident 3. Reduced mobility 4. Hypertension 5. Generalized weakness 6. Right homonymous hemianopsia 7. Right-sided visual neglect Free Text A P:- Cont secondary ppx per IM- Ongoing comprehensive rehab with PT/OT to address mobility, transfers, ADLs, teach compensatory strategies, and evaluate need for DME- INSPECTOR TYPE to address cognition and swallow- Would benefir from follow up with neuroophthalmologist if available- Monitor BP and adjust medications if needed- Water Valve Mechanic following. Optimize nutritionRehab attestation:Face to face exam completed. Treatment plan discussed with patient. Meets continued stay criteria. Agree with interdisciplinary treatment plan. >35 minutes spent on patient care, coordination of care, and counselling regarding diagnosis and treatment plan. at 0858 RPT #:[id number] OF REPORTPRProgress [id number]:56:00C.[id number] for patient eynqRAXMTEAHOTSKFA2289-08-73Z13:58:32 [facility] 2022-01-04 07:08:00 [id number]/SQ59c6vG/7vMyi +6nvyqqapqTTuTHvNCYTwyujbTi2QrvNEVasWx5 6850-38-05P25:08:00 [facility] Progress NoteREPORT#:[id number] REPORT STATUS: SignedDATE:01/04/22 TIME: 07 PATIENT: FRANSICO PÉREZ UNIT #: [id number]#: [id number] [address] [birth year] AGE: 71 SEX: F ATTEND: AcostaJoshua [facility] AUTHOR: Lianet Hernandez * ALL edits or amendments must be made on the electronic/computer document * Lianet Hernandez 01/04/22 0708:SubjectiveChief complaint:no acute neuro events, awake alert, c/o right ear pain, also stated Gabapentin does not help the pain but causes drowsiness, pt is refusing the Gabapentin Objective GeneralVS:Last Documented: Result Date Time Pulse Ox 96 01/04 1013 B/P 118/64 01/04 1013 B/P Mean 82.4 01/04 1013 Pulse 72 01/04 1013 Resp 19 01/04 1013 Temp 99.1 01/04 0632 O2 Delivery Room air 01/03 1947 PATIENT WEIGHT: Weight (lb): 192Weight (oz): 7.42Weight (kg): 87.300 MedicationsCurrent Home MedicationsMesalamine (DELZICOL) CLOPIDOGREL (PLAVIX) 75 MG PO DAILY ATORVASTATIN (LIPITOR) 40 MG PO BEDTIME amLODIPine (NORVASC) 5 MG PO DAILY ASPIRIN 81 MG PO DAILY GABAPENTIN (NEURONTIN) 300 MG PO DAILY MECLIZINE (ANTIVERT) 25 MG PO Q6H PRN PRN DIZZINESS Active Meds + DC'd Last 24 HrsPatient Own Medication (PT'S OWN HOME MED--MUST SCAN) MESALAMINE DR 400 MG CAPSULES Q12HR PO Amlodipine Besylate (amLODIPine) 5 MG DAILY PO Aspirin (ASPIRIN CHEWABLE) 81 MG DAILY PO Clopidogrel Bisulfate (PLAVIX) 75 MG DAILY PO Estradiol (ESTRACE) 0.5 MG DAILY PO Gabapentin (NEURONTIN) 300 MG DAILY PO (DC) Atorvastatin Calcium (LIPITOR) 40 MG BEDTIME PO Meclizine HCl (ANTIVERT) 25 MG Q6H PRN PRN PO Acetaminophen (TYLENOL REGULAR) 650 MG Q4H PRN PRN PO Bisacodyl (DULCOLAX,CORRECTOL) 10 MG DAILY PRN PRN PO Lactulose (CONSTULOSE) 30 ML DAILY PRN PRN PO (CKD) Magnesium Hydroxide (MILK OF MAGNESIA U/D) 30 ML DAILY PRN PRN PO Ondansetron Base (ZOFRAN ODT) 4 MG Q4H PRN PRN SL Senna/Docusate Sodium (SENOKOT-S) 2 TAB DAILY PRN PRN PO Physical ExamGeneral appearance: alert, awakeHead/Eyes: atraumatic, clear cornea, normal conjunctiva/sclera, normocephalicENT: normal ear right, normal ear left, normal nose, normal pharynxNeck: full range of motion, non-tender, supple/no meningismus, no bruit / NL carotids, no masses or swellingCardiovascular: regular rate and rhythmRespiratory: clear to auscultation, no distressAbdomen: non-tender, normal bowel sounds, no distentionExtremities: moves all, normal inspection, no edemaMusculoskeletal: full range of motion, normal inspection SpeechSpeech: normal Mental StatusOrientation:Yes: to time, to place, to person, to situation. Cognitive FunctionCognitive function: normal executive function ResultsFindings/Data:Laboratory Tests 01/04 01/04 01/03 01/03 1137 0525 2110 1719 Chemistry POC Glucose (74 - 106 MG/DL) 115 H 117 H 165 H 116 H Diagnosis, Assessment PlanFree Text A P:#Dizziness#Nystagmus#Abdominal pain#S/p TPA The patient was given TPA as their was initial concern for posterior circulationstroke. CT head showed no acute findings. CTA head and neck showed no evidence of significant stenosis or occlusion. Neurological exam showed nystagmus during left gaze. No other abnormalities including cerebellar ataxia were elicited. Also suspect benign paroxysmal positional vertigo, which worsens her dizziness upon moving her head to the left. Repeat CT head after TPA administration showed no intracranial hemorrhage. Echocardiogram showed no evidence of shunting. MRI head showed small acute to subacute infarct involving the right middle cerebellar peduncle. 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 Patient will need to be on DAPTfor 21 days. Plan:- will defer ear pain management to attending/Dr Acosta- stop Gabapentin- ASA, Plavix, high intensity statin- Meclizine prn for dizziness - see plan from rehab/Dr Acosta- continue care plan- d/w Dr Tafoya, pt, daughter- will follow Jose Tafoya 01/04/22 1534:Attestations Physician AttestationAgree w/findings plan:Agree with the findings and plan as documented by Lianet Hernandez at 1333 at 1535 RPT #:[id number] OF REPORTPRProgress nftq6474-61-07G95:08:00C.[id number] 144AVAvailable for patient gtmfZSOEPUMGBXNUWD9153-03-79N93:34:06 [facility] 2022-01-03 14:48:00 [id number]+4ETFfZeH tlOgYKQ4fFDnLIRim3LG9y1WoCKx1/lb1JLBCjw 5997-38-20M67:48:00 [place] Hospitalist ConsultationREPORT#:[id number] REPORT STATUS: SignedDATE:01/03/22 TIME: 1448 PATIENT: FRANSICO PÉREZ UNIT #: [id number]#: [id number] [address] [birth year] AGE: 71 SEX: F ATTEND: Joshua Acosta [facility] AUTHOR: Marcia Tadeo * ALL edits or amendments must be made on the electronic/computer document * Marcia Tadeo 01/03/22 1448:History of Present IllnessHPI:This is a 71-year-old F who was admitted and treated for CVA for which tPA was given on arrival to ED. She was admitted to [facility] and subsequently downgraded to telemetry. Imaging revealed small acute to subacute nonhemorrhagic infarct involving the right middle cerebellar peduncle. Additionally, patient noted to have significant abdominal pain for which COMIC ARTIST was consulted. Patient was already aware of pelvic mass. PT/OT worked with patient and recommended inpatient rehab facility for improvement in strength. Patient is now admitted to [facility]. She still has minimal abdominal pain, no nausea or vomiting. Denies any headache, lightheadedness, dizziness. History - Adult longitudinalAdditional medical history:colitisAlcohol use: Denies EtOH useDrug use: Denies recreational drugsSmoking status: Smoking status for patients 13 years old or older: Unknown,if ever smokedAdditional social history:Lives alone in [place]. Plans to move temporarily with her sister in [place] who lives in a one story house with a bedroom for her.Allergies:Coded Allergies:Sulfa (Sulfonamide Antibiotics) (Intermediate, HIVES 12/26/21)butorphanol (From STADOL) (Intermediate, HIVES 12/26/21)levofloxacin (From LEVAQUIN) (VOMITING 12/26/21) Review of SystemsConstitutional:generalized weakness. Denies: chills, fatigue, fever. Respiratory:Denies: SANTAMARIA (dyspnea on exertion), non productive cough, productive cough (sputum), SOB, wheezing. Cardiovascular:Denies: chest pain, SANTAMARIA (dyspnea on exertion), edema, palpitations. GI:Reports: abdominal pain. Denies: constipation, diarrhea, GERD, nausea, vomiting. Neuro:Denies: dizziness, headache, lightheaded. All systems rev neg: except as marked ObjectiveVS/I OLast Documented: Result Date Time Pulse Ox 94 01/03 1415 B/P 133/82 01/03 1415 B/P Mean 98.9 01/03 1415 Pulse 81 01/03 1415 O2 Delivery Room air 01/03 629 Temp 36.8 01/03 0629 Resp 20 01/03 06 24 hour I O ending at 0700: 01/03 0700 01/02 1900 Intake Total 320 Output Total Balance 320 Intake, Oral 320 Number Voids 2 Patient 87.3 kg Weight Weight Bed scale Measurement Method General appearance: alert, awakeHead/Eyes: atraumatic, clear cornea, EOMICardiovascular: normal heart sounds, regular rate rhythmRespiratory: aerating well, clear to auscultation, symmetric expansionAbdomen: non-tender, normal bowel sounds, soft, no distentionExtremities: moves allNeuro/SPOOL CLEANER: alert, oriented X 3 ResultsFindings/Data:Laboratory Tests: 01/03 01/03 01/03 01/02 1120 1390 5521 2142Chemistry Sodium (137 - 145 mmol/L) 138 Potassium (3.4 - 5.0 mmol/L) 4.1 Chloride (98 - 107 mmol/L) 107 Carbon Dioxide (22 - 30 mmol/L) 21 L Anion Gap 14 BUN (7 - 17 mg/dL) 21 H Creatinine (0.5 - 1.0 mg/dL) 0.6 Glomerular Filtr Rate (>60) 105 Glucose (74 - 106 mg/dL) 116 H POC Glucose (74 - 106 MG/DL) 113 H 128 H Calcium (8.4 - 10.2 mg/dL) 8.4 Total Bilirubin (0.2 - 1.3 mg/dL) 0.5 Conjugated Bilirubin (0 - 0.3 mg/dL) 0 Unconjugated Bilirubin (0 - 1.1 mg/dL) 0.3 AST (15 - 46 U/L) 30 ALT (0 - 34 U/L) 24 Total Alk Phosphatase (38 - 126 U/L) 71 Total Protein (6.3 - 8.2 g/dL) 6.6 Albumin (3.5 - 5.0 g/dL) 3.6 Prealbumin (17.6 - 36.0 mg/dL) 25.56 Specimen Hemolysis (0 - 100 Index/DL) 16Hematology WBC (5.0 - 12.0 x10 3/uL) 7.9 RBC (4.20 - 5.40 x10 6/uL) 4.90 Hgb (12.0 - 16.0 g/dL) 14.0 Hct (36.0 - 46.0 %) 42.6 MCV (81 - 99 fL) 87 MCH (27 - 31 pg) 28.6 MCHC (33 - 37 g/dL) 32.9 L RDW (11.5 - 15.5 %) 13.2 Plt Count (130 - 400 x10 3/uL) 322 MPV (9.4 - 16.4 fL) 9.8 Neut % (Auto) (43 - 65 %) 53.0 Lymph % (Auto) (20.5 - 45.5 %) 33.3 [place] % (Auto) (5.5 - 11.7 %) 10.1 Eos % (Auto) (0.9 - 2.9 %) 2.5 Baso % (Auto) (0.2 - 1.0 %) 0.8 Neut # (Auto) (2.2 - 4.8 x10 3/uL) 4.19 Lymph # (Auto) (1.3 - 2.9 x10 3/uL) 2.63 [place] # (Auto) (0.3 - 0.8 x10 3/uL) 0.80 Eos # (Auto) (0.0 - 0.2 x10 3/uL) 0.20 Baso # (Auto) (0.0 - 0.1 x10 3/uL) 0.06 Immature Gran % (0.0 - 2.0 %) 0.3 Nucleated RBC % (0 - 1.0 %) 0.0Urines Urine Color (YELLOW) YELLOW Urine Appearance (CLEAR) CLEAR Urine pH (5.0 - 8.0) 6.0 Ur Specific [place] (1.000 - 1.030) 1.015 Urine Protein (NEGATIVE MG/DL) NEGATIVE Urine Glucose (UA) (NEGATIVE MG/DL) NEGATIVE Urine Ketones (NEGATIVE MG/DL) NEGATIVE Urine Blood (NEGATIVE) NEGATIVE Urine Nitrite (NEGATIVE) NEGATIVE Urine Bilirubin (NEGATIVE) NEGATIVE Urine Urobilinogen (<=1.0 EU/dL) 0.2 Ur Leukocyte Esterase (NEGATIVE) NEGATIVE Urine RBC (<4 - 5 /HPF) 0-3 Urine WBC (<4 - 5 /HPF) 0-3 Ur Squamous Epith Cells (0 - 5 (RARE) 0-5 (RARE)/HPF) Urine Bacteria (None - Rare /HPF) Rare 01/02 01/02 2030 1656 Chemistry POC Glucose (74 - 106 MG/DL) 146 H 120 H Results: labs reviewed, vital signs reviewed Diagnosis, Assessment Plan Free Text DxA P NotesFree Text DxA P Notes:CVA- s/p TPA, no hemorrhagic conversion- Imaging revealed small acute to subacute infarct involving the right middle cerebellar peduncle- PT/OT per rehab team- C/w DAPT for 3 weeks- Dizziness has improved on meclizine #Pelvic mass- COMIC ARTIST follow up as outpt- tumor markers pending Thank you for this consult. We will follow along with you. Yuriy Guillen 01/03/22 1453:Attestations Physician AttestationAgree w/findings plan:Agree with the findings and plan as documented by Marcia HEARD at 1453 at 1454 RPT #:[id number] OF REPORTQGXtciderruxiz3045-40-57B53:48 :00C.[id number] for patient yfzcIXKJMOOVTCXQWW3472-60-81G14:54:11 [facility] 2022-01-03 07:48:00 [id number] UWP2jkX5OAm68K3y3ejJMvVMW3vaK7N9U+6h9lk 0600-99-00P29:48:00 [facility] Progress NoteREPORT#:[id number] REPORT STATUS: SignedDATE:01/03/22 TIME: 747 PATIENT: FRANSICO PÉREZ UNIT #: [id number]#: [id number] [address] [birth year] AGE: 71 SEX: F ATTEND: Joshua Acosta [facility] AUTHOR: Joshua Acosta MD * ALL edits or amendments must be made on the electronic/computer document * SubjectiveChief complaint:strokeHistory of present illness:No new issues or acute events per patient or nursing. Questions regarding diagnoses and treatment plan answered. Review of SystemsAll systems rev neg: except as marked Free Text ROS NotesFree Text ROS Notes:pain: no new issuessleep: no new issuesbladder: no new issuesbowel: no new issues Objective GeneralVS:Vital Signs: Date Time Temp Pulse Resp B/P B/P Pulse O2 O2 Flow FiO2 Mean Ox Delivery Rate 01/03 629 36.8 76 20 134/78 96.8 94 Room air 01/02 1943 36.8 64 16 104/60 74.5 97 Room air 01/02 1520 36.7 75 16 124/79 93.7 98 PATIENT WEIGHT: Weight (lb): 192Weight (oz): 7.42Weight (kg): 87.300 Medications:Active Meds + DC'd Last 24 HrsAmlodipine Besylate (amLODIPine) 5 MG DAILY PO Aspirin (ASPIRIN CHEWABLE) 81 MG DAILY PO Clopidogrel Bisulfate (PLAVIX) 75 MG DAILY PO Estradiol (ESTRACE) 0.5 MG DAILY PO Gabapentin (NEURONTIN) 300 MG DAILY PO Atorvastatin Calcium (LIPITOR) 40 MG BEDTIME PO Mesalamine (DELZICOL) 400 MG BID PO Meclizine HCl (ANTIVERT) 25 MG Q6H PRN PRN PO Acetaminophen (TYLENOL REGULAR) 650 MG Q4H PRN PRN PO Bisacodyl (DULCOLAX,CORRECTOL) 10 MG DAILY PRN PRN PO Lactulose (CONSTULOSE) 30 ML DAILY PRN PRN PO (CKD) Magnesium Hydroxide (MILK OF MAGNESIA U/D) 30 ML DAILY PRN PRN PO Ondansetron Base (ZOFRAN ODT) 4 MG Q4H PRN PRN SL Senna/Docusate Sodium (SENOKOT-S) 2 TAB DAILY PRN PRN PO Nutrition assessment:The data set between the solid lines has been imported from the dietitian's assessment. Any exceptions have been noted under Provider comments. BMI Calculated: 33.0Nutrition related diagnosis: Nutrition diagnosis details: Nutrition problem: Nutrition etiology: Nutrition signs and symptoms: Nutrition prescription: Dietitian name: Assessment completed: Provider comments on imported dietitian assessment: Functional ProgressFunctional progress:The data set between the solid lines has been imported from multidisciplinary team documentation. FUNCTIONAL ACTIVITY ADMISSION STATUS INTERIM STATUS Toilet hygiene Partial/moderate (3) Partial/moderate (3) Toilet transfer Partial/moderate (3) Eating Shower/bathing Dressing upper body Dressing lower body Transfer to/from bed to chair Wheel 50ft w/ 2 turns Wheel 150 ft Walk 50 ft w/ 2 turns Walk 150 ft Four steps Physical ExamPsych: alert, normal affect, oriented x 3HEENT: anicteric, mucosal membranes moist, pupils reactive to light, sclera clearNeck: non-tender, supple, no JVDCardiovascular: regular rate rhythm, S1/B6Wbxrvlahzht: aerating well, clear bilaterally, clear to auscultationAbdomen: non-distended, non-tender to palpation, soft ResultsFindings/Data:Laboratory Tests: 01/03 01/03 01/02 01/02 0558 1199 6852 2030Chemistry Sodium (137 - 145 mmol/L) 138 Potassium (3.4 - 5.0 mmol/L) 4.1 Chloride (98 - 107 mmol/L) 107 Carbon Dioxide (22 - 30 mmol/L) 21 L Anion Gap 14 BUN (7 - 17 mg/dL) 21 H Creatinine (0.5 - 1.0 mg/dL) 0.6 Glomerular Filtr Rate (>60) 105 Glucose (74 - 106 mg/dL) 116 H POC Glucose (74 - 106 MG/DL) 128 H 146 H Calcium (8.4 - 10.2 mg/dL) 8.4 Total Bilirubin (0.2 - 1.3 mg/dL) 0.5 Conjugated Bilirubin (0 - 0.3 mg/dL) 0 Unconjugated Bilirubin (0 - 1.1 mg/dL) 0.3 AST (15 - 46 U/L) 30 ALT (0 - 34 U/L) 24 Total Alk Phosphatase (38 - 126 U/L) 71 Total Protein (6.3 - 8.2 g/dL) 6.6 Albumin (3.5 - 5.0 g/dL) 3.6 Prealbumin (17.6 - 36.0 mg/dL) 25.56 Specimen Hemolysis (0 - 100 Index/DL) 16Hematology WBC (5.0 - 12.0 x10 3/uL) 7.9 RBC (4.20 - 5.40 x10 6/uL) 4.90 Hgb (12.0 - 16.0 g/dL) 14.0 Hct (36.0 - 46.0 %) 42.6 MCV (81 - 99 fL) 87 MCH (27 - 31 pg) 28.6 MCHC (33 - 37 g/dL) 32.9 L RDW (11.5 - 15.5 %) 13.2 Plt Count (130 - 400 x10 3/uL) 322 MPV (9.4 - 16.4 fL) 9.8 Neut % (Auto) (43 - 65 %) 53.0 Lymph % (Auto) (20.5 - 45.5 %) 33.3 [place] % (Auto) (5.5 - 11.7 %) 10.1 Eos % (Auto) (0.9 - 2.9 %) 2.5 Baso % (Auto) (0.2 - 1.0 %) 0.8 Neut # (Auto) (2.2 - 4.8 x10 3/uL) 4.19 Lymph # (Auto) (1.3 - 2.9 x10 3/uL) 2.63 [place] # (Auto) (0.3 - 0.8 x10 3/uL) 0.80 Eos # (Auto) (0.0 - 0.2 x10 3/uL) 0.20 Baso # (Auto) (0.0 - 0.1 x10 3/uL) 0.06 Immature Gran % (0.0 - 2.0 %) 0.3 Nucleated RBC % (0 - 1.0 %) 0.0Urines Urine Color (YELLOW) YELLOW Urine Appearance (CLEAR) CLEAR Urine pH (5.0 - 8.0) 6.0 Ur Specific [place] (1.000 - 1.030) 1.015 Urine Protein (NEGATIVE MG/DL) NEGATIVE Urine Glucose (UA) (NEGATIVE MG/DL) NEGATIVE Urine Ketones (NEGATIVE MG/DL) NEGATIVE Urine Blood (NEGATIVE) NEGATIVE Urine Nitrite (NEGATIVE) NEGATIVE Urine Bilirubin (NEGATIVE) NEGATIVE Urine Urobilinogen (<=1.0 EU/dL) 0.2 Ur Leukocyte Esterase (NEGATIVE) NEGATIVE Urine RBC (<4 - 5 /HPF) 0-3 Urine WBC (<4 - 5 /HPF) 0-3 Ur Squamous Epith Cells (0 - 5 (RARE) 0-5 (RARE)/HPF) Urine Bacteria (None - Rare /HPF) Rare 01/02 1656 Chemistry POC Glucose (74 - 106 MG/DL) 120 H Microbiology:01/02 2142 NASAL: MRSA Surveillance Culture - RECD Diagnosis, Assessment PlanProblem List/A P: 1. Right-sided lacunar stroke 2. Impaired balance as late effect of cerebrovascular accident 3. Reduced mobility 4. Hypertension 5. Generalized weakness 6. Right homonymous hemianopsia 7. Right-sided visual neglect Free Text A P:- Cont secondary ppx per IM- Ongoing comprehensive rehab with PT/OT to address mobility, transfers, ADLs, teach compensatory strategies, and evaluate need for DME- INSPECTOR TYPE to address cognition and swallow- Would benefir from follow up with neuroophthalmologist if available- Monitor BP and adjust medications if needed- Water Valve Mechanic following. Optimize nutritionRehab attestation:Face to face exam completed. Treatment plan discussed with patient. Meets continued stay criteria. Agree with interdisciplinary treatment plan. >35 minutes spent on patient care, coordination of care, and counselling regarding diagnosis, prognosis, and treatment plan. at [address] [facility] #:[id number] OF REPORTPRProgress uvom8555-58-92T13:48:00C.[id number] 184AVAvailable for patient lmfoOBXMGSLDNMKRPR4295-96-83J24:51:37 [facility] 2022-01-03 07:10:00 [id number]v gYr7xmYeAgjOXvZBT6QxiPkHVSUzacrf+lenz3S 9855-62-98X79:10:00 [facility] ([facility])Neurology Consultation NoteREPORT#:[id number] REPORT STATUS: SignedDATE:01/03/22 TIME: 709 PATIENT: FRANSICO PÉREZ UNIT #: [id number]#: [id number] [address] [birth year] AGE: 71 SEX: F ATTEND: Joshua Acosta [facility] AUTHOR: Lianet Hernandez * ALL edits or amendments must be made on the electronic/computer document * Lianet Hernandez 01/03/22 0710:History of Present Illness Free Text HPI NotesFree Text HPI Notes:This is a 71 years old female who presented to the ER with severe dizziness, abdpain, and nausea. Code neuro was called with TPA given. Brain imaging showed asmall acute/subacute stroke involving right middle cerebellar peduncle. TPA wasgiven. Pt is now neurologically stable and is currently in [facility] for more intensive therapy. History - Adult longitudinalAdditional medical history:colitisAlcohol use: Denies EtOH useDrug use: Denies recreational drugsSmoking status: Smoking status for patients 13 years old or older: Unknown,if ever smokedAdditional social history:Lives alone in [place]. Plans to move temporarily with her sister in [place] who lives in a one story house with a bedroom for her.Allergies:Coded Allergies:Sulfa (Sulfonamide Antibiotics) (Intermediate, HIVES 12/26/21)butorphanol (From STADOL) (Intermediate, HIVES 12/26/21)levofloxacin (From LEVAQUIN) (VOMITING 12/26/21) Objective GeneralVS:Last Documented: Result Date Time Pulse Ox 94 01/03 1415 B/P 133/82 01/03 1415 B/P Mean 98.9 01/03 1415 Pulse 81 01/03 1415 O2 Delivery Room air 01/03 629 Temp 98.2 01/03 629 Resp 20 01/03 629 PATIENT WEIGHT: Weight (lb): 192Weight (oz): 7.42Weight (kg): 87.300 MedicationsCurrent Home MedicationsMesalamine (DELZICOL) CLOPIDOGREL (PLAVIX) 75 MG PO DAILY ATORVASTATIN (LIPITOR) 40 MG PO BEDTIME amLODIPine (NORVASC) 5 MG PO DAILY ASPIRIN 81 MG PO DAILY GABAPENTIN (NEURONTIN) 300 MG PO DAILY MECLIZINE (ANTIVERT) 25 MG PO Q6H PRN PRN DIZZINESS Active Meds + DC'd Last 24 HrsPatient Own Medication (PT'S OWN HOME MED--MUST SCAN) MESALAMINE DR 400 MG CAPSULES Q12HR PO Amlodipine Besylate (amLODIPine) 5 MG DAILY PO Aspirin (ASPIRIN CHEWABLE) 81 MG DAILY PO Clopidogrel Bisulfate (PLAVIX) 75 MG DAILY PO Estradiol (ESTRACE) 0.5 MG DAILY PO Gabapentin (NEURONTIN) 300 MG DAILY PO Atorvastatin Calcium (LIPITOR) 40 MG BEDTIME PO Mesalamine (DELZICOL) 400 MG BID PO (DC) Meclizine HCl (ANTIVERT) 25 MG Q6H PRN PRN PO Acetaminophen (TYLENOL REGULAR) 650 MG Q4H PRN PRN PO Bisacodyl (DULCOLAX,CORRECTOL) 10 MG DAILY PRN PRN PO Lactulose (CONSTULOSE) 30 ML DAILY PRN PRN PO (CKD) Magnesium Hydroxide (MILK OF MAGNESIA U/D) 30 ML DAILY PRN PRN PO Ondansetron Base (ZOFRAN ODT) 4 MG Q4H PRN PRN SL Senna/Docusate Sodium (SENOKOT-S) 2 TAB DAILY PRN PRN PO Physical ExamGeneral appearance: alert, awakeHead/Eyes: atraumatic, clear cornea, normal conjunctiva/sclera, normocephalicENT: normal ear right, normal ear left, normal nose, normal pharynxNeck: full range of motion, non-tender, supple/no meningismus, no bruit / NL carotids, no masses or swellingCardiovascular: regular rate and rhythmRespiratory: clear to auscultation, no distressAbdomen: non-tender, normal bowel sounds, no distentionExtremities: moves all, normal inspection, no edemaMusculoskeletal: full range of motion, normal inspection SpeechSpeech: normal Mental StatusOrientation:Yes: to time, to place, to person, to situation. Cognitive FunctionCognitive function: normal executive function Diagnosis, Assessment Plan Free Text DxA P NotesFree text DxA P notes:#Dizziness#Nystagmus#Abdominal pain#S/p TPA The patient was given TPA as their was initial concern for posterior circulationstroke. CT head showed no acute findings. CTA head and neck showed no evidence of significant stenosis or occlusion. Neurological exam showed nystagmus during left gaze. No other abnormalities including cerebellar ataxia were elicited. Also suspect benign paroxysmal positional vertigo, which worsens her dizziness upon moving her head to the left. Repeat CT head after TPA administration showed no intracranial hemorrhage. Echocardiogram showed no evidence of shunting. MRI head showed small acute to subacute infarct involving the right middle cerebellar peduncle. 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 Patient will need to be on DAPTfor 21 days. Plan:- ASA, Plavix- Cont high intensity statin- Meclizine prn for dizziness - see plan from rehab/Dr Acosta- d/w Dr Tafoya, pt- will follow Jose Tafoya 01/03/22 1527:Attestations Physician AttestationAgree w/findings plan:Agree with the findings and plan as documented by Lianet Hernandez at 1510 at 1528 RPT #:[id number] OF REPORTYSJouojwqcqcjn2177-47-26Y61:10 :00C.[id number] for patient zmvjQKOOHZYSZRAVXA4210-86-51Q59:11:08 [facility] 2022-01-02 13:09:00 [id number] Em1nUPOwo/HgcyYTy3Z9hk8UqvWpNFeQw1Lhu84 21-01-03T13:09:00 [place] Hospitalist Discharge SummaryREPORT#:[id number] REPORT STATUS: SignedDATE:01/02/22 TIME: 1309 PATIENT: ELISAFRANSICO D UNIT #: [id number]#: [id number] ROOM/BED: [place] [id number]: 52 AGE: 71 SEX: F ATTEND: Domi Barry AUTHOR: Juan Wang MD * ALL edits or amendments must be made on the electronic/computer document * General InformationDischarge date: 01/02/22Hospital course:as below Free Text DxA P NotesFree text DxA P notes:#Dizziness#Nystagmus#Abdominal pain#S/p TPA pt admited with dizziness and hearing loss s/p TPA CTA head and neck showed no evidence of significant stenosis or occlusion. Neurological exam showed nystagmus during left gaze. Also suspect benign paroxysmal positional vertigo, which worsens her dizziness upon moving her head to the left. Echocardiogram showed no evidence of shunting. MRI head showed small acute to subacute infarct involving the right middle cerebellar peduncle. The location of the infarct in the posterior fossa correlates with her symptoms of dizziness and right sided hearing loss (suspect AICA infarct). contineu DAPT for 21 days. pelvic mass , Tumor marker has been ordered by COMIC ARTIST patient likely would follow-up in [place] for her mass likely causing hypercoagulable state ok to DC to rehab time spend 35 min ObjectiveHead/Eyes: atraumatic, clear cornea Considered stroke alert: no Free Text Obj NotesFree Text Obj Notes:Head/Eyes: atraumatic, clear cornea, EOMI, normal conjunctiva/sclera, normal eyelids/periorb., normocephalic, PERRLENT: normal dentition, normal ear left, normal ear right, normal nose, normal pharynx, normal sinusNeck: full range of motion, non-tender, normal thyroid, supple/no meningismus, no bruit/NL carotids, no JVD, no masses or swellingCardiovascular: normal capillary refill, regular rate and rhythmRespiratory: clear to auscultation, no distressAbdomen: soft, non-tender, no distention, no guarding, no reboundExtremities: moves all, normal capillary refill, normal range of motion, no edemaMusculoskeletal: normal inspectionNeuro/SPOOL CLEANER: alert, oriented X 3 Considered stroke alert: no Discharge Instructions PCPDischarge to: Home/Self CareAdditional Discharge Routines: PCP Follow-UpDiet: Cardiac Follow-up AppointmentsPCP follow-up: PCP: No Primary or Family Physician PCP follow up timeframe: In 3 days at [address] [facility] #:[id number] OF REPORTDSDischarge tnsrupr7951-84-86L04:09:00C.[id number] for patient mkvdQXIBYKWYAGQZKV3571-44-36S77:11:29 [facility] 2022-01-02 12:30:00 [id number]+Dxhu 9+bKZW6dVOSFgqFVCvpbJMcUtrdNRDZ9/Wf6c72 3849-62-30J68:30:00 [facility])Rehab History PhysicalREPORT#:[id number] REPORT STATUS: SignedDATE:01/02/22 TIME: 1230 PATIENT: FRANSICO PÉREZ UNIT #: [id number]#: [id number] [address] [birth year] AGE: 71 SEX: F ATTEND: Joshua Acosta [facility] AUTHOR: Joshua Acosta MD * ALL edits or amendments must be made on the electronic/computer document * HPI HPIChief complaint:strokeHPI:Ms. Pérez is a 71-year-old female who presented to the hospital with c/o severedizziness with associated abdominal pain and nausea. She reported that she was unable to open her eyes without feelings of vertigo. Code neuro was called and TPA was given. She was admitted to [facility] for further evaluation and management. Imaging revealed a small acute to subacute nonhemorrhagic infarct involving the right middle cerebellar peduncle. During this hospital stay, the patient also c/o abdominal pain and an obstetrics consult was placed. She was found to have a pelvic mass, of which she was already aware, and is following up as an outpatient. Patient continues to have dizzines, although it is improved with medications and she continues to have increased left-sided weakness. With her acute conditions being addressed her medical team has determined that she is nowmedically stable and ready for inpatient rehab to address her functional deficits that are preventing her from returning home safely. She will require 24hour medical management during rehab for frequent neuro checks, pain management,vitals monitoring during activity, monitoring for signs and symptoms of infection, and monitoring/adjusting of medications. Prior to onset patient was living at home with her sister where she was functioning independently. Plan is for patient to return home with assistance from her sister and outside agencies as needed after rehab. Patient was seen on arrival to inpatient rehab this afternoon. She reports minimal weakness but mostly issues with coordination and balance. She also reports right sided neglect and visual loss. She is motivated to start therapy to regain her functional independence.Impairment group: stroke NOTE Document ONLY ONE Impairment Group Stroke: left body (right brain)Etiologic diagnosis:right lacunar stroke HistoryPreadmit diagnostic/labs: Date: 12/28/21 WBC: 7.8 HGB: 14.9 HCT: 44.8 Ca: 8.5 Na: 138 K+: 3.7 Glu: 107 M.1 BUN: 20 Creat: 0.7 Tot protein: Alb: PTT: PT: INR: PLT: 292 Additional labs: 12/26/21 SARS-CoV-2 Ag (Rapid): Negative 01/02/22 SARS-CoV-2 Ag (Rapid): PendingCultures: Imagin12/30/21 XR Swallow: No evidence of laryngeal penetration or aspiration.12/28/21 Brain MRI: Small acute to subacute nonhemorrhagic infarct involving the right middle cerebellar peduncle. 12/27/21 US Transvaginal: 5.5 cm complex cystic structure in the vaginal cuff, to the left midline. Differential considerations include residual endometrioma, hemorrhagic cyst, or other mass lesion. Further evaluation with pre and postcontrast enhanced MRI of the pelviswould be of benefit.Other supporting diagnostics: Additional medical history:colitisAlcohol use: Denies EtOH useDrug use: Denies recreational drugsAdditional social history:Lives alone in [place]. Plans to move temporarily with her sister in [place] wholives in a one story house with a bedroom for her.Medications:Home Medications:Mesalamine (DELZICOL) CLOPIDOGREL (PLAVIX) 75 MG PO DAILY ATORVASTATIN (LIPITOR) 40 MG PO BEDTIME amLODIPine (NORVASC) 5 MG PO DAILY ASPIRIN 81 MG PO DAILY GABAPENTIN (NEURONTIN) 300 MG PO DAILY MECLIZINE (ANTIVERT) 25 MG PO Q6H PRN PRN DIZZINESS Allergies:Coded Allergies:Sulfa (Sulfonamide Antibiotics) (Intermediate, HIVES 12/26/21)butorphanol (From STADOL) (Intermediate, HIVES 12/26/21)levofloxacin (From LEVAQUIN) (VOMITING 12/26/21) ROS Isofluxll systems rev neg: except as marked Objective Functional Assessment/ExamMental Status Comments:awake, alert, interactive; answers simple questions appropriately, follows commands; fair recall; oriented to person, place, and timeStrength Detail Comments:4/5 strength in bilateral upper and lower extremitiesReflexes:+1: R Bicep:, L Bicep:, R Patella:, L Patella:. Reflex/Spasticity Comments:no clonusSpeech: normalCranial Nerves:Normal: III, IV, :, V:, VII:, IX, X:, XI:. Sensory:Normal: Light Touch:. Coordination: mild dysmetria with bilateral finger to nose to finger, right hemianopsia and neglect Physical ExamVS:Last Documented: Result Date Time Pulse Ox 98 01/02 1520 B/P 124/79 01/02 1520 B/P Mean 93.7 01/02 1520 Temp 36.7 01/02 1520 Pulse 75 01/02 1520 Resp 16 01/02 1520 PATIENT WEIGHT: Weight (lb): 192Weight (oz): 7.42Weight (kg): 87.300 General appearance: alert, awake, oriented, no acute distressPsych: alert, normal affect, oriented x 3HEENT: anicteric, mucosal membranes moist, pupils reactive to light, sclera clearNeck: non-tender, supple, no JVDCardiovascular: regular rate rhythm, S1/N5Txwfpvwqsew: aerating well, clear bilaterally, clear to auscultationAbdomen: non-distended, non-tender to palpation, soft Diagnosis, Assessment Plan Diagnosis, Assessment PlanProblem List/A P: 1. Right-sided lacunar stroke 2. Impaired balance as late effect of cerebrovascular accident 3. Reduced mobility 4. Hypertension 5. Generalized weakness 6. Right homonymous hemianopsia 7. Right-sided visual neglect Free Text A P:- Cont secondary ppx per IM- Ongoing comprehensive rehab with PT/OT to address mobility, transfers, ADLs, teach compensatory strategies, and evaluate need for DME- INSPECTOR TYPE to address cognition and swallow- Would benefir from follow up with neuroophthalmologist if available- Monitor BP and adjust medications if needed- Water Valve Mechanic following. Optimize nutritionReview of comorbidities:Reviewed Compare to PAS:No changes in medical or functional statusEstimated length of stay:18-23 days Acute Rehab Attestation NOTE Attestation is for MD onlyRehab MD attestation:Based upon my evaluation, the patient's medical management and rehabilitation needs require an inpatient stay and close physician involvement. Patient can be expected to actively participate in, and benefit from, an intensive rehab therapy program whose intensity is not provided in lower levels of care. Significant barriers that can only be addressed in an acute inpatient rehab program, including, but not limited to: Complex acute rehab needs: Custom therapy tx plan, Mgt of complex Co-morb, Multiple consulting MDs, Caregiver has limitations, Challenging home layout, Neuro interdisc tx, Med adjustment/mgmt., New medical diagnosis, New medical complication, Cognitive impairment mgt, Hospitalist consult, VTE Risk at 1645 RPT #:[id number] OF REPORTHPHistory and physical vboxirlnlil1907-99-73P53:30:00C.[id number] for patient fmswKNMTLDJUFIKYOX3237-65-52D32:46:13 [facility] 2022-01-02 12:26:00 [id number] 5675-34-39S79:26:00 [facility] ([facility])Rehab Preadmission ScreenREPORT#: REPORT STATUS:DATE:01/02/22 TIME: 1226 PATIENT: ELISAFRANSICO D UNIT #: ROOM: BED:: 52 AGE: 71 SEX: F ATTEND: AcostaJoshua cavazos MDPROJECTED ADM AUTHOR: Joshua Acosta MDREP SRV REP SRV TM: 1226* ALL edits or amendments must be made on the electronic/computer document * IRF Preadmission Screen Information From [facility] PAS documentation:The data set between the solid lines has been imported from [facility] PAS documentation. PREADMISSION INFORMATION: DEMOGRAPHICS: Assessment date: 01/02/22Assessment time: 1115Patient has an Advanced Directive: Content of advance directive/living will/plan of care: Copy of advance directive on chart: Referring physician: Regine Barry care provider: None statedConsulting physician(s): Elías Sam-Neurology Tawny Vincent-COMIC ARTIST Melissa Fernandez-Critical CareReferral contact name: Donna FlemingRefsoniaandriy contact number: [phone] setting: [facility] number: [id number] IMPAIRMENT GROUP: Impairment group: Stroke left body right brain Etiologic diagnosis: Right lacunar stroke REVIEW OF MED CONDITIONS: Date of onset: 12/26/21Current surgery date and type: Active comorbid conditions: Abdominal pain, Dizziness, Nystagmus, s/p TPA, Pelvic massPast medical and surgical history: Significant for colitis, endometriosis, biliary sludge, and bilateral benign breast lumpectomies. History also included hysterectomy, knee procedure, and vaginal "reconstruction" with mesh. Had major surgery within 100 days of admission: Walker for medical/clinical complications: Infection, Injury d/t falls, Pain, Skinbreakdown, Constipation, DepressionAcute hospital stay summary: This 71-year-old female presented to the hospital with c/o severe dizziness with associated abdominal pain and nausea. She reported that she was unable to open her eyes without feelings of vertigo. Code neuro was called and TPA was given. She was admitted to [facility] for further evaluation and management. Imaging revealed a small acute to subacute nonhemorrhagic infarct involving the right middle cerebellar peduncle. During this hospital stay, the patient also c/o abdominal pain and an obstetrics consult was placed. She was found to have a pelvic mass, of which she was already aware, and is following up as an outpatient. Patient continues to have dizzines, although it is improved with medications and she continues to have increased left-sided weakness. With her acute conditions being addressed her medical team has determined that she is now medically stable and ready for inpatient rehab to address her functional deficits that are preventing her from returning home safely. She will require 24 hour medical management during rehab for frequent neuro checks, pain management, vitals monitoring during activity, monitoring for signs and symptoms of infection, and monitoring/adjusting of medications. Prior to onset patient was living at home with her sister where shewas functioning independently. Plan is for patient to return home with assistance from her sister and outside agencies as needed after rehab. PREADMIT VITALS: Date/Time 01/02/22 0831 Temp F 97.7 Temp C Pulse 77 RR 17 BP 151/80 SPO2% 100 Ht ft 5 Ht in 4 Wt lbs 195.000 BMI 33.5 SUPPORTING DIAGNOSTICS/LABS/RADIOLOGY/CARDIOLOGY: Date: 12/28/21 WBC: 7.8 HGB: 14.9 HCT: 44.8 Ca: 8.5 Na: 138 K+: 3.7 Glu: 107 M.1 BUN: 20 Creat: 0.7 Tot protein: Alb: PTT: PT: INR: PLT: 292 Additional labs: 12/26/21 SARS-CoV-2 Ag (Rapid): Negative 01/02/22 SARS-CoV-2 Ag (Rapid): PendingCultures: Imagin12/30/21 XR Swallow: No evidence of laryngeal penetration or aspiration.12/28/21 Brain MRI: Small acute to subacute nonhemorrhagic infarct involving the right middle cerebellar peduncle. 12/27/21 US Transvaginal: 5.5 cm complex cystic structure in the vaginal cuff, to the left midline. Differential considerations include residual endometrioma, hemorrhagic cyst, or other mass lesion. Further evaluation with pre and postcontrast enhanced MRI of the pelviswould be of benefit.Other supporting diagnostics: RESPIRATORY STATUS: Respiratory treatments: Incentive spirometer, OxygenO2 liters per minute: 2Respiratory status: Respiratory status adequate for functional task completion with PRN support. NEUROLOGIC STATUS: Neurologic status: Alert, Oriented to person, Oriented to place, Oriented to time, Follows simple commandsPatient's mood and behavior: Appropriate, SocialHand dominance: Right BOWEL/BLADDER: Continent of bladder for developmental age: YesNumber of bladder accidents in last 48 hours: Catheter type: Insertion date: Bladder aids: Bladder comment: Continent of bowel for developmental age: YesNumber of bowel accidents in last 48 hours: Date of last BM: Colostomy: Ileostomy: Bowel aids: Bowel comment: SKIN: Skin alteration: None SKIN ALTERATION 1: Type: Location: Stage: Description: SKIN ALTERATION 2: Type: Location: Stage: Description: SKIN ALTERATION 3: Type: Location: Stage: Description: SKIN ALTERATION 4: Type: Location: Stage: Description: EATING/NUTRITIONAL: Nutritional intake: Low fiber/Low residue, High fiberEating compensatory strategies: Medication administration: Medications whole, Subcutaneous, IV REHAB NEEDS: Special rehabilitation needs: IV/PICC/CVC, Q7Lszgdfd rehabilitation precautions: Safety/fallRehabilitation precaution detail: Patient at increased risk for falls due to weakness. FUNCTIONAL ASSESSMENT: FUNC. TASK PRIOR LOF CURRENT LOF EXPECTED LOF Bathing Independent Partial/moderate asst Setup/cleanup ONLY U.B. Dressing Independent Partial/moderate asst Independent L.B. Dressing Independent Partial/moderate asst Independent Bed/Ch Transf. Independent Partial/moderate asst Independent Toilet Transfer Independent Partial/moderate asst Independent Stairs Independent Partial/moderate asst Independent Locomotion Independent Partial/moderate asst Independent Locomotion prior device use: NoneDescription of prior level of locomotion: Locomotion current device: RW/FWWLocomotion current distance traveled without a rest break: 150+Description of current level of locomotion: Slow candace Bilateral short steps Decreased foot clearanceDescription of expected level of locomotion: Using assistive devices as needed Language and Cognition: Patient is alert, oriented, and able to follow commands in order to participate and benefit from inpatient rehab. Add'l functional comment: Patient presents with decreased strength, decreased balance, and decreased activity tolerance all of which negatively impact her ability to complete self-care tasks and functional mobility tasks with increasedindependence and safety which prevents her from returning home safely at this time. Prior device use: NonePrior device use additional information: PRE-HOSPITAL: Pre-hospital services utilized: NoneOccupation/Profession: RetiredEducation history: Return to work/school plan: Patient is motivated to return home after rehab. Marital status: DivorcedHobbies/leisure activities: Prior living situation: HomeLiving with: FamilyLiving with comment: Lives with sister ANTICIPATED DC PLAN/POST IRF: Primary support contact: Carlita CamposRelationship to patient: SisterPhone number 1: [phone] number 2: Caregiver availability: Evenings onlyCaregiver can provide: Intermittent assistancePatient/caregiver goals/preferences: Patient's goal is absolutely healing and toreturn home. Expected discharge destination: HomeExpected discharge physical layout: One story, Tub/shower comboNumber of external stairs: Number of internal stairs: Railing details: Grab bars location: Barriers to discharge: NoneOptions discussed with patient: YesOptions discussed with caregiver: YesPatient agrees with program requirements: Yes ACTIVITY TOLERANCE: Current treatment interventions: Occupational therapy, Physical therapy, Speech therapyPatient able to tolerate 3 hours of therapy a day: YesPatient able to tolerate 15 hours of therapy a week: Altered therapy schedule comment: ACUTE INPATIENT REHAB PLAN: Estimated length of stay in days: 16Anticipated services in acute inpatient rehab: Rehab nursing 25/03, employee relation manager,Occupational therapy, Physical therapy, Dietitian CRS ELECTRONIC SIGNATURE: CRS #1 electronic signature: Velma Wright credentials: OTRDate: 01/02/22Time: 1211 CRS #2 electronic signature: MORALES credentials: Date: Time: CRS #3 electronic signature: CRS credentials: Date: Time: Provider Pre-Admit SummaryAcute IP rehab admit: criteria metMD determinationBased upon my evaluation and review of the supporting assessment documentation and consultation with the preadmission fuel tank sealer and tester, I have determined, prior to admitting this patient, that there is reasonable expectation that at the time of admission to the IRF, the patient's medical management and rehabilitation needs require an inpatient stay and close physician involvement. Patient can be expected to actively participate in, and benefit from, and intensive rehab therapy program whose intensity is not provided in lower levels of care. Significant barriers that can only be addressed in an acute inpatient rehab program, including, but not limited to: Complex acute rehab needs: Custom therapy tx plan, Mgt of complex Co-morb, Multiple consulting MDs, Caregiver has limitations, Challenging home layout, Neuro interdisc tx, Med adjustment/mgmt., New medical diagnosis, New medical complication, Cognitive impairment mgt, Hospitalist consult, VTE Risk at 1227 RPT #:[id number] OF REPORTCLClinical [id number]:26:00C.[id number] for patient [id number]:28:11 [facility] 2022-01-02 10:04:00 [id number] jxVikPaT53JPlgeU2jC/ntTdsO9jYVLsocLUw09 21-01-03T10:04:00 [facility]Ne[facility] Progress NoteREPORT#:[id number] REPORT STATUS: SignedDATE:01/02/22 TIME: 1004 PATIENT: FRANSICO PÉREZ UNIT #: [id number]#: [id number] [address]BED[address]-PENY: [address] AGE: 71 SEX: F ATTEND: Domi Barry MDA AUTHOR: Castillo Chirinos MD R1 * ALL edits or amendments must be made on the electronic/computer document * Castillo Chirinos 01/02/22 1004:SubjectiveComments:No acute overnight events. States she has some pain to touch on the right side of her face. Review of Systems Free Text ROS NotesFree Text ROS Notes:Constitutional: Reports dizziness. Denies chills, fatigue, fever, generalized weaknessEyes: Denies blurred vision, discharge, pain, redness, swellingENT: Reports hearing loss right ear. Denies ear drainage, ear ringing, throat pain, throat swelling, nose bleedingRespiratory: Denies productive cough, non-productive cough, dyspnea on exertion,pleuritic pain, shortness of breathCardiovascular: Denies chest pain, edema, palpitations, syncopeGI: Denies abdominal pain, vomiting, nausea, bloody/tarry stool, constipation, diarrheaGU: Denies dysuria, flank pain, hematuria, incontinence, dischargeMSK: Denies neck pain, back pain, thoracic pain, extremity pain, joint swelling,joint pain, myalgiaHematologic: Denies adenopathy, bleedingEndocrine: Denies cold intolerance, heat intolerance, weight loss, polyuria, polydipsiaSkin: Denies abrasion, erythema, itching, laceration, jaundice, ulcerationAllergy/Immun: Denies hives, itching, sneezing, rhinorrheaNeurologic: Denies bladder dysfunction, bowel dysfunction, change LOC, focal weaknessPsychiatric: Denies change mental status, agitation, anxiety, confusion Objective GeneralVS:Last Documented: Result Date Time Pulse Ox 100 01/02 831 B/P 151/80 01/02 831 B/P Mean 103 01/02 831 Temp 97.7 01/02 0831 Pulse 77 01/02 0831 Resp 17 01/02 0831 O2 Delivery Room air 01/01 1606 O2 Flow Rate 2 12/27 0050 ResultsFindings/Data:Laboratory Tests 01/01 01/01 1608 1121 Chemistry POC Glucose (74 - 106 MG/DL) 160 H 108 H Free Text Obj NotesFree Text Obj Notes:General: Awake, alert, not toxic appearing, no acute distressHead: Atraumatic, normocephalicEyes: Atraumatic, PERRL, EOMI, no periorbital swellness, no scleral icterusENT: Atraumatic, airway patent, no facial swelling, no trismusNeck: Full range of motion, no meningismus, no adenopathy, no swellingRespiratory: Atraumatic, breath sounds normal bilaterally, no respiratory distress, no wheezingCardiovascular: Heart rate normal, regular rhythm, no murmurs, pulses equal bilaterallyAbdomen: Atraumatic, soft, non-tender, no guarding, no rebound, no distention, no flank painLymphatic: No gross adenopathyMSK Back: Atraumatic, inspection normal, full range of motion, no paraspinal tendernessMSK Extremities: Atraumatic, inspection normal, full range of motion, no swelling, no erythemaSkin: Atraumatic, dry, intact, no swellingNeurologic: Oriented x3, speech normal, no motor deficits, no sensory deficits, CN II-XII intact, cerebellar testing normal, nystagmus on gaze testingto the leftPsychiatric: Affect normal, no delusions Treatment Prophylaxis IV Thrombolytic TherapyInclusion criteria: Dx of ischemic CVA, Measurable neuro deficit, Age >= 18, Onset < 3 hr before TxExclusion criteria: No exclusions Diagnosis, Assessment PlanFree Text A P:#Dizziness#Nystagmus#Abdominal pain#S/p TPA The patient was given TPA as their was initial concern for posterior circulationstroke. CT head showed no acute findings. CTA head and neck showed no evidence of significant stenosis or occlusion. Neurological exam showed nystagmus during left gaze. No other abnormalities including cerebellar ataxia were elicited. Also suspect benign paroxysmal positional vertigo, which worsens her dizziness upon moving her head to the left. Repeat CT head after TPA administration showed no intracranial hemorrhage. Echocardiogram showed no evidence of shunting. MRI head showed small acute to subacute infarct involving the right middle cerebellar peduncle. 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 Patient will need to be on DAPTfor 21 days. Plan:- ASA, Plavix- Cont high intensity statin- Meclizine prn for dizziness - Clear to d/c from neurology standpoint when medically stable Discussed with Dr. Tafoya. Jose Tafoya 01/02/22 1511:Attestations Teaching Physician AttestationF/U visit w/ resident:I saw the patient with the resident and . . . agree with the resident's findings and plan. at 1510 at 1511 RPT #:[id number] OF REPORTPRProgress [id number]:04:00C.[id number] for patient [id number]-75I95:11:12 [facility] 2022-01-01 12:58:00 [id number] 21-01-022:58:00 [facility] CenterHospitalist Progress NoteREPORT#:[id number] REPORT STATUS: SignedDATE:01/01/22 TIME: 1258 PATIENT: FRANSICO PÉREZ UNIT #: [id number]#: [id number] [address]WB[address]-SLWA: 52 AGE: 71 SEX: F ATTEND: Domi Barry [facility] AUTHOR: Juan Wang MD * ALL edits or amendments must be made on the electronic/computer document * SubjectiveChief complaint:Generalized weakness, left greater than rightPatient reports:No: complaints. Objective GeneralVS/I O:Vital Signs: Date Time Temp Pulse Resp B/P B/P Pulse O2 O2 Flow FiO2 Mean Ox Delivery Rate 01/01 1120 98.1 74 20 133/64 0.0 94 Room air 01/01 0738 98.2 75 16 128/67 0.0 91 Room air 01/01 0013 98.1 67 18 95 Room air 12/31 2119 97.7 26 12/31 1557 98.6 76 18 126/76 0.0 95 Room air 24 hour I O ending at 0700: 01/01 0700 12/31 1900 Intake Total 350 Output Total Balance 350 Intake, Oral 350 Number Voids 2 PATIENT WEIGHT: Weight (lb): 195Weight (oz): 12.33Weight (kg): 88.451 Medications:Active Meds + DC'd Last 24 HrsAcetaminophen (TYLENOL REGULAR) 650 MG Q8H PRN PRN PO Clopidogrel Bisulfate (PLAVIX) 75 MG DAILY PO Amlodipine Besylate (amLODIPine) 5 MG DAILY PO Aspirin (ASPIRIN CHEWABLE) 81 MG DAILY PO Atorvastatin Calcium (LIPITOR) 40 MG BEDTIME PO Meclizine HCl (ANTIVERT) 25 MG Q6H PRN PRN PO Insulin Human Lispro (HumaLOG) LOW DOSE SCALE ASDIR SUBQ Hydralazine HCl (APRESOLINE) 10 MG Q6H PRN PRN IV Dextrose/Water (DEXTROSE 50% SYR) 25 ML ASDIR PRN IV (CKD) Glucagon (GLUCAGON) 1 MG ASDIR PRN IM Miscellaneous Information (MED FORMULATION CHANGE - PHA CONSULT) 1 EACH ASDIR PO (CKD) Ondansetron HCl (ZOFRAN 4 MG/2 ML INJ) 4 MG Q4H PRN PRN IV Perflutren Lipid Microsphere (DEFINITY) DIRECTED ONCE PRN IV Sodium Chloride (NACL 0.9% 10ML SYRINGE) DIRECTED ONCE PRN IV Sodium Chloride (SODIUM CHLORIDE FLUSH) 5 ML ONCE PRN IV Physical ExamHead/Eyes: atraumatic, clear cornea Considered stroke alert: no ResultsFindings/Data:Laboratory Tests 01/01 12/31 12/31 12/31 1121 2117 1558 1313 Chemistry POC Glucose (74 - 106 MG/DL) 108 H 126 H 130 H 126 H Free Text Obj NotesFree Text Obj Notes:Head/Eyes: atraumatic, clear cornea, EOMI, normal conjunctiva/sclera, normal eyelids/periorb., normocephalic, PERRLENT: normal dentition, normal ear left, normal ear right, normal nose, normal pharynx, normal sinusNeck: full range of motion, non-tender, normal thyroid, supple/no meningismus, no bruit/NL carotids, no JVD, no masses or swellingCardiovascular: normal capillary refill, regular rate and rhythmRespiratory: clear to auscultation, no distressAbdomen: soft, non-tender, no distention, no guarding, no reboundExtremities: moves all, normal capillary refill, normal range of motion, no edemaMusculoskeletal: normal inspectionNeuro/SPOOL CLEANER: alert, oriented X 3 Considered stroke alert: no Diagnosis, Assessment Plan Free Text DxA P NotesFree text DxA P notes:1. CVA status post tPA2. Pelvic mass Tumor marker has been ordered by COMIC ARTIST patient likely would follow-up in [place] for her mass likely causing hypercoagulable stateMRI confirmed R lacunar stroke Continue meclizine for symptom controlasa, plavix , statin pt/ot -CM on board for snf placmeent at 1258 RPT #:[id number] OF REPORTPRProgress [id number]:58:00C.[id number] for patient [id number]:59:17 [facility] 2022-01-01 12:19:00 [id number] LVIUrPPew/YX+4qsFuvbc2VRyk0NOBHQ4gVTl33 21-01-022:19:00 [facility] CenterNe[facility] Progress NoteREPORT#:[id number] REPORT STATUS: SignedDATE:01/01/22 TIME: 1219 PATIENT: FRANSICO PÉREZ UNIT #: [id number]#: [id number] [address]ED: [address]QW[address]-GTOT: 52 AGE: 71 SEX: F ATTEND: Domi Barry [facility] AUTHOR: Castillo Chirinos MD R1 * ALL edits or amendments must be made on the electronic/computer document * Castillo Chirinos 01/01/22 1219:SubjectiveComments:No acute overnight events. No new neurologic symptoms. Working with physical therapy this morning. Review of Systems Free Text ROS NotesFree Text ROS Notes:Constitutional: Reports dizziness. Denies chills, fatigue, fever, generalized weaknessEyes: Denies blurred vision, discharge, pain, redness, swellingENT: Reports hearing loss right ear. Denies ear drainage, ear ringing, throat pain, throat swelling, nose bleedingRespiratory: Denies productive cough, non-productive cough, dyspnea on exertion,pleuritic pain, shortness of breathCardiovascular: Denies chest pain, edema, palpitations, syncopeGI: Denies abdominal pain, vomiting, nausea, bloody/tarry stool, constipation, diarrheaGU: Denies dysuria, flank pain, hematuria, incontinence, dischargeMSK: Denies neck pain, back pain, thoracic pain, extremity pain, joint swelling,joint pain, myalgiaHematologic: Denies adenopathy, bleedingEndocrine: Denies cold intolerance, heat intolerance, weight loss, polyuria, polydipsiaSkin: Denies abrasion, erythema, itching, laceration, jaundice, ulcerationAllergy/Immun: Denies hives, itching, sneezing, rhinorrheaNeurologic: Denies bladder dysfunction, bowel dysfunction, change LOC, focal weaknessPsychiatric: Denies change mental status, agitation, anxiety, confusion Objective GeneralVS:Last Documented: Result Date Time Pulse Ox 94 01/01 112 B/P 133/64 01/01 1120 B/P Mean 0.0 01/02 1120 O2 Delivery Room air 01/02 1120 Temp 98.1 01/01 112 Pulse 74 01/01 1120 Resp 20 01/01 112 O2 Flow Rate 2 12/27 0050 ResultsFindings/Data:Laboratory Tests 01/01 12/31 12/31 12/31 1121 2117 1558 1313 Chemistry POC Glucose (74 - 106 MG/DL) 108 H 126 H 130 H 126 H Free Text Obj NotesFree Text Obj Notes:General: Awake, alert, not toxic appearing, no acute distressHead: Atraumatic, normocephalicEyes: Atraumatic, PERRL, EOMI, no periorbital swellness, no scleral icterusENT: Atraumatic, airway patent, no facial swelling, no trismusNeck: Full range of motion, no meningismus, no adenopathy, no swellingRespiratory: Atraumatic, breath sounds normal bilaterally, no respiratory distress, no wheezingCardiovascular: Heart rate normal, regular rhythm, no murmurs, pulses equal bilaterallyAbdomen: Atraumatic, soft, non-tender, no guarding, no rebound, no distention, no flank painLymphatic: No gross adenopathyMSK Back: Atraumatic, inspection normal, full range of motion, no paraspinal tendernessMSK Extremities: Atraumatic, inspection normal, full range of motion, no swelling, no erythemaSkin: Atraumatic, dry, intact, no swellingNeurologic: Oriented x3, speech normal, no motor deficits, no sensory deficits, CN II-XII intact, cerebellar testing normal, nystagmus on gaze testingto the leftPsychiatric: Affect normal, no delusions Treatment Prophylaxis IV Thrombolytic TherapyInclusion criteria: Dx of ischemic CVA, Measurable neuro deficit, Age >= 18, Onset < 3 hr before TxExclusion criteria: No exclusions Diagnosis, Assessment PlanFree Text A P:#Dizziness#Nystagmus#Abdominal pain#S/p TPA The patient was given TPA as their was initial concern for posterior circulationstroke. CT head showed no acute findings. CTA head and neck showed no evidence of significant stenosis or occlusion. Neurological exam showed nystagmus during left gaze. No other abnormalities including cerebellar ataxia were elicited. Also suspect benign paroxysmal positional vertigo, which worsens her dizziness upon moving her head to the left. Repeat CT head after TPA administration showed no intracranial hemorrhage. Echocardiogram showed no evidence of shunting. MRI head showed small acute to subacute infarct involving the right middle cerebellar peduncle. 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 Patient will need to be on DAPTfor 21 days. Plan:- ASA, Plavix- Cont high intensity statin- Meclizine prn for dizziness - Clear to d/c from neurology standpoint when medically stable Discussed with Dr. Tafoya. Jose Tafoya 01/02/22 0649:Attestations Teaching Physician AttestationF/U visit w/ resident:I saw the patient with the resident and . . . agree with the resident's findings and plan. at 8565 at 0610 RPT #:[id number] OF REPORTPRProgress [id number]:19:00C.[id number] [id number] for patient qaekGHDJXRDBBQOEOA8946-62-50P70:37:23 [facility] 2021-12-31 12:25:00 [id number] vmY9+SqJgVu4PfWof9YCnFvKAE1mMpMEf+Hk720 21-01-01T12:25:00 [place] [facility]ist Progress NoteREPORT#:[id number] REPORT STATUS: SignedDATE:12/31/21 TIME: 1225 PATIENT: FRANSICO PÉREZ UNIT #: [id number]#: [id number] ROOM/BED: [place] [address]IE[address]-UNIQ: 52 AGE: 71 SEX: F ATTEND: Domi Barry [facility] AUTHOR: Juan Wang MD * ALL edits or amendments must be made on the electronic/computer document * SubjectiveChief complaint:Generalized weakness, left greater than rightPatient reports:No: complaints. Objective GeneralMedications:Active Meds + DC'd Last 24 HrsAcetaminophen (TYLENOL REGULAR) 650 MG Q8H PRN PRN PO Clopidogrel Bisulfate (PLAVIX) 75 MG DAILY PO Amlodipine Besylate (amLODIPine) 5 MG DAILY PO Aspirin (ASPIRIN CHEWABLE) 81 MG DAILY PO Atorvastatin Calcium (LIPITOR) 40 MG BEDTIME PO Meclizine HCl (ANTIVERT) 25 MG Q6H PRN PRN PO Insulin Human Lispro (HumaLOG) LOW DOSE SCALE ASDIR SUBQ Hydralazine HCl (APRESOLINE) 10 MG Q6H PRN PRN IV Dextrose/Water (DEXTROSE 50% SYR) 25 ML ASDIR PRN IV (CKD) Glucagon (GLUCAGON) 1 MG ASDIR PRN IM Miscellaneous Information (MED FORMULATION CHANGE - PHA CONSULT) 1 EACH ASDIR PO (CKD) Ondansetron HCl (ZOFRAN 4 MG/2 ML INJ) 4 MG Q4H PRN PRN IV Perflutren Lipid Microsphere (DEFINITY) DIRECTED ONCE PRN IV Sodium Chloride (NACL 0.9% 10ML SYRINGE) DIRECTED ONCE PRN IV Sodium Chloride (SODIUM CHLORIDE FLUSH) 5 ML ONCE PRN IV Physical ExamHead/Eyes: atraumatic, clear cornea Considered stroke alert: no Free Text Obj NotesFree Text Obj Notes:Head/Eyes: atraumatic, clear cornea, EOMI, normal conjunctiva/sclera, normal eyelids/periorb., normocephalic, PERRLENT: normal dentition, normal ear left, normal ear right, normal nose, normal pharynx, normal sinusNeck: full range of motion, non-tender, normal thyroid, supple/no meningismus, no bruit/NL carotids, no JVD, no masses or swellingCardiovascular: normal capillary refill, regular rate and rhythmRespiratory: clear to auscultation, no distressAbdomen: soft, non-tender, no distention, no guarding, no reboundExtremities: moves all, normal capillary refill, normal range of motion, no edemaMusculoskeletal: normal inspectionNeuro/SPOOL CLEANER: alert, oriented X 3 Considered stroke alert: no Diagnosis, Assessment Plan Free Text DxA P NotesFree text DxA P notes:1. CVA status post tPA2. Pelvic mass Tumor marker has been ordered by COMIC ARTIST patient likely would follow-up in [place] for her mass likely causing hypercoagulable stateMRI confirmed R lacunar stroke Continue meclizine for symptom controlasa, plavix , statin pt/ot -CM on board for snf placmeent at 1225 RPT #:[id number] OF REPORTPRProgress [id number]:25:00C.[id number] [id number] for patient hhdzNLLPGPUBBROKJY8669-76-44Z69:26:20 [facility] 2021-12-30 14:15:00 [id number] lyQ14695A+qdwd8zCS8+BQstU4HRiwaIFCRd166 22-12-29T14:15:00 [facility] Progress NoteREPORT#:[id number] REPORT STATUS: SignedDATE:12/30/21 TIME: 1415 PATIENT: ELISAFRANSICO D UNIT #: [id number]#: [id number] [address]-UYWV: [address] AGE: 71 SEX: F ATTEND: Domi Barry [facility] AUTHOR: Jose Tafoya MD * ALL edits or amendments must be made on the electronic/computer document * SubjectiveComments:no new events neurologically Objective GeneralVS:Last Documented: Result Date Time Pulse Ox 94 12/30 1017 B/P 116/64 12/30 1017 B/P Mean 0.0 12/30 1017 O2 Delivery Room air 12/30 1017 Temp 97.5 12/30 1017 Pulse 68 12/30 1017 Resp 16 12/30 1017 O2 Flow Rate 2 12/27 0050 PATIENT WEIGHT: Weight (lb): 195Weight (oz): 12.33Weight (kg): 88.451 MedicationsCurrent Home MedicationsMesalamine (DELZICOL) ESTRADIOL (ESTRACE) 0.5 MG PO DAILY Active Meds + DC'd Last 24 HrsAcetaminophen (TYLENOL REGULAR) 650 MG Q8H PRN PRN PO Clopidogrel Bisulfate (PLAVIX) 75 MG DAILY PO Amlodipine Besylate (amLODIPine) 5 MG DAILY PO Aspirin (ASPIRIN CHEWABLE) 81 MG DAILY PO Atorvastatin Calcium (LIPITOR) 40 MG BEDTIME PO Meclizine HCl (ANTIVERT) 25 MG Q6H PRN PRN PO Insulin Human Lispro (HumaLOG) LOW DOSE SCALE ASDIR SUBQ Hydralazine HCl (APRESOLINE) 10 MG Q6H PRN PRN IV Dextrose/Water (DEXTROSE 50% SYR) 25 ML ASDIR PRN IV (CKD) Glucagon (GLUCAGON) 1 MG ASDIR PRN IM Miscellaneous Information (MED FORMULATION CHANGE - PHA CONSULT) 1 EACH ASDIR PO (CKD) Ondansetron HCl (ZOFRAN 4 MG/2 ML INJ) 4 MG Q4H PRN PRN IV Perflutren Lipid Microsphere (DEFINITY) DIRECTED ONCE PRN IV Sodium Chloride (NACL 0.9% 10ML SYRINGE) DIRECTED ONCE PRN IV Sodium Chloride (SODIUM CHLORIDE FLUSH) 5 ML ONCE PRN IV Physical ExamGeneral appearance: sleeping comfortably, no acute distress, no respiratory distress ResultsFindings/Data:Laboratory Tests 12/30 12/30 12/29 12/29 1020 0545 1950 1642 Chemistry POC Glucose (74 - 106 MG/DL) 133 H 116 H 135 H 131 H Radiology Data:Recent Impressions:RADIOLOGY - XR SWLW FUNC W/C V 12/30 1046 Report Impression - Status: SIGNED Entered: 12/30/2021 1132 IMPRESSION:No evidence of laryngeal penetration or aspiration.Please see separate report by Speech Pathology for additional findingsand recommendations of the Speech Therapist. Fluoroscopic time: 1 minute 30 seconds, Total images: 1Dose: 0.16mGYImpression By: Meli Chand MD Results: labs reviewed, vital signs reviewed, x-ray personally reviewed, currentmed profile rev'd Diagnosis, Assessment PlanFree Text A P:#Dizziness#Nystagmus#Abdominal pain#S/p TPA The patient was given TPA as their was initial concern for posterior circulationstroke. CT head showed no acute findings. CTA head and neck showed no evidence of significant stenosis or occlusion. Neurological exam showed nystagmus during left gaze. No other abnormalities including cerebellar ataxia were elicited. Also suspect benign paroxysmal positional vertigo, which worsens her dizziness upon moving her head to the left. Repeat CT head after TPA administration showed no intracranial hemorrhage. Echocardiogram showed no evidence of shunting. MRI head showed small acute to subacute infarct involving the right middle cerebellar peduncle. 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 Patient will need to be on DAPTfor 21 days. Plan:- ASA, Plavix- Cont high intensity statin- Meclizine prn for dizziness - PT/OT/ST- Clear to d/c from neurology standpoint when medically stable at 1416 RPT #:[id number] OF REPORTPRProgress [id number]:15:00C.[id number] for patient xvcfQTCTQMWMQLPUHI6416-38-35C34:16:47 [facility] 2021-12-30 14:00:00 [id number] A2cKujDikXDH4LQprI+dtXsKwBqbgiow3m+z720 22-12-29T14:00:00 [facility] Progress NoteREPORT#:[id number] REPORT STATUS: SignedDATE:12/30/21 TIME: 1400 PATIENT: FRANSICO PÉREZ UNIT #: [id number]#: [id number] [address]: [address]557-GDOS: 52 AGE: 71 SEX: F ATTEND: Domi Barry [facility] AUTHOR: Juan Wang MD * ALL edits or amendments must be made on the electronic/computer document * SubjectiveChief complaint:Generalized weakness, left greater than rightPatient reports:No: complaints. Objective GeneralMedications:Active Meds + DC'd Last 24 HrsAcetaminophen (TYLENOL REGULAR) 650 MG Q8H PRN PRN PO Clopidogrel Bisulfate (PLAVIX) 75 MG DAILY PO Amlodipine Besylate (amLODIPine) 5 MG DAILY PO Aspirin (ASPIRIN CHEWABLE) 81 MG DAILY PO Atorvastatin Calcium (LIPITOR) 40 MG BEDTIME PO Meclizine HCl (ANTIVERT) 25 MG Q6H PRN PRN PO Insulin Human Lispro (HumaLOG) LOW DOSE SCALE ASDIR SUBQ Hydralazine HCl (APRESOLINE) 10 MG Q6H PRN PRN IV Dextrose/Water (DEXTROSE 50% SYR) 25 ML ASDIR PRN IV (CKD) Glucagon (GLUCAGON) 1 MG ASDIR PRN IM Miscellaneous Information (MED FORMULATION CHANGE - PHA CONSULT) 1 EACH ASDIR PO (CKD) Ondansetron HCl (ZOFRAN 4 MG/2 ML INJ) 4 MG Q4H PRN PRN IV Perflutren Lipid Microsphere (DEFINITY) DIRECTED ONCE PRN IV Sodium Chloride (NACL 0.9% 10ML SYRINGE) DIRECTED ONCE PRN IV Sodium Chloride (SODIUM CHLORIDE FLUSH) 5 ML ONCE PRN IV Physical ExamHead/Eyes: atraumatic, clear cornea Considered stroke alert: no Free Text Obj NotesFree Text Obj Notes:Head/Eyes: atraumatic, clear cornea, EOMI, normal conjunctiva/sclera, normal eyelids/periorb., normocephalic, PERRLENT: normal dentition, normal ear left, normal ear right, normal nose, normal pharynx, normal sinusNeck: full range of motion, non-tender, normal thyroid, supple/no meningismus, no bruit/NL carotids, no JVD, no masses or swellingCardiovascular: normal capillary refill, regular rate and rhythmRespiratory: clear to auscultation, no distressAbdomen: soft, non-tender, no distention, no guarding, no reboundExtremities: moves all, normal capillary refill, normal range of motion, no edemaMusculoskeletal: normal inspectionNeuro/SPOOL CLEANER: alert, oriented X 3 Considered stroke alert: no Diagnosis, Assessment Plan Free Text DxA P NotesFree text DxA P notes:1. CVA status post tPA2. Pelvic mass Tumor marker has been ordered by COMIC ARTIST patient likely would follow-up in [place] for her mass likely causing hypercoagulable stateContinue meclizine for symptom controlasa, plavix , statin pt/ot -CM on board for snf placmeent at 1401 RPT #:[id number] OF REPORTPRProgress [id number]:00:00C.[id number] for patient yshpTDRKAVWZPQEHYK9508-38-85G53:02:03 [facility] 2021-12-29 18:53:00 [id number] co6pAh4+R87pZ2wQMLv5oLmXkjV7sCv1Fopj+20 22-12-28T18:53:00 [place] Hospitalist Progress NoteREPORT#:[id number] REPORT STATUS: SignedDATE:12/29/21 TIME: 1852 PATIENT: FRANSICO PÉREZ UNIT #: [id number]#: [id number] [address]-XHJL: 52 AGE: 71 SEX: F ATTEND: Domi Barry AUTHOR: Domi Barry MD * ALL edits or amendments must be made on the electronic/computer document * SubjectiveChief complaint:Generalized weakness, left greater than rightHPI:71 female came to the hospital with left-sided weakness, left facial droop with enteritis found to have nausea vomiting and acute CVA, status post tPA.Clinically doing well. Known to have history of pelvic mass but no interventionwere donePatient reports:Yes: dizziness. Objective GeneralVS/I O:Vital Signs: Date Time Temp Pulse Resp B/P B/P Pulse O2 O2 Flow FiO2 Mean Ox Delivery Rate 12/29 1639 98.1 64 19 147/89 108.0 95 Room air 12/29 1222 97.5 69 19 136/84 101.3 96 Room air 12/29 0815 98.1 76 14 125/63 0.0 95 Room air 12/29 0414 98.4 68 12 122/59 0.0 98 Room air 12/29 0032 95.9 62 13 114/58 0.0 98 Room air 12/29 2003 98.6 62 18 159/87 110.8 100 Room air 24 hour I O ending at 0700: 12/29 0700 12/28 1900 Intake Total Output Total Balance Patient 195 lb Weight PATIENT WEIGHT: Weight (lb): 195Weight (oz): 12.33Weight (kg): 88.451 Medications:Active Meds + DC'd Last 24 HrsClopidogrel Bisulfate (PLAVIX) 75 MG DAILY PO Amlodipine Besylate (amLODIPine) 5 MG DAILY PO Aspirin (ASPIRIN CHEWABLE) 81 MG DAILY PO Atorvastatin Calcium (LIPITOR) 40 MG BEDTIME PO Meclizine HCl (ANTIVERT) 25 MG Q6H PRN PRN PO Famotidine (PEPCID) 20 MG BID IV (DC) Sodium Chloride (NACL 0.9%) 10 MLInsulin Human Lispro (HumaLOG) LOW DOSE SCALE ASDIR SUBQ Hydralazine HCl (APRESOLINE) 10 MG Q6H PRN PRN IV Dextrose/Water (DEXTROSE 50% SYR) 25 ML ASDIR PRN IV (CKD) Glucagon (GLUCAGON) 1 MG ASDIR PRN IM Miscellaneous Information (MED FORMULATION CHANGE - PHA CONSULT) 1 EACH ASDIR PO (CKD) Ondansetron HCl (ZOFRAN 4 MG/2 ML INJ) 4 MG Q4H PRN PRN IV Perflutren Lipid Microsphere (DEFINITY) DIRECTED ONCE PRN IV Sodium Chloride (NACL 0.9% 10ML SYRINGE) DIRECTED ONCE PRN IV Sodium Chloride (SODIUM CHLORIDE FLUSH) 5 ML ONCE PRN IV Nutrition assessment:The data set between the solid lines has been imported from the dietitian's assessment. Any exceptions have been noted under Provider comments. BMI Calculated: 33.6Nutrition related diagnosis: Nutrition diagnosis details: Nutrition problem: Nutrition etiology: Nutrition signs and symptoms: Nutrition prescription: Dietitian name: Assessment completed: Provider comments on imported dietitian assessment: Physical ExamGeneral appearance: alert, awake, orientedHead/Eyes: atraumatic, clear cornea Considered stroke alert: no ResultsFindings/Data:Laboratory Tests 12/29 12/29 12/29 12/28 1642 1058 0411 1942 Chemistry POC Glucose (74 - 106 MG/DL) 131 H 127 H 111 H 113 H Results: labs reviewed, vital signs reviewed Free Text Obj NotesFree Text Obj Notes:Head/Eyes: atraumatic, clear cornea, EOMI, normal conjunctiva/sclera, normal eyelids/periorb., normocephalic, PERRLENT: normal dentition, normal ear left, normal ear right, normal nose, normal pharynx, normal sinusNeck: full range of motion, non-tender, normal thyroid, supple/no meningismus, no bruit/NL carotids, no JVD, no masses or swellingCardiovascular: normal capillary refill, regular rate and rhythmRespiratory: clear to auscultation, no distressAbdomen: soft, non-tender, no distention, no guarding, no reboundExtremities: moves all, normal capillary refill, normal range of motion, no edemaMusculoskeletal: normal inspectionNeuro/SPOOL CLEANER: alert, oriented X 3 Considered stroke alert: no Diagnosis, Assessment Plan Free Text DxA P NotesFree text DxA P notes:1. CVA status post tPA2. Pelvic mass Tumor marker has been ordered by COMIC ARTIST patient likely would follow-up in [place] for her mass likely causing hypercoagulable stateContinue meclizine for symptom controlWe will get case management for placement once PT OT recommendations are clear continue BP control mildly hypertensive we will start low-dose amlodipine Patient currently waiting for long-term facility placement at 1856 RPT #:[id number] OF REPORTPRProgress [id number]:53:00C.[id number] 090AVAvailable for patient orofBWEHXRUSYJLHMR4881-16-09Y59:57:11 [facility] 2021-12-29 18:37:00 [id number]+/3QDZ24EUjy1bXC WZSzAicW5Jze0mrD7mPs5Y10IKzvd3yzMyJTw48 22-12-28T18:37:00 [facility] ([facility])Critical Care Progress NoteREPORT#:[id number] REPORT STATUS: SignedDATE:12/29/21 TIME: 183 PATIENT: NAMRATA PÉREZRosalba Freire UNIT #: [id number]#: [id number] [address]-GTUZ: 52 AGE: 71 SEX: F ATTEND: Domi Barry [facility] AUTHOR: Melissa Fernandez MD * ALL edits or amendments must be made on the electronic/computer document * SubjectiveChief complaint:Diazziness Review of SystemsConstitutional:Denies: chills, fatigue, fever, generalized weakness, lethargy, malaise, recent wt loss, other. Objective Physical ExamHead/eyes: atraumatic, clear cornea, EOMI, normal conjunctiva/sclera, normal eyelids/periorb., normocephalic, PERRLENT: normal dentition, normal ear left, normal ear right, normal nose, normal pharynx, normal sinusNeck: full range of motion, non-tender, normal thyroid, supple/no meningismus, no bruit/NL carotids, no JVD, no masses or swellingCardiovascular: normal capillary refill, regular rate and rhythmRespiratory: clear to auscultation, no distressAbdomen: soft, non-tender, no distention, no guarding, no reboundExtremities: moves all, normal capillary refill, normal range of motion, no edemaMusculoskeletal normal inspectionNeuro/SPOOL CLEANER: alert, oriented X 3 Considered stroke alert: no Diagnosis, Assessment PlanFree text A P: 71 y/o F with pMHx of Enteritis who c/o severe dizziness accompanied with nausea/vomiting/diarrhea. The patient was admitted to Neuro [facility] for further evaluation and management of acute CVA status post TPA. #?Acute CVA-Neurology consulted-Status post TPA at 1637-CT Head: unremarkable. No intracranial hemorhage. -NIH 2-MRS, premorbid 0, estimated 3-Goal <180/105; Nicardipine PRN-EKG/ECHO w bubble study-LDL/A1c oukmbew-Vpmucxofpsvo-Rjbsov CT head 24 hours post TPA-MRI-PT/OT/INSPECTOR TYPE-Frequent neuro monitoring-Has nystagmusDoes nt appaer like cvaMRI pending #Abdominal Pain, N/V/D-CT Abd/Pelv: liver, spleen, gallbladder, pancreas, adrenal glands unremarkable.kidneys normal in size, no hydronephrosis or nephrolithiasis. stoamh small bowel, large bowel, appendix normal in appearance. no bowel obstruction. Cystic area in vaginal cuff concerning for possible mass-Zofran PRNobstetrics ocnsultWe will sign off. at 1830 RPT #:[id number] OF REPORTPRProgress [id number]:37:00C.[id number] 077AVAvailable for patient balxCXDTUGSOUYIFJF2770-13-81E13:39:29 [facility] 2021-12-29 11:05:00 [id number] SIwcBrAOIalLDwkiw6GSV7uvOLT3DwcIGAdgc01 22-12-28T11:05:00 [facility] Progress NoteREPORT#:[id number] REPORT STATUS: SignedDATE:12/29/21 TIME: 110 PATIENT: FRANSICO PÉREZ UNIT #: [id number]#: [id number] [address]-QYTP: 52 AGE: 71 SEX: F ATTEND: Domi Barry [facility] AUTHOR: Castillo Chirinos MD R1 * ALL edits or amendments must be made on the electronic/computer document * Castillo Chirinos 12/29/21 1105:SubjectiveComments:No acute overnight events. Reports that she her hearing is still affected on theright ear. No other new neurological symptoms. Pending discharge per primary. Review of Systems Free Text ROS NotesFree Text ROS Notes:Constitutional: Reports dizziness. Denies chills, fatigue, fever, generalized weaknessEyes: Denies blurred vision, discharge, pain, redness, swellingENT: Reports hearing loss right ear. Denies ear drainage, ear ringing, throat pain, throat swelling, nose bleedingRespiratory: Denies productive cough, non-productive cough, dyspnea on exertion,pleuritic pain, shortness of breathCardiovascular: Denies chest pain, edema, palpitations, syncopeGI: Denies abdominal pain, vomiting, nausea, bloody/tarry stool, constipation, diarrheaGU: Denies dysuria, flank pain, hematuria, incontinence, dischargeMSK: Denies neck pain, back pain, thoracic pain, extremity pain, joint swelling,joint pain, myalgiaHematologic: Denies adenopathy, bleedingEndocrine: Denies cold intolerance, heat intolerance, weight loss, polyuria, polydipsiaSkin: Denies abrasion, erythema, itching, laceration, jaundice, ulcerationAllergy/Immun: Denies hives, itching, sneezing, rhinorrheaNeurologic: Denies bladder dysfunction, bowel dysfunction, change LOC, focal weaknessPsychiatric: Denies change mental status, agitation, anxiety, confusion Objective GeneralVS:Last Documented: Result Date Time Pulse Ox 96 12/29 1222 B/P 136/84 12/29 1222 B/P Mean 101.3 12/29 1222 O2 Delivery Room air 12/29 1222 Temp 97.5 12/29 1222 Pulse 69 12/29 1222 Resp 19 12/29 1222 O2 Flow Rate 2 12/27 0050 PATIENT WEIGHT: Weight (lb): 195Weight (oz): 12.33Weight (kg): 88.451 ResultsFindings/Data:Laboratory Tests 12/29 12/29 12/28 12/28 1058 0411 1942 1541 Chemistry POC Glucose (74 - 106 MG/DL) 127 H 111 H 113 H 102 Free Text Obj NotesFree Text Obj Notes:General: Awake, alert, not toxic appearing, no acute distressHead: Atraumatic, normocephalicEyes: Atraumatic, PERRL, EOMI, no periorbital swellness, no scleral icterusENT: Atraumatic, airway patent, no facial swelling, no trismusNeck: Full range of motion, no meningismus, no adenopathy, no swellingRespiratory: Atraumatic, breath sounds normal bilaterally, no respiratory distress, no wheezingCardiovascular: Heart rate normal, regular rhythm, no murmurs, pulses equal bilaterallyAbdomen: Atraumatic, soft, non-tender, no guarding, no rebound, no distention, no flank painLymphatic: No gross adenopathyMSK Back: Atraumatic, inspection normal, full range of motion, no paraspinal tendernessMSK Extremities: Atraumatic, inspection normal, full range of motion, no swelling, no erythemaSkin: Atraumatic, dry, intact, no swellingNeurologic: Oriented x3, speech normal, no motor deficits, no sensory deficits, CN II-XII intact, cerebellar testing normal, nystagmus on gaze testingto the leftPsychiatric: Affect normal, no delusions Treatment Prophylaxis IV Thrombolytic TherapyInclusion criteria: Dx of ischemic CVA, Measurable neuro deficit, Age >= 18, Onset < 3 hr before TxExclusion criteria: No exclusions Diagnosis, Assessment PlanFree Text A P:#Dizziness#Nystagmus#Abdominal pain#S/p TPA The patient was given TPA as their was initial concern for posterior circulationstroke. CT head showed no acute findings. CTA head and neck showed no evidence of significant stenosis or occlusion. Neurological exam showed nystagmus during left gaze. No other abnormalities including cerebellar ataxia were elicited. Also suspect benign paroxysmal positional vertigo, which worsens her dizziness upon moving her head to the left. However, given her initial presentation in theED, continue workup to rule out acute ischemic event. Repeat CT head after TPA administration showed no intracranial hemorrhage. Echocardiogram showed no evidence of shunting. MRI head showed small acute to subacute infarct involving the right middle cerebellar peduncle. 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 Patient will need to be on DAPTfor 21 days. Plan:- ASA, Plavix- Cont high intensity statin- Meclizine prn for dizziness - PT/OT/ST- Clear to d/c from neurology standpoint when medically stable Discussed with Dr. Martinez. Cristal Martinez 12/29/21 1633:Attestations Physician AttestationAgree w/findings plan:Agree with the findings and plan as documented by resident. at 1412 at 1640 RPT #:[id number] OF REPORTPRProgress [id number]:05:00C.[id number] 495AVAvailable for patient rdmdVHRTRRNMTONHZJ3905-59-42J56:13:12 [facility] 2021-12-29 10:04:00 [id number]/mxVWpreISsSb2ZGLE JWjIitOEZp3F2ig9YZ3RRr6iTG7636I8/5vvn20 22-12-28T10:04:00 [facility] ([facility])Int. 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 at 1006 RPT #:[id number] OF REPORTPRProgress iasg9211-51-20O96:04:00C.[id number] 381AVAvailable for patient paeeZOBOZUEWKIWEMB4386-87-26P88:06:47 [facility] 2021-12-29 09:39:00 [id number] xG5Bt6F+PWp3Qngj1fkoH/Xp7FMm97i1AWxDX40 22-12-28T09:39:00 [facility]Clinical NoteREPORT#:[id number] REPORT STATUS: SignedDATE:12/29/21 TIME: 09 PATIENT: FRANSICO PÉREZ UNIT #: [id number]#: [id number] ROOM/BED: [place] [address]HY836-IEYV: 52 AGE: 71 SEX: F ATTEND: Domi Barry MDA AUTHOR: Mirela Gonzalez MD * ALL edits or amendments must be made on the electronic/computer document * Clinical NoteNote:CA 125 wnlIR consult placed to evaluate for possible drainage of vaginal collection at 0939 RPT #:[id number] OF REPORTCLClinical lski6042-09-30Y00:39:00C.[id number] 325AVAvailable for patient kgwgYKIINVNUPCJNGP4427-26-93I94:40:23 [facility] 2021-12-28 23:21:00 [id number]/P DZnVhkQyvVs2l2Oasi1Ez5i84ees0yNNn95nd32 23-12-27T23:21:00 [facility] CenterCritical [facility] Progress NoteREPORT#:[id number] REPORT STATUS: SignedDATE:12/28/21 TIME: 2320 PATIENT: FRANSICO PÉREZ UNIT #: [id number]#: [id number] [address]RLMU: [address] AGE: 71 SEX: F ATTEND: Domi Barry AUTHOR: Melissa Fernandez MD * ALL edits or amendments must be made on the electronic/computer document * SubjectiveChief complaint:Diazziness Review of SystemsUnable to obtain due to:severity of patient condition Objective Physical ExamHead/eyes: atraumatic, clear cornea, EOMI, normal conjunctiva/sclera, normal eyelids/periorb., normocephalic, PERRLENT: normal dentition, normal ear left, normal ear right, normal nose, normal pharynx, normal sinusNeck: full range of motion, non-tender, normal thyroid, supple/no meningismus, no bruit/NL carotids, no JVD, no masses or swellingCardiovascular: normal capillary refill, regular rate and rhythmRespiratory: clear to auscultation, no distressAbdomen: soft, non-tender, no distention, no guarding, no reboundExtremities: moves all, normal capillary refill, normal range of motion, no edemaMusculoskeletal normal inspectionNeuro/SPOOL CLEANER: alert, oriented X 3 Considered stroke alert: no Diagnosis, Assessment PlanFree text A P: 71 y/o F with pMHx of Enteritis who c/o severe dizziness accompanied with nausea/vomiting/diarrhea. The patient was admitted to Neuro [facility] for further evaluation and management of acute CVA status post TPA. #?Acute CVA-Neurology consulted-Status post TPA at 1637-CT Head: unremarkable. No intracranial hemorhage. -NIH 2-MRS, premorbid 0, estimated 3-Goal <180/105; Nicardipine PRN-EKG/ECHO w bubble study-LDL/A1c rgikddh-Rzboklcynqtq-Kuyxdl CT head 24 hours post TPA-MRI-PT/OT/INSPECTOR TYPE-Frequent neuro monitoring-Has nystagmusDoes nt appaer like cvaMRI pending #Abdominal Pain, N/V/D-CT Abd/Pelv: liver, spleen, gallbladder, pancreas, adrenal glands unremarkable.kidneys normal in size, no hydronephrosis or nephrolithiasis. stoamh small bowel, large bowel, appendix normal in appearance. no bowel obstruction. Cystic area in vaginal cuff concerning for possible mass-Zofran PRNobstetrics ocnsult KW ICU ChecklistICU Checklist:Analgesia: Nutrition:Glycemic control: NPOUlcer prophylaxis: FamotidineDVT prophylaxis: SCDsNeed for central Line: NoNeed for darnell catheter: No at 0838 RPT #:[id number] OF REPORTPRProgress xsgn4026-11-91A18:21:00C.[id number] 239AVAvailable for patient fscjZDWTWZNRWLCILP9339-49-86I94:38:33 [facility] 2021-12-28 18:56:00 [id number]+2Xlj9znDyOvXiVbn0 uDkzhqbOA3aG4VQ/QzJInsGbFSPCYvOhqoowo34 23-12-27T18:56:00 [place] [facility] Progress NoteREPORT#:[id number] REPORT STATUS: SignedDATE:12/28/21 TIME: 1855 PATIENT: FRANSICO PÉREZ UNIT #: [id number]#: [id number] [address]-ZDMJ: 52 AGE: 71 SEX: F ATTEND: Marcello Perdue [facility] AUTHOR: Arian Moraes MD * ALL edits or amendments must be made on the electronic/computer document * SubjectiveHPI:Patient who was recently from the ICU presented with acute CVA who received tPANIH is improved awaiting physical therapy occupational therapyCurrently on atorvastatin followed by neurology and aspirin Objective GeneralVS/I O:Vital Signs: Date Time Temp Pulse Resp B/P B/P Pulse O2 O2 Flow FiO2 Mean Ox Delivery Rate 12/28 1556 98.3 60 23 150/77 101 98 12/28 1228 98.3 68 16 144/67 92 98 12/28 0843 97.9 60 12 104/54 70 98 12/28 0419 97.5 63 19 139/71 93.4 95 12/27 2306 98.6 12/27 2306 61 107/57 77 98 12/27 2301 52 13 103/56 75 98 12/27 2231 53 14 131/57 82 97 12/27 2200 52 18 139/71 99 99 12/27 2130 53 14 129/64 91 97 12/27 2101 64 16 124/60 87 95 12/27 2031 56 120/60 86 92 12/27 2000 62 128/69 92 95 12/27 1931 58 14 121/56 81 93 12/27 1900 54 19 142/66 95 97 24 hour I O ending at 0700: 12/28 0700 12/27 1900 Intake Total 65 775.00 Output Total 1000 Balance 65 -225.00 Intake, IV 375.00 Intake, Oral 65 400 Number Voids 1 Output, Urine 1000 Patient 88.8 kg Weight Weight Bed scale Measurement Method PATIENT WEIGHT: Weight (lb): 195Weight (oz): 12.33Weight (kg): 88.451 Medications:Active Meds + DC'd Last 24 HrsAspirin (ASPIRIN CHEWABLE) 81 MG DAILY PO Aspirin (ASPIRIN CHEWABLE) 81 MG DAILY PO (DC) Atorvastatin Calcium (LIPITOR) 40 MG BEDTIME PO Meclizine HCl (ANTIVERT) 25 MG Q6H PRN PRN PO Sodium Chloride (SODIUM CHLORIDE 0.9%) 1,000 ML .P27H51N IV (DC) Famotidine (PEPCID) 20 MG BID IV Sodium Chloride (NACL 0.9%) 10 MLMupirocin (BACTROBAN 2% 22 GM OINTMENT) 1 APPLIC BID TOPICAL (DC) Insulin Human Lispro (HumaLOG) LOW DOSE SCALE ASDIR SUBQ Hydralazine HCl (APRESOLINE) 10 MG Q6H PRN PRN IV Dextrose/Water (DEXTROSE 50% SYR) 25 ML ASDIR PRN IV (CKD) Glucagon (GLUCAGON) 1 MG ASDIR PRN IM Miscellaneous Information (MED FORMULATION CHANGE - PHA CONSULT) 1 EACH ASDIR PO (CKD) Nicardipine HCl (niCARdipine 40 mg/NS 200 mL) 200 ML TITRATE IV (DC) Ondansetron HCl (ZOFRAN 4 MG/2 ML INJ) 4 MG Q4H PRN PRN IV Perflutren Lipid Microsphere (DEFINITY) DIRECTED ONCE PRN IV Sodium Chloride (NACL 0.9% 10ML SYRINGE) DIRECTED ONCE PRN IV Sodium Chloride (SODIUM CHLORIDE FLUSH) 5 ML ONCE PRN IV Nutrition assessment:The data set between the solid lines has been imported from the dietitian's assessment. Any exceptions have been noted under Provider comments. BMI Calculated: 33.6Nutrition related diagnosis: Nutrition diagnosis details: Nutrition problem: Nutrition etiology: Nutrition signs and symptoms: Nutrition prescription: Dietitian name: Assessment completed: Provider comments on imported dietitian assessment: Physical Exam Considered stroke alert: no ResultsFindings/Data:Laboratory Tests 12/28 12/28 12/28 12/28 1541 1052 0605 0554 Chemistry Sodium (137 - 145 mmol/L) 138 Potassium (3.4 - 5.0 mmol/L) 3.7 Chloride (98 - 107 mmol/L) 107 Carbon Dioxide (22 - 30 mmol/L) 22 Anion Gap 13 BUN (7 - 17 mg/dL) 20 H Creatinine (0.5 - 1.0 mg/dL) 0.7 Glomerular Filtr Rate (>60) 88 Glucose (74 - 106 mg/dL) 107 H POC Glucose (74 - 106 MG/DL) 102 131 H Calcium (8.4 - 10.2 mg/dL) 8.5 Magnesium (1.6 - 2.3 mg/dL) 2.1 Carcinoembryonic Ag (0.0 - 3.0 ng/mL) 3.03 H Specimen Hemolysis (0 - 100 Index/DL) 20 Laboratory Tests 12/28 0553 Hematology WBC (5.0 - 12.0 x10 3/uL) 7.8 RBC (4.20 - 5.40 x10 6/uL) 5.19 Hgb (12.0 - 16.0 g/dL) 14.9 Hct (36.0 - 46.0 %) 44.8 MCV (81 - 99 fL) 86 MCH (27 - 31 pg) 28.7 MCHC (33 - 37 g/dL) 33.3 RDW (11.5 - 15.5 %) 13.2 Plt Count (130 - 400 x10 3/uL) 292 MPV (9.4 - 16.4 fL) 9.9 Neut % (Auto) (43 - 65 %) 54.2 Lymph % (Auto) (20.5 - 45.5 %) 34.1 [place] % (Auto) (5.5 - 11.7 %) 8.8 Eos % (Auto) (0.9 - 2.9 %) 1.7 Baso % (Auto) (0.2 - 1.0 %) 0.8 Neut # (Auto) (2.2 - 4.8 x10 3/uL) 4.24 Lymph # (Auto) (1.3 - 2.9 x10 3/uL) 2.66 [place] # (Auto) (0.3 - 0.8 x10 3/uL) 0.69 Eos # (Auto) (0.0 - 0.2 x10 3/uL) 0.13 Baso # (Auto) (0.0 - 0.1 x10 3/uL) 0.06 Immature Gran % (0.0 - 2.0 %) 0.4 Nucleated RBC % (0 - 1.0 %) 0.0 Radiology data:Recent Impressions:MAGNETIC RESONANCE IMAGING - MRI BRAIN W/O CONTRAST 12/28 003 Report Impression - Status: SIGNED Entered: 12/28/2021 0856 IMPRESSION: Small acute to subacute nonhemorrhagic infarct involving the rightmiddle cerebellar peduncle.Impression By: HarrisSP17 Romero Torres MD Free Text Obj NotesFree Text Obj Notes:Head/Eyes: atraumatic, clear cornea, EOMI, normal conjunctiva/sclera, normal eyelids/periorb., normocephalic, PERRLENT: normal dentition, normal ear left, normal ear right, normal nose, normal pharynx, normal sinusNeck: full range of motion, non-tender, normal thyroid, supple/no meningismus, no bruit/NL carotids, no JVD, no masses or swellingCardiovascular: normal capillary refill, regular rate and rhythmRespiratory: clear to auscultation, no distressAbdomen: soft, non-tender, no distention, no guarding, no reboundExtremities: moves all, normal capillary refill, normal range of motion, no edemaMusculoskeletal: normal inspectionNeuro/SPOOL CLEANER: alert, oriented X 3 Considered stroke alert: no Diagnosis, Assessment Plan Free Text DxA P NotesFree text DxA P notes:1. CVA status post tPA2. Pelvic mass Tumor marker has been ordered by COMIC ARTIST patient likely would follow-up in [place] for her mass likely causing hypercoagulable stateContinue meclizine for symptom controlWe will get case management for placement once PT OT recommendations are clear continue BP control mildly hypertensive we will start low-dose amlodipine at 1902 RPT #:[id number] OF REPORTPRProgress tzda2631-95-32E80:56:00C.[id number] 106AVAvailable for patient swffFACJFTSQQIHMYG9527-38-76W09:02:49 [facility] 2021-12-28 15:01:00 [id number] FUQwppwOox6cyAditzKy+sOJxVJ7C4ydH/KIL20 23-12-27T15:01:00 [facility] ([facility])Neurology Progress NoteREPORT#:[id number] REPORT STATUS: SignedDATE:12/28/21 TIME: 1501 PATIENT: FRANSICO PÉREZ UNIT #: [id number]#: [id number] [address]-HBMI: 52 AGE: 71 SEX: F ATTEND: Marcello Perdue [facility] AUTHOR: Castillo Chirinos MD R1 * ALL edits or amendments must be made on the electronic/computer document * Castillo Chirinos 12/28/21 1501:SubjectiveComments:No acute overnight events. Patient states that her dizziness has improved with medication. MRI results discussed with patient and family at bedside. Review of Systems Free Text ROS NotesFree Text ROS Notes:Constitutional: Reports dizziness. Denies chills, fatigue, fever, generalized weaknessEyes: Denies blurred vision, discharge, pain, redness, swellingENT: Denies ear drainage, ear ringing, hearing loss, throat pain, throat swelling, nose bleedingRespiratory: Denies productive cough, non-productive cough, dyspnea on exertion,pleuritic pain, shortness of breathCardiovascular: Denies chest pain, edema, palpitations, syncopeGI: Denies abdominal pain, vomiting, nausea, bloody/tarry stool, constipation, diarrheaGU: Denies dysuria, flank pain, hematuria, incontinence, dischargeMSK: Denies neck pain, back pain, thoracic pain, extremity pain, joint swelling,joint pain, myalgiaHematologic: Denies adenopathy, bleedingEndocrine: Denies cold intolerance, heat intolerance, weight loss, polyuria, polydipsiaSkin: Denies abrasion, erythema, itching, laceration, jaundice, ulcerationAllergy/Immun: Denies hives, itching, sneezing, rhinorrheaNeurologic: Denies bladder dysfunction, bowel dysfunction, change LOC, focal weaknessPsychiatric: Denies change mental status, agitation, anxiety, confusion Objective GeneralVS:Last Documented: Result Date Time Pulse Ox 98 12/28 1228 B/P 144/67 12/28 1228 B/P Mean 92 12/28 1228 Temp 98.3 12/28 1228 Pulse 68 12/28 1228 Resp 16 12/28 1228 O2 Delivery Nasal cannula 12/27 005 O2 Flow Rate 2 12/27 0050 PATIENT WEIGHT: Weight (lb): 195Weight (oz): 12.33Weight (kg): 88.451 ResultsFindings/Data:Laboratory Tests 12/28 12/28 12/28 1052 0605 0554 Chemistry Sodium (137 - 145 mmol/L) 138 Potassium (3.4 - 5.0 mmol/L) 3.7 Chloride (98 - 107 mmol/L) 107 Carbon Dioxide (22 - 30 mmol/L) 22 Anion Gap 13 BUN (7 - 17 mg/dL) 20 H Creatinine (0.5 - 1.0 mg/dL) 0.7 Glomerular Filtr Rate (>60) 88 Glucose (74 - 106 mg/dL) 107 H POC Glucose (74 - 106 MG/DL) 131 H Calcium (8.4 - 10.2 mg/dL) 8.5 Magnesium (1.6 - 2.3 mg/dL) 2.1 Carcinoembryonic Ag (0.0 - 3.0 ng/mL) 3.03 H Specimen Hemolysis (0 - 100 Index/DL) 20 Laboratory Tests 12/28 0553 Hematology WBC (5.0 - 12.0 x10 3/uL) 7.8 RBC (4.20 - 5.40 x10 6/uL) 5.19 Hgb (12.0 - 16.0 g/dL) 14.9 Hct (36.0 - 46.0 %) 44.8 MCV (81 - 99 fL) 86 MCH (27 - 31 pg) 28.7 MCHC (33 - 37 g/dL) 33.3 RDW (11.5 - 15.5 %) 13.2 Plt Count (130 - 400 x10 3/uL) 292 MPV (9.4 - 16.4 fL) 9.9 Neut % (Auto) (43 - 65 %) 54.2 Lymph % (Auto) (20.5 - 45.5 %) 34.1 [place] % (Auto) (5.5 - 11.7 %) 8.8 Eos % (Auto) (0.9 - 2.9 %) 1.7 Baso % (Auto) (0.2 - 1.0 %) 0.8 Neut # (Auto) (2.2 - 4.8 x10 3/uL) 4.24 Lymph # (Auto) (1.3 - 2.9 x10 3/uL) 2.66 [place] # (Auto) (0.3 - 0.8 x10 3/uL) 0.69 Eos # (Auto) (0.0 - 0.2 x10 3/uL) 0.13 Baso # (Auto) (0.0 - 0.1 x10 3/uL) 0.06 Immature Gran % (0.0 - 2.0 %) 0.4 Nucleated RBC % (0 - 1.0 %) 0.0 Radiology Data:Recent Impressions:ULTRASOUND - US TRANSVAGINAL NON OB 12/27 1516 Report Impression - Status: SIGNED Entered: 12/27/2021 1558 IMPRESSION: 5.5 cm complex cystic structure in the vaginal cuff, to the leftmidline. Differential considerations include residual endometrioma,hemorrhagic cyst, or other mass lesion. Further evaluation with preand postcontrast enhanced MRI of the pelvis would be of benefit.Impression By: Fareed Fernandes MDULTRASOUND - US PELVIC COMPLETE 12/27 1516 Report Impression - Status: SIGNED Entered: 12/27/2021 1558 IMPRESSION: 5.5 cm complex cystic structure in the vaginal cuff, to the leftmidline. Differential considerations include residual endometrioma,hemorrhagic cyst, or other mass lesion. Further evaluation with preand postcontrast enhanced MRI of the pelvis would be of benefit.Impression By: Fareed Fernandes MDCAT SCAN - CT HEAD/BRAIN W/O CONT 12/27 170 Report Impression - Status: SIGNED Entered: 12/27/2021 1745 IMPRESSION: No early signs of cortical-based ischemia or acute hemorrhage. Impression By: MIRELA Jimenez [facility] IMAG[facility] - MRI BRAIN W/O CONTRAST 12/28 0030 Report Impression - Status: SIGNED Entered: 12/28/2021 0856 IMPRESSION: Small acute to subacute nonhemorrhagic infarct involving the rightmiddle cerebellar peduncle.Impression By: Jovana7 Romero Torres MD Free Text Obj NotesFree Text Obj Notes:General: Awake, alert, not toxic appearing, no acute distressHead: Atraumatic, normocephalicEyes: Atraumatic, PERRL, EOMI, no periorbital swellness, no scleral icterusENT: Atraumatic, airway patent, no facial swelling, no trismusNeck: Full range of motion, no meningismus, no adenopathy, no swellingRespiratory: Atraumatic, breath sounds normal bilaterally, no respiratory distress, no wheezingCardiovascular: Heart rate normal, regular rhythm, no murmurs, pulses equal bilaterallyAbdomen: Atraumatic, soft, non-tender, no guarding, no rebound, no distention, no flank painLymphatic: No gross adenopathyMSK Back: Atraumatic, inspection normal, full range of motion, no paraspinal tendernessMSK Extremities: Atraumatic, inspection normal, full range of motion, no swelling, no erythemaSkin: Atraumatic, dry, intact, no swellingNeurologic: Oriented x3, speech normal, no motor deficits, no sensory deficits, CN II-XII intact, cerebellar testing normal, nystagmus on gaze testingto the leftPsychiatric: Affect normal, no delusions Treatment Prophylaxis IV Thrombolytic TherapyInclusion criteria: Dx of ischemic CVA, Measurable neuro deficit, Age >= 18, Onset < 3 hr before TxExclusion criteria: No exclusions Diagnosis, Assessment PlanFree Text A P:#Dizziness#Nystagmus#Abdominal pain#S/p TPA The patient was given TPA as their was initial concern for posterior circulationstroke. CT head showed no acute findings. CTA head and neck showed no evidence of significant stenosis or occlusion. Neurological exam showed nystagmus during left gaze. No other abnormalities including cerebellar ataxia were elicited. Suspect that patient could have benign paroxysmal positional vertigo, which worsens her dizziness upon moving her head to the left. However, given her initial presentation in the ED, continue workup to rule out acute ischemic event. Repeat CT head after TPA administration showed no intracranial hemorrhage. Echocardiogram showed no evidence of shunting. MRI head showed small acute to subacute infarct involving the right middle cerebellar peduncle. The location ofthe infarct in the posterior fossa correlates with her symptoms. Patient will need to be on DAPT for 21 days. Start ASA today and add plavix in five days. Plan:- ASA, statin- Add Plavix 75mg after five days - Meclizine prn for dizziness - PT/OT/ST- Clear to d/c from neurology standpoint when medically stable Discussed with Dr. Martinez. Cristal Martinez 12/28/21 1911:Attestations Physician AttestationAgree w/findings plan:Agree with the findings and plan as documented by residentPt seen and examinedPT D/c when medically stable at 1516 at 1915 RPT #:[id number] OF REPORTPRProgress mxgn3156-72-30M86:01:00C.[id number] 900AVAvailable for patient xennWMABMIBQELQLDV5394-06-31G70:16:31 [facility] 2021-12-28 09:35:00 [id number]a v3H06BdRJAPPv++9stH0N6EjgAR5C/h487io993 23-12-27T09:35:697996-4265 [facility] [address] [facility] [place], [place] [id number] PATIENT NAME: FRANSICO PÉREZ ADMIT DATE: 12/26/21ACCOUNT NO: [id number] ROOM NO: [place] [address] AGE: 71 REPORT TYPE: eECHOCARDIOGRAM REPORT. SEX: F ADMITTING PHYSICIAN:Marcello Perdue MD ATTENDING PHYSICIAN:Marcello Perdue MD *[facility]*[address] [facility] [address], [place] [address]Orkfw Transthoracic Echocardiogram Patient: Fransico Pérez DStudy Date: 12/27/2021 BP: 123 / 63 Location: MONICA: [id number] : 1950 Age: 71 Height: 63.8 in / 162 cmAccession#: [id number] Gender: F Weight: 193.6 lb / 88 kgBMI/BSA: 33.5 kg/m 2 / 2.03 m 2 *Ordering Physician: * Toni Larsen Aprn *Interpreting Physician: * Kristian Galeana MD*Special Police: Sara Banks Indica tions: ACUTE CVA. Study data: Transthoracic echocardiogram. Procedure: Transthoracicechocardiography was performed. Images were obtained using a [employer] [id number] ultrasound machine. Complete 2D, complete spectral Doppler, andcolor Doppler. Patient status: Inpatient. Patient room number: ICC1.Study status: Routine. Findin gs Left ventricle: The cavity size is normal. Wall thickness is normal.Systolic function is normal. The estimated ejection fraction is 55-59%.Wall motion is normal; there are no regional wall motion abnormalities.Left ventricular diastolic function parameters are normal.Right ventricle: The cavity size is normal. Systolic function isnormal. PATIENT NAME: NAMRATA PÉREZRosalba Freire Left atrium: The atrium is normal in size.Right atrium: The atrium is normal in size.Atrial septum: Echo contrast study shows no shunt.Aorta: Aortic root: The aortic root is normal in size.Aortic valve: The valve is trileaflet. The leaflets are mildlycalcified. The findings are consistent with mild stenosis. Peak AVvelocity 2.8 m/s and mean gradient 17 mmHg. There is trivialregurgitation.Mitral valve: The annulus is mildly calcified. There is no evidence ofstenosis. There is no regurgitation.Tricuspid valve: The valve is structurally normal. There is trivialregurgitation.Pulmonic valve: The valve is structurally normal. There is noregurgitation.Pericardium: There is no pericardial effusion.Pulmonary arteries:The main pulmonary artery is normal-sized.Systemic veins:Inferior vena cava: The vessel is normal in size. Measur ements Left ventricle Value Ref WANDY, LAX 4.7 cm 3.8 - 5.2 ESD, LAX 3.3 cm 2.2 - 3.5 ESD/bsa, LAX 1.6 cm/m 2 1.3 - 2.1 FS, LAX 30 % 27 - 45 PW, ED 0.7 cm 0.6 - 0.9 PW, ES 1.4 cm IVS/PW, ED 0.79 E', med ada, TDI 8.1 cm/sec >=7.0 E/e', med ada, TDI 12 LVOT Value Ref Diam, S 1.80 cm Area 2.5 cm 2 Peak vinny, S 1.29 m/sec Mean vinny, S 0.9 m/sec VTI, S 26.1 cm Peak grad, S 7 mm Hg Mean grad, S 4 mm Hg SV 64 ml SV/bsa 31 ml/m 2 Ventricular septum Value Ref IVS, ED 0.6 cm 0.6 - 0.9 IVS, ES 1.0 cm Right ventricle Value Ref WANDY, LAX 2.6 cm Pressure, S 30 mm Hg Left atrium Value Ref PATIENT NAME: FRANSICO PÉREZ AP dim, ES 3.07 cm 2.70 - 3.80 Vol/bsa, ES, 1-p A4C 26 ml/m 2 11 - 40 Aortic valve Value Ref Peak v, S 2.81 m/sec Mean v, S 1.96 m/sec VTI, S 55.5 cm Mean grad, S 17.0 mm Hg Peak grad, S 31.6 mm Hg LVOT/AV, VTI ratio 0.47 MICHELLE, VTI 1.19 cm 2 LVOT/AV, Vpeak ratio 0.46 MICHELLE, Vmax 1.17 cm 2 AR peak v 2.25 m/sec AR decel 107 cm/s 2 AR decel time 2029 ms AR PHT 589 ms AR peak grad 20 mm Hg Mitral valve Value Ref Peak E 0.97 m/sec Peak A 0.84 m/sec Decel time 225 ms Peak grad, D 3.8 mm Hg Peak E/A ratio 1.15 Tricuspid valve Value Ref TR peak v 2.62 m/sec <=2.8 Peak RV-RA grad, S 27 mm Hg Aortic root Value Ref Root diam 2.8 cm <4.2 Ascending aorta Value Ref AAo AP diam, S 3.0 cm AAo AP diam/bsa, S 1.5 cm/m 2 Pulmonary artery Value Ref Pressure, S 27.0 mm Hg Systemic veins Value Ref Estimated CVP 3 mm Hg Conclu sions Summary: 1. Left ventricle: The cavity size is normal. Wall thickness is normal. Systolic function is normal. The estimated ejection fraction is 55-59%. Wall motion is normal; there are no regional wall motion abnormalities. Left ventricular diastolic function parameters are normal.2. Atrial septum: Echo contrast study shows no shunt. PATIENT NAME: FRANSICO PÉREZ 3. Aortic valve: The valve is trileaflet. The leaflets are mildly calcified. The findings are consistent with mild stenosis. Peak AV velocity 2.8 m/s and mean gradient 17 mmHg. There is trivial regurgitation.4. Mitral valve: The annulus is mildly calcified.5. Tricuspid valve: There is trivial regurgitation.6. Est. PA systolic pressure is 30 mmHg, assuming a mean RAP of 3 mmHg. Prepared and electronically signed by Kristian Galeana MD12/28/2021 09:35 at 0935 PATIENT NAME: FRANSICO PÉREZ 28T09:35:00C.[id number] e for patient wblfTALIUGYARPXNOF7915-66-31R59:35:51 [facility] 2021-12-27 19:25:00 [id number] bhEyqtXhcJs+Fe7mE+m1tsMYPCJmJDFAE7ybO45 22-12-26T19:25:00 [facility] CenterS[facility] TECHNIC[facility] Consult NoteREPORT#:[id number] REPORT STATUS: SignedDATE:12/27/21 TIME: 1924 PATIENT: FRANSICO PÉREZ UNIT #: [id number]#: [id number] [address] AGE: 71 SEX: F ATTEND: Marcello Perdue [facility] AUTHOR: Tawny Vincent MD * ALL edits or amendments must be made on the electronic/computer document * History of Present Illness HPIRequesting clinician: Dr. Paulino for consult:pelvic massChief complaint:abdominal painHPI:71 yo , PMHx Colitis, endometriosis and biliary sludge was admitted to the CCU for f/u following CVA s/p TPA administration. She had a CT done due to complaints of abdominal pain and was noted to have a mass near the vaginal cuff measuring 5.9 cm at its greatest dimension. She recently presented to [place] from [place]. Says that she was diagnosed with the mass while there last summer (2020) because she complained of pain and was getting set up for f/u withN. She plans to go back to [place] as soon as she can. Complains of diffuseabdominal pain. No nausea or vomiting. Denies vaginal bleeding. The patient's gynecologic history is as follows. She had menarche at 18 yo and shortly thereafter was diagnosed with endometriosis. Recalls her periods were irregular but very painful. She had 2 uncomplicated deliveries and one therapeutic at 15 wks due to severe malformations. She has a hysterectomy at 36 yo due to heavy and painful cycles. Says that she had a malignant uterine mass which was discovered on pathology (MD was unaware of its existence preoperatively). Denies having radiation or chemotherapy. She subsequently had surgery in her vaginal vault with mesh placement. She had a history of abnormal pap smears "all the time." Subsequently she had another vaginal surgery with BSO because her "pap smears kept coming out abnormal." Shedenies urinary incontinence but says she declined a pessary by one of her gynecologists. Continues to take oral Estrogen 0.5 mg daily. Continues to havehot flushes. HAs a history of bilateral benign breast lumpectomies. History Past Medical HistoryAdditional medical history:colitis, endometriosis, biliary sludge Past Surgical HistoryPast surgical history:Reports: Hysterectomy, Knee procedure. Additional surgical history:vaginal "reconstruction" with mesh, breast lumpectomies- benign, Bilateral salpingoophorectomy, Past COMIC ARTIST HistoryPast OB history: : 3 Term: 2 Abortus: 1 Living children: 2Past SPRAY TECHNICIAN history: Age at menarche:18 Age at menopause:39 yrs old due to hysterectomy Gynecological history: endometriosis, hx of abnormal pap smears, hx of irregular menses, previous oophorectomy Family HistoryFamily history:Reports: Cancer. Social HistoryAlcohol use: Denies EtOH useDrug use: Denies recreational drugsSmoking status: Smoking status for patients 13 years old or older: Never SmokerOther social history: Unemployed, Good social supportAdditional social history: Medication/Allergy-Vaccine HxAllergies:Coded Allergies:Sulfa (Sulfonamide Antibiotics) (Intermediate, HIVES 12/26/21)butorphanol (From STADOL) (Intermediate, HIVES 12/26/21)levofloxacin (From LEVAQUIN) (VOMITING 12/26/21) Ambulatory StatusAmbulatory status: Independent Review of SystemsConstitutional:Denies: chills, fever. Respiratory:Denies: SOB. Cardiovascular:Denies: chest pain. GI:Reports: abdominal pain. Denies: constipation, diarrhea, nausea, vomiting. :Denies: vaginal bleeding, vaginal discharge. Neuro:Reports: dizziness, headache. Objective Physical ExamVS/I O:Last Documented: Result Date Time B/P 131/74 12/27 1711 B/P Mean 97 12/27 1711 Pulse Ox 93 12/27 1630 Pulse 58 12/27 1630 Resp 20 12/27 1630 Temp 36.8 12/27 1600 O2 Delivery Nasal cannula 12/27 0050 O2 Flow Rate 2 12/27 0050 24 hour I O ending at 0700: 12/27 0700 12/26 1900 Intake Total Output Total 110 Balance -110 Number 2 Bowel Movements Output, Urine 110 Patient 88.8 kg Weight Weight Bed scale Measurement Method PATIENT WEIGHT: Weight (lb): 195Weight (oz): 12.33Weight (kg): 88.800 General appearance: alert, awake, conversational, orientedRespiratory: unlabored breathingAbdomen: tenderness (LLQ), soft, no distention, no reboundExtremities: full range of motion, moves all, no edemaNeuro/SPOOL CLEANER: alert, oriented x 3, normal gait, normal speechSkin: dry, intact, normal temperature, normal turgorExternal Genitalia: normal post-menopausal vulvar findings, perineal discomfort with a small superficial fissure seenVagina: cystocele, enterocele, mild apical prolapseCervix: absentUterus: absent ResultsFindings/Data:Laboratory Tests 12/27 12/27 12/27 12/27 12/27 0749 0256 0256 0256 0025Chemistry Sodium (137 - 145 mmol/L) 136 L Potassium (3.4 - 5.0 mmol/L) 4.1 Chloride (98 - 107 mmol/L) 103 Carbon Dioxide (22 - 30 mmol/L) 20 L Anion Gap 17 BUN (7 - 17 mg/dL) 26 H Creatinine (0.5 - 1.0 mg/dL) 0.6 Glomerular Filtr Rate (>60) 105 Glucose (74 - 106 mg/dL) 147 H POC Glucose (74 - 106 MG/DL) 136 H 133 H Hemoglobin A1c (0 - 5.9 %) 6.0 H Calcium (8.4 - 10.2 mg/dL) 8.9 Troponin I (0.012 - 0.033 ng/mL) < 0.012 L Triglycerides (mg/dL) 209 Cholesterol (mg/dL) 246 LDL Cholesterol Measurd (32 - 99 mg/dL) 129.65 H HDL Cholesterol (40 - 59 mg/dL) 59 Coronary Risk Interp 4.17 Specimen Hemolysis (0 - 100 Index/DL) 41 12/26 2238 Chemistry Lactic Acid (0.7 - 2.0 mmol/L) 1.8 Magnesium (1.6 - 2.3 mg/dL) 1.8 Troponin I (0.012 - 0.033 ng/mL) 0.012 Laboratory Tests 12/27 0256 Hematology WBC (5.0 - 12.0 x10 3/uL) 10.7 RBC (4.20 - 5.40 x10 6/uL) 4.98 Hgb (12.0 - 16.0 g/dL) 14.3 Hct (36.0 - 46.0 %) 42.0 MCV (81 - 99 fL) 84 MCH (27 - 31 pg) 28.7 MCHC (33 - 37 g/dL) 34.0 RDW (11.5 - 15.5 %) 12.8 Plt Count (130 - 400 x10 3/uL) 307 MPV (9.4 - 16.4 fL) 10.5 Neut % (Auto) (43 - 65 %) 84.4 H Lymph % (Auto) (20.5 - 45.5 %) 10.6 L [place] % (Auto) (5.5 - 11.7 %) 4.1 L Eos % (Auto) (0.9 - 2.9 %) 0.1 L Baso % (Auto) (0.2 - 1.0 %) 0.3 Neut # (Auto) (2.2 - 4.8 x10 3/uL) 9.04 H Lymph # (Auto) (1.3 - 2.9 x10 3/uL) 1.13 L [place] # (Auto) (0.3 - 0.8 x10 3/uL) 0.44 Eos # (Auto) (0.0 - 0.2 x10 3/uL) 0.01 Baso # (Auto) (0.0 - 0.1 x10 3/uL) 0.03 Immature Gran % (0.0 - 2.0 %) 0.5 Nucleated RBC % (0 - 1.0 %) 0.0 Laboratory Tests 12/26 2224 Serology SARS-CoV-2 Ag (Rapid) (Negative) NEGATIVE Radiology Data:Recent Impressions:CAT SCAN - CT ABD PELVIS W/CONT 12/27 0010 Report Impression - Status: SIGNED Entered: 12/27/2021 0028 IMPRESSION: Cystic area in the vaginal cuff measuring 5.9 x 3.3 x 5.4 cm which isconcerning for a possible mass. Further evaluation with pelvicultrasound should be considered.No bowel obstruction. Normal appendix. LOCATION: B2 This CT exam was performed according to our departmental doseoptimization program, which includes automated exposure control,adjustment of the mA and or kV according to patient size and/or use ofiterative reconstruction technique.Impression By: Coco DennisonOUND - US TRANSVAGINAL NON OB 12/27 1517 Report Impression - Status: SIGNED Entered: 12/27/2021 1558 IMPRESSION: 5.5 cm complex cystic structure in the vaginal cuff, to the leftmidline. Differential considerations include residual endometrioma,hemorrhagic cyst, or other mass lesion. Further evaluation with preand postcontrast enhanced MRI of the pelvis would be of benefit.Impression By: Fareed Fernandes MDULTRASOUND - US PELVIC COMPLETE 12/27 1517 Report Impression - Status: SIGNED Entered: 12/27/2021 1558 IMPRESSION: 5.5 cm complex cystic structure in the vaginal cuff, to the leftmidline. Differential considerations include residual endometrioma,hemorrhagic cyst, or other mass lesion. Further evaluation with preand postcontrast enhanced MRI of the pelvis would be of benefit.Impression By: Fareed Fernandes MDCAT SCAN - CT HEAD/BRAIN W/O CONT 12/27 1700 Report Impression - Status: SIGNED Entered: 12/27/2021 1745 IMPRESSION: No early signs of cortical-based ischemia or acute hemorrhage. Impression By: MIRELA Jimenez MD Diagnosis, Assessment Plan Diagnosis, Assessment PlanProblem List/A P: 1. 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 -Will return with plan of care after tumor markers are resulted. at 2043 RPT #:[id number] OF [id number]:25 :00C.[id number] for patient aetwWLKSCKVNOTPGWG5485-14-94H81:43:59 [facility] 2021-12-27 13:24:00 [id number] [id number]/[id number] 22-12-263:24:00 [facility])Neurology Consultation NoteREPORT#:[id number] REPORT STATUS: SignedDATE:12/27/21 TIME: 1324 PATIENT: FRANSICO PÉREZ UNIT #: [id number]#: [id number] [address] AGE: 71 SEX: F ATTEND: Melissa Fernandez [facility] AUTHOR: Castillo Chirinos MD R1 * ALL edits or amendments must be made on the electronic/computer document * Castillo Chirinos 12/27/21 1324:History of Present Illness Time At Bedside)( Time at bedside: 1324 HPIHPI:Fransico Pérez is a 71 year old female with PMH of colitis who presents for acute onset of severe dizziness. The patient stated she was unable to open her eyes without feeling the room spinning. She denied headache, paresthesias, unilateral weakness. Code Neuro was activated on arrival and patient CT was negative for intracranial hemorrhage. NIH score in the ED was 2. There was a suspicion for posterior circulation stroke as patient was reported to exhibited nystagmus and cerebellar ataxia. TPA was administered. Neurology was consulted for further evaluation and management of CVA status post TPA. History - Adult longitudinalAdditional medical history:colitisPast surgical history:Denies: Abdominal surgery, Appendectomy, Bariatric procedure, CABG, Carotid endarterectomy, Cholecystectomy, , Dialysis shunt/AV fistula, Heart valve procedure, Hernia repair, Hysterectomy, Pacemaker, Spine surgery, Splenectomy, Tonsillectomy, Transplant recipient, Vascular procedure, , Amputation, Anesthesia complications, Bilateral tubal ligation,Bladder surgery, Breast biopsy/procedure, Carpal tunnel release, Cranial procedure, D C, Eye surgery, Feeding tube, Hip procedure, ICD, Indwelling IV catheter, Knee procedure, Lithotripsy, Lung surgery, Nephrectomy, PCI, Prostate surgery, Thyroidectomy, Tracheotomy, SMELTER LINER shunt. Alcohol use: Denies EtOH useDrug use: Denies recreational drugsSmoking status: Smoking status for patients 13 years old or older: Never SmokerAllergies:Coded Allergies:Sulfa (Sulfonamide Antibiotics) (Intermediate, HIVES 12/26/21)butorphanol (From STADOL) (Intermediate, HIVES 12/26/21)levofloxacin (From LEVAQUIN) (VOMITING 12/26/21) Ambulatory status: Independent Review of Systems Free Text ROS NotesFree Text ROS Notes:Constitutional: Reports dizziness. Denies chills, fatigue, fever, generalized weaknessEyes: Denies blurred vision, discharge, pain, redness, swellingENT: Denies ear drainage, ear ringing, hearing loss, throat pain, throat swelling, nose bleedingRespiratory: Denies productive cough, non-productive cough, dyspnea on exertion,pleuritic pain, shortness of breathCardiovascular: Denies chest pain, edema, palpitations, syncopeGI: Denies abdominal pain, vomiting, nausea, bloody/tarry stool, constipation, diarrheaGU: Denies dysuria, flank pain, hematuria, incontinence, dischargeMSK: Denies neck pain, back pain, thoracic pain, extremity pain, joint swelling,joint pain, myalgiaHematologic: Denies adenopathy, bleedingEndocrine: Denies cold intolerance, heat intolerance, weight loss, polyuria, polydipsiaSkin: Denies abrasion, erythema, itching, laceration, jaundice, ulcerationAllergy/Immun: Denies hives, itching, sneezing, rhinorrheaNeurologic: Denies bladder dysfunction, bowel dysfunction, change LOC, focal weaknessPsychiatric: Denies change mental status, agitation, anxiety, confusion Objective GeneralVS:Last Documented: Result Date Time Pulse Ox 97 12/27 1259 Pulse 72 12/27 1259 Resp 34 12/27 1259 B/P 114/60 12/27 1245 B/P Mean 82 12/27 1245 Temp 97.8 12/27 1140 O2 Delivery Nasal cannula 12/27 0050 O2 Flow Rate 2 12/27 0050 PATIENT WEIGHT: Weight (lb): 195Weight (oz): 12.33Weight (kg): 88.800 Free Text Obj NotesFree Text Obj Notes:General: Awake, alert, not toxic appearing, no acute distressHead: Atraumatic, normocephalicEyes: Atraumatic, PERRL, EOMI, no periorbital swellness, no scleral icterusENT: Atraumatic, airway patent, no facial swelling, no trismusNeck: Full range of motion, no meningismus, no adenopathy, no swellingRespiratory: Atraumatic, breath sounds normal bilaterally, no respiratory distress, no wheezingCardiovascular: Heart rate normal, regular rhythm, no murmurs, pulses equal bilaterallyAbdomen: Atraumatic, soft, non-tender, no guarding, no rebound, no distention, no flank painLymphatic: No gross adenopathyMSK Back: Atraumatic, inspection normal, full range of motion, no paraspinal tendernessMSK Extremities: Atraumatic, inspection normal, full range of motion, no swelling, no erythemaSkin: Atraumatic, dry, intact, no swellingNeurologic: Oriented x3, speech normal, no motor deficits, no sensory deficits, CN II-XII intact, cerebellar testing normal, nystagmus on gaze testing to the leftPsychiatric: Affect normal, no delusions Diagnosis, Assessment Plan Free Text DxA P NotesFree text DxA P notes:#Dizziness#Nystagmus#Abdominal pain#S/p TPA The patient was given TPA as their was initial concern for posterior circulationstroke. CT head showed no acute findings. CTA head and neck showed no evidence of significant stenosis or occlusion. Neurological exam showed nystagmus during left gaze. No other abnormalities including cerebellar ataxia were elicited. Suspect that patient could have benign paroxysmal positional vertigo, which worsens her dizziness upon moving her head to the left. However, given her initial presentation in the ED, continue workup to rule out acute ischemic event. MRI and echo w/bubble study has been ordered. Repeat CT head ordered for 24 hours post TPA. Plan:- MRI head and Echo w/bubble study- CT head after 24 hours of TPA administration- High intensity statin- Meclizine prn for dizziness Discussed with Dr. Martinez. Cristal Martinez 12/27/21 1350:Attestations Physician AttestationAgree w/findings plan:Agree with the findings and plan as documented by residentPt seen and full neuro exam done. Admitted for severe dizziness/vertigo and given tPA for preseumed strokeNeurologically stable except for left gaze nystagmus and persistent vertigoSuspect benign positional vertiigo involving left semicircular canal- MRI brain- Meclizine- PT- D/w nurse- Will follow at 1335 at 1352 RPT #:[id number] OF [id number]:24 :00C.[id number] for patient eqdeHRFQDQMKBPDAKA0944-27-65S43:35:35 [facility] 2021-12-27 08:33:00 [id number]/SzsYt [id number] 22-12-26T08:33:00 [facility])Critical Care Consult NoteREPORT#:[id number] REPORT STATUS: SignedDATE:12/27/21 TIME: 832 PATIENT: FRANSICO PÉREZ UNIT #: [id number]#: [id number] [address]CLDJ: 52 AGE: 71 SEX: F ATTEND: Melissa Fernandez AUTHOR: Lokesh Jack MD * ALL edits or amendments must be made on the electronic/computer document * History of Present Illness HPIRequesting clinician: ER this will be H PReason for consult:/ CVAChief complaint:DiazzinessPCP:PCP: No Primary or Family Physician HPI:71 y/o F with PMHx of colitis who presents for acute onset of severe dizziness with associated abdominal pain and nausea. The patient states she is unable to open her eyes without feelings of vertigo. She denies headache, chest pain, shortness of breath, paresthesias, unilateral weakness. Last known well 2pm. Code Neuro was called on arrival and patient CT was negative for intracranial hemorrhage. Suspected posterior circulation stroke. The patient was offered TPA and accepted administration. The patient is now admitted to Neuro [facility] for further evaluation and management of Acute CVA status post TPA. History - Adult longitudinalAdditional medical history:colitisPast surgical history:Denies: Abdominal surgery, Appendectomy, Bariatric procedure, CABG, Carotid endarterectomy, Cholecystectomy, , Dialysis shunt/AV fistula, Heart valve procedure, Hernia repair, Hysterectomy, Pacemaker, Spine surgery, Splenectomy, Tonsillectomy, Transplant recipient, Vascular procedure, , Amputation, Anesthesia complications, Bilateral tubal ligation,Bladder surgery, Breast biopsy/procedure, Carpal tunnel release, Cranial procedure, D C, Eye surgery, Feeding tube, Hip procedure, ICD, Indwelling IV catheter, Knee procedure, Lithotripsy, Lung surgery, Nephrectomy, PCI, Prostate surgery, Thyroidectomy, Tracheotomy, SMELTER LINER shunt. Alcohol use: Denies EtOH useDrug use: Denies recreational drugsSmoking status: Smoking status for patients 13 years old or older: Never SmokerAllergies:Coded Allergies:Sulfa (Sulfonamide Antibiotics) (Intermediate, HIVES 12/26/21)butorphanol (From STADOL) (Intermediate, HIVES 12/26/21)levofloxacin (From LEVAQUIN) (VOMITING 12/26/21) Ambulatory status: Independent Review of Systems ROSConstitutional:Reports: fatigue. Skin:Denies: abrasion, bruising, contusion, diaphoresis, ecchymosis, itching, laceration, rash, swelling, other. Allergy/Immun:Denies: allergic reaction, anaphylaxis, hives, itching, rhinorrhea, sneezing, other. Eyes:Denies: redness, discharge, visual loss/blurred, itching, diplopia, eye pain, photophobia, swelling, other. ENT:Denies: ear drainage, ear ringing, earache, hearing loss, mouth pain, nasal congestion, nose bleeding, sinus problem, sore throat, throat pain, throat swelling, tongue pain, tongue swelling, toothache, voice change, other. Respiratory:Denies: SANTAMARIA (dyspnea on exertion), hemoptysis, non productive cough, parox nocturnal dyspnea, pleurisy, pleuritic pain, pneumonia, productive cough (sputum), SOB, wheezing, other. Cardiovascular:Denies: chest pain, SANTAMARIA (dyspnea on exertion), edema, orthopnea, palpitations, parox nocturnal dyspnea, other. GI:Denies: abdominal pain, anorexia, constipation, diarrhea, dysphagia, GERD, hematemesis, hematochezia, hiatal hernia, melena, nausea, rectal pain, vomiting,other. :Denies: dysuria, flank pain, frequency, hematuria, nocturia, pelvic pain, , urgency, urinary retention, vaginal bleeding, vaginal discharge, other. Musculoskeletal:Denies: arthritis, extremity pain, extremity swelling, joint pain, joint swelling, lumbar pain, myalgias, neck pain, thoracic pain, other. Heme:Denies: adenopathy, bleeding, bruising, petechiae, other. Endocrine:Denies: cold intolerance, heat intolerance, polydipsia, polyphagia, polyuria, weight gain, weight loss, other. Neuro:Reports: dizziness. Psych:Denies: agitation, anxiety, auditory hallucination, change in mental status, confusion, delusional, depression, homicidal ideation, hostile, insomnia, stress, suicidal ideation, visual hallucination, other. Objective Physical ExamVS/I O:Last Documented: Result Date Time Temp 36.6 12/27 0737 Pulse Ox 94 12/27 0700 B/P 118/58 12/27 07 B/P Mean 82 12/27 0700 Pulse 62 12/27 0700 Resp 14 12/27 07 O2 Delivery Nasal cannula 12/27 0050 O2 Flow Rate 2 12/27 0050 24 hour I O ending at 0700: 12/27 0700 12/26 1900 Intake Total Output Total 110 Balance -110 Number 2 Bowel Movements Output, Urine 110 Patient 88.8 kg Weight Weight Bed scale Measurement Method Patient Weight and BMI Weight (kg): 88.800 BMI: 33.6 Medications:Active Meds + DC'd Last 24 HrsAtorvastatin Calcium (LIPITOR) 40 MG BEDTIME PO Famotidine (PEPCID) 20 MG BID IV Sodium Chloride (NACL 0.9%) 10 MLMupirocin (BACTROBAN 2% 22 GM OINTMENT) 1 APPLIC BID TOPICAL Insulin Human Lispro (HumaLOG) LOW DOSE SCALE ASDIR SUBQ Hydralazine HCl (APRESOLINE) 10 MG Q6H PRN PRN IV Iopamidol (ISOVUE-370 100ML) 80 ML .STK-MED ONE IV (DC) Dextrose/Water (DEXTROSE 50% SYR) 25 ML ASDIR PRN IV (CKD) Glucagon (GLUCAGON) 1 MG ASDIR PRN IM Miscellaneous Information (MED FORMULATION CHANGE - PHA CONSULT) 1 EACH ASDIR PO (CKD) Nicardipine HCl (niCARdipine 40 mg/NS 200 mL) 200 ML TITRATE IV (CKD) Ondansetron HCl (ZOFRAN 4 MG/2 ML INJ) 4 MG Q4H PRN PRN IV Perflutren Lipid Microsphere (DEFINITY) DIRECTED ONCE PRN IV Sodium Chloride (NACL 0.9% 10ML SYRINGE) DIRECTED ONCE PRN IV Sodium Chloride (SODIUM CHLORIDE FLUSH) 5 ML ONCE PRN IV Sodium Chloride (SODIUM CHLORIDE FLUSH) 5 ML Q12HR IV (DC) Sodium Chloride (SODIUM CHLORIDE FLUSH) 5 ML ASDIR PRN IV (DC) Sodium Chloride (NACL 0.9%) 10 ML ASDIR PRN IV (DC) Sodium Chloride (SODIUM CHLORIDE 0.9%) 250 ML ASDIR PRN IV (DC) Sodium Chloride (ALTEPLASE FLUSH NACL 0.9%) 50 ML ONCE ONE IV (DC) Iopamidol (ISOVUE-370 100ML) 100 ML .STK-MED ONE IV (DC) Ceftriaxone Sodium (ROCEPHIN) 1,000 MG X1ED STA IV (DC) Sodium Chloride (NACL 0.9%) 10 MLMetoclopramide HCl (REGLAN) 5 MG X1ED STA IV (DC) Alteplase, Recombinant (ACTIVASE ) 77 ML ONCE ONE IV (DC) Alteplase, Recombinant (ACTIVASE ) 8.5 MG ONCE ONE IV (DC) General appearance: alert, awakeHead/Eyes: atraumatic, clear cornea, EOMI, normal conjunctiva/sclera, normal eyelids/periorb., normocephalic, PERRLENT: normal dentition, normal ear left, normal ear right, normal nose, normal pharynx, normal sinusNeck: full range of motion, non-tender, normal thyroid, supple/no meningismus, no bruit/NL carotids, no JVD, no masses or swellingCardiovascular: normal capillary refill, regular rate and rhythmRespiratory: clear to auscultation, no distressAbdomen: soft, non-tender, no distention, no guarding, no reboundExtremities: moves all, normal capillary refill, normal range of motion, no edemaMusculoskeletal: normal inspectionNeuro/SPOOL CLEANER: alert, oriented X 3 Considered stroke alert: no ResultsFindings/Data:Laboratory Tests 12/27/21 0256:[Embedded Image Not Available] 12/26/21 1623:[Embedded Image Not Available] 12/26/21 1623:[Embedded Image Not Available]Laboratory Tests 12/27 12/27 12/27 12/27 12/26 0256 0256 0256 0025 2238Chemistry Sodium (137 - 145 mmol/L) 136 L Potassium (3.4 - 5.0 mmol/L) 4.1 Chloride (98 - 107 mmol/L) 103 Carbon Dioxide (22 - 30 mmol/L) 20 L Anion Gap 17 BUN (7 - 17 mg/dL) 26 H Creatinine (0.5 - 1.0 mg/dL) 0.6 Glomerular Filtr Rate (>60) 105 Glucose (74 - 106 mg/dL) 147 H POC Glucose (74 - 106 MG/DL) 133 H Hemoglobin A1c (0 - 5.9 %) 6.0 H Calcium (8.4 - 10.2 mg/dL) 8.9 Magnesium (1.6 - 2.3 mg/dL) 1.8 Troponin I (0.012 - 0.033 ng/mL) < 0.012 L 0.012 Triglycerides (mg/dL) 209 Cholesterol (mg/dL) 246 LDL Cholesterol Measurd (32 - 99 mg/dL) 129.65 H HDL Cholesterol (40 - 59 mg/dL) 59 Coronary Risk Interp 4.17 Specimen Hemolysis (0 - 100 Index/DL) 41 12/26 12/26 12/26 12/26 12/26 2238 1850 1623 1623 1623Chemistry Sodium (137 - 145 mmol/L) 135 L Potassium (3.4 - 5.0 mmol/L) 3.7 Chloride (98 - 107 mmol/L) 103 Carbon Dioxide (22 - 30 mmol/L) 20 L Anion Gap 16 BUN (7 - 17 mg/dL) 29 H Creatinine (0.5 - 1.0 mg/dL) 0.8 Glomerular Filtr Rate (>60) 76 Glucose (74 - 106 mg/dL) 185 H POC Glucose (74 - 106 MG/DL) 147 H Lactic Acid (0.7 - 2.0 mmol/L) 1.8 Calcium (8.4 - 10.2 mg/dL) 9.4 Total Bilirubin (0.2 - 1.3 mg/dL) 0.5 Conjugated Bilirubin (0 - 0.3 mg/dL) 0 Unconjugated Bilirubin (0 - 1.1 mg/dL) 0.3 AST (15 - 46 U/L) 45 ALT (0 - 34 U/L) 18 Total Alk Phosphatase (38 - 126 U/L) 77 Troponin I (0.012 - 0.033 ng/mL) < 0.012 L Total Protein (6.3 - 8.2 g/dL) 7.3 Albumin (3.5 - 5.0 g/dL) 4.2 Lipase (23 - 300 U/L) 50 Specimen Hemolysis (0 - 100 Index/DL) < 15 Laboratory Tests 12/26 1622 Coagulation INR 1.0 PTT (Malik) (23.4 - 37.0 SECONDS) 27.5 PT Patient/Control Mix (9.2 - 12.1 SECONDS) 11.1 Laboratory Tests 12/276 1623 Hematology WBC (5.0 - 12.0 x10 3/uL) 10.7 13.7 H RBC (4.20 - 5.40 x10 6/uL) 4.98 4.92 Hgb (12.0 - 16.0 g/dL) 14.3 14.4 Hct (36.0 - 46.0 %) 42.0 41.8 MCV (81 - 99 fL) 84 85 MCH (27 - 31 pg) 28.7 29.3 MCHC (33 - 37 g/dL) 34.0 34.4 RDW (11.5 - 15.5 %) 12.8 13.0 Plt Count (130 - 400 x10 3/uL) 307 315 MPV (9.4 - 16.4 fL) 10.5 9.8 Neut % (Auto) (43 - 65 %) 84.4 H 74.4 H Lymph % (Auto) (20.5 - 45.5 %) 10.6 L 17.8 L [place] % (Auto) (5.5 - 11.7 %) 4.1 L 6.0 Eos % (Auto) (0.9 - 2.9 %) 0.1 L 0.8 L Baso % (Auto) (0.2 - 1.0 %) 0.3 0.5 Neut # (Auto) (2.2 - 4.8 x10 3/uL) 9.04 H 10.16 H Lymph # (Auto) (1.3 - 2.9 x10 3/uL) 1.13 L 2.43 [place] # (Auto) (0.3 - 0.8 x10 3/uL) 0.44 0.82 H Eos # (Auto) (0.0 - 0.2 x10 3/uL) 0.01 0.11 Baso # (Auto) (0.0 - 0.1 x10 3/uL) 0.03 0.07 Immature Gran % (0.0 - 2.0 %) 0.5 0.5 Nucleated RBC % (0 - 1.0 %) 0.0 0.0 Laboratory Tests 12/26 2224 Serology SARS-CoV-2 Ag (Rapid) (Negative) NEGATIVE Microbiology:12/27 0305 NASAL: MRSA Surveillance Culture - RECD12/26 2237 BLOOD: Blood Culture - RECD12/26 2237 BLOOD: Blood Culture - RECD Radiology data:Recent Impressions:CAT SCAN - CT HEAD/BRAIN W/O CONT 12/26 1615 Report Impression - Status: SIGNED Entered: 12/26/2021 1634 IMPRESSION: 1. Unremarkable noncontrast CT head.2. No intracranial hemorrhage.3. ER physician was notified of finding at 1630 hours on 12/26/[address] examination of the brain can be normal for acutestages of CVA. Diagnosis should be based on clinical history andneurologic exam. Followup MRI of the brain has greater sensitivity forearly detection of acute infarct. This report was generated by using voice recognition software. RESULT CODE: CVRImpression By: HarrisHPD - Vasquez Guillaume [facility] SCAN - CT ANGIO NECK 12/26 1704 Report Impression - Status: SIGNED Entered: 12/26/20211835 IMPRESSION: No evidence of intracranial vascular stenosis or large vesselocclusion involving the [place] Site ID: [id number] CT angiogram neck HISTORY: Dizziness, syncope, nystagmus TECHNIQUE: Sequential trans-axial images were obtained with amulti-detector helical CT after iodinated contrast administration. Images were reconstructed in 3-dimensional and MIP formats. CT doselowering technique utilized, with adjustment of MA/kV according topatient size and automated exposure control. FINDINGS: The origins of the great vessels and visualized upper thoracic aorticarch are unremarkable. The common carotid arteries are widely patent bilaterally. The carotidbulb regions demonstrate mild eccentric soft plaque bilaterally. Theinternal and external carotid artery origins are widely patent. The vertebral arteries appear widely patent bilaterally, withoutatherosclerotic narrowing. Left vertebral artery is hypoplastic. Using the NASCET criteria the right internal carotid arterydemonstrates maximum luminal stenosis of 10%. Using NASCET criteria of the left internal carotid artery demonstratesmaximum luminal stenosis of 10%. The source images show no evidence of dissections. IMPRESSION: No evidence of hemodynamically significant vascular stenosis,dissection or vascular occlusion involving the cervical carotid orvertebral arteries Impression By: [email or web address] - SaadPuma [facility] CT ANGIO HEAD 12/26 1704 Report Impression - Status: SIGNED Entered: 12/26/20211835 IMPRESSION: No evidence of intracranial vascular stenosis or large vesselocclusion involving the [place] Site ID: [id number] CT angiogram neck HISTORY: Dizziness, syncope, nystagmus TECHNIQUE: Sequential trans-axial images were obtained with amulti-detector helical CT after iodinated contrast administration. Images were reconstructed in 3-dimensional and MIP formats. CT doselowering technique utilized, with adjustment of MA/kV according topatient size and automated exposure control. FINDINGS: The origins of the great vessels and visualized upper thoracic aorticarch are unremarkable. The common carotid arteries are widely patent bilaterally. The carotidbulb regions demonstrate mild eccentric soft plaque bilaterally. Theinternal and external carotid artery origins are widely patent. The vertebral arteries appear widely patent bilaterally, withoutatherosclerotic narrowing. Left vertebral artery is hypoplastic. Using the NASCET criteria the right internal carotid arterydemonstrates maximum luminal stenosis of 10%. Using NASCET criteria of the left internal carotid artery demonstratesmaximum luminal stenosis of 10%. The source images show no evidence of dissections. IMPRESSION: No evidence of hemodynamically significant vascular stenosis,dissection or vascular occlusion involving the cervical carotid orvertebral arteries Impression By: [email or web address] - Puma Mcduffie MDRADIOLOGY - XR CHEST 1 V 12/26 1733 Report Impression - Status: SIGNED Entered: 12/26/2021 1811 Impression:No acute disease.Impression By: Jose Deleon MDCAT SCAN - CT ABD PELVIS W/CONT 12/27 0010 Report Impression - Status: SIGNED Entered: 12/27/2021 0028 IMPRESSION: Cystic area in the vaginal cuff measuring 5.9 x 3.3 x 5.4 cm which isconcerning for a possible mass. Further evaluation with pelvicultrasound should be considered.No bowel obstruction. Normal appendix. LOCATION: B2 This CT exam was performed according to our departmental doseoptimization program, which includes automated exposure control,adjustment of the mA and or kV according to patient size and/or use ofiterative reconstruction technique.Impression By: Coco Dennison MD Diagnosis, Assessment PlanFree text DxA P: 71 y/o F with pMHx of Enteritis who c/o severe dizziness accompanied with nausea/vomiting/diarrhea. The patient was admitted to Neuro [facility] for further evaluation and management of acute CVA status post TPA. #?Acute CVA-Neurology consulted-Status post TPA at 1637-CT Head: unremarkable. No intracranial hemorhage. -NIH 2-MRS, premorbid 0, estimated 3-Goal <180/105; Nicardipine PRN-EKG/ECHO w bubble study-LDL/A1c rkmiqrc-Kazlfmijonmo-Aaroll CT head 24 hours post TPA-MRI-PT/OT/INSPECTOR TYPE-Frequent neuro monitoring-Has nystagmusDoes nt appaer like cvaMRI pending #Abdominal Pain, N/V/D-CT Abd/Pelv: liver, spleen, gallbladder, pancreas, adrenal glands unremarkable.kidneys normal in size, no hydronephrosis or nephrolithiasis. stoamh small bowel, large bowel, appendix normal in appearance. no bowel obstruction. Cystic area in vaginal cuff concerning for possible mass-Zofran PRNobstetrics ocnsult KW ICU ChecklistICU Checklist:Analgesia: Nutrition:Glycemic control: NPOUlcer prophylaxis: FamotidineDVT prophylaxis: SCDsNeed for central Line: NoNeed for darnell catheter: No at 1510 RPT #:[id number] OF REPORTYYMjlldnjbtrog4959-22-07G70:33 :00C.[id number] for patient uvisWZXWMUBJULSLPZ7371-11-07J84:10:33 [facility] 2021-12-26 19:49:00 [id number] DlEqM6scqGpt+gyjIw9vJgofluaBHRAklbYFp00 22-12-25T19:49:00 [facility] ([facility])Consultation Note - BriefREPORT#:[id number] REPORT STATUS: SignedDATE:12/26/21 TIME: 1948 PATIENT: FRANSICO PÉREZ UNIT #: [id number]#: [id number] ROOM/BED: [place] [address]TUV25-RDHF: 52 AGE: 71 SEX: F ATTEND: Melissa Fernandez AUTHOR: Toni Larsen APRN * ALL edits or amendments must be made on the electronic/computer document * History of Present Illness HPIReason for consult:Critical Care ManagementChief complaint:Dizziness, NystagmusPCP:PCP: No Primary or Family Physician History of present illness:Fransico Pérez is a 71 y/o F with PMHx of colitis who presents for acute onset of severe dizziness with associated abdominal pain and nausea. The patient states she is unable to open her eyes without feelings of vertigo. She denies headache, chest pain, shortness of breath, paresthesias, unilateral weakness. Last known well 2pm. Code Neuro was called on arrival and patient CT was negative for intracranial hemorrhage. Suspected posterior circulation stroke. The patient was offered TPA and accepted administration. The patient is now admitted to Neuro [facility] for further evaluation and management of Acute CVA status post TPA. History - Adult longitudinalAdditional medical history:colitisAlcohol use: Denies EtOH useDrug use: Denies recreational drugsSmoking status: Smoking status for patients 13 years old or older: Unknown,if ever smokedAllergies:Coded Allergies:Sulfa (Sulfonamide Antibiotics) (Intermediate, HIVES 12/26/21)butorphanol (From STADOL) (Intermediate, HIVES 12/26/21)levofloxacin (From LEVAQUIN) (VOMITING 12/26/21) Ambulatory status: Independent Brief Consult Note Physical ExamVitals:Last Documented: Result Date Time Pulse Ox 99 12/26 1843 B/P 154/73 12/26 1731 Pulse 67 12/26 1730 Resp 29 12/26 1729 General appearance: alert, awake, orientedHEENT: pupils reactive to lightCardiovascular: normal capillary refill, regular rate rhythm, normal heart sounds, BP/pulses equal bilat.Respiratory: clear to auscultation, no distress, no tenderness, aerating well, symmetric expansionAbdomen: soft, no reboundNeuro/SPOOL CLEANER: alert, oriented X 3, normal speech, no motor deficits Considered stroke alert: noExtremities:Bilat moves all, Bilat no edema, Bilat normal capillary refillSkin: dry, intact, no gross abnormalitiesFindings/Data:Recent Impressions:CAT SCAN - CT HEAD/BRAIN W/O CONT 12/26 1615 Report Impression - Status: SIGNED Entered: 12/26/2021 1634 IMPRESSION: 1. Unremarkable noncontrast CT head.2. No intracranial hemorrhage.3. ER physician was notified of finding at 1630 hours on 12/26/[address] examination of the brain can be normal for acutestages of CVA. Diagnosis should be based on clinical history andneurologic exam. Followup MRI of the brain has greater sensitivity forearly detection of acute infarct. This report was generated by using voice recognition software. RESULT CODE: CVRImpression By: Vasquez Miramontes [facility] SCAN - CT ANGIO NECK 12/26 1704 Report Impression - Status: SIGNED Entered: 12/26/2021 1836 IMPRESSION: No evidence of intracranial vascular stenosis or large vesselocclusion involving the [place] Site ID: [id number] CT angiogram neck HISTORY: Dizziness, syncope, nystagmus TECHNIQUE: Sequential trans-axial images were obtained with amulti-detector helical CT after iodinated contrast administration. Images were reconstructed in 3-dimensional and MIP formats. CT doselowering technique utilized, with adjustment of MA/kV according topatient size and automated exposure control. FINDINGS: The origins of the great vessels and visualized upper thoracic aorticarch are unremarkable. The common carotid arteries are widely patent bilaterally. The carotidbulb regions demonstrate mild eccentric soft plaque bilaterally. Theinternal and external carotid artery origins are widely patent. The vertebral arteries appear widely patent bilaterally, withoutatherosclerotic narrowing. Left vertebral artery is hypoplastic. Using the NASCET criteria the right internal carotid arterydemonstrates maximum luminal stenosis of 10%. Using NASCET criteria of the left internal carotid artery demonstratesmaximum luminal stenosis of 10%. The source images show no evidence of dissections. IMPRESSION: No evidence of hemodynamically significant vascular stenosis,dissection or vascular occlusion involving the cervical carotid orvertebral arteries Impression By: [email or web address] Puma Pineda [facility] ANGIO HEAD 04/26 1705 Report Impression - Status: SIGNED Entered: 12/26/2021 1836 IMPRESSION: No evidence of intracranial vascular stenosis or large vesselocclusion involving the [place] Site ID: [id number] CT angiogram neck HISTORY: Dizziness, syncope, nystagmus TECHNIQUE: Sequential trans-axial images were obtained with amulti-detector helical CT after iodinated contrast administration. Images were reconstructed in 3-dimensional and MIP formats. CT doselowering technique utilized, with adjustment of MA/kV according topatient size and automated exposure control. FINDINGS: The origins of the great vessels and visualized upper thoracic aorticarch are unremarkable. The common carotid arteries are widely patent bilaterally. The carotidbulb regions demonstrate mild eccentric soft plaque bilaterally. Theinternal and external carotid artery origins are widely patent. The vertebral arteries appear widely patent bilaterally, withoutatherosclerotic narrowing. Left vertebral artery is hypoplastic. Using the NASCET criteria the right internal carotid arterydemonstrates maximum luminal stenosis of 10%. Using NASCET criteria of the left internal carotid artery demonstratesmaximum luminal stenosis of 10%. The source images show no evidence of dissections. IMPRESSION: No evidence of hemodynamically significant vascular stenosis,dissection or vascular occlusion involving the cervical carotid orvertebral arteries Impression By: [email or web address] - Puma Mcduffie MDRADIOLOGY - XR CHEST 1 V 12/26 1733 Report Impression - Status: SIGNED Entered: 12/26/2021 1811 Impression:No acute disease.Impression By: Jose Deleon MD Laboratory Tests 12/26/21 1623:[Embedded Image Not Available] 12/26/21 1623:[Embedded Image Not Available] Free Text A P:Fransico Pérez is a 71 y/o F with pMHx of Enteritis who c/o severe dizziness accompanied with nausea/vomiting/diarrhea. The patient was admitted to Neuro [facility]for further evaluation and management of acute CVA status post TPA. #Acute CVA-Neurology consulted-Status post TPA at 1637-CT Head: unremarkable. No intracranial hemorhage. -NIH 2-MRS, premorbid 0, estimated 3-Goal <180/105; Nicardipine PRN-EKG/ECHO w bubble study-LDL/A1c wxcmwve-Hgdfsbuwbqzj-Qovfyk CT head 24 hours post TPA-MRI-PT/OT/INSPECTOR TYPE-Frequent neuro monitoring #Abdominal Pain, N/V/D-CT Abd/Pelv: liver, spleen, gallbladder, pancreas, adrenal glands unremarkable.kidneys normal in size, no hydronephrosis or nephrolithiasis. stoamh small bowel, large bowel, appendix normal in appearance. no bowel obstruction. Cystic area in vaginal cuff concerning for possible mass-Zofran PRN KW ICU ChecklistICU Checklist:Analgesia: Nutrition:Glycemic control: NPOUlcer prophylaxis: FamotidineDVT prophylaxis: SCDsNeed for central Line: NoNeed for darenll catheter: No at 0559 RPT #:[id number] OF REPORTUIZycdhfhspphg8200-53-15J54:49 :00C.[id number] for patient lqmuVETIVNYBHTHNPV3621-42-07A41:59:50 [facility] 2021-12-26 16:24:00 [id number] yePsCOzJEudzio5R7GrBIP/FW97ytUHsmVePT12 22-12-25T16:24:00 [facility] CenterEM[facility] PROVIDER REPORTREPORT#:[id number] REPORT STATUS: SignedDATE:12/26/21 TIME: 1623 PATIENT: FRANSICO PÉREZ UNIT #: [id number]#: [id number] [address]-GPDL: 71 SEX: F PCP PHYS: No Primary or Family PhysicianSERVICE AUTHOR: Hamilton Cruz MD R1 * ALL edits or amendments must be made on the electronic/computer document * Hamilton Cruz 12/26/21 1624:HPI-Neurologic Deficit Free Text HPI NotesFree Text HPI [age]otoy52xx F with hx of colitis presents with sudden onset of severe vertigo and difficulty balancing. Symptoms began suddenly at 1419 this afternoon while patient was standing still at home. She was unable to stand due to severe dizziness and has had to lay down with her eyes closed since due to symptom severity. She has had multiple episodes of nonbloody/nonbilious vomiting since. Also reports moderate severity diffuse abdominal pain for past 2 days. Family reports patient had congestion and sinus symptoms yesterday but patient reports she felt completely fine prior to sudden onset of symptoms today. She has never had similar symptoms in the past. Denies any hx of bleeding, prior CVA, blood thinner use, or recent trauma/surgeries. FS glucose 144 per EMS. GeneralInitial Greet Date/Time 12/26/21 1556 PresentationChief Complaint vertigo)( Last Known Well )( Time 1419Hx Obtained From Patient, EMSSudden in Onset? YesOnset Occurred Just prior to arrival)( Symptom Duration Since onsetProgression since Onset UnchangedAssociated withReports: Nausea, Vomiting. Exacerbated by MovementRelieved by Nothing Risk-Neurologic Deficit Risk StratificationNIH Stroke Scale NIH Stroke Scale Response Value NIHSS Applicable? Yes 0 Level of Consciousness Alert and responsive (0) 0 Ask Month Age Both questions right (0) 0 Blink Eyes/Squeeze Hands Performs both tasks (0) 0 Horizontal EOM NL side/side eye mvmt (0) 0 Visual Banda No visual loss (0) 0 Facial Palsy Normal symmetry (0) 0 Right Arm Motor Drift (10s) No drift 10 sec (0) 0 Left Arm Motor Drift (10s) No drift 10 sec (0) 0 Right Leg Motor Drift (5s) No drift 5 sec (0) 0 Left Leg Motor Drift (5s) No drift 5 sec (0) 0 Limb Ataxia FNF/Heel-Pires Ataxia in 2 limbs (2) 2 Sensation (Arms/Legs/Face) No sensory loss (0) 0 Language Aphasia No aphasia, normal (0) 0 Dysarthria No dysarthria (0) 0 Extinction/Inattention No extinct/inattent (0) 0 Total 2 Review of Systems ROS StatementsAll systems rev neg except as marked. Focused Review of SystemsConstitutionalDenies: Chills, Fatigue, Fever. EyesDenies: Blurred bilat, Visual loss bilat. RespiratoryDenies: Cough, non-productive, Cough, productive, Shortness of breath. CardiovascularDenies: Chest pain, Palpitations, Syncope. GIReports: Abdominal pain, Nausea, Vomiting. MusculoskeletalDenies: Back pain, Extremity pain, Neck pain, Thoracic pain. SkinDenies: Rash, Swelling. NeurologicReports: Dizziness, Problem walking, Spinning sensation, Vision change. Denies:Change LOC, Confusion, Focal weakness, Numbness. Past Medical History - AdultStated Complaint SYNCOPEAllergiesCoded Allergies:Sulfa (Sulfonamide Antibiotics) (Intermediate, HIVES 12/26/21)butorphanol (From STADOL) (Intermediate, HIVES 12/26/21)levofloxacin (From LEVAQUIN) (VOMITING 12/26/21) Home MedicationsReported MedicationsMesalamine (DELZICOL) ESTRADIOL (ESTRACE) 0.5 MG PO DAILY Calculated Suicide Risk (nurs) No riskPt reports no significant: Past surgical history, Family historyAdditional Medical HistorycolitisAlcohol Use Denies EtOH useDrug Use Denies recreational drugsSmoking status: Smoking status for patients 13 years old or older: Unknown,if ever smoked Physical Exam Vital SignsReview of Vital Signs Reviewed Focused PEGeneral/Const General/Const Awake, Alert Text/Dict NotesPatient in severe distress due to dizziness with multiple vomit stains on shirtMS Head Head Atraumatic, NormocephalicEyes Eyes PERRL Text/Dict NotesSignificant bilateral and vertical nystagmus on exam without loss of vision. Pt unable to open eyes for long periods of time due to symptomsEars/Nose/Throat Ears/Nose/Throat Airway patent, Mucous membranes moist, Pharynx NL, No facialswellingMS Neck Neck Atraumatic, Supple, No meningismus, Full range of motion, No swelling, Non-tender, No midline vertebral tend, No carotid bruitResp/Chest Respiratory/Chest Breath sounds NL, Breath sounds = bilat, No respiratory distress, No rales, No rhonchi, No wheezingCardiovascular Cardiovascular Heart rate NL, Regular rhythm, Heart sounds NL, Peripheral circulation NLAbdomen/GI Abdomen/GI Soft, No guarding, No rebound Text/Dict NotesModerate diffuse tenderness to palpation without rebound/guardingMS Upper Extrem Upper Extremity/MS Inspection NL, No swelling, Non-tender, No erythema, No deformity, Neurologic intact, Vascular intactMS Lower Extrem Lower Ext/Pelvis/MS Inspection NL, No swelling, Non-tender, No erythema, No deformity, Neurologic intact, Vascular intact, No edemaSkin Skin Color NL, Warm, Dry, Turgor NLNeurologic Neurologic Oriented X3, Speech NL, No motor deficits, No sensory deficits Text/Dict NotesUnable to ambulate due to vertigo Bilateral cerebellar ataxia on finger to nose testing Decreased hearing in R ear from baseline No focal weakness or sensory lossPsychiatric Psychiatric Affect NL, Mood NL Interpretation Diagnostics Lab Results InterpretationResultsLaboratory Tests 12/26/21 1623:[Embedded Image Not Available] 12/26/21 1623:[Embedded Image Not Available]Laboratory Tests: 12/26 12/26 12/26 12/26 1850 1623 1623 1623Chemistry Sodium (137 - 145 mmol/L) 135 L Potassium (3.4 - 5.0 mmol/L) 3.7 Chloride (98 - 107 mmol/L) 103 Carbon Dioxide (22 - 30 mmol/L) 20 L Anion Gap 16 BUN (7 - 17 mg/dL) 29 H Creatinine (0.5 - 1.0 mg/dL) 0.8 Glomerular Filtr Rate (>60) 76 Glucose (74 - 106 mg/dL) 185 H POC Glucose (74 - 106 MG/DL) 147 H Calcium (8.4 - 10.2 mg/dL) 9.4 Total Bilirubin (0.2 - 1.3 mg/dL) 0.5 Conjugated Bilirubin (0 - 0.3 mg/dL) 0 Unconjugated Bilirubin (0 - 1.1 mg/dL) 0.3 AST (15 - 46 U/L) 45 ALT (0 - 34 U/L) 18 Total Alk Phosphatase (38 - 126 U/L) 77 Troponin I (0.012 - 0.033 ng/mL) < 0.012 L Total Protein (6.3 - 8.2 g/dL) 7.3 Albumin (3.5 - 5.0 g/dL) 4.2 Lipase (23 - 300 U/L) 50 Specimen Hemolysis (0 - 100 Index/DL) < 15Coagulation INR 1.0 PTT (Malik) (23.4 - 37.0 SECONDS) 27.5 PT Patient/Control Mix (9.2 - 12.1 11.1SECONDS)Hematology WBC (5.0 - 12.0 x10 3/uL) 13.7 H RBC (4.20 - 5.40 x10 6/uL) 4.92 Hgb (12.0 - 16.0 g/dL) 14.4 Hct (36.0 - 46.0 %) 41.8 MCV (81 - 99 fL) 85 MCH (27 - 31 pg) 29.3 MCHC (33 - 37 g/dL) 34.4 RDW (11.5 - 15.5 %) 13.0 Plt Count (130 - 400 x10 3/uL) 315 MPV (9.4 - 16.4 fL) 9.8 Neut % (Auto) (43 - 65 %) 74.4 H Lymph % (Auto) (20.5 - 45.5 %) 17.8 L [place] % (Auto) (5.5 - 11.7 %) 6.0 Eos % (Auto) (0.9 - 2.9 %) 0.8 L Baso % (Auto) (0.2 - 1.0 %) 0.5 Neut # (Auto) (2.2 - 4.8 x10 3/uL) 10.16 H Lymph # (Auto) (1.3 - 2.9 x10 3/uL) 2.43 [place] # (Auto) (0.3 - 0.8 x10 3/uL) 0.82 H Eos # (Auto) (0.0 - 0.2 x10 3/uL) 0.11 Baso # (Auto) (0.0 - 0.1 x10 3/uL) 0.07 Immature Gran % (0.0 - 2.0 %) 0.5 Nucleated RBC % (0 - 1.0 %) 0.0 Recent Impressions:CAT SCAN - CT HEAD/BRAIN W/O CONT 12/26 1615 Report Impression - Status: SIGNED Entered: 12/26/2021 8027 IMPRESSION: 1. Unremarkable noncontrast CT head.2. No intracranial hemorrhage.3. ER physician was notified of finding at 1630 hours on 12/26/[address] examination of the brain can be normal for acutestages of CVA. Diagnosis should be based on clinical history andneurologic exam. Followup MRI of the brain has greater sensitivity forearly detection of acute infarct. This report was generated by using voice recognition software. RESULT CODE: CVRImpression By: Chandni PatelsantoshVasquez [facility] SCAN - CT ANGIO NECK 12/26 1704 Report Impression - Status: SIGNED Entered: 12/26/20211835 IMPRESSION: No evidence of intracranial vascular stenosis or large vesselocclusion involving the [place] Site ID: [id number] CT angiogram neck HISTORY: Dizziness, syncope, nystagmus TECHNIQUE: Sequential trans-axial images were obtained with amulti-detector helical CT after iodinated contrast administration. Images were reconstructed in 3-dimensional and MIP formats. CT doselowering technique utilized, with adjustment of MA/kV according topatient size and automated exposure control. FINDINGS: The origins of the great vessels and visualized upper thoracic aorticarch are unremarkable. The common carotid arteries are widely patent bilaterally. The carotidbulb regions demonstrate mild eccentric soft plaque bilaterally. Theinternal and external carotid artery origins are widely patent. The vertebral arteries appear widely patent bilaterally, withoutatherosclerotic narrowing. Left vertebral artery is hypoplastic. Using the NASCET criteria the right internal carotid arterydemonstrates maximum luminal stenosis of 10%. Using NASCET criteria of the left internal carotid artery demonstratesmaximum luminal stenosis of 10%. The source images show no evidence of dissections. IMPRESSION: No evidence of hemodynamically significant vascular stenosis,dissection or vascular occlusion involving the cervical carotid orvertebral arteries Impression By: [email or web address] - SaadPuma [facility] SCAN - CT ANGIO HEAD 12/26 1704 Report Impression - Status: SIGNED Entered: 12/26/20211835 IMPRESSION: No evidence of intracranial vascular stenosis or large vesselocclusion involving the [place] Site ID: [id number] CT angiogram neck HISTORY: Dizziness, syncope, nystagmus TECHNIQUE: Sequential trans-axial images were obtained with amulti-detector helical CT after iodinated contrast administration. Images were reconstructed in 3-dimensional and MIP formats. CT doselowering technique utilized, with adjustment of MA/kV according topatient size and automated exposure control. FINDINGS: The origins of the great vessels and visualized upper thoracic aorticarch are unremarkable. The common carotid arteries are widely patent bilaterally. The carotidbulb regions demonstrate mild eccentric soft plaque bilaterally. Theinternal and external carotid artery origins are widely patent. The vertebral arteries appear widely patent bilaterally, withoutatherosclerotic narrowing. Left vertebral artery is hypoplastic. Using the NASCET criteria the right internal carotid arterydemonstrates maximum luminal stenosis of 10%. Using NASCET criteria of the left internal carotid artery demonstratesmaximum luminal stenosis of 10%. The source images show no evidence of dissections. IMPRESSION: No evidence of hemodynamically significant vascular stenosis,dissection or vascular occlusion involving the cervical carotid orvertebral arteries Impression By: [email or web address] - Puma Mcduffie MDRADIOLOGY - XR CHEST 1 V 12/26 1733 Report Impression - Status: SIGNED Entered: 12/26/2021 1811 Impression:No acute disease.Impression By: Jose Deleon MD Lab Imaging StatementLaboratory radiographic studies reviewed and considered in the medical decision-making. Re-Evaluation MDM Free Text MDM NotesFree Text MDM NotesPt mildly hypertensive in ED with vitals otherwise normal. Exam showed bilateraland vertical nystagmus on exam and cerebellar ataxia concerning for posterior stroke. Code neuro called on arrival. Patient LKW at 1400. 1620 - CT head showed no acute hemorrhage. Notified pharmacy to prepare tPA. Discussed risks of intracranial hemorrhage and benefits of tPA and patient choseto proceed with tPA. No major contraindications to tPA 1840 - Patient still dizzy but able to open her eyes and feels better. Abd pain improved as well. CTA shows no focal stenosis or dissection. Will admit to ICU for further management. Patient understands plan and agrees to admission. Notified Dr. Fernandez who accepts and will see patient Patient Discharge Departure Vital Signs/ConditionVital SignsFirst Documented: Result Date Time B/P 155/71 12/26 1637 Pulse Ox 96 12/26 1638 Pulse 56 12/26 1638 Resp 12/26 1729 Last Documented: Result Date Time Pulse Ox 99 12/26 1843 B/P 154/73 12/26 1731 Pulse 67 12/26 1730 Resp 12/26 1729 All vital signs available at the time of this entry have been reviewed. Clinical ImpressionClinical ImpressionPrimary Impression: Posterior circulation strokeSecondary Impressions: Nausea vomiting, Vertigo Disposition DecisionAdmit Admit Physician Name Melissa Fernandez MD )( Admission Accepts Yes )( Accepted Time 1852 )( Accepted Date 12/26/21 Mikel Castillo 12/26/21 1900:Physical Exam Vital SignsVital SignsFirst Documented: Result Date Time B/P 155/71 12/26 1637 Pulse Ox 96 12/26 1638 Pulse 56 12/26 1638 Resp 12/26 1729 Last Documented: Result Date Time Pulse Ox 99 12/26 1843 B/P 154/73 12/26 1731 Pulse 67 12/26 1730 Resp 12/26 1729 Focused PEResp/Chest Respiratory/Chest No respiratory distress Interpretation Diagnostics ECG #1 InterpretationText/Dict Notesb 55, nl axis, nl intervals, st de pression inf lat leads, nonspecific.Date 12/26/21Time 1642 Re-Evaluation MDM Stroke Thrombolytic TherapyDiscussed Risks, Benefits, and Alternatives YesConsent Obtained PatientIntensive Monitoring Performed YesInclusion Criteria Dx of ischemic CVA, Measurable neuro deficit, Age >= 18, Onset < 3 hr before TxExclusion Criteria No exclusions ED CourseMedication(s) OrderedMedication(s) Ordered:Electrolytic, Caloric, And Penelope Sig/Yina Start time Last Medication Dose Route Stop Time Status Admin Sodium Chloride 5 ML Q12HR 12/26 2099 DC 12/26 IV 12/27 53 2100 Sodium Chloride 5 ML ASDIR PRN 12/26 190 DC IV 12/27 005 Sodium Chloride 10 ML ASDIR PRN 12/26 1900 DC IV 12/27 005 Sodium Chloride 250 ML ASDIR PRN 12/26 1900 DC IV 12/27 0054 Patient Discharge Departure Vital Signs/ConditionCondition Guarded Critical CareTime Spent (minutes): 45Services Performed Patient management by me, Time spent at bedside, Reviewing test results, Reviewing imaging, Discussing patient care, Documentation in record, Time with fam/surrogateSeparately billable procedures excluded from time. CC Note 1Total critical care time [45] minutes. Total critical care time documented does not include time spent on separately billed procedures or the services of residents, students, nurses or physician assistants. I personally saw and examined the patient. I have reviewed all diagnostic interpretations and treatment plans as written. I was present for the alatorre portions of any proceduresperformed and the inclusive time noted in any critical care statement. Critical care time includes patient management by me, time spent at the patients bedside,time to review lab and imaging results, discussing patient care, documentation in the medical record, and time spent with the family or caregiver. Quality MeasuresPrimary Headache CT Abnormal neuro examSyncope Concern for IC injury, Concern for IC bleed Supervising Physician Note Resident Saw PtThis patient was seen by a resident. I have personally seen the patient, performed the critical or alatorre portions of the service, and participated in the management of the patient. I have reviewed and agree with the resident's note, and I have reviewed all labs, ECGs, and imaging studies or reports. I agree withthis resident's findings, exam and plan. pt with persisting bilateral nystagmusconcern for posterior cvaacute onset, alteplase candidate, pt consented.icc at 1923 at 0141RPT #:[id number] OF REPORTEDEmergency department [id number] for patient [id number] HCAKW
--- NOTE | 2023-11-22 15:28 | RAD REPORT ---
EXAM DESCRIPTION: CT - Head Brain Wo Cont - 11/22/2023 3:19 pm CLINICAL HISTORY: Weakness;Headache Headache, drowsiness COMPARISON: Head Brain Wo Cont dated 11/05/2018 TECHNIQUE: All CT scans are performed using dose optimization technique as appropriate and may inclu de automated exposure control or mA/KV adjustment according to patient size. FINDINGS: No intracranial hemorrhage, hydrocephalus or extra-axial fluid collection.No areas of brai n edema or evidence of midline shift. The paranasal sinuses and mastoids are clear. The calvarium is intact. IMPRESSION: No acute intracranial abnormality.
--- NOTE | 2023-11-22 15:41 | RAD REPORT ---
EXAM DESCRIPTION: RAD - Chest Single View - 11/22/2023 3:34 pm CLINICAL HISTORY: weakness Chest pain. COMPARISON: Chest Single View dated 11/05/2018; CHEST PA AND LAT 2 VIEW dated 06/19/2012 FINDINGS: Portable technique limits examination quality. The lungs are grossly clear. The heart is normal in size. No displaced fractures. IMPRESSION: No acute intrathoracic process suspected.
[2023-11-22 15:42] LABS: Absolute Basophils 0.1 K/uL (0-0.5); Absolute Eosinophils 0.1 K/uL (0-0.5); Absolute Lymphocytes (CBC) 1.8 K/uL (0.7-4.9); Absolute Monocytes 0.7 K/uL (0.1-1.3); Basophils % 0.6 % (0-1.3); Eosinophils % 1.2 % (0-4.4); Hematocrit 46.4 % (36.0-45.0); Hemoglobin 15.7 g/dL (12.0-15.0); Lymphocytes % 18.1 % (15.3-44.8); MCH 29.3 pg (27.0-35.0); MCHC 33.8 g/dL (32.0-36.0); MCV 86.8 fL (80-100); MPV 8.1 fL (7.6-11.3); Monocytes % 7.7 % (3.3-12.3); Neutrophils % 72.4 % (41.7-73.7); Platelets 322 thou/uL (152-406); RBC Red Blood Cell Count 5.34 M/uL (3.86-4.86); Red Cell Distribution Width 13.8 % (12.1-15.2)
[2023-11-22 15:45] LABS: PT Prothrombin Time 10.4 SECONDS (9.5-12.5); PTT, Activated Partial Thromb 30.9 SECONDS (24.3-36.9); Protime INR 0.94
[2023-11-22 15:50] LABS: Specific Gravity 1.011 (1.005-1.030); Sqamous Epithelial <5 /HPF (None Seen); Urine Bacteria None Seen /HPF (<20); Urine Bilirubin NEGATIVE (Negative); Urine Blood Negative (Negative); Urine Clarity Clear (Clear); Urine Color Light-Yellow (Yellow); Urine Culture Reflex Order NOT NEEDED; Urine Glucose NEGATIVE (Negative); Urine Ketones NEGATIVE (Negative); Urine Microscopic Reflex YN ORDER UMIC; Urine Nitrite NEGATIVE (Negative); Urine Protein NEGATIVE (Negative); Urine RBC <5 /HPF (None Seen); Urine Urobilinogen Normal (Normal); Urine WBC None Seen /HPF (<5); Urine pH 5.5 (5.0-7.0)
[2023-11-22 15:59] LABS: Albumin 3.8 g/dL (3.4-5.0); Albumin/Globulin Ratio 0.9 (1.1-1.8); Anion Gap 8.1 mEq/L (5.0-15.0); Bilirubin Direct 0.2 mg/dL (0-0.2); Bilirubin Indirect, Calculated 0.5 mg/dL (0.2-0.8); Bilirubin Total 0.7 mg/dL (0.2-1.0); Globulin 4.2 g/dL (2.3-3.5); Magnesium 2.1 mg/dL (1.6-2.4); Potassium 4.1 mEq/L (3.5-5.1); Troponin High Sensitivity 7.3 pg/mL (<58.9)
--- NOTE | 2023-11-22 16:03 | RAD REPORT ---
EXAM DESCRIPTION: US - Abdomen Exam Limited - 11/22/2023 3:57 pm CLINICAL HISTORY: ABD PAIN COMPARISON: No comparisons FINDINGS: The gallbladder demonstrates no gallstones. No pericholecystic fluid or gallbladder wall t hickening. The common bile duct is normal measuring 5-6 mm. The liver demonstrates no findings of intrahepatic biliary dilatation. IMPRESSION: Unremarkable examination.
--- NOTE | 2023-11-22 17:28 | RAD REPORT ---
EXAM DESCRIPTION: CTAbdomen Pelvis W Contrast - 11/22/2023 5:11 pm CLINICAL HISTORY: Abdominal pain. ABD PAIN COMPARISON: No comparisons TECHNIQUE: Biphasic CT imaging of the abdomen and pelvis was performed with 100 ml non-ionic IV cont rast. All CT scans are performed using dose optimization technique as appropriate and may include automated exposure control or mA/KV adjustment according to patient size. FINDINGS: The lung bases are clear. The liver is diffusely fatty. Spleen, pancreas, adrenal glands and kidneys are within normal limits. No bowel obstruction, free air, free fluid or abscess. Moderately stool in the colon. The appendix is normal. No evidence of significant lymphadenopathy. 5.1 x 3.0 cm localized thick-walled fluid collection. No suspicious bony findings. IMPRESSION: No acute intra-abdominal or pelvic finding. Localized thick-walled nonspecific fluid collection on a pelvis measuring 5 cm.
--- NOTE | 2023-11-22 17:54 | ER ---
Nurse's Notes [facility] Name: Cherrie Diane Age: 73 yrs Sex: Female : 1950 Arrival Date: 11/22/2023 Time: 14:24 Bed 6 Private MD: Diagnosis: Weakness Presentation: 11/21 14:29 Chief complaint: Patient states: feels really sick, is on antibiotics for pippa ear iw infection , has been feeling weak and has headache, yesterday back was hurting , has pain on right side, symptoms started yesterday. Coronavirus screen: Client presents with at least one sign or symptom that may indicate coronavirus-19. Ebola Screen: Patient negative for fever greater than or equal to 101.5 degrees Fahrenheit, and additional compatible Ebola Virus Disease symptoms Patient denies exposure to infectious person. Patient denies travel to an Ebola-affected area in the 21 days before illness onset. No symptoms or risks identified at this time. Initial Sepsis Screen: Does the patient meet any 2 criteria? No. Patient's initial sepsis screen is negative. Does the patient have a suspected source of infection? No. Patient's initial sepsis screen is negative. Risk Assessment: Do you want to hurt yourself or someone else? Patient reports no desire to harm self or others. Onset of symptoms was November 21, 2023. 14:29 Method Of Arrival: Wheelchair iw 14:29 Acuity: MORIS 3 iw Triage Assessment: 15:20 Headache History: Denies prior headaches. General: Appears in no apparent distress. kd3 Behavior is calm, cooperative. Pain: Also complains of. Pain: Pain Pain began gradually. Historical: - Allergies: 14:31 Levaquin; iw 14:31 Stadol; iw 14:31 Sulfa (Sulfonamide Antibiotics); iw - PMHx: 14:31 colitis; CVA; iw 14:32 uterine cancer; iw - PSHx: 14:32 knee X 2; hysterectomy; iw - Immunization history:: Adult Immunizations up to date. - Social history:: Smoking status: Patient denies any tobacco usage or history of. Screenin:19 [facility] ED Fall Risk Assessment (Adult) History of falling in the last 3 months, kd3 including since admission No falls in past 3 months (0 pts) Confusion or Disorientation No (0 pts) Intoxicated or Sedated No (0 pts) Impaired Gait No (0 pts) Mobility Assist Device Used No (0 pt) Altered Elimination No (0 pt) Score/Fall Risk Level 0 - 2 = Low Risk Oriented to surroundings. Abuse screen: Denies threats or abuse. Denies injuries from another. Nutritional screening: No deficits noted. Tuberculosis screening: No symptoms or risk factors identified. Assessment: 15:19 General: Appears in no apparent distress. Behavior is calm, cooperative. Pain: Denies kd3 pain. Neuro: Level of Consciousness is awake, alert, obeys commands, Oriented to person, place, time, situation. Cardiovascular: Patient's skin is warm and dry. Respiratory: Airway is patent Trachea midline Respiratory effort is even, unlabored, Respiratory pattern is regular, symmetrical. 15:41 General: Pt reports feeling generalized weakness with a headache and fatigue since kd3 yesterday. Pt also states that she has been having leg cramps for a couple of weeks. Pt reports having a history of vertigo and was assisted to the restroom and back. Pt is alert and oriented x 4, respirations are even and unlabored, pt is managing her own secretions. Pt denies fever, diarrhea or N/V but endorses chest congestion. Pt placed on continuous monitoring, blood work sent to the lab, EKG performed, orthostatics performed. . 16:23 Reassessment: Patient appears in no apparent distress at this time. Patient and/or hb family updated on plan of care and expected duration. Pain level reassessed. Patient is alert, oriented x 3, equal unlabored respirations, skin warm/dry/pink. 17:19 Reassessment: Patient appears in no apparent distress at this time. Patient and/or hb family updated on plan of care and expected duration. Pain level reassessed. Patient is alert, oriented x 3, equal unlabored respirations, skin warm/dry/pink. 18:05 Reassessment: No changes from previously documented assessment. Patient and/or family mb9 updated on plan of care and expected duration. Pain level reassessed. Patient is alert, oriented x 3, equal unlabored respirations, skin warm/dry/pink. Vital Signs: 14:29 BP 127 / 78; Pulse 69; Resp 16; Temp 97.4; Pulse Ox 98% on R/A; Weight 82.1 kg; Height iw 5 ft. 3 in. ; 15:45 BP 116 / 65 Supine; Pulse 67; Resp 19; Pulse Ox 98% ; kd3 15:45 BP 136 / 73 Sitting; Pulse 71; Resp 15; Pulse Ox 98% on R/A; kd3 15:45 BP 146 / 83 Standing; Pulse 76; Resp 17; Pulse Ox 95% on R/A; kd3 16:23 BP 133 / 66; Pulse 62; Resp 14; Pulse Ox 99% on R/A; hb 17:18 BP 127 / 68; Pulse 64; Resp 17; Pulse Ox 98% on R/A; hb 18:05 BP 120 / 74; Pulse 66; Resp 18; Pulse Ox 100% on R/A; mb9 14:29 Body Mass Index 32.06 (82.10 kg, 160.02 cm) iw ED Course: 14:26 Patient arrived in ED. rg4 14:31 Triage completed. iw 14:32 Arm band placed on Patient placed. iw 14:36 Keturah Adam FNP-C is PHCP. kb 14:36 Ulices Daly MD is Attending Physician. kb 14:56 Waleska Guerrero RN is Primary Nurse. mb9 14:58 Placed in gown. Bed in low position. Call light in reach. Side rails up X 1. Client mb9 placed on continuous cardiac and pulse oximetry monitoring. NIBP monitoring applied. shuttle threader on. Pulse ox on. NIBP on. Door closed. Noise minimized. Warm blanket given. 15:19 Katlin Christensen, RN is Primary Nurse. kd3 15:21 CT Head Brain wo Cont In Process Unspecified. EDMS 15:33 No provider procedures requiring assistance completed. Inserted saline lock: 22 gauge kd3 in right antecubital area, using aseptic technique. Blood collected. 15:33 Initial lab(s) drawn, by ga, sent to lab. Urine collected: clean catch specimen, clear, kd3 EKG done, by ED staff. 15:36 Chest Single View XRAY In Process Unspecified. EDMS 15:47 Basic Metabolic Panel Sent. kd3 15:47 CBC with Diff Sent. kd3 15:47 Hepatic Function Sent. kd3 15:47 Magnesium Sent. kd3 15:47 Troponin High Sensitivity Sent. kd3 15:47 Urinalysis w/ reflexes Sent. kd3 15:59 US Abdomen Limited In Process Unspecified. EDMS 16:13 Primary Nurse role handed off by Katlin Christensen, RN mb9 16:13 Waleska Guerrero, RN is Primary Nurse. mb9 17:13 CT Abd/Pelvis - IV Contrast Only In Process Unspecified. EDMS 18:06 IV discontinued, intact, bleeding controlled, No redness/swelling at site. Pressure mb9 dressing applied. Administered Medications: 16:13 Drug: NS 0.9% IV 500 ml IV at bolus once Route: IV; Rate: bolus; Site: right mb9 antecubital; 17:00 Follow up: Response: No adverse reaction; IV Status: Completed infusion mb9 Medication: 15:20 VIS not applicable for this client. kd3 Outcome: 17:54 Discharge ordered by . kb 18:06 Discharged to home ambulatory, mb9 18:06 Condition: stable 18:06 Discharge instructions given to patient, Instructed on discharge instructions, follow up and referral plans. Demonstrated understanding of instructions, follow-up care, 18:06 Patient left the ED. mb9 Signatures: Dispatcher [employer] EDMS Keturah Adam, PLASTICS PROCESS HAND-C PLASTICS PROCESS HAND-Ckb Tequila Salcido RN RN Lupe Walls RN Siria Martinez rg4 Katlin Christensen RN RN kd3 Waleska Guerrero, RN RN mb9 Corrections: (The following items were deleted from the chart) 14:32 14:31 Allergies: OPIOID ANALGESICS; iw iw 14:33 14:29 BP 127 / 78; Pulse 69bpm; Resp 16bpm; Pulse Ox 98% RA; Temp 97.4F; iw iw
--- NOTE | 2023-11-22 17:54 | EDPHYS ---
Physician Documentation [facility] Name: Cherrie Diane Age: 73 yrs Sex: Female : 1950 Arrival Date: 11/22/2023 Time: 14:24 Bed 6 Private MD: KVNG Physician Ulices Daly HPI: 11/21 15:21 This 73 yrs old Female presents to ER via Wheelchair with complaints of Fever, kb Confusion, Headache. 15:21 Pt is a 73 year old female who presents for weakness, headache, back and abd pain. Pt kb states she has had headache and ear pressure for one week, was seen by PCP 2 days ago and given amoxicillin for bilateral ear infection. States she has had right back pain, abd discomfort, weakness since yesterday as well. . Historical: - Allergies: 14:31 Levaquin; iw 14:31 Stadol; iw 14:31 Sulfa (Sulfonamide Antibiotics); iw - PMHx: 14:31 colitis; CVA; iw 14:32 uterine cancer; iw - PSHx: 14:32 knee X 2; hysterectomy; iw - Immunization history:: Adult Immunizations up to date. - Social history:: Smoking status: Patient denies any tobacco usage or history of. ROS: 15:20 Constitutional: As per HPI kb Exam: 15:20 Constitutional: This is a well developed, well nourished patient who is awake, alert, kb and in no acute distress. Head/Face: Normocephalic, atraumatic. ENT: Moist Mucous membranes Cardiovascular: Regular rate Respiratory: Respirations even and unlabored. No increased work of breathing. Talking in full sentences Back: No spinal tenderness. No costovertebral tenderness. Full range of motion. Skin: Warm, dry with normal turgor. Normal color. MS/ Extremity: Pulses equal, no cyanosis. Neurovascular intact. Full, normal range of motion. Neuro: Awake and alert, GCS 15, oriented to person, place, time, and situation. Moves all extremities. Normal gait. 15:20 Abdomen/GI: Inspection: abdomen appears normal, Bowel sounds: normal, Palpation: soft, in all quadrants, mild abdominal tenderness, in the right upper quadrant, Vital Signs: 14:29 BP 127 / 78; Pulse 69; Resp 16; Temp 97.4; Pulse Ox 98% on R/A; Weight 82.1 kg; Height iw 5 ft. 3 in. ; 15:45 BP 116 / 65 Supine; Pulse 67; Resp 19; Pulse Ox 98% ; kd3 15:45 BP 136 / 73 Sitting; Pulse 71; Resp 15; Pulse Ox 98% on R/A; kd3 15:45 BP 146 / 83 Standing; Pulse 76; Resp 17; Pulse Ox 95% on R/A; kd3 16:23 BP 133 / 66; Pulse 62; Resp 14; Pulse Ox 99% on R/A; hb 17:18 BP 127 / 68; Pulse 64; Resp 17; Pulse Ox 98% on R/A; hb 18:05 BP 120 / 74; Pulse 66; Resp 18; Pulse Ox 100% on R/A; mb9 14:29 Body Mass Index 32.06 (82.10 kg, 160.02 cm) iw MDM: 14:36 Patient medically screened. kb 15:21 Data reviewed: vital signs, nurses notes. kb 15:21 Differential Diagnosis cholelithiasis, cholecystitis, uti, pyelonephritis, abnormal kb ekg, electrolyte abnormality. 17:52 Counseling: I had a detailed discussion with the patient and/or guardian regarding the kb historical points, exam findings, and any diagnostic results supporting the discharge/admit diagnosis, lab results, radiology results, the need for outpatient follow up, a family practitioner, to return to the emergency department if symptoms worsen or persist or if there are any questions or concerns that arise at home. ED course: Pt states she has known about the fluid collection in pelvis for about 2 years. States she followed up with a [facility]ABIL[facility]ATION [facility]STRUCTION SPECIAL[facility] [place] and they couldn't find anything. Pt has appt scheduled with REHABILITATION CONSTRUCTION SPECIALIST here in December and will take report with her. Pt has no pain or tenderness to pelvic area. 11/21 15:03 Order name: Basic Metabolic Panel; Complete Time: 16:03 kb 11/21 15:03 Order name: CBC with Diff; Complete Time: 16:09 kb 11/21 15:03 Order name: Hepatic Function; Complete Time: 16:03 kb 11/21 15:03 Order name: Magnesium; Complete Time: 16:03 kb 11/21 15:03 Order name: Protime (+inr); Complete Time: 15:50 kb 11/21 15:03 Order name: Ptt, Activated; Complete Time: 15:50 kb 11/21 15:03 Order name: Troponin High Sensitivity; Complete Time: 16:03 kb 11/21 15:03 Order name: Urinalysis w/ reflexes; Complete Time: 15:53 kb 11/21 15:03 Order name: CT Head Brain wo Cont; Complete Time: 15:29 kb 11/21 15:03 Order name: Chest Single View XRAY; Complete Time: 15:41 kb 11/21 15:03 Order name: US Abdomen Limited; Complete Time: 16:09 kb 11/21 16:55 Order name: CT Abd/Pelvis - IV Contrast Only; Complete Time: 17:30 kb 11/21 15:03 Order name: EKG; Complete Time: 15:04 kb 11/21 15:03 Order name: Cardiac monitoring; Complete Time: 15:19 kb 11/21 15:03 Order name: EKG - Nurse/Tech; Complete Time: 15:19 kb 11/21 15:03 Order name: IV Saline Lock; Complete Time: 15:47 kb 11/21 15:03 Order name: Labs collected and sent; Complete Time: 15:47 kb 11/21 15:03 Order name: NPO; Complete Time: 15:19 kb 11/21 15:03 Order name: O2 Per Protocol; Complete Time: 15:19 kb 11/21 15:03 Order name: O2 Sat Monitoring; Complete Time: 15:19 kb 11/21 15:03 Order name: Orthostatics; Complete Time: 15:47 kb Administered Medications: 16:13 Drug: NS 0.9% IV 500 ml IV at bolus once Route: IV; Rate: bolus; Site: right mb9 antecubital; 17:00 Follow up: Response: No adverse reaction; IV Status: Completed infusion mb9 Disposition Summary: 11/22/23 17:54 Discharge Ordered Notes: Location: Home kb Condition: Stable kb Diagnosis - Weakness kb Followup: kb - With: Emergency Department - When: As needed - Reason: Worsening of condition Followup: kb - With: Private Physician - When: 2 - 3 days - Reason: Recheck today's complaints, Continuance of care, Re-evaluation by your physician Discharge Instructions: - Discharge Summary Sheet kb - Weakness, [id number] kb Forms: - Medication Reconciliation Form kb - Thank You Letter kb - Antibiotic Education kb - Prescription Opioid Use kb - Patient Portal Instructions kb - Leadership Thank You Letter kb Signatures: Dispatcher [employer] Keturah Key, QUILL REAMER-C QUILL REAMER-Tequila Bran RN RN Waleska Comer RN RN mb9 Corrections: (The following items were deleted from the chart) 14:32 14:31 Allergies: OPIOID ANALGESICS; david hernandez
[2023-11-22 19:22] VITALS: BP 120/74; TEMP 97.4; O2SAT 100
--- NOTE | 2023-11-25 14:26 | EKG ---
Test Date: 2023-11-22 Test Time: 15:01:58 Journalism Professor: YONI MEASUREMENT RESULTS: Intervals: Rate: 60 TN: 148 QRSD: 86 QT: 412 QTc: 412 [place]: P: 55 TN: 148 QRS: -14 T: 50 INTERPRETIVE STATEMENTS: Normal sinus rhythm Normal ECG Compared to ECG 11/05/2018 13:55:56 No significant changes Electronically Signed On 11-25-23 14:16:23 CDT by Arnold Joya
== END ==
LOC: ER 14:24
DX: R53.1 Weakness (principal); R10.11 Right upper quadrant pain; Z86.73 Personal history of transient ischemic attack (TIA), and cerebral infarction without residual deficits; Z88.1 Allergy status to other antibiotic agents; Z88.2 Allergy status to sulfonamides; Z88.4 Allergy status to anesthetic agent
CPT/HCPCS: 93005; 85025; 81001; 80048; 36415; 83735; 85610; 80076; 85730; 84484; 70450; 74177; 71045; 76705; 96360; 99285; Q9967; J7040